=== PATIENT | male | born 1950 | race Caucasian/White ===

== ENCOUNTER 2022-09-24 05:52 | Day surgery (SDC) | payer MEDICARE, OTHER, SELFPAY ==
--- NOTE | 2022-09-16 12:38 | RAD_ITS ---
EXAM: XR CHEST, 2 VIEWS CLINICAL INDICATION: PRE OP TECHNIQUE: Frontal and lateral views of the chest. COMPARISON: No relevant prior studies available. FINDINGS: LUNGS AND PLEURAL SPACES: Unremarkable. No consolidation or edema. No pneumothorax. No effusion. HEART: Unremarkable. Cardiac silhouette not enlarged. MEDIASTINUM: Central airways and mediastinal contour are unremarkable. BONES/JOINTS: Mild thoracic spondylosis, minimal anterior ligamentous ossification at multiple levels. Mildly elevated right hemidiaphragm, most likely chronic. SOFT TISSUES: Unremarkable. RAD/Chest PA and Lateral IMPRESSION: No acute intrathoracic abnormality. Electronically Signed: So Fontana MD at 5:02 EDT ,
[2022-09-24] VITALS (8 sets, daily range): BP systolic 101–126; BP diastolic 58–72; PULSE 52–72; RESP 14–18; TEMP 35.8–36.7; O2SAT 93–98; BMI 24.6
[2022-09-24] MEDS: Lactated Ringers 1,000 ML 15 ML IV ×2 (06:29→10:15)
[2022-09-24] MEDS: Cefazolin 2 GM in 0.9% Normal Saline 100 ML IV (07:58)
[2022-09-24] MEDS: Epinephrine (1 mg/ml) 1 MG/ML VIAL (08:50)
--- NOTE | 2022-09-24 10:12 | PCM.DC ---
Discharge Instructions Follow Up Care Test Results: Test results from this visit will be discussed in further detail at your follow-up appointment, if applicable. Discharge Plan Admission Primary Reason for Your Visit: Right shoulder rotator cuff repair Attending Provider: Cash Rhodes Primary Care Provider: Cecilio Craft NP Instructions Additional Instructions / Restrictions: Follow preprinted instructions from your surgeons office. Discharge Orders/Prescriptions Prescriptions: New oxycodone 5 mg tablet 5 mg PO Q4H PRN (Reason: pain) 7 Days Qty: 42 0RF Continued latanoprost 0.005 % drops 1 drp EACH EYE DAILY Label Comments: Instill 1 drop into both eyes once a day omeprazole 40 mg capsule,delayed release(DR/EC) 40 mg PO DAILY Label Comments: TAKE 1 CAPSULE BY MOUTH DAILY valsartan 320 mg tablet 320 mg PO DAILY Label Comments: TAKE 1 TABLET BY MOUTH DAILY metoprolol succinate 25 mg tablet extended release 24 hr 25 mg PO DAILY Label Comments: TAKE 1 TABLET BY MOUTH DAILY zolpidem 10 mg tablet 10 mg PO QHS Label Comments: 08/07/22 TAKE 1 TABLET BY MOUTH AT BEDTIME timolol maleate 0.5 % drops 1 drp EACH EYE DAILY Label Comments: INSTILL 1 (ONE) DROP INTO BOTH EYES TWICE DAILY rosuvastatin 40 mg tablet 40 mg PO DAILY Label Comments: TAKE 1 TABLET BY MOUTH DAILY tadalafil 5 mg tablet 5 mg PO PRN PRN (Reason: Edema) Label Comments: TAKE 1 TABLET BY MOUTH DAILY hydrochlorothiazide 12.5 mg tablet 12.5 mg PO DAILY Label Comments: TAKE 1 TABLET BY MOUTH EVERY DAY Centrum Silver Men 300-600-300 mcg Tablet 1 tab PO DAILY aspirin 81 mg Capsule 81 mg PO DAILY Referrals / Follow Up: Cash Rhodes, [Med Staff - Active Staff] - Cecilio Craft NP, SOLDERING MACHINE OPERATOR HELPER-C [Primary Care Provider] - Disposition Disposition (needs filled in before D/C Order can be placed): Home, Self Care
--- NOTE | 2022-09-24 10:33 | PCM.OPRPT ---
Report of Operation Date of Procedure: 09/24/22 Description of Surgical Findings:: Preoperative diagnosis: 1. Right shoulder rotator cuff tear 2. Right shoulder subacromial impingement syndrome 3. Symptomatic right acromioclavicular osteoarthritis 4. SLAP tear right shoulder with biceps tendinosis and instability Postoperative diagnosis: 1. Right shoulder partial rotator cuff tear 2. Right shoulder subacromial impingement syndrome 3. Symptomatic right acromioclavicular osteoarthritis 4. SLAP tear right shoulder with biceps tendinitis and instability Procedure: 1. Diagnostic and operative right shoulder arthroscopy with conversion to open rotator cuff repair 2. Right shoulder subacromial decompression 3. Right shoulder open biceps tenodesis Primary Surgeon: Cash Rhodes DO Education Coordinator: So Ang PA-C Anesthesia: General LMA with interscalene block Anesthesiologist: Dr. Sierra Complications: None apparent Specimen: None Estimated blood loss: 50 cc IV fluids: 1000 cc crystalloid Urine output: None Packing/drains: None Implants: Arthrex 4.75 mm swivel lock anchor x3, Arthrex 2.6 mm fiber tack anchors x4 Intraoperative findings: Type II SLAP tear, biceps tendinosis, extensive right shoulder subacromial bursitis, complete, retracted subscapularis tendon tear, full-thickness anterior supraspinatus tendon tear, downsloping subacromial spur, acromioclavicular joint osteoarthritis. Preoperative indications: This is a 71-year-old male seen in the outpatient setting for right shoulder pain. MRI was obtained by an outside provider demonstrated full-thickness tear and retraction of the subscapularis as well as the anterior portion of the supraspinatus. Patient had significant weakness in both tendon distributions upon provocative testing. Patient also had symptomatic AC joint arthrosis and findings concerning for subacromial impingement syndrome. There was biceps instability noted on the MRI with tendinosis. I recommended surgical intervention in the form of right shoulder diagnostic and operative arthroscopy with rotator cuff repair, biceps tenodesis, subacromial decompression and distal clavicle excision. I explained given the large subscapularis tear, conversion to open repair may be necessary. I reviewed the risks, benefits, alternatives the procedure with the patient. Risks included but were not limited to bleeding, infection, loss of life or limb, nonhealing tendon, persistent pain, persistent weakness, stiffness, need for prolonged immobilization, prolonged therapy, DVT or PE, risk of anesthesia, neurovascular injury, need for additional surgery. Patient expressed understanding these risks and wished to proceed with surgery. Description of procedure: Patient was identified in the preoperative holding area by name, medical record number, and date of . Informed consent was confirmed with the patient. The operative extremity was marked with a surgical marker. All questions were answered to the patient's satisfaction. An interscalene block was administered prior to the procedure by the anesthesia staff. At time of his procedure, patient was was brought to the operative suite and positioned supine on a standard operating table. General anesthesia was induced and LMA placed. All bony promises were well-padded. A beachchair attachment was attached to the operating table prior to positioning. Patient was then placed in the beachchair position with arthroscopic overhead crane inspector. The butterfly wing of the bed was removed. The bed was brought 25 degrees. We then prepped and draped the operative upper extremity in a normal, sterile orthopedic fashion. We performed a timeout with all parties in attendance in agreement with the side, site, and operation be performed. No concerns were voiced and we elected to proceed. 2 g Ancef was administered prior to the incision by anesthesia staff. I first outlined the bony landmarks of the shoulder. I established a standard posterior portal with an 11 blade scalpel. Blunt tipped trocar in cannula was inserted into the glenohumeral joint. The joint was insufflated with normal saline solution with epinephrine in the first 2 bags. Trocar was removed and diagnostic arthroscopy was commenced. I established a standard interval portal anteriorly with localization via spinal needle. Skin was sharply incised with 11 blade scalpel. Diagnostic arthroscopy revealed type II SLAP tear, tendinosis of the long head of the biceps tendon. Biceps tenotomy was performed with arthroscopic wand. The biceps tendon was allowed to retract into the groove. The subscapularis was identified and noted to be completely torn in its visualized portions. There were no significant adhesions in the cuff tissue mobilized well with traction. The anterior portion of the supraspinatus was noted to be torn with minimal retraction. I then turned my attention to the subacromial space. Arthroscope was withdrawn. Blunt tipped trocar was used to gain access into the shoulder, this time in the subacromial space. I established a standard lateral portal under direct visualization with a spinal needle after the arthroscope was reintroduced in the posterior portal. The undersurface of the acromion was skeletonized with the radiofrequency ablator as well as peeling off the undersurface and attachment of the coracoacromial ligament. There was a downsloping likely type II spur off the distal portion of the acromion. This was resected utilizing the 5.5 mm bur to a flat acromion. I then identified the degenerative changes at the AC joint. A distal clavicle excision of approximately 8 mm was performed with the arthroscopic bur through the anterior portal. The superior and posterior capsular tissues were left intact. I then turned our attention back to the supraspinatus tear. Given its location, I felt this was accessible through an open approach which was beneficial for achieving maximal fixation of the subscapularis tissue. I made the decision to convert to an open rotator cuff repair at this time. I utilized the anterior portal and extended this into a standard deltopectoral approach. Skin flaps were developed down the level of the fascia. Fascia was opened. The cephalic vein and fat stripe was identified. Vein was retracted laterally with the deltoid muscle. Strap muscles were elevated. Subcoracoid bursa was debrided. Retracted subscapularis was then identified. I placed a Allis clamp and mobilized the tissue on 3 sides bluntly with my finger. Tissue was able to mobilize to less tuberosity tension free. The anterior supraspinatus tendon tear was also noted. Biceps tendon was identified. I then proceeded with double row repair of the subscapularis first. 2 fiber tack anchors were placed along the articular margin anteriorly preloaded with suture tape. Suture tape was passed in standard fashion. A double row was then established utilizing a lateral row of two 4.75 mm bio composite swivel lock anchors with knotless mechanisms. Lateral row was prepared with a bone punch. Sutures were passed through the eyelet of the anchors in a box configuration. Sutures were tensioned, and anchors set with excellent bony purchase. Utilizing the knotless mechanisms, I passed 2 separate inverted mattress sutures through the long head of the biceps tendon to achieve a biceps tenodesis. I also passed a additional limb of suture tape from the lateral row which was tied to the knotless mechanisms achieving compression at the tenodesis site. Proximal biceps stump was then excised with Bovie cautery. I then turned my attention to the supraspinatus. Cuff tissue had mobilized well with reapproximation of the subscapularis. I performed a double row repair of the supraspinatus with 2 fiber tack anchors at the medial row into a single swivel lock anchor laterally. Sutures were passed through the cuff tissue and tied medially, suture limbs were then passed through the swivel lock anchor laterally and placed in standard fashion. Excellent reapproximation of cuff tissue was noted. The shoulder was brought through range of motion and cuff tears appear to be well approximated to their footprints. I copiously irrigated the wound with normal saline. Portal sites were closed in interrupted [id number] fashion with 4-0 nylon suture. Deltopectoral incision was closed in layers with reapproximation of the fascia with a #1 Vicryl suture in a running, locking fashion. Dermis was reapproximated with 2-0 Vicryl suture in intradermal fashion. Skin was finally reapproximated with surgical kianna. Sterile compression dressing was applied. Patient was then placed in UltraSling. He was able to be safely extubated in the operative suite. He was transferred to his gurney and subsequently to PACU in stable condition. Need for skilled entry level administrative assistant: So Ang PA-C was critical to the outcome of the case. During the course of the procedure the physician entry level administrative assistant played a vital role. Her intimate knowledge of my steps in the procedure aided in safe and expedient completion of the procedure. The PA played a vital role in positioning particularly in obtaining the appropriate positioning. The PA was also vital in the retraction of soft tissues during the exposure and protecting vital structures. The PA was also vital and obtaining tendon reduction and assisting with hardware placement. She also played a vital role in closure and sling application with my direct supervision. Postoperative plan: Patient will be nonweightbearing to the operative extremity. He should maintain his sling at all times unless to shower. He may shower on postoperative day #2 if no significant drainage. He will follow up in approximately 2 weeks for suture removal. We will plan to initiate twice daily aspirin for DVT prophylaxis starting tomorrow. Prescription for oxycodone was sent to his pharmacy for postoperative analgesia.
== END 2022-09-24 13:15 | disposition home or self-care (01) ==
LOC: SDC 05:53 → AC 05:53
PROVIDERS: PCP Nurse Practitioner Family; Referring Provider Student in an Organized Health Care Education/Training Program; Visit Provider Student in an Organized Health Care Education/Training Program
PROC: (CPT 29827; principal; 2022-09-24 07:40)
DX: M19.011 Primary osteoarthritis, right shoulder (principal); M75.22 Bicipital tendinitis, left shoulder; M75.41 Impingement syndrome of right shoulder; S43.431A Superior glenoid labrum lesion of right shoulder, initial encounter; M75.122 Complete rotator cuff tear or rupture of left shoulder, not specified as traumatic; Z53.39 Other specified procedure converted to open procedure; M25.311 Other instability, right shoulder; M19.012 Primary osteoarthritis, left shoulder; M75.111 Incomplete rotator cuff tear or rupture of right shoulder, not specified as traumatic; M75.101 Unspecified rotator cuff tear or rupture of right shoulder, not specified as traumatic; S43.432A Superior glenoid labrum lesion of left shoulder, initial encounter; M75.51 Bursitis of right shoulder; I10 Essential (primary) hypertension; I25.10 Atherosclerotic heart disease of native coronary artery without angina pectoris; Z95.5 Presence of coronary angioplasty implant and graft
CPT/HCPCS: 23410; 29824; 24341; 23430; 01610; 64450; 71046; C1713; J7120; J2405

== ENCOUNTER → 2023-01-21 | Outpatient (CLI) | payer MEDICARE, OTHER, SELFPAY ==
--- NOTE | 2023-01-21 07:18 | CT_ITS ---
STUDY: CT CHEST, ABDOMEN T PELVIS WITH CONTRAST REASON FOR EXAM: Male, 72 years old. PANCREATIC MASS AND RIGHT LUNG NODULE RADIATION DOSAGE (If Supplied By Facility): CTDIvol = ( 18.71 ) mGy, DLP = ( 1644.39 ) mGycm TECHNIQUE: Transaxial imaging was performed following intravenous administration of Oral and amp; IV Readi-CAT and amp; 100mL Isovue-370. Multiplanar coronal and sagittal images were reformatted. Individualized dose optimization techniques were used for this CT. COMPARISON: No relevant priors. FINDINGS: CHEST Linear scar in the superior posterior segment of the left lung apex. There is a 1.7 cm x 1.2 cm noncalcified nodule in the peripheral lateral aspect of the right lower lobe as seen on axial image #60. Adjacent linear density extending to the left inferior hilum. A neoplastic process should be ruled out. There is no demonstrated pleural abnormality. Mild coronary artery calcification. Normal mediastinum. Normal hilar regions. Normal unenhanced pulmonary arteries. There is atherosclerotic calcification of the aortic arch. There are multi-level degenerative changes of the thoracic spine. Increased kyphosis. ABDOMEN There is decreased attenuation of the liver consistent with steatosis. There is a faint 6 mm hypodensity in the inferior aspect of the right lobe of the liver. A metastatic deposit should be ruled out. Normal gallbladder and extrahepatic biliary system. Normal spleen. There is a 3.6 x 4.2 cm hypodense mass in the tail portion of the pancreas. A neoplastic process should be ruled out. Normal bilateral adrenal glands. Normal right kidney. Small left renal cysts. There is a small hiatal hernia. Normal small intestine. Normal colon. The appendix is visualized and appears normal. There is diffuse atherosclerotic calcification of the abdominal aorta and its major visceral branches., without a demonstrated aneurysm. Normal inferior vena cava. Normal retroperitoneum. Normal abdominal wall. Status post right total hip replacement. PELVIS Normal urinary bladder. Mild prostatic hypertrophy. There is no pelvic fluid. There is no pelvic lymphadenopathy or mass lesion. Normal visualized pelvic arteries. CT/CT Chest, Abd, Pel w/Contrast IMPRESSION: 1.7 sono by 1.2 cm noncalcified irregular nodule in the peripheral lateral aspect of the right lower lobe. A metastatic deposit should be ruled out. 3.6 cm x 4.2 cm hypodense mass in the tibial portion of the pancreas. A neoplastic process should be ruled out. There is a faint 6 mm hypodensity in the inferior aspect of the right lobe of the liver. Electronically Signed: Julio Sanderson MD at 15:35 EDT ,
[2023-01-21 07:42] LABS: EGFR FINGERSTICK > 60.0000 mL/min (>60)
== END | disposition home or self-care (01) ==
LOC: CT 07:16
PROVIDERS: PCP Nurse Practitioner Family; Referring Provider Internal Medicine Hematology & Oncology; Visit Provider Internal Medicine Hematology & Oncology
DX: K86.89 Other specified diseases of pancreas (principal); R91.1 Solitary pulmonary nodule
CPT/HCPCS: 71260; 74177; Q9967

== ENCOUNTER 2023-02-15 08:47 | Outpatient (CLI) | payer MEDICARE, OTHER, SELFPAY ==
[2023-02-15] VITALS (11 sets, daily range): BP systolic 112–161; BP diastolic 45–82; PULSE 74–85; RESP 12–16; TEMP 36.4; O2SAT 95–100; BMI 32.2
--- NOTE | 2023-02-15 | ASPIGT_PTH ---
PATIENT: CLARE CALI LOC: CT U#:[id number] AGE/SX: 72/M ROOM: RE02/15/[address]: Dr. Estefany Rangel MD : 1950 BED: DIS: 02/15/2023 SPEC #: [id number] RECD: 02/15/23 10:10 STATUS: SULTANA REQ #: [id number] INDERJIT: 02/15/23 00:[address]: Estefany Rangel DEPT: SURGICAL PATHOLOGY RECD BY: Tigist Aquino ENTERED: 02/15/23 15:24 SP TYPE: ASP RAD OTHR DR: Cecilio Craft, CONE RUNNER-C Tissues: Right lower lobe of lung, NOS Procedures: FNA Specimen Adequacy Special Stain Group II Surgery Specimen Level IV Imprint (control) HEADER OPERATION: CT-guided right lung biopsy PRE-OP DIAGNOSIS: RLL lung nodule TISSUE SUBMITTED: Right lung 20-gauge x5 MICROSCOPIC DIAGNOSIS Right lung, CT-guided core biopsy: Non-small cell carcinoma, favor adenocarcinoma. See comment. SJ:rg 02/16/2023 COMMENT The specimen is evaluated at the time of biopsy by Dr. Nelson. Immediate Evaluation = Atypical cells suspicious for non-small cell carcinoma are noted. Immunohistochemistry ([id number]) supports the above diagnosis. IHC profile is noncontributory for primary site of origin. Primary sites of origin may represent but not limited to lung, upper gastrointestinal tract or pancreas. Correlation with clinical, radiologic findings and appropriate follow up are necessary. Molecular studies on the tumor can be performed if clinically indicated. Please notify the laboratory if they are needed. Case has been reviewed in consultation with Dr. Russell who concurs with the above diagnosis. IDC:AM MICROSCOPIC DESCRIPTION Slides are reviewed. GROSS DESCRIPTION Received in fixative is one container labeled with the patient's name and designated right lung. The specimen consists of multiple irregular fragments of light cabrera soft tissue that in aggregate measure 0.5 x 0.2 x <0.1 cm. The specimen is totally submitted in one cassette. Two touch imprints are prepared at the time of core biopsy. / SJ:rg 02/15/2023 TC:0 [facility]: [id number] ADDENDUM ADDENDUM ADDENDUM ADDENDUM ADDENDUM ADDENDUM ADDENDUM ADDENDUM ADDENDUM ADDENDUM ADDENDUM ADDENDUM ADDENDUM ADDENDUM ADDENDUM ADDENDUM ADDENDUM ADDENDUM ADDENDUM ADDENDUM ADDENDUM ADDENDUM ADDENDUM ADDENDUM ADDENDUM 03/19/2023 10:25 ADDENDUM 03/19/2023 10:25 ADDENDUM 03/19/2023 10:25 ADDENDUM 03/19/2023 10:25 ADDENDUM 03/19/2023 10:25 [facility] ADVANCED PANCREATIC AND BILIARY TRACT TUMOR SEQUENCING FROM [employer] RESULT SUMMARY: Abnormal DETECTED GENOMIC ALTERATIONS: Tier I: Variants of Strong Clinical Significance KRAS p.([id number]) Tier II: Variants of Potential Clinical Significance TGFBR2 p.([id number]) Tier III: Variants of Unknown Clinical Significance ARID1A p.([id number]) BRCA2 p.([id number]) IMMUNOTHERAPY BIOMARKERS: Tumor Mutation [place]: Low (4.7 Mutations / MB) Microsatellite Instability: MSI Negative (2.46%) PERTINENT NEGATIVE RESULTS: The following genes are NEGATIVE for clinically relevant mutations. Mutational hotspots and surrounding exonic regions were interrogated for DNA level point mutations and indels (fusions not assayed). BRAF, BRCA1, CCNE1, ERBB2, FGFR1, FGFR2, FGFR3, IDH1, IDH2, MLH1, MSH2, MSH6, NRAS, PALB2, [id number], PMS2, STK11, TP53, VHL Please see complete report in e-chart or EMR
--- NOTE | 2023-02-15 | IMM_PTH ---
PATIENT: CLARE CALI LOC: CT U#:[id number] AGE/SX: 72/M ROOM: RE02/15/[address]: Dr. Estefany Rangel MD : 1950 BED: DIS: 02/15/2023 SPEC #: [id number] RECD: 02/16/23 13:25 STATUS: SULTANA REQ #: [id number] INDERJIT: 02/15/23 00:[address]: Estefany Rangel DEPT: IMMUNOHISTOCHEMISTRY RECD BY: Tigist Aquino ENTERED: 02/16/23 13:27 SP TYPE: IMMUNO OTHR DR: Cecilio Craft, ARSON AND BOMB INVESTIGATOR-C Tissues: Right lung, NOS Procedures: RCC (add) NAPSIN A (add) CK20 (add) CK5-6 (add) CK7 (add) CK8 (add) HEP PAR (add) TTF1 (add) Pankeratin (initial) P40 (add) PSAP (add) PHYSICIAN & [address] [address] SPECIMEN INFORMATION: Tissue Source: Right lung Clinical Info: RLL lung nodule Specimen Number: [id number] CPT code: 57685, 23493 x10 METHODOLOGY: Deparaffinized sections of prefer/formalin-fixed tissue or PAP/DQ stained slides are incubated with monoclonal/polyclonal antibodies/oligonucleotide probes. Localization is made via biotin free immunoperoxidase method. Appropriate controls are performed and reacted as expected. Results on target cell population are indicated in the following table: RESULTS: ANTIBODY / CLONE RESULT AE1-3 (AE1/AE3/PCK26) positive CK7 (OV-TL12/30) positive CK8 (11gmapH96) positive CK20 (KS20.8) negative TTF-1 (8G7G3/1) negative Napsin A (Rabbit Polyclonal) negative HepPar (OCh1E5) negative RCC (PN-15) negative PSAP (PASE/4LJ) negative CK5-6 (D5 & 1684) negative P40 (BC28) negative These tests were developed and their performance characteristics determined by [facility]. They may not have been cleared or approved by the U.S. Food and Drug Administration. The FDA has determined that such clearance or approval is not necessary. The above immunohistochemical/dualISH markers are ordered and reviewed by the Pathologist. INTERPRETATION: Right lung, CT-guided biopsy: Non-small cell carcinoma, favor adenocarcinoma. See comment. SJ:bert 02/17/2023 Comment: IHC profile is noncontributory for primary site of origin. Primary sites of origin may represent but not limited to lung, upper gastrointestinal tract or pancreas. Case has been reviewed in consultation with Dr. Russell who concurs with the above diagnosis. IDC:[email or web address]
--- NOTE | 2023-02-15 08:57 | CT_ITS ---
PROCEDURE: CT GUIDED CORE NEEDLE BIOPSY OF A right lower lobe LUNG LESION INDICATION: Male, 72 years old. RLL NODULE PHYSICIAN: Dr. Kin Pascal CONSENT: Written informed consent was obtained having explained the risks, benefits and alternatives in detail with the patient who accepted the risks and agreed to proceed. Laboratory review and clinical assessment was performed. CONSCIOUS SEDATION PROTOCOL: The Drugs used were: 2 mg Versed, IV., and 50 mcg Fentanyl, IV. The sedation time was: 15 minutes. The conscious sedation protocol was independently monitored. RADIATION DOSAGE (If Supplied By Facility): CTDIvol = ( 17.3 ) mGy, DLP = ( 352.8 ) mGycm Individualized dose optimization techniques were used for this CT. TECHNIQUE: The patient was placed in the prone position. A noncontrast CT was performed to localize the lesion in the right lower lobe . The skin surface was prepped and draped in a sterile fashion. 1% lidocaine was used for local anesthesia. Using CT guidance, a 18-gauge coaxial biopsy device was advanced to the periphery of the lesion. A total of 5 core specimens were obtained. The specimens were placed in a formalin solution. A post procedure CT demonstrated no adverse sequelae or pneumothorax. The patient tolerated the procedure well without adverse event. A negative biopsy does not exclude malignancy. Further imaging or clinical followup based on patient condition and degree of clinical suspicion for malignancy. Suggest rebiopsy, if biopsy results do not match with clinical scenario. CT/Biopsy/Inj or Needle Placement IMPRESSION: 1. CT directed core needle biopsy of the right lower lobe nodule using CT image guidance with image documentation as described. Pathology results are pending. 2. Conscious Sedation protocol utilized with independent monitoring. Electronically Signed: Julio Sanderson MD at 10:44 EDT ,
[2023-02-15 09:13] LABS: Absolute Lymphocyte Count 1.87 X10^3/uL (0.83-4.51); Absolute Neutrophil Count 4.3 X10^3/uL (2.0-7.7); Basophil# 0.06 X10^3/uL; Basophil% 0.8 % (0-1); Eosinophil# 0.17 X10^3/uL; Eosinophils% 2.4 % (0-5); Hematocrit 41.6 % (40-54); Hemoglobin 13.6 g/dL (13.0-16.5); Lymphocyte # 1.87 X10^3/ul (0.83-4.51); Lymphocyte % 26.2 % (19-41); Mean Corp Hgb Conc 32.7 g/dL (32-36); Mean Corpuscular Hgb 31.6 pg (27.0-32.0); Mean Corpuscular Volume 96.5 fL (80-94); Mean Platelet Vol. 11.8 fl (6.2-12.0); Monocyte# 0.72 X10^3/uL; Monocyte% 10.1 % (0-10); NRBC Flagged by Analyzer 0 % (0-5); Neutrophil # 4.29 X10^3/uL (2.7-7.7); Neutrophil % 60.1 % (47-70); Platelet Count 205 K/mm3 (150-450); RBC Distribution Width CV 13.3 % (11.6-14.6); RBC Distribution Width SD 47.4 fl (35.1-43.9); Red Blood Count 4.31 M/mm3 (4.6-6.2); White Blood Count 7.1 K/mm3 (4.4-11.0)
[2023-02-15] MEDS: 0.9% Normal Saline (250mL Bag) 250 ML 15 ML IV (10:06)
[2023-02-15] MEDS: Midazolam 2 MG/2 ML Syringe IV (10:10)
[2023-02-15] MEDS: fentaNYL 100 MCG/2 ML Ampul IV (10:12)
[2023-02-15] MEDS: Lidocaine 2% (20 ml mdv) 20 ML Vial INFILT (10:18)
--- NOTE | 2023-02-15 10:30 | RAD_ITS ---
STUDY: X-RAY CHEST REASON FOR EXAM: Male, 72 years old. Immediate post lung biopsy -- Immediately post lung biopsy TECHNIQUE: AP inspiration and expiration views. COMPARISON: Comparison is made with prior study of September 16, 2022. FINDINGS: Stable elevation of the right hemidiaphragm. No evidence of pneumothorax on the immediate post right lung biopsy radiographs. RAD/Chest Insp/Exp 2 View IMPRESSION: No evidence of pneumothorax on the immediate post right lung biopsy radiographs. Electronically Signed: Julio Sanderson MD at 11:10 EDT ,
--- NOTE | 2023-02-15 10:37 | PCM.OP.PRO ---
Procedure Report Date of Procedure: 02/15/23 Assessment & Plan Assessment/Plan (1) Lung nodule: PLAN: PROCEDURE: CT GUIDED CORE NEEDLE LUNG BIOPSY ORDERING PROVIDER: Dr. Rangel INDICATION: Male, 72 years old. Right lower lobe lung nodule. PROVIDER: MARCIA Ramírez CONSENT: Written informed consent was obtained having explained the risks, benefits and alternatives in detail with the patient who accepted the risks and agreed to proceed. Laboratory review and clinical assessment was performed. PRE-PROCEDURE SEDATION ASSESSMENT: Current history and physical dictated by referring physician and reviewed. No clinical changes since date of exam. Patient has an ASA Class of 2. PROCEDURAL SEDATION PROTOCOL: The Drugs used were: 2 mg Versed, IV, and 50 mcg Fentanyl, IV. The sedation time was: 18 minutes, starting at 1010 and terminated at 1028. The procedural sedation protocol was independently monitored by the department nurse. RADIATION DOSAGE (If Supplied By Facility): CTDIvol = 18.16 mGy, DLP =352.80 mGycm Individualized dose optimization techniques were used for this CT. TECHNIQUE: The patient was placed in a prone position. A noncontrast CT was performed to localize the lesion in the right lower lobe. The skin surface was prepped and draped in a sterile fashion. 2% lidocaine was used for local anesthesia. Using CT guidance, a 20-gauge coaxial biopsy device was advanced to the periphery of the lesion. A total of 5 core specimens were obtained. Specimens were microscopically reviewed by pathology in the CT suite and placed in formalin solution. BioSentry tract sealant system was deployed at the biopsy site, and the biopsy needle was removed. A sterile occlusive dressing was applied to the biopsy site. The patient tolerated the procedure well. An immediate chest xray was ordered, per protocol. A negative biopsy does not exclude malignancy. Further imaging or clinical followup based on patient condition and degree of clinical suspicion for malignancy. Suggest rebiopsy, if biopsy results do not match with clinical scenario. IMPRESSION: 1. CT directed core needle biopsy of [ ] nodule using CT image guidance with image documentation as described. Pathology results are pending. 2. Procedural Sedation protocol utilized with independent monitoring by the department nurse. Procedures Radiology Radiology CT Procedures: 28135 Biopsy Lung
--- NOTE | 2023-02-15 12:25 | RAD_ITS ---
STUDY: X-RAY CHEST REASON FOR EXAM: Male, 72 years old. 2 hrs post lung biopsy -- 2 hours post lung biopsy TECHNIQUE: AP inspiration and expiration views. COMPARISON: Comparison is made with prior study done earlier today. FINDINGS: The patient is status post right lung biopsy. No evidence of pneumothorax. RAD/Chest Insp/Exp 2 View IMPRESSION: No evidence of pneumothorax on the delayed post right lung biopsy radiographs. Electronically Signed: Julio Sanderson MD at 14:57 EDT ,
== END 2023-02-15 23:59 | disposition home or self-care (01) ==
PROVIDERS: PCP Nurse Practitioner Family; Referring Provider Internal Medicine Hematology & Oncology; Visit Provider Internal Medicine Hematology & Oncology
DX: Z01.812 Encounter for preprocedural laboratory examination (principal); R91.1 Solitary pulmonary nodule
CPT/HCPCS: 32408; 36415; 71046; 77012; 85025; 85610; 85730; 88161; 88172; 88305; 88313; 88341; 88342; 99156; J7050; A4216; C2613

== ENCOUNTER → 2023-02-25 | Outpatient (CLI) | payer MEDICARE, OTHER, SELFPAY ==
--- NOTE | 2023-02-25 09:21 | NM_ITS ---
CLINICAL: 72-year-old male with history of pancreatic carcinoma. WHOLE BODY 99m Tc MDP RADIONUCLIDE BONE SCINTIGRAPHY COMPARISON: None available FINDINGS: Following the intravenous administration of 25.2 mCi of 99m Tc MDP, whole body bone images reveal: 1. Increased radiopharmaceutical concentration is identified in the right proximal humeral metaphysis and distal left femoral metaphysis medially. 2. Enhanced uptake is noted in the acromioclavicular and sternoclavicular compartments of both shoulders, mid cervical spine posteriorly on the left, fifth lumbar vertebra posteriorly on the right, the wrist articulations bilaterally. 3. The remaining skeletal structures are scintigraphically unremarkable with normal-appearing renal images and urinary bladder activity identified. An apparent asymptomatic right hip arthroplasty is defined which may reflect the presence of heterotropic bone formation. NM/Bone Scan Whole Body IMPRESSION: 1. The increase in radiopharmaceutical concentration defined in the right proximal humeral and distal left femoral metaphysis may be further investigated with plain film radiography in setting of known primary pancreatic carcinoma. 2. Degenerative arthritis is defined in the bilateral shoulders, the cervical and lumbar spine, the bilateral wrist articulations. Electronically Signed: Cecilio Ulloa DO at 22:07 EDT ,
== END | disposition home or self-care (01) ==
LOC: NM 09:21
PROVIDERS: PCP Nurse Practitioner Family; Referring Provider Internal Medicine Hematology & Oncology; Visit Provider Internal Medicine Hematology & Oncology
DX: C25.9 Malignant neoplasm of pancreas, unspecified (principal)
CPT/HCPCS: 78306; A9503

== ENCOUNTER 2023-03-08 08:01 | Day surgery (SDC) | payer MEDICARE, OTHER, SELFPAY ==
[2023-03-08] VITALS (7 sets, daily range): BP systolic 116–127; BP diastolic 67–74; PULSE 83–93; RESP 16–18; TEMP 36.2–36.9; O2SAT 93–100; BMI 24.2
--- NOTE | 2023-03-08 08:32 | HP.PCM_ITS ---
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 Required: No Is patient in pain?: No Allergies Sulfa (Sulfonamide Antibiotics) Allergy (Unknown, Verified 02/25/23 14:08) Hivescodeine Adverse Reaction (Unknown, Verified 02/25/23 14:08) Nauseaamoxicillin Adverse Reaction (Verified 02/25/23 14:08) Nausea Medications aspirin 81 mg capsule 81 mg PO DAILY 09/16/22 [History Confirmed 02/25/23] hydrochlorothiazide 12.5 mg tablet 12.5 mg PO DAILY 09/16/22 [History Confirmed 02/25/23] latanoprost 0.005 % eye drops 1 drp EACH EYE DAILY 09/16/22 [History Confirmed 02/25/23] metoprolol succinate 25 mg tablet,extended release 24 hr 25 mg PO DAILY 09/16/22 [History Confirmed 02/25/23] [id number] 300 mcg-K 60 mcg-lycop 600 mcg-lutein 300 mcg tablet (Centrum Silver Men) 1 tab PO DAILY 09/16/22 [History Confirmed 02/25/23] omeprazole 40 mg capsule,delayed release 40 mg PO DAILY 09/16/22 [History Confirmed 02/25/23] rosuvastatin 40 mg tablet 40 mg PO DAILY 09/16/22 [History Confirmed 02/25/23] tadalafil 5 mg tablet 5 mg PO PRN PRN Edema 09/16/22 [History Confirmed 02/25/23] timolol maleate 0.5 % eye drops 1 drp EACH EYE DAILY 09/16/22 [History Confirmed 02/25/23] valsartan 320 mg tablet 320 mg PO DAILY 09/16/22 [History Confirmed 02/25/23] zolpidem 10 mg tablet 10 mg PO QHS 09/16/22 [History Confirmed 02/25/23] scopolamine base 1 mg over 3 days transdermal patch 1 patch transdermal Q3D PRN motion sickness 01/19/23 [History Confirmed 02/25/23] PFSH Medical History Alcohol use Anemia BPH (benign prostatic hyperplasia) CAD (coronary artery disease) Cardiology follow-up encounter Chronic constipation Decreased ROM of right shoulder Elevated liver enzymes Erectile dysfunction Gastric reflux High cholesterol History of echocardiogram History of stress test Holosystolic murmur Hypertension IBS (irritable bowel syndrome) Impaired fasting glucose Insomnia Lung nodule Motion sickness Pancreatic mass Rotator cuff tear Wears dentures Wears glasses Wears partial dentures Surgical History H/O repair of right rotator cuff History of cardiac catheterization History of colonoscopy History of coronary artery stent placement History of knee replacement Hx of bilateral cataract extraction Hx of total hip arthroplasty Postsurgical percutaneous transluminal coronary angioplasty (PTCA) status Family History Sister Breast cancerMother CancerFather Cancer Social History household members: spouse and children Smoking Status: Never smoker alcohol intake: current alcohol intake frequency: a few times a week Alcohol type: beer substance use type: does not use HPI HPI HPI: Patient is a 72-year-old male here to discuss right chest port placement for pancreatic cancer. The patient does not have any new symptoms or new issues. ROS General General: No weight change, appetite, fatigue, colon cancer, breast cancer or weakness HEENT HEENT: No difficulty swallowing, eye injury, eye surgery, swollen glands or hoarseness Endo Endocrine: No thyroid disease, diabetes mellitus, thyroid cancer, Hair loss, heat intolerance or cold intolerance Skin Skin: No rash or changing moles Breast Breast: No left breast lump, right breast lump, nipple discharge, breast pain, abnormal mammogram, abnormal US or breast enlargement Musc Musculoskeletal: No back problems, arthritis, rheumatoid arthritis, gout or joint pain Cardio Cardiovascular: Yes high blood pressure and heart stent; No murmur, pacemaker, heart disease, atrial fibrillation, heart attack, palpitations, shortness of breat with exertion or chest pain Psych Psychiatric: No depression, anxiety or hearing voices Resp Respiratory: No shortness of breath, No sleep apnea, No cough, No COPD, No asthma, No emphysema and No wheezing Gastro Gastrointestinal: Yes abdominal pain, No nausea or vomiting, Yes diarrhea, Yes constipation, No blood in stool, No acid reflux, No hemorrhoids, No ulcers, No gallbladder problem and No black,tarry stools Adam Hematologic: Yes blood thinners, No blood disorders, No bleeding, No anemia and No blood clots Neuro Neurologic: No system reviewed and no additional complaints, except as documented, No as per HPI, No abnormal gait, No abnormal hearing, No abnormal movements, No abnormal speech, No behavioral changes, No burning sensations, No confusion, No convulsions, No disequilibrium, No dizziness, No localized weakness, No frequent falls, No headache(s), No lack of coordination, No loss of vision, No memory loss, No numbness, No other visual disturbances, No radicular pain, No restless legs, No sensory deficit, No syncope, No tingling, No tremor (s), No weakness and No other Exam Const General: cooperative Orientation: alert and oriented x3 [facility] Head: normal to inspection Neck Neck: normal visual inspection and full ROM Chest Chest palpation & inspection: normal inspection of the chest Resp Effort & Inspection: normal respiratory effort Auscultation: clear to auscultation bilaterally Cardio Rate: regular rate Rhythm: regular rhythm GI Inspection: non-distended Palpation: soft and nontender Skin General: no rashes or lesions noted Neuro General: patient alert and patient oriented x3 Extrem General: full ROM Psych Appearance: grossly normal Mental Status: mental status grossly normal Assessment and Plan Assessment and Plan (1) Pancreatic mass: Status: Acute (2) Encounter for insertion of venous access port: Status: Acute Plan I discussed right chest port placement with the patient in detail. I discussed the risks including but not limited to bleeding, infection, injury to other organs, pneumothorax, line infection or DVT. Patient understands the risks and is willing to proceed. He will hold his aspirin for 5 days prior to the procedure. I believe I can get him situated to have his port placed the day bef ore treatment and I will leave the port accessed. . Mark Rodney MD Pager: [facility] [address] [place] [address], [address] [place] [address] Office: I have examined the patient and the H&P has been reviewed. There are no clinical changes since date of exam.
[2023-03-08] MEDS: Lactated Ringers 1,000 ML 15 ML IV (08:33)
[2023-03-08] MEDS: Cefazolin 2 GM in 0.9% Normal Saline (100mL Bag) 100 ML IV (09:12)
[2023-03-08] MEDS: Lidocaine 1% /Epi 1:100 (50ml) 50 ML VIAL (09:25)
[2023-03-08] MEDS: Bupivacaine Mpf 0.5% 30 ML VIAL (09:25)
--- NOTE | 2023-03-08 09:45 | RAD_ITS ---
STUDY: X-RAY CHEST REASON FOR EXAM: Male, 72 years old. Line placement -- in pacu TECHNIQUE: Single AP portable view of the chest. COMPARISON: Comparison is made with prior study February 15, 2023. FINDINGS: A right-sided suzan catheter has been placed. The tip is at the junction of the superior vena cava and right atrium. Increased markings at the right lung base suggestive of atelectasis and/or infiltrate. There is no demonstrated pleural abnormality. Normal size heart. Normal mediastinum and sheldon. Normal visualized pulmonary arteries. Normal visualized aortic arch and descending thoracic aorta. There are diffuse degenerative changes of the visualized thoracic spine. Normal visualized ribs, clavicles, and shoulders. There is no demonstrated abnormality of the visualized soft tissue structures of the upper abdomen. RAD/CXR for Line Placement IMPRESSION: The tip of the right suzan catheter is at the junction of the superior vena cava and right atrium. Electronically Signed: Julio Sanderson MD at 9:58 EST ,
--- NOTE | 2023-03-08 09:45 | OP.PCM_ITS ---
Report of Operation Date of Procedure: 03/08/23 Pre-Operative Diagnosis: Pancreatic cancer, need for vascular access for chemot herapy Post-Operative Diagnosis: Same Surgery/Procedure Performed:: Ultrasound and fluoroscopy guided right chest port placement utilizing right IJ Type of Anesthesia: Local MAC Estimated Blood Loss (mL): 5 Description of Procedure: After obtaining informed consent patient was brought back to the operating room MAC anesthesia was induced and the right chest and neck were prepped in normal sterile fashion. Ultrasound was used to evaluate both IJs and the right IJ was selected. Next, using a needle, the right IJ was accessed and a guidewire was passed on into the superior vena cava under fluoroscopy guidance. A small incision was made over the puncture site and the dilator introducer was placed over the guidewire. Next this was capped and the pocket was made for the port. 1% lidocaine with epinephrine was injected in the proposed port site. An incision was made with scalpel. Electrocautery was used to make a pocket under the skin and subcutaneous tissue. Hemostasis was obtained. Next, the catheter was tunneled up to the neck incision site and placed through the introducer. The peel-away introducer was removed and the position of the catheter was confirmed on fluoroscopy. Next, the catheter was trimmed and attached to the port with the locking device. Interrupted 2-0 Vicryl sutures were used to anchor the port to the chest wall and then the port was placed inside the pocket. The pocket was then flushed with saline and the port irrigated with saline. There was good blood return and the port flushed easily. Next, heparin was injected into the port. The skin was closed with subcutaneous interrupted 3-0 Vicryl sutures. A single 3-0 Vicryl sutures placed under the skin at the neck incision site. Steri-Strips were placed as well as op sites. Patient tolerated procedure well, was taken to PACU in stable condition. Chest x-ray will be obtained. Grafts/Implants Used: 8 Greek PowerPort Admit VTE Documentation VTE Mechan Device Prophylaxis: SCD's
--- NOTE | 2023-03-08 09:48 | EX.PCM.DISCH ---
Discharge Instructions Procedure Port-A-Cath Diet Discharge Diet: Light diet - advance as tolerated (Pain medication may cause nausea. You should typically eat light foods as you take your pain medication.) Activity Discharge Activity: Return to Normal Activity and May Shower (with your bandage in place in 1-2 days after surgery. DO NOT SHOWER WHEN YOUR PORT IS ACCESSED.) Dressing / Incision Call your doctor if your incision/area has: Continuous Slow Oozing, Sudden Increased Bleeding, Increased Pain/ Swelling, Increased Redness and Foul Smelling Discharge Call your doctor if you observe: Fever of 101 or Higher Remove Dressing in: 2 days Cleanse incision/area with: Soap & Water Follow Up Care Please Follow Up With: Mark Rodney MD When: as needed [phone] Test Results: Test results from this visit will be discussed in further detail at your follow-up appointment, if applicable. Discharge Plan Admission Attending Provider: Mark Rodney Primary Care Provider: Cecilio Craft GLASS LAMINATING OPERATOR Instructions Additional Instructions / Restrictions: Alternate ibuprofen and Tylenol for pain control. Resume aspirin tomorrow Discharge Orders/Prescriptions Prescriptions: No Action scopolamine base 1 mg over 3 days patch 3 day 1 patch transdermal Q3D PRN (Reason: motion sickness) latanoprost 0.005 % drops 1 drp EACH EYE DAILY Patient Comments: Instill 1 drop into both eyes once a day omeprazole 40 mg capsule,delayed release(DR/EC) 40 mg PO DAILY Patient Comments: TAKE 1 CAPSULE BY MOUTH DAILY valsartan 320 mg tablet 320 mg PO DAILY Patient Comments: TAKE 1 TABLET BY MOUTH DAILY metoprolol succinate 25 mg tablet extended release 24 hr 25 mg PO DAILY Patient Comments: TAKE 1 TABLET BY MOUTH DAILY zolpidem 10 mg tablet 10 mg PO QHS Patient Comments: 08/07/22 TAKE 1 TABLET BY MOUTH AT BEDTIME timolol maleate 0.5 % drops 1 drp EACH EYE DAILY Patient Comments: INSTILL 1 (ONE) DROP INTO BOTH EYES TWICE DAILY rosuvastatin 40 mg tablet 40 mg PO DAILY Patient Comments: TAKE 1 TABLET BY MOUTH DAILY tadalafil 5 mg tablet 5 mg PO PRN PRN (Reason: Edema) Patient Comments: TAKE 1 TABLET BY MOUTH DAILY hydrochlorothiazide 12.5 mg tablet 12.5 mg PO DAILY Patient Comments: TAKE 1 TABLET BY MOUTH EVERY DAY Centrum Silver Men 300-600-300 mcg Tablet 1 tab PO DAILY aspirin 81 mg Capsule 81 mg PO DAILY Referrals / Follow Up: Cecilio Craft GLASS LAMINATING OPERATOR, GLASS LAMINATING OPERATOR-C [Primary Care Provider] - Disposition Disposition (needs filled in before D/C Order can be placed): Home, Self Care
== END 2023-03-08 10:39 | disposition home or self-care (01) ==
LOC: SDC 08:02 → AC 08:03
PROVIDERS: PCP Nurse Practitioner Family; Referring Provider Surgery; Visit Provider Surgery
PROC: (CPT 36561; principal; 2023-03-08 09:10)
DX: Z45.2 Encounter for adjustment and management of vascular access device (principal); C25.9 Malignant neoplasm of pancreas, unspecified; Z79.899 Other long term (current) drug therapy; Z79.82 Long term (current) use of aspirin; N40.0 Benign prostatic hyperplasia without lower urinary tract symptoms; K21.9 Gastro-esophageal reflux disease without esophagitis; E78.00 Pure hypercholesterolemia, unspecified
CPT/HCPCS: 36561; 00532; 71045; 77001; J7120; C1788

== ENCOUNTER → 2023-03-09 | Outpatient (CLI) | payer MEDICARE, OTHER, SELFPAY ==
--- NOTE | 2023-03-09 09:17 | RAD_ITS ---
INDICATION: ABNORMAL BONE SCAN EXAMINATION/TECHNIQUE: X-RAY - RIGHT XR Humerus Min 2 Views COMPARISON: None. FINDINGS: SOFT TISSUES: Unremarkable. BONES/JOINTS: No fracture or dislocation. No significant degenerative changes. No erosive or sclerotic changes. RAD/Humerus min 2 Views IMPRESSION: Unremarkable views of the right humerus. Specifically, no radiographic abnormality in the proximal right humeral metaphysis. Recommend follow-up with MRI. Electronically Signed: Laci Black DO at 5:43 EST ,
--- NOTE | 2023-03-09 09:20 | RAD_ITS ---
INDICATION: ABNORMAL BONE SCAN EXAMINATION/TECHNIQUE: X-RAY - LEFT XR Femur Min 2 Views COMPARISON: None. FINDINGS: SOFT TISSUES: Unremarkable. BONES/JOINTS: No fracture or dislocation. No significant degenerative changes. No erosive changes an no focal sclerotic change. RAD/Femur Min 2 Views IMPRESSION: Unremarkable views of the left femur. Specifically no radiographic abnormality of the distal femoral metaphysis. Consider follow-up with MRI. Electronically Signed: Laci Black DO at 5:42 EST ,
== END | disposition home or self-care (01) ==
LOC: RAD 09:16
PROVIDERS: PCP Nurse Practitioner Family; Referring Provider Internal Medicine Hematology & Oncology; Visit Provider Internal Medicine Hematology & Oncology
DX: R93.89 Abnormal findings on diagnostic imaging of other specified body structures (principal); C78.7 Secondary malignant neoplasm of liver and intrahepatic bile duct; C78.00 Secondary malignant neoplasm of unspecified lung; C25.9 Malignant neoplasm of pancreas, unspecified
CPT/HCPCS: 73060; 73552

== ENCOUNTER → 2023-03-17 | Outpatient (CLI) | payer MEDICARE, OTHER, SELFPAY ==
--- NOTE | 2023-03-17 11:43 | CT_ITS ---
EXAM: CT ANGIOGRAPHY CHEST WITHOUT AND WITH INTRAVENOUS CONTRAST CLINICAL INDICATION: Acute SOB and cough. Rule out PE. Pancreatic carcinoma. TECHNIQUE: Helically acquired angiography images were obtained of the chest without and with intravenous contrast. This CT exam was performed using one or more of the following dose reduction techniques: automated exposure control, adjustment of the mA and/or kV according to patient size, and/or use of iterative reconstruction technique. MIP reconstructed images were created and reviewed. CONTRAST: IV 100mL Isovue-370 RADIATION DOSE: CTDIvol = 7.67 mGy, DLP = 346.42 mGy-cm COMPARISON: CT chest with contrast 01/21/2023. FINDINGS: PULMONARY ARTERIES: Unremarkable. Normal in caliber. No evidence of pulmonary embolism. Normal pulmonary arteries. AORTA: Minimal plaques in the descending thoracic aorta. No thoracic aortic aneurysm or dissection. GREAT VESSELS OF AORTIC ARCH: Unremarkable. Normal in caliber. No evidence of dissection. LUNGS AND PLEURAL SPACES: Partial atelectasis with air bronchograms in the right lower lobe causing traction of the major fissure. Solid nodes in the right anterior paratracheal space and anterior carinal space. Some nodes may have central cystic necrosis and are worrisome for alejandrina metastases. No pleural effusion or thickening. HEART: Unremarkable. Heart size is normal. No pericardial effusion. No significant coronary artery calcifications. MEDIASTINUM: Unremarkable. No mediastinal or hilar adenopathy. Esophagus is unremarkable. No hiatal hernia. THYROID: Unremarkable. No thyroid lesions. BONES/JOINTS: Unremarkable. No suspicious lytic or blastic abnormality. CT/CTA Chest W/WO Contrast IMPRESSION: 1. No CTA evidence of pulmonary thromboemboli, thoracic aortic aneurysm or dissection. 2. Partial atelectasis in the right lower lobe with air bronchograms. This is a new finding since CT-guided right lung mass biopsy. 3. Some solid nodes in the right anterior paratracheal space and anterior carinal space. At least 2 of the nodes may have central cystic necrosis and are worrisome for alejandrina metastases. These nodes were obscured by dense contrast in the superior vena cava on the prior CT chest. Whole body PET/CT fusion scan will be very helpful for further evaluation. 4. No other additional findings or changes when compared to 01/21/2023. Electronically Signed: Pascual Augustin MD at 12:47 EST ,
[2023-03-17] MEDS: 0.9% Saline Lock 10 ML Syringe IV (12:00)
== END | disposition home or self-care (01) ==
LOC: CT 11:42
PROVIDERS: PCP Nurse Practitioner Family; Referring Provider Nurse Practitioner Family; Visit Provider Nurse Practitioner Family
DX: R06.00 Dyspnea, unspecified (principal); C25.9 Malignant neoplasm of pancreas, unspecified; R05.9 Cough, unspecified
CPT/HCPCS: 71275; Q9967; A4216

== ENCOUNTER 2023-05-10 15:34 | Observation (INO) | payer MEDICARE, OTHER, SELFPAY ==
[2023-05-10] VITALS (9 sets, daily range): BP systolic 124–136; BP diastolic 65–80; PULSE 108–124; RESP 16–18; TEMP 36.3–36.9; O2SAT 98–100; BMI 23.1
--- NOTE | 2023-05-10 16:11 | EKG12_ITS ---
Test Reason : CP Blood Pressure : / mmHG Vent. Rate : 116 BPM Atrial Rate : 116 BPM P-R Int : 144 ms QRS Dur : 074 ms QT Int : 324 ms P-R-T Axes : 027 060 030 degrees QTc Int : 450 ms Sinus tachycardia with Premature atrial complexes Otherwise normal ECG Confirmed by MICHELLE MCBRIDE, NEEMA ([id number]), editor newspaper [employer]I GOMEZ ([id number]) on 05/12/2023 9:17:53 AM Referred By: CHRIS/HARRIET Confirmed By:NEEMA MARTINEZ MD
--- NOTE | 2023-05-10 16:12 | RAD_ITS ---
STUDY: X-RAY CHEST REASON FOR EXAM: Male, 72 years old. dyspnea TECHNIQUE: Single AP portable view of the chest. COMPARISON: 02/15/2023. FINDINGS: There is a right-sided chest port with the tip in the distal SVC/right atrial junction. There is minimal right basilar atelectasis, otherwise lung oneal are clear. There is no demonstrated pleural abnormality. Normal size heart. Normal mediastinum and sheldon. Normal visualized pulmonary arteries. Normal visualized aortic arch and descending thoracic aorta. There are diffuse degenerative changes of the visualized thoracic spine. Normal visualized ribs, clavicles, and shoulders. There is no demonstrated abnormality of the visualized soft tissue structures of the upper abdomen. RAD/Chest 1 View (Portable) IMPRESSION: Mild right basilar atelectasis, otherwise no acute cardiac pulmonary disease. Right-sided chest port as described. Electronically Signed: Susan Montiel MD at 16:52 EST ,
--- NOTE | 2023-05-10 16:13 | EX.ED.DYSGE1 ---
HPI History of Present Illness Chief Complaint: Shortness of Breath Informant: patient and family Narrative Narrative: 72-year-old male with a history of pancreatic cancer with liver and lung metastasis presenting to the emergency department with abdominal pain and dyspnea. Patient states that he has had his abdominal pain dyspnea some cough and rhinorrhea for some time but seems of gotten worse over the past several days. He had chemotherapy with [facility] locally on . He states he has not had any fever or difficulty with neutropenia. He states that he takes lactulose and Senokot for constipation. He states that he really has not had much of a bowel movement lately. He describes a sharp generalized abdominal pain. He feels lightheaded and short of breath when he attempts to walk. He notes a significant decrease in p.o. intake over the past few days. He notes significant decrease in urination. [facility] Medical History Acute dyspnea Alcohol use Anemia BPH (benign prostatic hyperplasia) CAD (coronary artery disease) Cardiology follow-up encounter Chronic constipation Constipation Cough Decreased ROM of right shoulder Dehydration Elevated liver enzymes Erectile dysfunction Exertional dyspnea Gastric reflux High cholesterol History of echocardiogram History of stress test Holosystolic murmur Hypertension IBS (irritable bowel syndrome) Impaired fasting glucose Insomnia Metastasis to liver Metastasis to lung Motion sickness Pancreas cancer Peritoneal carcinomatosis Rotator cuff tear Wears dentures Wears glasses Wears partial dentures Home Medications aspirin 81 mg capsule 81 mg PO DAILY 09/16/22 [History Last Taken Unknown] hydrochlorothiazide 12.5 mg tablet 12.5 mg PO DAILY 09/16/22 [History Last Taken Unknown] latanoprost 0.005 % eye drops 1 drp EACH EYE DAILY 09/16/22 [History Last Taken Unknown] metoprolol succinate 25 mg tablet,extended release 24 hr 25 mg PO DAILY 09/16/22 [History Last Taken 09/24/22 05:30] eabhzfol-ff-ghkic 300 mcg-K 60 mcg-lycop 600 mcg-lutein 300 mcg tablet (Centrum Silver Men) 1 tab PO DAILY 09/16/22 [History Last Taken Unknown] omeprazole 40 mg capsule,delayed release 40 mg PO DAILY 09/16/22 [History Last Taken 09/24/22 05:30] rosuvastatin 40 mg tablet 40 mg PO DAILY 09/16/22 [History Last Taken Unknown] timolol maleate 0.5 % eye drops 1 drp EACH EYE DAILY 09/16/22 [History Last Taken Unknown] zolpidem 10 mg tablet 10 mg PO QHS 09/16/22 [History Last Taken Unknown] lidocaine-prilocaine 2.5 %-2.5 % topical cream 1 applic topical ONCE PRN port access 30 days #30 grams 03/10/23 [Rx Last Taken Unknown] ondansetron 8 mg disintegrating tablet 8 mg PO Q8H PRN nausea and vomiting #30 tabs 03/11/23 [Rx Last Taken Unknown] acetaminophen 500 mg tablet (Tylenol Extra Strength) 1,000 mg PO Q6H PRN pain 03/25/23 [History Last Taken Unknown] docusate sodium 50 mg/5 mL oral liquid (Stool Softener) 50 mg PO DAILY 03/25/23 [History Last Taken Unknown] oxycodone 5 mg capsule 10 mg PO Q4H PRN pain 03/25/23 [History Last Taken Unknown] sennosides 8.6 mg tablet (Senna Laxative) 8.6 mg PO DAILY 03/25/23 [History Last Taken Unknown] albuterol sulfate 90 mcg/actuation aerosol inhaler 2 puff inhalation Q6H PRN shortness of breath or wheezing #6.7 grams 04/01/23 [Rx Last Taken Unknown] benzonatate 100 mg capsule 100 mg PO BID-TID PRN cough 05/06/23 [History Last Taken Unknown] guaifenesin 600 mg tablet, extended release 12 hr (Mucus Relief ER) 600 mg PO BID 05/06/23 [History Last Taken Unknown] mirtazapine 15 mg tablet 15 mg PO QHS 05/06/23 [History Last Taken Unknown] Allergy/AdvReac Type Severity Reaction Status Date / Time Sulfa (Sulfonamide Allergy Unknown Hives Verified 05/10/23 15:35 Antibiotics) codeine AdvReac Unknown Nausea Verified 05/10/23 15:35 amoxicillin AdvReac Nausea Verified 05/10/23 15:35 Family History Sister Breast cancer Mother Cancer Father Cancer Surgical History H/O repair of right rotator cuff History of cardiac catheterization History of colonoscopy History of coronary artery stent placement History of knee replacement Hx of bilateral cataract extraction Hx of total hip arthroplasty Postsurgical percutaneous transluminal coronary angioplasty (PTCA) status Social History household members: spouse and children Smoking Status: Never smoker alcohol intake: current alcohol intake frequency: a few times a week Alcohol type: beer substance use type: does not use ROS ROS ED Constitutional Constitutional ED: Reports chills; Denies fever(s) or weight loss Eyes Eyes: Denies change in vision or diplopia ENT ENT ED: Reports rhinorrhea; Denies ear pain or sore throat Cardiovascular Cardiovascular: Denies chest pain, orthopnea, palpitations or racing heartbeat Respiratory/Chest Respiratory/Chest: Reports cough, dyspnea and dyspnea on exertion; Denies orthopnea Gastrointestinal Gastrointestinal: Reports abdominal pain and constipation; Denies diarrhea, nausea or vomiting Genitourinary Genitourinary ED: Reports other Details: Decreased urination ; Denies dysuria, hematuria or urinary frequency Musculoskeletal Musculoskeletal: Denies arthralgias or myalgias Integumentary Denies abscess or rash Neurologic Neurologic: Denies headache(s) or weakness Psychiatric Psychiatric: Denies anxiety, depression, suicidal ideation or suicidal thoughts Endocrine Endocrinology: Denies polydipsia, polyphagia or polyuria Allergic/Immunologic Allergic/Immunologic ED: Denies mouth swelling, tongue swelling or urticaria EXAM Physical Exam Const Vital Signs: 05/10/23 15:37 05/10/23 16:35 05/10/23 17:35 Temperature 97.4 F L Temperature Source Temporal Pulse Rate 124 H Respiratory Rate 18 18 Respiratory Effort Respiratory Depth Respiratory Pattern Blood Pressure 125/74 H 136/72 H Blood Pressure Mean 91 93 Pulse Ox 100 Oxygen Delivery Method Room Air 05/10/23 19:00 05/10/23 21:00 05/10/23 21:15 Temperature Temperature Source Pulse Rate 112 H Respiratory Rate 18 17 Respiratory Effort Normal Non-Labored Respiratory Depth Normal Respiratory Pattern Normal Blood Pressure 131/65 H Blood Pressure Mean 87 Pulse Ox 98 Oxygen Delivery Method Room Air Room Air Positive well nourished and well developed General Appearance ED: well developed HEENT Reports normocephalic, head/scalp atraumatic and dry mucous membranes Mouth ED: Yes dry mucous membranes Mouth: dry mucous membranes Eyes PERRL and EOMs intact bilaterally Neck no lymphadenopathy, supple and no JVD Resp normal respiratory effort and clear to auscultation bilaterally Cardio regular rate and no murmurs Rate: tachycardic GI Inspection: Negative for abdominal distention Auscultation: hypoactive bowel sounds Palpation: soft and tender; Negative for guarding or rebound tenderness present Back/Spine no CVA tenderness and normal ROM Extremity normal to inspection General Extremety ED: Negative for edema General Extremity: Negative for edema Neuro oriented x3 and CN's II-XII intact bilaterally Sensorium / Orientation: alert Motor Exam: strength 5/5 throughout Psych mental status grossly normal Mood & Affect: Negative for depressed or tearful Skin no rashes or lesions noted and no wounds MDM MDM MDM Narrative Medical decision making narrative: Patient received 2 L of IV fluids. He remains tachycardic around 1 10-1 17. White count 11.3 with hemoglobin of 10.3 which is down about a gram from 4 days ago. Platelet count 193. BUN and creatinine are normal. He does have some elevation in his liver enzymes as well as bilirubin. Lipase is normal at 21. CT of the chest demonstrates no pulmonary embolism or pneumonia or effusion. No pneumothorax.. CT abdomen pelvis demonstrates no obvious ductal dilatation to suggest obstruction. No obvious cholecystitis. No obvious colitis. Evidence of enteritis. No obvious new intra-abdominal pathology. Patient was discussed with his oncologist Dr. Rangel. History & Record Review Discussion w/independent historian: Patient and Family Additional record(s) reviewed:: Prior inpatient record, Prior outpatient record, Prior ED visit and Prior labs Lab Data Attestation: I reviewed the patient's lab results. Labs: Laboratory Results - last 24 hr 05/10/23 05/10/23 16:20 17:22 WBC 11.3 H RBC 3.20 L Hgb 10.3 L Hct 31.6 L MCV 98.8 H MCH 32.2 H MCHC 32.6 RDW Std Deviation 65.6 H RDW Coeff of Rosemary 18.2 H Plt Count 193 MPV 12.7 H Immature Gran % (Auto) 0.900 Neut % (Auto) 92.7 H Lymph % (Auto) 5.2 L [place] % (Auto) 0.8 Eos % (Auto) 0.1 Baso % (Auto) 0.3 Absolute Neuts (auto) 10.4 H Absolute Lymphs (auto) 0.59 L Nucleated RBC % 0 Differential Comment SCANNED Anisocytosis 2+ Microcytosis 1+ Macrocytosis 1+ Sodium 136 Potassium 3.3 L Chloride 102 Carbon Dioxide 23.0 Anion Gap 11 BUN 13 Creatinine 0.78 Est GFR (MDRD) Af Amer 127 Est GFR (MDRD) Non-Af 105 BUN/Creatinine Ratio 16.8 Glucose 136 H Calcium 9.1 Total Bilirubin 1.70 H Direct Bilirubin 0.54 H AST 177 H ALT 217 H Alkaline Phosphatase 99 Total Protein 7.2 Albumin 3.2 Globulin 4.0 Lipase 21 Urine Color Yellow Urine Clarity Sl. Cloudy Urine pH 5.0 Ur Specific [place] 1.015 Urine Protein 15 H Urine Glucose (UA) Normal Urine Ketones 5 H Urine Occult Blood Negative Urine Nitrite Negative Urine Bilirubin Negative Urine Urobilinogen 4 H Ur Leukocyte Esterase 25 H Urine RBC 0 SEEN Urine WBC 0-5 SEEN Ur Squamous Epith Cells 0-5 SEEN Amorphous Sediment 1+ URATE Urine Bacteria 0 SEEN Urine Mucus 0 SEEN Radiography Diagnostic Testing: Clinical Impression(s) from Imaging Studies Chest X-Ray 05/10/23 16:12 IMPRESSION: Mild right basilar atelectasis, otherwise no acute cardiac pulmonary disease. Right-sided chest port as described. Electronically Signed: Susan Montiel MD at 16:52 EST Reading Location ID and State: [email or web address] / [email or web address] , Service support , Abdomen/Pelvis CT 05/10/23 18:33 IMPRESSION: Pancreatic tail lesion as described consistent with known pancreatic neoplasm and stable in the interval. Indeterminate low-attenuation lesion within the right liver lobe measuring approximately 1.3 cm and stable in the interval, otherwise incompletely characterize. In the context of known neoplasm this could represent stable neoplasm versus benign etiologies such as cyst or hemangioma. Left-sided simple renal cysts with no further follow-up imaging recommended. Left-sided splenomegaly. Fluid within the colon suggestive of sequela of nonspecific enteritis versus malabsorption, correlation with history of diarrheal state recommended. Electronically Signed: Susan Montiel MD at 19:45 EST Reading Location ID and State: [email or web address] , Service support , Chest CTA 05/10/23 18:33 IMPRESSION: Negative CTA chest examination, without a demonstrated pulmonary embolism or arterial dissection. Mild lymphadenopathy within the mediastinum and right hilar region with right lower lobe atelectasis versus residual infiltrate, cannot exclude postobstructive process, follow-up with bronchoscopy recommended if clinically indicated. Interstitial changes within the right middle lobe and bilateral upper lobes with biapical linear atelectasis. No pleural effusion or pneumothorax. Electronically Signed: Susan Montiel MD at 19:39 EST , EKG Initial EKG: Attestation: I personally reviewed and interpreted this EKG as follows: Comments: Sinus tachycardia with PACs ventricular rate of 116 bpm Discharge Plan Dx/Rx/DC Orders Clinical Impression: Peritoneal carcinomatosis, Metastasis to lung, Metastasis to liver, Pancreas cancer, Acute dyspnea, Abdominal pain, acute, Acute dehydration Disposition Disposition: [facility] Capacity Legal Inpatient Services Rn Reflex Medical hold order details:: IF a medical hold is selected below, a suggested order for a MEDICAL HOLD will reflex upon signing the document. Next of kin: [place] law dictates a PRIORITY LIST for identifying legal decision-maker/legal next of kin in the following order (LNOK): 1st: The patient?s legal guardian, if any 2nd: The patient's spouse (if status is questionable, consult Risk Management) 3rd: The patient?s adult child([place]) (majority, if multiple children) 4th: The patient?s parents 5th: The patient?s adult siblings (majority, if multiple children siblings)
--- NOTE | 2023-05-10 16:17 | NURSING ---
NO OLD EKGS
[2023-05-10] MEDS: Morphine 4 MG/ML Syringe IV (16:24)
[2023-05-10] MEDS: Ondansetron 4 MG/2 ML Vial IV (16:24)
[2023-05-10] MEDS: 0.9% Normal Saline (1000mL) 1,000 ML 1000 ML IV ×2 (16:25→17:19)
[2023-05-10 16:26] LABS: Absolute Lymphocyte Count 0.59 X10^3/uL (0.83-4.51); Absolute Neutrophil Count 10.4 X10^3/uL (2.0-7.7); Basophil# 0.03 X10^3/uL; Basophil% 0.3 % (0-1); Eosinophil# 0.01 X10^3/uL; Eosinophils% 0.1 % (0-5); Hematocrit 31.6 % (40-54); Hemoglobin 10.3 g/dL (13.0-16.5); Lymphocyte # 0.59 X10^3/ul (0.83-4.51); Lymphocyte % 5.2 % (19-41); Mean Corp Hgb Conc 32.6 g/dL (32-36); Mean Corpuscular Hgb 32.2 pg (27.0-32.0); Mean Corpuscular Volume 98.8 fL (80-94); Mean Platelet Vol. 12.7 fl (6.2-12.0); Monocyte# 0.09 X10^3/uL; Monocyte% 0.8 % (0-10); NRBC Flagged by Analyzer 0 % (0-5); Neutrophil # 10.43 X10^3/uL (2.7-7.7); Neutrophil % 92.7 % (47-70); POSITIVE DIFFERENTIAL YES; POSITIVE MORPHOLOGY YES; Platelet Count 193 K/mm3 (150-450); RBC Distribution Width CV 18.2 % (11.6-14.6); RBC Distribution Width SD 65.6 fl (35.1-43.9); White Blood Count 11.3 K/mm3 (4.4-11.0)
--- OUTSIDE RECORDS SUMMARY | 2023-05-10 16:33 | XMS RPT_ITS | CCD ---
Author Name Unknown Address [id number] [place] [address] Organization [facility] Care Team Providers Care [employer] Teacher Name Role Phone DAISY SOFTWARE QUALITY MANAGER - TEMPERER, FRANKLYN Bee Primary Care Phys ician Nola Malave PT Unavailable DAISY SOFTWARE QUALITY MANAGER - TEMPERER, FRANKLYN Bee Attending U navailable DAISY SOFTWARE QUALITY MANAGER - TEMPERER, FRANKLYN Bee Primary Care U navailable MELIA RIOS, RADHA Toussaint Attending Unavailable DAISY SOFTWARE QUALITY MANAGER - TEMPERER, FRANKLYN Bee Primary Care U navailable DAISY SOFTWARE QUALITY MANAGER - TEMPERER, FRANKLYN Bee Attending U navailable DAISY SOFTWARE QUALITY MANAGER - TEMPERER, FRANKLYN Bee Primary Care U navailable DAISY SOFTWARE QUALITY MANAGER - TEMPERER, FRANKLYN Bee Attending U navailable DAISY SOFTWARE QUALITY MANAGER - TEMPERER, FRANKLYN Bee Primary Care U navailable DAISY SOFTWARE QUALITY MANAGER - TEMPERER, FRANKLYN Bee Attending U navailable DAISY SOFTWARE QUALITY MANAGER - TEMPERER, FRANKLYN Bee Primary Care U navailable DAISY SOFTWARE QUALITY MANAGER - TEMPERER, FRANKLYN Bee Attending U navailable DAISY SOFTWARE QUALITY MANAGER - TEMPERER, FRANKLYN Bee Primary Care U navailable SEFFENS SOFTWARE QUALITY MANAGER-TEMPERER, USHA Attending Unavai lable DAISY SOFTWARE QUALITY MANAGER - TEMPERER, FRANKLYN Bee Primary Care U navailable Allergies Allergy Classification Reported Allergen(s) Allergy Type Date of Onset Reaction(s) Facility (10 sources) Codeine; Translations: [codeine] Drug Allergy Nausea (finding) [facility] Work Phone: (10 sources) Penicillin; Translations: [penicillin] Drug Allergy Nausea (finding) [facility] Work Phone: (10 sources) Sulfonamides (Antibiotic); Translations: [sulfa drugs] Drug allergy Weal (disorder) [facility] Work Phone: Medications Current Medications Medication Drug Class(es) Dates Sig (Normalized) Sig (Original) acetaminophen 300 mg / codeine phosphate 30 mg oral tablet (1 source) Opioid Agonist Start: 11-09-2021 End: 11-12-2021 take 1 tablet by mouth every six hours Tylenol with Codeine #3 use acetaminophen-co deine 300 mg-30 mg tablet Dose = 1 tab(s), Oral, q6hr, X 3 day(s), # 12 tab(s), 0 Refill(s), Pharyngitis, 76.7 Start Date: 11/09/21 Stop Date: 11/12/21 Status: Ordered aspirin 81 mg delayed release oral tablet (10 sources) Platelet Aggregation Inhibitor, Nonsteroidal Anti-inflammatory Drug Start: 11-07-2018 aspirin 81 mg oral delayed release tablet Dose : 81 mg = 1 tab(s), Oral, qDay, 0 Refill(s) Start Date: 11/07/18 Status: Ordered Completed/Discontinued Medications Medication Drug Class(es) Dates Sig (Normalized) Sig (Original) ciprofloxacin 500 mg oral tablet (4 sources) Quinolone Antimicrobial Start: 06-19-2022 End: 06-26-2022 Cipro 500 mg oral tablet Dose : 500 mg = 1 tab(s), Oral, q12h, # 14 tab(s), 0 Refill(s), 77 Start Date: 06/19/22 Stop Date: 06/26/22 Status: Ordered etodolac 400 mg oral tablet (3 sources) Nonsteroidal Anti-inflammatory Drug Start: 06-22-2022 End: 06-29-2022 etodolac 400 mg oral tablet Dose : 400 mg = 1 tab(s), Oral, BID, PRN Pain, # 14 tab(s), 0 Refill(s), Pharmacy: [facility], 171.5, cm, 06/19/22 11:31:00 EST, Height Start Date: 06/22/22 Stop Date: 06/29/22 Status: Ordered Problems Problem Classification Problem Date Documented Da te Episodic/Chronic Abdominal pain (1 source) Lower abdominal pain 01-07-2023 Episodic Coronary atherosclerosis and other heart disease (11 sources) Coronary arteriosclerosis; Translations: [Coronary atherosclerosis] 09-08-2019 Chronic Results Test Name Value Interpretation Reference Range Facil ity Vital Signs Date Time Vital Sign Value Performing Clinician Santi leavitt 11-09-2021 08:11-0400 Body temperature 98.24 [degF] LATASHA FISH MD [facility] 11-09-2021 08:11-0400 Diastolic blood pressure 83 mm[Hg] LATASHA FISH MD [facility] 11-09-2021 08:11-0400 Heart rate 87 /min LATASHA FISH MD [facility] 11-09-2021 08:11-0400 Respiratory rate 18 /min LATASHA FISH MD [facility] 11-09-2021 08:11-0400 Systolic blood pressure 153 mm[Hg] LATASHA FISH MD [facility] Encounters Encounter Date Encounter Type Care Provider Facility Start: 02-25-2023 End: 02-26-2023 ambulatory FRAKNLYN VILLA SOFTWARE QUALITY MANAGER - TEMPERER Facility:B Start: 01-18-2023 ambulatory FRANKLYN WEBB SOFTWARE QUALITY MANAGER - TEMPERER Facility:B Start: 01-12-2023 End: 01-13-2023 ambulatory FRANKLYN VILLA SOFTWARE QUALITY MANAGER - TEMPERER Facility:B Start: 01-12-2023 End: 01-12-2023 Patient encounter procedure FRANKLYN VILLA SOFTWARE QUALITY MANAGER - TEMPERER [facility] Start: 08-24-2022 End: 08-25-2022 ambulatory FRANKLYN VILLA SOFTWARE QUALITY MANAGER - TEMPERER Facility:B Start: 08-24-2022 End: 08-24-2022 Patient encounter procedure FRANKLYN VILLA SOFTWARE QUALITY MANAGER - TEMPERER [facility] Start: 08-12-2022 End: 08-13-2022 ambulatory RADHA CÁRDENAS PA-C Facility:B Start: 08-12-2022 End: 08-12-2022 Patient encounter procedure RADHA CÁRDENAS PA-C [facility] Start: 07-20-2022 End: 07-21-2022 ambulatory FRANKLYN VILLA SOFTWARE QUALITY MANAGER - TEMPERER Facility:B Start: 07-20-2022 End: 07-20-2022 Patient encounter procedure FRANKLYN VILLA SOFTWARE QUALITY MANAGER - TEMPERER [facility] Start: 06-19-2022 End: 06-20-2022 ambulatory USHA PÉREZ SOFTWARE QUALITY MANAGER-TEMPERER Facility:B Start: 06-19-2022 End: 06-19-2022 Patient encounter procedure USHAEULALIO PÉREZ SOFTWARE QUALITY MANAGER-TEMPERER [facility] Start: 02-12-2022 End: 02-16-2022 Outreach Lab FRANKLYN VILLA SOFTWARE QUALITY MANAGER - TEMPERER [facility] Start: 11-09-2021 End: 11-09-2021 Emergency department patient visit LATASHA FISH MD [facility] Start: 08-29-2021 End: 08-29-2021 Patient encounter procedure LORIE CASSIE SOFTWARE QUALITY MANAGER-TEMPERER [facility] Start: 07-31-2021 End: 08-04-2021 Outreach Lab FRANKLYN VILLA SOFTWARE QUALITY MANAGER - TEMPERER [facility] Start: 05-14-2021 End: 05-14-2021 [facility] QUALITY MANAGER-TEMPERER [facility] Procedures Date Procedure Procedure Detail Performing Clinician Start: 08-29-2021 Cardiovascular stres s testing LATASHA FISH MD Start: 09-15-2019 Cardiac catheterization BETI JEFFERS SOFTWARE QUALITY MANAGER-TEMPERER Immunizations Immunization Date Immunization Notes Care Provider Fa cility 05-01-2022 Pneumococcal conjuga te PCV20, polysaccharide [id number] conjugate, adjuvant, PF; Translations: [Prevnar 20] USHA PÉREZ SOFTWARE QUALITY MANAGER-TEMPERER [facility] 01-30-2022 influenza, high dose seasonal, preservative-free FRANKLYN URBANPKINS SOFTWARE QUALITY MANAGER - TEMPERER [facility] 03-17-2021 SARS-CoV-2 mRNA (tozinameran) vaccine FRANKLYN URBANPKINS SOFTWARE QUALITY MANAGER - TEMPERER [facility] 01-30-2021 influenza, high dose seasonal, preservative-free; Translations: [Afluria PF Quadrivalent ] BETI JEFFERS SOFTWARE QUALITY MANAGER-TEMPERER [facility] 07-04-2020 SARS-CoV-2 (COVID-19 ) Ad26 vaccine, recombinant [facility] SOFTWARE QUALITY MANAGER-TEMPERER [facility] Payers Date Payer Category Payer Medicare [id number] 2022 Unknown [id number] 1950 Unknown [id number] [id number] 1950 Unknown [id number] [id number] 1950 Unknown [id number] [id number] [id number] 1950 Unknown [id number] 2.16.8 [id number] 1952 Unknown [id number] 2.16.8 [id number] 1950 Unknown [id number] [id number] [id number] 1952 Unknown [id number] [id number] Social History Date Type Detail Facility Start: 11-07-2018 Never smoked tobacco (f inding) [facility] Functional Status Date Assessment Result Facility 11-09-2021 Functional Status ID band on, Allergy Band on, Call device within reach, Bed in low position, Wheels locked, Upper/Half-Length side-rails up, Phone within reach, personal items within reach, Assistive devices within reach, Toileting device within reach, Bedside Cart Locked, Visitor at bedside, Safety level maintained [facility] Mental Status Date Assessment Result Facility 11-09-2021 Mental Status Oriented x [address] [facility] Clinical Notes 11-09-2021 to 01-12-2023 LaboratoryLaboratoryLaboratoryLaboratoryLaboratoryLaboratoryLaboratoryLaboratory LaboratoryRadiology Note Date & Type Note Facility 01-12-2023 Note ORIGINAL EXAMINATION: CT OF THE ABDOMEN AND PELVIS WITHOUT CONTRAST 01/12/2023 11:00 am TECHNIQUE: CT of the abdomen and pelvis was performed without the administration of intravenous contrast. Multiplanar reformatted images are provided for review. Automated exposure control, iterative reconstruction, and/or weight based adjustment of the mA/kV was utilized to reduce the radiation dose to as low as reasonably achievable. COMPARISON: Ultrasound abdomen 02/14/2020 HISTORY: ORDERING SYSTEM PROVIDED HISTORY: Reason for Exam: Chronic constipation, low abdominal/groin pain, intermittent diarrhea FINDINGS: There is a 5 mm right middle lobe nodule. Incomplete visualization of a right lower lobe tree-in-bud opacities. Coronary artery calcifications. There is a 4.8 x 3.5 x 4.1 cm (AP X transverse X craniocaudal) heterogeneous mass involving predominantly the pancreatic tail with central necrosis most concerning for pancreatic malignancy. Adjacent desmoplastic reaction is noted. No pancreatic ductal dilation. This mass abuts the inferior aspect of the gastric wall without a fat plane. Directive invasion is not entirely excluded. This lesion does not involve the celiac axis or SMA. A peripancreatic mesenteric nodule along the anterior aspect of the pancreatic tail mass measures 1.4 cm (series 2, image 36). There are multiple mesenteric nodules concerning for metastatic deposits: Anterior abdominal mesenteric deposit measuring 9 mm (series 2, image 47), multiple lower anterior abdominal nodules measuring up to 1.2 cm (series 2, image 88). There are two indeterminate subcentimeter lesions in the right hepatic lobe, too small to be characterized. The spleen, adrenal glands are normal. No nephrolithiasis or hydronephrosis. Left parapelvic cysts. There are multiple left renal cysts measuring up to 1.6 cm. Metallic streak artifact of right hip arthroplasty limits evaluation of the pelvic structures. The prostate gland is mildly enlarged. No free fluid in the pelvis. Moderate-sized duodenal diverticulum. Small and large bowel are normal in caliber. Minimal colonic diverticulosis without diverticulitis. Atherosclerosis of the aorta without aneurysmal dilation. Small fat containing umbilical hernia. No lymphadenopathy. No acute aggressive osseous abnormality. Mild to moderate degenerative changes of the thoracolumbar spine. Right hip arthroplasty changes. 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 This mass abuts adjacent inferior gastric wall and direct invasion is not excluded. Multiple mesenteric nodules consistent with peritoneal carcinomatosis. Indeterminate subcentimeter right hepatic lobe lesions, although too small to be characterized, are concerning for hepatic metastatic disease given the above-mentioned findings. Attention on follow-up is recommended. Right lower lobe tree-in-bud opacities, likely infectious or inflammatory etiology. Right middle lobe nodule measuring 5 mm. Attention on follow-up recommended. I have personally reviewed the images of this examination and agree with the resident's findings and interpretation. Interpreted by: Adolfo Rutledge MD Preliminary Report By: Elli Shin Electronically signed By Adolfo Rutledge MD Dictated Date: 01/12/2023 2:10:40 PM Prelim Date: 01/12/2023 4:47:17 PM Sign Date: 01/12/2023 4:47:17 PM Ordering Provider: FRANKLYN URBANPKINS [facility] 08-12-2022 Note ORIGINAL EXAMINATION: MRI OF THE RIGHT SHOULDER WITHOUT CONTRAST08/12/2022 11:37 am TECHNIQUE: Multiplanar multisequence MRI of the right shoulder was performed without the administration of intravenous contrast. COMPARISON: Shoulder radiographs 07/20/2022. HISTORY: ORDERING SYSTEM PROVIDED HISTORY: Reason for Exam: OTHER SPRAIN OF RIGHT SHOULDER JOINT. Shoulder trauma, rotator cuff tear suspected. Decreased range of motion. Pain. Status post fall. FINDINGS: MUSCLES AND TENDONS: There is a full-thickness tear of the far anterior supraspinatus tendon extending to the mid-posterior fibers with differential retraction to the humeral head vertex and lateral humeral head. Full-thickness tearing of the supraspinatus tendon measures approximately 1.9 cm AP dimension. The junctional fibers exhibits high-grade partial articular sided tearing superimposed upon tendinosis. Minimal fluid tracks along the mid infraspinatus myotendinous junction. The infraspinatus tendon is otherwise intact. The teres minor tendon is intact. Essentially complete tear of the subscapularis tendon insertion is noted with retraction to the level the glenoid superimposed upon tendinosis. There is medial subluxation of the long head biceps tendon at the level of the bicipital groove entrance. There is irregularity of the long head biceps tendon within the bicipital groove, best seen on axial images . Additional intracapsular and extracapsular tendinosis. There is moderate subscapularis muscle atrophy. Mild feathery and epimysial edema is noted of the supraspinatus muscle, compatible with low-grade strain. No mass is evident at the suprascapular notch, spinoglenoid notch, or the quadrilateral space. OSSEOUS STRUCTURES AND JOINTS: No displaced glenoid labral tear is evident on this non-arthrographic examination. There is likely a normal variant involving the anterior superior labral quadrant superimposed upon degeneration. Additional near circumferential degeneration is present with a blunted and frayed morphology with relative sparing superiorly. There is no significant degenerative change of the glenohumeral joint. There is mild degenerative change of the acromioclavicular joint with tiny marginal osteophytes and capsular distension. The acromion is Type III in morphology without significant lateral downsloping. There is a small volume glenohumeral joint effusion. No fracture or dislocation is evident. Minimal cystic changes are seen at the greater tubercle of the humerus. Bone marrow signal intensity is otherwise within normal limits. No visualized marrow replacing osseous lesions. SOFT TISSUES: There is small volume of fluid in the subacromial subdeltoid bursa, related to full-thickness rotator cuff tear. There is small volume of fluid in the subcoracoid bursa, related to full-thickness rotator cuff tear. Partial effacement of the fat signal intensity of the rotator interval is noted with corresponding soft tissue edema. There is a thickened appearance of the axillary recess capsule with intermediate intrasubstance signal and minimal periligamentous edema. There is also a thickened morphology of the coracohumeral ligament. Otherwise, associated soft tissues of the shoulder are grossly unremarkable. IMPRESSION: 1. Rotator cuff tears, as above. 2. Mild medial subluxation of the long head biceps tendon with extracapsular irregularity, concerning for partial tearing. Mild intracapsular and extracapsular tendinosis also. 3. Findings compatible with adhesive capsulitis in the appropriate clinical setting. Interpreted by: Dariel Max DO Preliminary Report By: Dariel Max DO Electronically signed By Dariel Max DO Dictated Date: 08/12/2022 11:56:40 AM Prelim Date: 08/12/2022 12:16:33 PM Sign Date: 08/12/2022 12:16:33 PM Ordering Provider: [facility] 08-12-2022 Note ORIGINAL EXAMINATION: MRI OF THE RIGHT SHOULDER WITHOUT CONTRAST08/12/2022 11:37 am TECHNIQUE: Multiplanar multisequence MRI of the right shoulder was performed without the administration of intravenous contrast. COMPARISON: Shoulder radiographs 07/20/2022. HISTORY: ORDERING SYSTEM PROVIDED HISTORY: Reason for Exam: OTHER SPRAIN OF RIGHT SHOULDER JOINT. Shoulder trauma, rotator cuff tear suspected. Decreased range of motion. Pain. Status post fall. FINDINGS: MUSCLES AND TENDONS: There is a full-thickness tear of the far anterior supraspinatus tendon extending to the mid-posterior fibers with differential retraction to the humeral head vertex and lateral humeral head. Full-thickness tearing of the supraspinatus tendon measures approximately 1.9 cm AP dimension. The junctional fibers exhibits high-grade partial articular sided tearing superimposed upon tendinosis. Minimal fluid tracks along the mid infraspinatus myotendinous junction. The infraspinatus tendon is otherwise intact. The teres minor tendon is intact. Essentially complete tear of the subscapularis tendon insertion is noted with retraction to the level the glenoid superimposed upon tendinosis. There is medial subluxation of the long head biceps tendon at the level of the bicipital groove entrance. There is irregularity of the long head biceps tendon within the bicipital groove, best seen on axial images . Additional intracapsular and extracapsular tendinosis. There is moderate subscapularis muscle atrophy. Mild feathery and epimysial edema is noted of the supraspinatus muscle, compatible with low-grade strain. No mass is evident at the suprascapular notch, spinoglenoid notch, or the quadrilateral space. OSSEOUS STRUCTURES AND JOINTS: No displaced glenoid labral tear is evident on this non-arthrographic examination. There is likely a normal variant involving the anterior superior labral quadrant superimposed upon degeneration. Additional near circumferential degeneration is present with a blunted and frayed morphology with relative sparing superiorly. There is no significant degenerative change of the glenohumeral joint. There is mild degenerative change of the acromioclavicular joint with tiny marginal osteophytes and capsular distension. The acromion is Type III in morphology without significant lateral downsloping. There is a small volume glenohumeral joint effusion. No fracture or dislocation is evident. Minimal cystic changes are seen at the greater tubercle of the humerus. Bone marrow signal intensity is otherwise within normal limits. No visualized marrow replacing osseous lesions. SOFT TISSUES: There is small volume of fluid in the subacromial subdeltoid bursa, related to full-thickness rotator cuff tear. There is small volume of fluid in the subcoracoid bursa, related to full-thickness rotator cuff tear. Partial effacement of the fat signal intensity of the rotator interval is noted with corresponding soft tissue edema. There is a thickened appearance of the axillary recess capsule with intermediate intrasubstance signal and minimal periligamentous edema. There is also a thickened morphology of the coracohumeral ligament. Otherwise, associated soft tissues of the shoulder are grossly unremarkable. IMPRESSION: 1. Rotator cuff tears, as above. 2. Mild medial subluxation of the long head biceps tendon with extracapsular irregularity, concerning for partial tearing. Mild intracapsular and extracapsular tendinosis also. 3. Findings compatible with adhesive capsulitis in the appropriate clinical setting. Interpreted by: Dariel Max DO Preliminary Report By: Dariel Max DO Electronically signed By Dariel Max DO Dictated Date: 08/12/2022 11:56:40 AM Prelim Date: 08/12/2022 12:16:33 PM Sign Date: 08/12/2022 12:16:33 PM Ordering Provider: [facility] 11-09-2021 Hospital Discharge instructions Patient Education 11/09/2021 08:21:43 Pharyngitis, Viral Viral Pharyngitis (Sore Throat) You or your child have pharyngitis (sore throat). This infection is caused by a virus. It can cause throat pain that is worse when swallowing, aching all over, headache, and fever. The infection may be spread by coughing, kissing, or touching others after touching your mouth or nose. Antibiotic medicines do not work against viruses. They are not used for treating this illness. Home care If symptoms are severe, you or your child should rest at home. Return to work or school when you or your child feel well enough. You or your child should drink plenty of fluids to prevent dehydration. Use throat lozenges or numbing throat sprays to help reduce pain. Gargling with warm salt water will also help reduce throat pain. Dissolve 1/2 teaspoon of salt in 1 glass of warm water. Children can sip on juice or a popsicle. Children 5 years and older can also suck on a lollipop or hard candy. Don t eat salty or spicy foods or give them to your child. These can be irritating to the throat. Medicines for a child: You can give your child acetaminophen for fever, fussiness, or discomfort. In babies over 6 months of age, you may use ibuprofen instead of acetaminophen. If your child has chronic liver or kidney disease or ever had a stomach ulcer or GI bleeding, talk with your child s healthcare provider before giving these medicines. Aspirin should never be used by any child under 18 years of age who has a fever. It may cause severe liver damage. Medicines for an adult: You may use acetaminophen or ibuprofen to control pain or fever, unless another medicine was prescribed for this. If you have chronic liver or kidney disease or ever had a stomach ulcer or GI bleeding, talk with your healthcare provider before using these medicines. Follow-up care Follow up with a healthcare provider or our staff if you or your child are not getting better over the next week. When to seek medical advice Call your healthcare provider right away if any of these occur: Fever as directed by your healthcare provider. For children, seek care if: oYour child is of any age and has repeated fevers above 104 F (40 C). oYour child is younger than 2 years of age and has a fever of 100.4 F (38 C) for more than 1 day. oYour child is 2 years old or older and has a fever of 100.4 F (38 C) for more than 3 days. New or worsening ear pain, sinus pain, or headache Painful lumps in the back of neck Stiff neck Lymph nodes are getting larger Can t swallow liquids, a lot of drooling, or can t open mouth wide due to throat pain Signs of dehydration, such as very dark urine or no urine, sunken eyes, dizziness Trouble breathing or noisy breathing Muffled voice New rash Other symptoms are getting worse [id number] [employer]. [address] [place] [address]. All rights reserved. This information is not intended as a substitute for professional medical care. Always follow your healthcare professional's instructions. Follow Up Care 11/09/2021 08:08:12 With:FRANKLYN VILLA APRN - TEMPERER Address: [address] [facility] [place] [address]- When:2-4 days [facility] 11-09-2021 Note Discharge Instructions Thank you for allowing [facility] to assist you with your healthcare needs. The following is important discharge information regarding your hospital visit. Diagnosis from Today's Visit Pharyngitis Sore throat - Adult What to Do Next Instructions from Your Care Team No qualifying data available. Post Acute Orders No qualifying data available. You Need to Schedule the Following Appointments Follow Up with FRANKLYN VILLA APRN, CNP When Within 2-4 days Where: [address] [facility] [place] [address]- Allergies codeine (Nausea) penicillin (Nausea) sulfa drugs (Hives) Medications Please ask your primary doctor or pharmacist before taking any other medication not listed, including over the counter drugs, herbal medications, vitamins and or supplements as they may interact with your home medications. What How Much When Why Instructions Last Dose New acetaminophen-codeine (Tylenol with Codeine #3 use acetaminophen-codeine 300 mg-30 mg tablet ) 1 tab(s) by mouth Every 6 hours Pharyngitis Duration: 3 Days Printed Prescription New lidocaine topical (Lidocaine Viscous 2% mucous membrane solution) 10 Milliliter Topical Three (3) times a day before meals as needed for for mouth sore pain Duration: 5 Days Printed Prescription Unchanged aspirin (aspirin 81 mg oral delayed release tablet) 1 tab(s) by mouth Once a day Unchanged hydroCHLOROthiazide (hydroCHLOROthiazide 12.5 mg oral tablet) 1 tab(s) by mouth Once a day Unchanged metoprolol (Metoprolol Succinate ER 25 mg oral TABLET extended release) 1 tab(s) by mouth Once a day HYPERTENSION, ESSENTIAL CORONARY ARTERY DISEASE Duration: 90 Days Unchanged multivitamin (Multivitamin) 1 tab(s) by mouth Every day Unchanged omeprazole (omeprazole 40 mg oral delayed release capsule) 1 cap by mouth Once a day GERD (gastroesophageal reflux disease) Duration: 90 Days Unchanged ranolazine (Ranexa 500 mg oral tablet, extended release) 1 tab(s) by mouth Two (2) times a day Unchanged rosuvastatin (Crestor 40 mg oral tablet) 1 tab(s) by mouth Every day Duration: 90 Days Unchanged tadalafil (Cialis 5 mg oral tablet) 1 tab(s) by mouth Once a day ED (erectile dysfunction) Unchanged valsartan (valsartan 320 mg oral tablet) 1 tab(s) by mouth Once a day HYPERTENSION, ESSENTIAL Duration: 90 Days Unchanged zolpidem (zolpidem 10 mg oral tablet) 1 tab(s) by mouth Daily at bedtime Insomnia, chronic Medication management contract signed - 10/2021 Duration: 30 Days Fill Date: 2021 Please take this list to your next doctor s visit. Bring all medications you take, including over the counter medications, herbals and other supplements with you to your doctor s visit. Patients and families are reminded to discard old lists and to update any records with all medication providers or retail pharmacies. Medication Leaflets acetaminophen and codeine (a SILVINAT evelia rcoha and DASHA bunch) Tylenol with Codeine #3, Tylenol with Codeine #4 What is the most important information I should know about acetaminophen and codeine? MISUSE OF OPIOID MEDICINE CAN CAUSE ADDICTION, OVERDOSE, OR . Keep the medication in a place where others cannot get to it. Do not give this medicine to anyone younger than 12 years old, or anyone under 18 who recently had surgery to remove the tonsils or adenoids. Taking opioid medicine during may cause life-threatening withdrawal symptoms in the . Fatal side effects can occur if you use opioid medicine with alcohol, or with other drugs that cause drowsiness or slow your breathing. Stop taking this medicine and call your doctor right away if you have skin redness or a rash that spreads and causes blistering and peeling. What is acetaminophen and codeine? Acetaminophen and codeine is a combination medicine used to relieve moderate to severe pain. Acetaminophen and codeine may also be used for purposes not listed in this medication guide. What should I discuss with my healthcare provider before taking acetaminophen and codeine? You should not use this medicine if you are allergic to acetaminophen or codeine, or if you have: severe asthma or breathing problems; or a blockage in your stomach or intestines. In some people, codeine breaks down rapidly in the liver and reaches higher than normal levels in the body. This can cause dangerously slow breathing and may cause . Codeine is not approved for use by anyone younger than 12 years old. Do not give this medicine to anyone younger than 18 years old who recently had surgery to remove the tonsils or adenoids. Tell your doctor if you have ever had: breathing problems, sleep apnea; liver disease; alcoholism or drug addiction; urination problems; kidney disease; or problems with your pancreas, thyroid, or gallbladder. If you use opioid medicine while you are , your baby could become dependent on the drug. This can cause life-threatening withdrawal symptoms in the baby after it is born. Babies born dependent on opioids may need medical treatment for several weeks. Do not breastfeed. Codeine can pass into breast milk and cause drowsiness, breathing problems, or in a nursing baby. How should I take acetaminophen and codeine? Follow the directions on your prescription label and read all medication guides. Never use this medicine in larger amounts, or for longer than prescribed. An overdose can damage your liver or cause . Tell your doctor if you feel an increased urge to use more of this medicine. Never share opioid medicine with another person, especially someone with a history of drug abuse or addiction. MISUSE CAN CAUSE ADDICTION, OVERDOSE, OR . Keep the medication in a place where others cannot get to it. Selling or giving away opioid medicine is against the law. If you need surgery or medical tests, tell the surgeon or doctor ahead of time that you are using this medicine. Do not stop using acetaminophen and codeine suddenly after long-term use, or you could have unpleasant withdrawal symptoms. Ask your doctor how to safely stop using this medicine. Store at room temperature away from moisture and heat. Keep track of your medicine. You should be aware if anyone is using it improperly or without a prescription. Do not keep leftover opioid medication. Just one dose can cause in someone using this medicine accidentally or improperly. Ask your pharmacist where to locate a drug take-back disposal program. If there is no take-back program, flush the unused medicine down the toilet. What happens if I miss a dose? Since this medicine is used for pain, you are not likely to miss a dose. Skip any missed dose if it is almost time for your next dose. Do not use two doses at one time. What happens if I overdose? Seek emergency medical attention or call the Poison Help line at . An opioid overdose can be fatal, especially in a child or other person using the medicine without a prescription. Overdose symptoms may include severe drowsiness, pinpoint pupils, slow breathing, or no breathing. Your doctor may recommend you get naloxone (a medicine to reverse an opioid overdose) and keep it with you at all times. A person caring for you can give the naloxone if you stop breathing or don't wake up. Your caregiver must still get emergency medical help and may need to perform CPR (cardiopulmonary resuscitation) on you while waiting for help to arrive. Anyone can buy naloxone from a pharmacy or local health department. Make sure any person caring for you knows where you keep naloxone and how to use it. What should I avoid while taking acetaminophen and codeine? Avoid driving or operating machinery until you know how this medicine will affect you. Dizziness or drowsiness can cause falls, accidents, or severe injuries. Do not drink alcohol. Dangerous side effects or could occur. Ask a doctor or pharmacist before using any other medicine that may contain acetaminophen (sometimes abbreviated as APAP). Taking certain medications together can lead to a fatal overdose. What are the possible side effects of acetaminophen and codeine? Get emergency medical help if you have signs of an allergic reaction: hives; difficulty breathing; swelling of your face, lips, tongue, or throat. Opioid medicine can slow or stop your breathing, and may occur. A person caring for you should give naloxone and/or seek emergency medical attention if you have slow breathing with long pauses, blue colored lips, or if you are hard to wake up. In rare cases, acetaminophen may cause a severe skin reaction that can be fatal. This could occur even if you have taken acetaminophen in the past and had no reaction. Stop taking this medicine and call your doctor right away if you have skin redness or a rash that spreads and causes blistering and peeling. Call your doctor at once if you have: noisy breathing, sighing, shallow breathing, breathing that stops; a light-headed feeling, like you might pass out; confusion, severe drowsiness; liver problems--nausea, upper stomach pain, itching, loss of appetite, dark urine, griselda-colored stools, jaundice (yellowing of the skin or eyes); or high levels of serotonin in the body--agitation, hallucinations, fever, sweating, shivering, fast heart rate, muscle stiffness, twitching, loss of coordination, nausea, vomiting, diarrhea. Serious breathing problems may be more likely in older adults and in those who are debilitated or have wasting syndrome or chronic breathing disorders. Common side effects include: drowsiness, dizziness, feeling tired; nausea, vomiting, stomach pain; constipation; or headache. This is not a complete list of side effects and others may occur. Call your doctor for medical advice about side effects. You may report side effects to FDA at 6-503-FQP-4909. What other drugs will affect acetaminophen and codeine? You may have breathing problems or withdrawal symptoms if you start or stop taking certain other medicines. Tell your doctor if you also use an antibiotic, antifungal medication, heart or blood pressure medication, seizure medication, or medicine to treat HIV or hepatitis C. Opioid medication can interact with many other drugs and cause dangerous side effects or . Be sure your doctor knows if you also use: cold or allergy medicines, bronchodilator asthma/COPD medication, or a diuretic ('water pill'); medicines for motion sickness, irritable bowel syndrome, or overactive bladder; other opioids--opioid pain medicine or prescription cough medicine; a sedative like Valium--diazepam, alprazolam, lorazepam, Xanax, Klonopin, Versed, and others; drugs that make you sleepy or slow your breathing--a sleeping pill, muscle relaxer, medicine to treat mood disorders or mental illness; drugs that affect serotonin levels in your body--a stimulant, or medicine for depression, Parkinson's disease, migraine headaches, serious infections, or nausea and vomiting. This list is not complete. Other drugs may affect acetaminophen and codeine, including prescription and ymyd-jxa-rpnvrfo medicines, vitamins, and herbal products. Not all possible interactions are listed here. Where can I get more information? Your doctor or pharmacist can provide more information about acetaminophen and codeine. Remember, keep this and all other medicines out of the reach of children, never share your medicines with others, and use this medication only for the indication prescribed. Every effort has been made to ensure that the information provided by [employer]') is accurate, up-to-date, and complete, but no guarantee is made to that effect. Drug information contained herein may be time sensitive. [employer] information has been compiled for use by healthcare practitioners and consumers in the [place] and therefore [employer] does not warrant that uses outside of the [place] are appropriate, unless specifically indicated otherwise. [employer]'s drug information does not endorse drugs, diagnose patients or recommend therapy. [employer] drug information is an informational resource designed to assist licensed healthcare practitioners in caring for their patients and/or to serve consumers viewing this service as a supplement to, and not a substitute for, the expertise, skill, knowledge and judgment of healthcare practitioners. The absence of a warning for a given drug or drug combination in no way should be construed to indicate that the drug or drug combination is safe, effective or appropriate for any given patient. [facility] does not assume any responsibility for any aspect of healthcare administered with the aid of information [facility] provides. The information contained herein is not intended to cover all possible uses, directions, precautions, warnings, drug interactions, allergic reactions, or adverse effects. If you have questions about the drugs you are taking, check with your doctor, nurse or pharmacist. Copyright 1624-8653 [facility]. Version: 18.. Revision Date: 05/31/2020. lidocaine viscous (LYE woodward velasco VIS kus) Lidocaine Viscous, LidoRxKit, LTA II Kit What is the most important information I should know about lidocaine viscous? Do not use this medicine to treat teething pain in a baby. can occur from the use of this medicine in very young children. Use the smallest amount of this medicine needed to numb or relieve pain. Do not use large amounts of lidocaine viscous. An overdose of numbing medication can cause fatal side effects if too much of the medicine is absorbed through your gums and into your blood. What is lidocaine viscous? Lidocaine is a local anesthetic (numbing medication). It works by blocking nerve signals in your body. Lidocaine viscous is used to treat sores inside the mouth, during dental procedures to numb the gums, and to numb the mouth and throat before a surgery or medical procedure. Lidocaine viscous should not be used to treat teething pain in infants. Lidocaine viscous may also be used for purposes not listed in this medication guide. What should I discuss with my healthcare provider before using lidocaine viscous? An overdose of numbing medication can cause fatal side effects if too much of the medicine is absorbed through your gums and into your blood. This can happen if you apply more than the recommended dose. Do not use lidocaine viscous to treat teething pain in a baby. A baby could accidentally swallow this medicine if it is placed in the mouth. Heart problems, seizures, severe brain injury, and can occur from the use of this medicine in very young children. Always ask a doctor before using any medicine to treat your baby's teething pain. You should not use lidocaine viscous if you are allergic to any type of numbing medicine. Tell your doctor if you have ever had: liver disease; a serious heart condition such as 'AV block'; an allergy to any drugs; or broken, swollen, or damaged skin or gum tissue. Ask a doctor before using this medicine if you are or breast-feeding. Older adults may be more sensitive to the effects of this medicine. How should I use lidocaine viscous? Follow all directions on your prescription label and read all medication guides or instruction sheets. Use the medicine exactly as directed. Improper use of lidocaine viscous may result in . Read and carefully follow any Instructions for Use provided with your medicine. Ask your doctor or pharmacist if you do not understand these instructions. Lidocaine viscous may be applied with your finger tips or a cotton swab, or with the applicator provided with the medicine. Use the smallest amount of this medication needed to numb or relieve pain. Do not use large amounts of lidocaine viscous. Avoid swallowing the medicine while applying it to your gums or the inside of your mouth. Your body may absorb more of this medicine if: you use too much; you swallow the medicine; you apply the medicine to gum tissue that is cut or irritated; or you apply heat to a treated area. Avoid eating within 1 hour after using this medicine inside your mouth or throat. You may have trouble swallowing and choking could occur, especially in a child. Store at room temperature away from moisture and heat. What happens if I miss a dose? Since lidocaine topical is used when needed, you may not be on a dosing schedule. Skip any missed dose if it's almost time for your next dose. What happens if I overdose? Seek emergency medical attention or call the Poison Help line at if anyone has accidentally swallowed the medication. An overdose of numbing medicine can cause fatal side effects if too much of the medicine is absorbed through your gums and into your blood. Overdose symptoms may include uneven heartbeats, seizure (convulsions), slowed breathing, coma, or respiratory failure (breathing stops). Lidocaine applied to the gums is not likely to cause an overdose unless you apply more than the recommended dose. What should I avoid while using lidocaine viscous? Avoid eating, chewing gum, or drinking hot liquids until the feeling in your mouth has returned completely. Chewing while your mouth is numb could result in a bite injury to your tongue, lips, or inside of your cheek. Do not allow this medicine to come into contact with your eyes. If it does, rinse with water. Avoid using other medications on the areas you treat with lidocaine viscous unless your doctor tells you to. What are the possible side effects of lidocaine viscous? Get emergency medical help if you have signs of an allergic reaction: hives; difficulty breathing; swelling of your face, lips, tongue, or throat. Stop using lidocaine viscous and call your doctor at once if you have: drowsiness, depression, confusion, feeling nervous or restless; weakness, slow breathing, slow heart rate; a light-headed feeling, like you might pass out; numbness or cold feeling; vomiting; or blurred vision. Common side effects may include: unusual or unpleasant taste in the mouth; or numbness in places where the medicine is accidentally applied. This is not a complete list of side effects and others may occur. Call your doctor for medical advice about side effects. You may report side effects to FDA at 9-266-QLT-7233. What other drugs will affect lidocaine viscous? Lidocaine viscous is not likely to be affected by other drugs you use. But many drugs can interact with each other. Tell each of your health care providers about all medicines you use, including prescription and fbst-eip-ldreoxd medicines, vitamins, and herbal products. Where can I get more information? Your pharmacist can provide more information about lidocaine viscous. Remember, keep this and all other medicines out of the reach of children, never share your medicines with others, and use this medication only for the indication prescribed. Every effort has been made to ensure that the information provided by [employer]') is accurate, up-to-date, and complete, but no guarantee is made to that effect. Drug information contained herein may be time sensitive. [employer] information has been compiled for use by healthcare practitioners and consumers in the [place] and therefore [employer] does not warrant that uses outside of the [place] are appropriate, unless specifically indicated otherwise. [employer]'s drug information does not endorse drugs, diagnose patients or recommend therapy. [employer] drug information is an informational resource designed to assist licensed healthcare practitioners in caring for their patients and/or to serve consumers viewing this service as a supplement to, and not a substitute for, the expertise, skill, knowledge and judgment of healthcare practitioners. The absence of a warning for a given drug or drug combination in no way should be construed to indicate that the drug or drug combination is safe, effective or appropriate for any given patient. [facility] does not assume any responsibility for any aspect of healthcare administered with the aid of information [facility] provides. The information contained herein is not intended to cover all possible uses, directions, precautions, warnings, drug interactions, allergic reactions, or adverse effects. If you have questions about the drugs you are taking, check with your doctor, nurse or pharmacist. Copyright 2076-5076 [employer]. Version: 3.01. Revision Date: 10/06/2017. Education Materials Viral Pharyngitis (Sore Throat) You or your child have pharyngitis (sore throat). This infection is caused by a virus. It can cause throat pain that is worse when swallowing, aching all over, headache, and fever. The infection may be spread by coughing, kissing, or touching others after touching your mouth or nose. Antibiotic medicines do not work against viruses. They are not used for treating this illness. Home care If symptoms are severe, you or your child should rest at home. Return to work or school when you or your child feel well enough. You or your child should drink plenty of fluids to prevent dehydration. Use throat lozenges or numbing throat sprays to help reduce pain. Gargling with warm salt water will also help reduce throat pain. Dissolve 1/2 teaspoon of salt in 1 glass of warm water. Children can sip on juice or a popsicle. Children 5 years and older can also suck on a lollipop or hard candy. Don t eat salty or spicy foods or give them to your child. These can be irritating to the throat. Medicines for a child: You can give your child acetaminophen for fever, fussiness, or discomfort. In babies over 6 months of age, you may use ibuprofen instead of acetaminophen. If your child has chronic liver or kidney disease or ever had a stomach ulcer or GI bleeding, talk with your child s healthcare provider before giving these medicines. Aspirin should never be used by any child under 18 years of age who has a fever. It may cause severe liver damage. Medicines for an adult: You may use acetaminophen or ibuprofen to control pain or fever, unless another medicine was prescribed for this. If you have chronic liver or kidney disease or ever had a stomach ulcer or GI bleeding, talk with your healthcare provider before using these medicines. Follow-up care Follow up with a healthcare provider or our staff if you or your child are not getting better over the next week. When to seek medical advice Call your healthcare provider right away if any of these occur: Fever as directed by your healthcare provider. For children, seek care if: oYour child is of any age and has repeated fevers above 104 F (40 C). oYour child is younger than 2 years of age and has a fever of 100.4 F (38 C) for more than 1 day. oYour child is 2 years old or older and has a fever of 100.4 F (38 C) for more than 3 days. New or worsening ear pain, sinus pain, or headache Painful lumps in the back of neck Stiff neck Lymph nodes are getting larger Can t swallow liquids, a lot of drooling, or can t open mouth wide due to throat pain Signs of dehydration, such as very dark urine or no urine, sunken eyes, dizziness Trouble breathing or noisy breathing Muffled voice New rash Other symptoms are getting worse [id number] [employer]. [address] [place] [address]. All rights reserved. This information is not intended as a substitute for professional medical care. Always follow your healthcare professional's instructions. Additional Information VACCINATE! IT SAVES LIVES! Members of the community who have not yet received the COVID-19 vaccine and would like to receive it can visit one of [facility] vaccine clinics. There are many vaccine clinic locations within the [facility]. For locations and available times, please visit [email or web address]. It is important to note that some COVID mobile vaccine clinics are held outdoors and may be canceled in rainy or stormy conditions. To learn more about pediatric vaccinations (ages 5-11), we invite you to visit the [facility] webpage. [email or web address] To learn more about the COVID-19 vaccine, we invite you to visit the [facility] website for a list of frequently asked questions. [email or web address] [facility] Patient Portal Access Instructions: Stay connected with your healthcare team and access your personal medical information anytime with the [facility] Patient Portal. If you would like a full copy of your medical records please contact the [facility] Medical Records Department Wednesday through Wednesday between 8a.m. and 4:30p.m. Please follow the directions below to access the portal: 1.Access the email account you provided upon registration to the [facility].2.Look for an invitation email from [facility].3.Open the email and access the invitation link: Accept Invitation to [facility]4.Fill in the required oneal to create your account. Sign into [email or web address] with your username and password that you created in the above steps to stay up to date. You can then view a summary of results, a summary of your visits, and the ability to download your summaries to your computer or send the information securely to a physician. Remember that your healthcare information is confidential, so carefully consider who you will allow to register on the [facility] Patient Portal for access to your information. You can also access the [facility] Patient Portal on the [employer]phine. Simply click on Health Records under Health Data and then click on the [employer] logo. HOW TO SAFELY DISPOSE OF PRESCRIPTION MEDICATIONS Please use one of the following methods to safely dispose of your unused medications. 1.Use a drug disposal kit: the drug disposal pouch allows you to safely discard your old and unused drugs. Ask your nurse to give you one when you are discharged.2.Visit a local take-back location: Many local pharmacies and police departments have programs that collect old and unwanted prescription drugs. Call your local pharmacy or go to http://bit.ly/2M9Pn6g to find one close to you.3.Make use of household items: Use cat litter or old coffee grounds to dispose medications if other options are not available. Mix your drugs with these household products, seal them in an airtight container and throw it into the garbage. Call [facility]: [phone] to be sure your drugs can be disposed of in this way. Some medicines may require a different approach.4.Never flush your medications down the toilet. IF YOU HAVE BEEN PRESCRIBED AN OPIOIDS FOR PAIN If you have been prescribed an opioid (such as hydrocodone, oxycodone or morphine), it is critical to understand the possible side effects and risks of opioid pain medications. Even when taken as directed, opioids can have several side effects including: Tolerance, meaning you might need to take more of a medication for the same pain relief. Nausea, vomiting and/or constipation. Sleepiness, dizziness, dry mouth, confusion, depression or itching. Physical dependence, meaning you have withdrawal symptoms when a medication is stopped ? this can develop within a few days. KNOW YOUR RESPONSIBILITIES It is important to know exactly how much and how often to take the opioid pain medications you are prescribed. Never take opioids in higher amounts or more often than prescribed. Do not combine opioids with alcohol or other drugs that cause drowsiness, such as benzodiazepines, also known as benzos, including diazepam and alprazolam, muscle relaxants or sleep aids. Never sell or share prescription opioids. This is illegal. Store opioids in a secure place and out of reach of others (including children, family, friends and visitors). The last page(s) of this document has been signed and retained as a CHART COPY Signatures Patient Education Materials Pharyngitis, Viral Medication Leaflets acetaminophen and codeine, lidocaine viscous My discharge plan and instructions have been reviewed and explained to me and IVIRAJ ARTHUR D understand my current condition and have read and understand these discharge instructions. I have received a written copy of the plan/instructions. If I have questions, I am aware that I should contact my doctor. Patient/Vp [employer] Signature: Date/Time: Relationship to Patient: ___ Witness Name/Signature: Date/Time: [facility] 11-09-2021 Note Discharge Instructions Thank you for allowing [facility] to assist you with your healthcare needs. The following is important discharge information regarding your hospital visit. Diagnosis from Today's Visit Pharyngitis Sore throat - Adult What to Do Next Instructions from Your Care Team No qualifying data available. Post Acute Orders No qualifying data available. You Need to Schedule the Following Appointments Follow Up with FRANKLYN VILLA APRN, CNP When Within 2-4 days Where: [address] [facility] [place] [address]- Allergies codeine (Nausea) penicillin (Nausea) sulfa drugs (Hives) Medications Please ask your primary doctor or pharmacist before taking any other medication not listed, including over the counter drugs, herbal medications, vitamins and or supplements as they may interact with your home medications. What How Much When Why Instructions Last Dose New acetaminophen-codeine (Tylenol with Codeine #3 use acetaminophen-codeine 300 mg-30 mg tablet ) 1 tab(s) by mouth Every 6 hours Pharyngitis Duration: 3 Days Printed Prescription New lidocaine topical (Lidocaine Viscous 2% mucous membrane solution) 10 Milliliter Topical Three (3) times a day before meals as needed for for mouth sore pain Duration: 5 Days Printed Prescription Unchanged aspirin (aspirin 81 mg oral delayed release tablet) 1 tab(s) by mouth Once a day Unchanged hydroCHLOROthiazide (hydroCHLOROthiazide 12.5 mg oral tablet) 1 tab(s) by mouth Once a day Unchanged metoprolol (Metoprolol Succinate ER 25 mg oral TABLET extended release) 1 tab(s) by mouth Once a day HYPERTENSION, ESSENTIAL CORONARY ARTERY DISEASE Duration: 90 Days Unchanged multivitamin (Multivitamin) 1 tab(s) by mouth Every day Unchanged omeprazole (omeprazole 40 mg oral delayed release capsule) 1 cap by mouth Once a day GERD (gastroesophageal reflux disease) Duration: 90 Days Unchanged ranolazine (Ranexa 500 mg oral tablet, extended release) 1 tab(s) by mouth Two (2) times a day Unchanged rosuvastatin (Crestor 40 mg oral tablet) 1 tab(s) by mouth Every day Duration: 90 Days Unchanged tadalafil (Cialis 5 mg oral tablet) 1 tab(s) by mouth Once a day ED (erectile dysfunction) Unchanged valsartan (valsartan 320 mg oral tablet) 1 tab(s) by mouth Once a day HYPERTENSION, ESSENTIAL Duration: 90 Days Unchanged zolpidem (zolpidem 10 mg oral tablet) 1 tab(s) by mouth Daily at bedtime Insomnia, chronic Medication management contract signed 10/2021 Duration: 30 Days Fill Date: 2021 Please take this list to your next doctor s visit. Bring all medications you take, including over the counter medications, herbals and other supplements with you to your doctor s visit. Patients and families are reminded to discard old lists and to update any records with all medication providers or retail pharmacies. Medication Leaflets acetaminophen and codeine (a HAO rocha and DASHA bunch) Tylenol with Codeine #3, Tylenol with Codeine #4 What is the most important information I should know about acetaminophen and codeine? MISUSE OF OPIOID MEDICINE CAN CAUSE ADDICTION, OVERDOSE, OR . Keep the medication in a place where others cannot get to it. Do not give this medicine to anyone younger than 12 years old, or anyone under 18 who recently had surgery to remove the tonsils or adenoids. Taking opioid medicine during may cause life-threatening withdrawal symptoms in the . Fatal side effects can occur if you use opioid medicine with alcohol, or with other drugs that cause drowsiness or slow your breathing. Stop taking this medicine and call your doctor right away if you have skin redness or a rash that spreads and causes blistering and peeling. What is acetaminophen and codeine? Acetaminophen and codeine is a combination medicine used to relieve moderate to severe pain. Acetaminophen and codeine may also be used for purposes not listed in this medication guide. What should I discuss with my healthcare provider before taking acetaminophen and codeine? You should not use this medicine if you are allergic to acetaminophen or codeine, or if you have: severe asthma or breathing problems; or a blockage in your stomach or intestines. In some people, codeine breaks down rapidly in the liver and reaches higher than normal levels in the body. This can cause dangerously slow breathing and may cause . Codeine is not approved for use by anyone younger than 12 years old. Do not give this medicine to anyone younger than 18 years old who recently had surgery to remove the tonsils or adenoids. Tell your doctor if you have ever had: breathing problems, sleep apnea; liver disease; alcoholism or drug addiction; urination problems; kidney disease; or problems with your pancreas, thyroid, or gallbladder. If you use opioid medicine while you are , your baby could become dependent on the drug. This can cause life-threatening withdrawal symptoms in the baby after it is born. Babies born dependent on opioids may need medical treatment for several weeks. Do not breastfeed. Codeine can pass into breast milk and cause drowsiness, breathing problems, or in a nursing baby. How should I take acetaminophen and codeine? Follow the directions on your prescription label and read all medication guides. Never use this medicine in larger amounts, or for longer than prescribed. An overdose can damage your liver or cause . Tell your doctor if you feel an increased urge to use more of this medicine. Never share opioid medicine with another person, especially someone with a history of drug abuse or addiction. MISUSE CAN CAUSE ADDICTION, OVERDOSE, OR . Keep the medication in a place where others cannot get to it. Selling or giving away opioid medicine is against the law. If you need surgery or medical tests, tell the surgeon or doctor ahead of time that you are using this medicine. Do not stop using acetaminophen and codeine suddenly after long-term use, or you could have unpleasant withdrawal symptoms. Ask your doctor how to safely stop using this medicine. Store at room temperature away from moisture and heat. Keep track of your medicine. You should be aware if anyone is using it improperly or without a prescription. Do not keep leftover opioid medication. Just one dose can cause in someone using this medicine accidentally or improperly. Ask your pharmacist where to locate a drug take-back disposal program. If there is no take-back program, flush the unused medicine down the toilet. What happens if I miss a dose? Since this medicine is used for pain, you are not likely to miss a dose. Skip any missed dose if it is almost time for your next dose. Do not use two doses at one time. What happens if I overdose? Seek emergency medical attention or call the Poison Help line at . An opioid overdose can be fatal, especially in a child or other person using the medicine without a prescription. Overdose symptoms may include severe drowsiness, pinpoint pupils, slow breathing, or no breathing. Your doctor may recommend you get naloxone (a medicine to reverse an opioid overdose) and keep it with you at all times. A person caring for you can give the naloxone if you stop breathing or don't wake up. Your caregiver must still get emergency medical help and may need to perform CPR (cardiopulmonary resuscitation) on you while waiting for help to arrive. Anyone can buy naloxone from a pharmacy or local health department. Make sure any person caring for you knows where you keep naloxone and how to use it. What should I avoid while taking acetaminophen and codeine? Avoid driving or operating machinery until you know how this medicine will affect you. Dizziness or drowsiness can cause falls, accidents, or severe injuries. Do not drink alcohol. Dangerous side effects or could occur. Ask a doctor or pharmacist before using any other medicine that may contain acetaminophen (sometimes abbreviated as APAP). Taking certain medications together can lead to a fatal overdose. What are the possible side effects of acetaminophen and codeine? Get emergency medical help if you have signs of an allergic reaction: hives; difficulty breathing; swelling of your face, lips, tongue, or throat. Opioid medicine can slow or stop your breathing, and may occur. A person caring for you should give naloxone and/or seek emergency medical attention if you have slow breathing with long pauses, blue colored lips, or if you are hard to wake up. In rare cases, acetaminophen may cause a severe skin reaction that can be fatal. This could occur even if you have taken acetaminophen in the past and had no reaction. Stop taking this medicine and call your doctor right away if you have skin redness or a rash that spreads and causes blistering and peeling. Call your doctor at once if you have: noisy breathing, sighing, shallow breathing, breathing that stops; a light-headed feeling, like you might pass out; confusion, severe drowsiness; liver problems--nausea, upper stomach pain, itching, loss of appetite, dark urine, griselda-colored stools, jaundice (yellowing of the skin or eyes); or high levels of serotonin in the body--agitation, hallucinations, fever, sweating, shivering, fast heart rate, muscle stiffness, twitching, loss of coordination, nausea, vomiting, diarrhea. Serious breathing problems may be more likely in older adults and in those who are debilitated or have wasting syndrome or chronic breathing disorders. Common side effects include: drowsiness, dizziness, feeling tired; nausea, vomiting, stomach pain; constipation; or headache. This is not a complete list of side effects and others may occur. Call your doctor for medical advice about side effects. You may report side effects to FDA at 9-916-KRW-1739. What other drugs will affect acetaminophen and codeine? You may have breathing problems or withdrawal symptoms if you start or stop taking certain other medicines. Tell your doctor if you also use an antibiotic, antifungal medication, heart or blood pressure medication, seizure medication, or medicine to treat HIV or hepatitis C. Opioid medication can interact with many other drugs and cause dangerous side effects or . Be sure your doctor knows if you also use: cold or allergy medicines, bronchodilator asthma/COPD medication, or a diuretic ('water pill'); medicines for motion sickness, irritable bowel syndrome, or overactive bladder; other opioids--opioid pain medicine or prescription cough medicine; a sedative like Valium--diazepam, alprazolam, lorazepam, Xanax, Klonopin, Versed, and others; drugs that make you sleepy or slow your breathing--a sleeping pill, muscle relaxer, medicine to treat mood disorders or mental illness; drugs that affect serotonin levels in your body--a stimulant, or medicine for depression, Parkinson's disease, migraine headaches, serious infections, or nausea and vomiting. This list is not complete. Other drugs may affect acetaminophen and codeine, including prescription and [id number] medicines, vitamins, and herbal products. Not all possible interactions are listed here. Where can I get more information? Your doctor or pharmacist can provide more information about acetaminophen and codeine. Remember, keep this and all other medicines out of the reach of children, never share your medicines with others, and use this medication only for the indication prescribed. Every effort has been made to ensure that the information provided by [employer] is accurate, up-to-date, and complete, but no guarantee is made to that effect. Drug information contained herein may be time sensitive. [employer] information has been compiled for use by healthcare practitioners and consumers in the [place] and therefore [employer] does not warrant that uses outside of the [place] are appropriate, unless specifically indicated otherwise. [employer]'s drug information does not endorse drugs, diagnose patients or recommend therapy. [facility]'s drug information is an informational resource designed to assist licensed healthcare practitioners in caring for their patients and/or to serve consumers viewing this service as a supplement to, and not a substitute for, the expertise, skill, knowledge and judgment of healthcare practitioners. The absence of a warning for a given drug or drug combination in no way should be construed to indicate that the drug or drug combination is safe, effective or appropriate for any given patient. [facility] does not assume any responsibility for any aspect of healthcare administered with the aid of information [facility] provides. The information contained herein is not intended to cover all possible uses, directions, precautions, warnings, drug interactions, allergic reactions, or adverse effects. If you have questions about the drugs you are taking, check with your doctor, nurse or pharmacist. Copyright 8717-8030 [facility] [employer]. Version: 18.. Revision Date: 05/31/2020. lidocaine viscous (LYE woodward velasco VIS kus) Lidocaine Viscous, LidoRxKit, LTA II Kit What is the most important information I should know about lidocaine viscous? Do not use this medicine to treat teething pain in a baby. can occur from the use of this medicine in very young children. Use the smallest amount of this medicine needed to numb or relieve pain. Do not use large amounts of lidocaine viscous. An overdose of numbing medication can cause fatal side effects if too much of the medicine is absorbed through your gums and into your blood. What is lidocaine viscous? Lidocaine is a local anesthetic (numbing medication). It works by blocking nerve signals in your body. Lidocaine viscous is used to treat sores inside the mouth, during dental procedures to numb the gums, and to numb the mouth and throat before a surgery or medical procedure. Lidocaine viscous should not be used to treat teething pain in infants. Lidocaine viscous may also be used for purposes not listed in this medication guide. What should I discuss with my healthcare provider before using lidocaine viscous? An overdose of numbing medication can cause fatal side effects if too much of the medicine is absorbed through your gums and into your blood. This can happen if you apply more than the recommended dose. Do not use lidocaine viscous to treat teething pain in a baby. A baby could accidentally swallow this medicine if it is placed in the mouth. Heart problems, seizures, severe brain injury, and can occur from the use of this medicine in very young children. Always ask a doctor before using any medicine to treat your baby's teething pain. You should not use lidocaine viscous if you are allergic to any type of numbing medicine. Tell your doctor if you have ever had: liver disease; a serious heart condition such as 'AV block'; an allergy to any drugs; or broken, swollen, or damaged skin or gum tissue. Ask a doctor before using this medicine if you are or breast-feeding. Older adults may be more sensitive to the effects of this medicine. How should I use lidocaine viscous? Follow all directions on your prescription label and read all medication guides or instruction sheets. Use the medicine exactly as directed. Improper use of lidocaine viscous may result in . Read and carefully follow any Instructions for Use provided with your medicine. Ask your doctor or pharmacist if you do not understand these instructions. Lidocaine viscous may be applied with your finger tips or a cotton swab, or with the applicator provided with the medicine. Use the smallest amount of this medication needed to numb or relieve pain. Do not use large amounts of lidocaine viscous. Avoid swallowing the medicine while applying it to your gums or the inside of your mouth. Your body may absorb more of this medicine if: you use too much; you swallow the medicine; you apply the medicine to gum tissue that is cut or irritated; or you apply heat to a treated area. Avoid eating within 1 hour after using this medicine inside your mouth or throat. You may have trouble swallowing and choking could occur, especially in a child. Store at room temperature away from moisture and heat. What happens if I miss a dose? Since lidocaine topical is used when needed, you may not be on a dosing schedule. Skip any missed dose if it's almost time for your next dose. What happens if I overdose? Seek emergency medical attention or call the Poison Help line at if anyone has accidentally swallowed the medication. An overdose of numbing medicine can cause fatal side effects if too much of the medicine is absorbed through your gums and into your blood. Overdose symptoms may include uneven heartbeats, seizure (convulsions), slowed breathing, coma, or respiratory failure (breathing stops). Lidocaine applied to the gums is not likely to cause an overdose unless you apply more than the recommended dose. What should I avoid while using lidocaine viscous? Avoid eating, chewing gum, or drinking hot liquids until the feeling in your mouth has returned completely. Chewing while your mouth is numb could result in a bite injury to your tongue, lips, or inside of your cheek. Do not allow this medicine to come into contact with your eyes. If it does, rinse with water. Avoid using other medications on the areas you treat with lidocaine viscous unless your doctor tells you to. What are the possible side effects of lidocaine viscous? Get emergency medical help if you have signs of an allergic reaction: hives; difficulty breathing; swelling of your face, lips, tongue, or throat. Stop using lidocaine viscous and call your doctor at once if you have: drowsiness, depression, confusion, feeling nervous or restless; weakness, slow breathing, slow heart rate; a light-headed feeling, like you might pass out; numbness or cold feeling; vomiting; or blurred vision. Common side effects may include: unusual or unpleasant taste in the mouth; or numbness in places where the medicine is accidentally applied. This is not a complete list of side effects and others may occur. Call your doctor for medical advice about side effects. You may report side effects to FDA at 4-563-ABG-6544. What other drugs will affect lidocaine viscous? Lidocaine viscous is not likely to be affected by other drugs you use. But many drugs can interact with each other. Tell each of your health care providers about all medicines you use, including prescription and [id number] medicines, vitamins, and herbal products. Where can I get more information? Your pharmacist can provide more information about lidocaine viscous. Remember, keep this and all other medicines out of the reach of children, never share your medicines with others, and use this medication only for the indication prescribed. Every effort has been made to ensure that the information provided by [employer] is accurate, up-to-date, and complete, but no guarantee is made to that effect. Drug information contained herein may be time sensitive. [employer] information has been compiled for use by healthcare practitioners and consumers in the [place] and therefore [employer] does not warrant that uses outside of the [place] are appropriate, unless specifically indicated otherwise. [employer]'s drug information does not endorse drugs, diagnose patients or recommend therapy. [facility] drug information is an informational resource designed to assist licensed healthcare practitioners in caring for their patients and/or to serve consumers viewing this service as a supplement to, and not a substitute for, the expertise, skill, knowledge and judgment of healthcare practitioners. The absence of a warning for a given drug or drug combination in no way should be construed to indicate that the drug or drug combination is safe, effective or appropriate for any given patient. [facility] does not assume any responsibility for any aspect of healthcare administered with the aid of information [facility] provides. The information contained herein is not intended to cover all possible uses, directions, precautions, warnings, drug interactions, allergic reactions, or adverse effects. If you have questions about the drugs you are taking, check with your doctor, nurse or pharmacist. Copyright 4912-7018 [facility], [facility]. Version: 3.01. Revision Date: 10/06/2017. Education Materials Viral Pharyngitis (Sore Throat) You or your child have pharyngitis (sore throat). This infection is caused by a virus. It can cause throat pain that is worse when swallowing, aching all over, headache, and fever. The infection may be spread by coughing, kissing, or touching others after touching your mouth or nose. Antibiotic medicines do not work against viruses. They are not used for treating this illness. Home care If symptoms are severe, you or your child should rest at home. Return to work or school when you or your child feel well enough. You or your child should drink plenty of fluids to prevent dehydration. Use throat lozenges or numbing throat sprays to help reduce pain. Gargling with warm salt water will also help reduce throat pain. Dissolve 1/2 teaspoon of salt in 1 glass of warm water. Children can sip on juice or a popsicle. Children 5 years and older can also suck on a lollipop or hard candy. Don t eat salty or spicy foods or give them to your child. These can be irritating to the throat. Medicines for a child: You can give your child acetaminophen for fever, fussiness, or discomfort. In babies over 6 months of age, you may use ibuprofen instead of acetaminophen. If your child has chronic liver or kidney disease or ever had a stomach ulcer or GI bleeding, talk with your child s healthcare provider before giving these medicines. Aspirin should never be used by any child under 18 years of age who has a fever. It may cause severe liver damage. Medicines for an adult: You may use acetaminophen or ibuprofen to control pain or fever, unless another medicine was prescribed for this. If you have chronic liver or kidney disease or ever had a stomach ulcer or GI bleeding, talk with your healthcare provider before using these medicines. Follow-up care Follow up with a healthcare provider or our staff if you or your child are not getting better over the next week. When to seek medical advice Call your healthcare provider right away if any of these occur: Fever as directed by your healthcare provider. For children, seek care if: oYour child is of any age and has repeated fevers above 104 F (40 C). oYour child is younger than 2 years of age and has a fever of 100.4 F (38 C) for more than 1 day. oYour child is 2 years old or older and has a fever of 100.4 F (38 C) for more than 3 days. New or worsening ear pain, sinus pain, or headache Painful lumps in the back of neck Stiff neck Lymph nodes are getting larger Can t swallow liquids, a lot of drooling, or can t open mouth wide due to throat pain Signs of dehydration, such as very dark urine or no urine, sunken eyes, dizziness Trouble breathing or noisy breathing Muffled voice New rash Other symptoms are getting worse [id number] [employer]. [address] [place] [address]. All rights reserved. This information is not intended as a substitute for professional medical care. Always follow your healthcare professional's instructions. Additional Information VACCINATE! IT SAVES LIVES! Members of the community who have not yet received the COVID-19 vaccine and would like to receive it can visit one of [facility] vaccine clinics. There are many vaccine clinic locations within the [facility]. For locations and available times, please visit [email or web address]. It is important to note that some COVID mobile vaccine clinics are held outdoors and may be canceled in rainy or stormy conditions. To learn more about pediatric vaccinations (ages 5-11), we invite you to visit the [facility] webpage. [email or web address] To learn more about the COVID-19 vaccine, we invite you to visit the [facility] website for a list of frequently asked questions. [email or web address] [facility] Patient Portal Access Instructions: Stay connected with your healthcare team and access your personal medical information anytime with the [facility] Patient Portal. If you would like a full copy of your medical records please contact the [facility] Medical Records Department Wednesday through Wednesday between 8a.m. and 4:30p.m. Please follow the directions below to access the portal: 1.Access the email account you provided upon registration to the universal health services.2.Look for an invitation email from [facility].3.Open the email and access the invitation link: Accept Invitation to [facility].Fill in the required oneal to create your account. Sign into [email or web address] with your username and password that you created in the above steps to stay up to date. You can then view a summary of results, a summary of your visits, and the ability to download your summaries to your computer or send the information securely to a physician. Remember that your healthcare information is confidential, so carefully consider who you will allow to register on the [facility] Patient Portal for access to your information. You can also access the [facility] Patient Portal on the [employer] delphine. Simply click on Health Records under Health Data and then click on the [facility] logo. HOW TO SAFELY DISPOSE OF PRESCRIPTION MEDICATIONS Please use one of the following methods to safely dispose of your unused medications. 1.Use a drug disposal kit: the drug disposal pouch allows you to safely discard your old and unused drugs. Ask your nurse to give you one when you are discharged.2.Visit a local take-back location: Many local pharmacies and police departments have programs that collect old and unwanted prescription drugs. Call your local pharmacy or go to http://bit.ly/8U6Ck6s to find one close to you.3.Make use of household items: Use cat litter or old coffee grounds to dispose medications if other options are not available. Mix your drugs with these household products, seal them in an airtight container and throw it into the garbage. Call [facility]: [phone] to be sure your drugs can be disposed of in this way. Some medicines may require a different approach.4.Never flush your medications down the toilet. IF YOU HAVE BEEN PRESCRIBED AN OPIOIDS FOR PAIN If you have been prescribed an opioid (such as hydrocodone, oxycodone or morphine), it is critical to understand the possible side effects and risks of opioid pain medications. Even when taken as directed, opioids can have several side effects including: Tolerance, meaning you might need to take more of a medication for the same pain relief. Nausea, vomiting and/or constipation. Sleepiness, dizziness, dry mouth, confusion, depression or itching. Physical dependence, meaning you have withdrawal symptoms when a medication is stopped ? this can develop within a few days. KNOW YOUR RESPONSIBILITIES It is important to know exactly how much and how often to take the opioid pain medications you are prescribed. Never take opioids in higher amounts or more often than prescribed. Do not combine opioids with alcohol or other drugs that cause drowsiness, such as benzodiazepines, also known as benzos, including diazepam and alprazolam, muscle relaxants or sleep aids. Never sell or share prescription opioids. This is illegal. Store opioids in a secure place and out of reach of others (including children, family, friends and visitors). The last page(s) of this document has been signed and retained as a CHART COPY Signatures Patient Education Materials Pharyngitis, Viral Medication Leaflets acetaminophen and codeine, lidocaine viscous My discharge plan and instructions have been reviewed and explained to me and IVIRAJ ARTHUR D understand my current condition and have read and understand these discharge instructions. I have received a written copy of the plan/instructions. If I have questions, I am aware that I should contact my doctor. Patient/[employer] Signature: Date/Time: Relationship to Patient: ___ Witness Name/Signature: Date/Time: [facility] Evaluation + Plan note Future Appointments Appointment Date:05/15/2021 08:00:00 AM Scheduled Provider:FRANKLYN VILLA APRN, CNP Location:[facility] Appointment Type:PC OV Controlled Medication Appointment Date:07/25/2021 08:15:00 AM Scheduled Provider: Location:[facility] Appointment Type:PC Nurse Lab Appointment Date:07/31/2021 09:00:00 AM Scheduled Provider:FRANKLYN VILLA APRN, CNP [facility] Appointment Type:PC OV Follow Up Appointment Date:09/30/2021 01:00:00 PM Scheduled Provider: Location:[facility] [employer] Appointment Type:CV OV Future Scheduled TestsFolate Level 07/31/21Hepatic Function Panel 09/30/21Prostate Specific Antigen 07/31/21Vitamin B12 Level 07/31/21Complete Blood Count 07/31/21Lipid Profile 09/30/21Lipid Profile 07/31/21Complete Metabolic Panel 07/31/21 [facility] Evaluation + Plan note Future Appointments Appointment Date:08/07/2021 09:00:00 AM Scheduled Provider:FRANKLYN VILLA APRN, CNP Location:[facility] Appointment Type:PC OV Follow Up Appointment Date:09/30/2021 01:00:00 PM Scheduled Provider: [facility] Appoint[facility] Type:CV OV Appointment Date:10/30/2021 08:40:00 AM Scheduled Provider:FRANKLYN VILLA APRN, CNP Location:[facility] Appointment Type:PC OV Controlled Medication Future Scheduled TestsHepatic Function Panel 09/30/21Complete Blood Count 01/30/22Lipid Profile 01/30/22Lipid Profile 09/30/21Microalbumin Level Urine 01/30/22Complete Metabolic Panel 01/30/22 [facility] Evaluation + Plan note Future Appointments Appointment Date:10/08/2021 09:00:00 AM Scheduled Provider: Location:[facility] Appointment Type:CV OV Appointment Date:10/30/2021 08:40:00 AM Scheduled Provider:FRANKLYN VILLA APRN, CNP Location:[facility] Appointment Type:PC OV Controlled Medication Appointment Date:01/29/2022 09:00:00 AM Scheduled Provider: Location:[facility] Appointment Type:PC Nurse Lab Appointment Date:02/05/2022 08:40:00 AM Scheduled Provider:FRANKLYN VILLA APRN, CNP Location:[facility] Appointment Type:PC OV Future Scheduled TestsHepatic Function Panel 6/7/A1C Hemoglobin 10Complete Blood Count 02/06/22Complete Blood Count 01/30/22Lipid Profile 02/06/Lipid Profile 01/30/Lipid Profile 6//Microalbumin Level Urine 10/Microalbumin Level Urine 01/30/22Complete Metabolic Panel 02/06/Complete Metabolic Panel 01/30/22 [facility] Evaluation + Plan note Future Appointments Appointment Date:01/29/2022 09:00:00 AM Scheduled Provider: Location:[facility] Appointment Type:PC Nurse Lab Appointment Date:01/30/2022 09:00:00 AM Scheduled Provider:FRANKLYN VILLA APRN, CNP Location:[facility] Appointment Type:PC OV Controlled Medication Appointment Date:02/05/2022 08:40:00 AM Scheduled Provider:FRANKLYN VILLA APRN, CNP Location:[facility] Appointment Type:PC OV Future Scheduled TestsHepatic Function Panel 6/11/14A1C Hemoglobin 10Complete Blood Count 02/06/22Complete Blood Count 01/30/22Lipid Profile 02/06/Lipid Profile 01/30/22Lipid Profile 6//Microalbumin Level Urine 10/Microalbumin Level Urine 01/30/22Complete Metabolic Panel 02/06/22Complete Metabolic Panel 01/30/22 [facility] Evaluation + Plan note Future Appointments Appointment Date:02/23/2022 09:00:00 AM Scheduled Provider:FRANKLYN VILLA APRN, CNP Location:[facility] Appointment Type:PC OV Appointment Date:05/01/2022 09:40:00 AM Scheduled Provider:FRANKLYN VILLA APRN, CNP Location:[facility] Appointment Type:PC OV Controlled Medication Future Scheduled TestsHepatic Function Panel 6Complete Blood Count 01/30/22Lipid Profile 01/30/22Lipid Profile 6/Microalbumin Level Urine 10/14/22Microalbumin Level Urine 10/Complete Metabolic Panel 01/30/22 [facility] Evaluation + Plan note Future Appointments Appointment Date:07/31/2022 09:40:00 AM Scheduled Provider:FRANKLYN VILLA APRN, CNP Location:[facility] Appointment Type:PC OV Controlled Medication Appointment Date:08/20/2022 08:45:00 AM Scheduled Provider: Location:[facility] Appointment Type:PC Nurse Lab Appointment Date:08/27/2022 09:00:00 AM Scheduled Provider:FRANKLNY VILLA APRN, CNP Location:[facility] Appointment Type:PC OV Follow Up Future Scheduled TestsHepatic Function Panel 09/30/21Prostate Specific Antigen 08/23/22Complete Blood Count 01/30/22Complete Blood Count 08/23/22Lipid Profile 01/30/Lipid Profile 08/23/Lipid Profile 6//Microalbumin Level Urine 10/14/22Microalbumin Level Urine 10/7/22Microalbumin Level Urine 08/23/22Complete Metabolic Panel 01/30/22Complete Metabolic Panel 08/23/22 [facility] Evaluation + Plan note Future Appointments Appointment Date:08/20/2022 08:45:00 AM Scheduled Provider: Location:[facility] Appointment Type:PC Nurse Lab Appointment Date:08/27/2022 09:00:00 AM Scheduled Provider:FRANKLYN VILLA APRN, CNP Location:[facility] Appointment Type:PC OV Follow Up Appointment Date:10/30/2022 08:20:00 AM Scheduled Provider:FRANKLYN VILLA APRN, CNP Location:[facility] Appointment Type:PC OV Controlled Medication Future Scheduled TestsHepatic Function Panel 09/30/21Prostate Specific Antigen 08/23/22Complete Blood Count 01/30/22Complete Blood Count 08/23/22Lipid Profile 01/30/22Lipid Profile 08/23/22Lipid Profile 09/30/21Microalbumin Level Urine 10/Microalbumin Level Urine 01/30/Microalbumin Level Urine 08/23/22Complete Metabolic Panel 01/30/22Complete Metabolic Panel 08/23/22 [facility] Evaluation + Plan note Future Appointments Appointment Date:08/31/2022 10:40:00 AM Scheduled Provider:FRANKLYN VILLA APRN - KORINA Location:[facility] Appointment Type:PC OV Follow Up Appointment Date:08/31/2022 02:30:00 PM Scheduled Provider:LORIE MATTHEWS APRN-KORINA Location:[facility] Appointment Type:CV OV Appointment Date:10/30/2022 08:20:00 AM Scheduled Provider:FRANKLYN VILLA APRN - TEMPERER Location:[facility] Appointment Type:PC OV Controlled Medication Future Scheduled TestsHepatic Function Panel 09/30/21Complete Blood Count 01/30/22Lipid Profile 01/30/22Lipid Profile 09/30/21Microalbumin Level Urine 02/06/Microalbumin Level Urine 01/30/22Complete Metabolic Panel 01/30/22 [facility] Evaluation + Plan note Future Appointments Appointment Date:01/29/2023 08:20:00 AM Scheduled Provider:FRANKLYN VILLA APRN - KORINA [facility] Appointment Type:PC OV Controlled Medication Appointment Date:03/04/2023 09:40:00 AM Scheduled Provider:FRANKLYN VILLA APRN - TEMPERER [facility] Appointment Type:PC OV Follow Up Appointment Date:09/09/2023 10:00:00 AM Scheduled Provider:LORIE MATTHEWS APRN-KORINA Location:[facility] Appointment Type:CV OV Future Scheduled [id number] Hemoglobin 03/03/23Complete Blood Count 01/30/22Complete Blood Count 01/07/23Complete Blood Count 03/03/23Lipid Profile 01/30/22Lipid Profile 03/03/23Albumin/Creatinine Ratio, Random Urine 03/03/23Microalbumin Level Urine 02/06/22Microalbumin Level Urine 01/30/22Complete Metabolic Panel 01/30/22Complete Metabolic Panel 01/07/23Complete Metabolic Panel 03/03/23CT Abdomen and Pelvis w/o contrast 01/07/23 [facility] Hospital course Narrative No data available for this section [facility] Discharge instructions No data available for this section [facility] Progress note No data available for this section [facility] Summary Purpose Family History No Family History Records Found Advance Directives No Advanced Directives Records Found Additional Source Comments Care Team (unrecognized sect ion and content) Personnel Name: FRANKLYN VILLA APRN - TEMPERER Address: [address] [place] [address] Name: Marielle Malave PT Personnel Name: FRANKLYN VILLA APRN - TEMPERER Address: [address] [place] [address] Name: Marielle Malave PT Care Team Personnel Name: Marielle Malave PT Position: P3 Scheduling - Livestock Trucker Advanced Member Role: Other Name: FRANKLYN VILLA APRN - TEMPERER Position: P4 Advanced Mixing Pan Tender Member Role: Primary Care Physician Address: Address: [address] [place] [address] Care Team Related Persons Name: DEJON CALI Care Team Personnel Name: Marielle Malave PT Position: P3 Scheduling - Livestock Trucker Advanced Member Role: Other Name: FRANKLYN VILLA SOFTWARE QUALITY MANAGER - TEMPERER Position: P4 Advanced Mixing Pan Tender Member Role: Primary Care Physician Address: Address: [address] [place] [address] [place] [address]- Care Team Related Persons Name: DEJON CALI Care Team Personnel Name: Marielle Malave Clerk Nola PT Position: P3 Scheduling - Livestock Trucker Advanced Member Role: Other Name: FRANKLYN VILLA APRN, CNP Position: P4 Advanced Mixing Pan Tender Member Role: Primary Care Physician Address: Address: [address] [place] [address]- Care Team Related Persons Name: DEJON CALI Care Team Personnel Name: Frieda Baby Formula Worker Nola PT Position: P3 Scheduling - Livestock Trucker Advanced Member Role: Other Name: FRANKLYN VILLA APRN, CNP Position: P4 Advanced Mixing Pan Tender Member Role: Primary Care Physician Address: Address: [address] [place] [address] Care Team Related Persons Name: DEJON CALI Care Team (unrecognized sect ion and content) Care Team Personnel Name: Marielle Malave Clerk Nola PT Position: P3 Scheduling - Livestock Trucker Advanced Member Role: Other Name: FRANKLYN VILLA APRN, CNP Position: P4 Advanced Practice Nurse Med Service: Employed Provider Member Role: Primary Care Physician Address: Address: [address] [place] [address] Care Team Related Persons Name: DEJON CALI Care Team Personnel Name: Marielle Malave Clerk Nola PT Position: P3 Scheduling - Livestock Trucker Advanced Member Role: Other Name: FRANKLYN VILLA APRN, CNP Position: P4 Advanced Practice Nurse Member Role: Primary Care Physician Address: Address: [address] [place] [address] Care Team Related Persons Name: DEJON CALI Care Team Personnel Name: Frieda Baby Formula Worker Nola PT Position: P3 Scheduling - Livestock Trucker Advanced Member Role: Other Name: FRANKLYN VILLA APRN, CNP Position: P4 Advanced Mixing Pan Tender Member Role: Primary Care Physician Address: Address: [address] [place] [address] Care Team Related Persons Name: DEJON CALI (unrecognized sect ion and content) No Status Records Found INFORMATION SOURCE (unrecogn ized section and content) FOR RECORDS PERTAINING TO PATIENTS WHO ARE OR HAVE BEEN ENROLLED IN A CHEMICAL DEPENDENCY/SUBSTANCEABUSE PROGRAM, SOME INFORMATION MAY BE OMITTED. This clinical summary was aggregated from multiple sources. Caution should be exercised in using it in the provision of clinical care. This summary normalizes information from multiple sources, and as a consequence, information in this document may materially change the coding, format and clinical context of patient data. In addition, data may be omitted in some cases. CLINICAL DECISIONS SHOULD BE BASED ON THE PRIMARY CLINICAL RECORDS. [facility]. provides no warranty or guarantee of the accuracy or completeness of information in this document.
[2023-05-10 16:46] LABS: AST(SGOT) 177 U/L (15-37); Alanine Aminotransfer ALT/SGPT 217 U/L (16-61); Albumin, Serum 3.2 g/dL (3.2-5.0); Alkaline Phosphatase 99 U/L (45-117); Anion Gap 11 (5-15); BUN 13 mg/dL (7-18); BUN/Creat Ratio 16.8 RATIO (10-20); Bilirubin, Direct 0.54 mg/dL (0.00-0.30); Calcium,Total 9.1 mg/dL (8.5-10.1); Chloride 102 mmol/L (98-107); Creatinine, Serum 0.78 mg/dL (0.70-1.30); EST Glomerular Filtration Rate 105 mL/min (>60); Est Glom Filt Rate - Afr Amer 127 mL/min (>60); Glucose 136 mg/dL (74-106); Lipase 21 U/L (13-75); Potassium 3.3 mmol/L (3.5-5.1); Protein, Total 7.2 g/dL (6.4-8.2); Sodium Level 136 mmol/L (136-145)
[2023-05-10 16:47] LABS: Anisocytosis 2+; Differential Comment SCANNED; Differential Indicated SCAN CRITERIA MET; Macrocytosis 1+; Microcytosis 1+
[2023-05-10 17:31] LABS: Bacteria 0 SEEN /hpf (None Seen); Mucous, Urine 0 SEEN /hpf (<or=2+); Red Blood Cells-Urine 0 SEEN /hpf (0-5)
[2023-05-10 17:38] LABS: Color, Urine Yellow (Yellow); Glucose, Dipstick Normal (Normal); Ketone-Dipstick 5 mg/dl (Negative); Leukocyte Esterase-Dipstick 25 /ul (Negative); Nitrite-Dipstick Negative (Negative); Occult Blood-Urine Negative /ul (Negative); Protein-Dipstick 15 mg/dl (Negative); Specific Gravity, Urine 1.015 (1.002-1.030); Urine Bilirubin Dipstick Negative (Negative); Urine Clarity Sl. Cloudy (Clear); Urine Urobilinogen 4 mg/dl (Normal)
[2023-05-10 17:52] LABS: Amorphous Sediment 1+ URATE; Squamous Epithelial Cells - UA 0-5 SEEN /hpf (0-5); White Blood Cells 0-5 SEEN /hpf (0-5)
--- NOTE | 2023-05-10 18:33 | CT_ITS ---
STUDY: CT ABDOMEN AND PELVIS WITH CONTRAST REASON FOR EXAM: Male, 72 years old. abdominal pain -- known metastatic pancreatic cancer RADIATION DOSAGE (If Supplied By Facility): CTDIvol = ( 16.43 ) mGy, DLP = ( 859.09 ) mGycm TECHNIQUE: Transaxial images were obtained from the dome of the diaphragm to the symphysis pubis without oral contrast. IV 100mL Isovue-370 was administered. Sagittal and coronal images were reconstructed. Individualized dose optimization techniques were used for this CT. COMPARISON: 01/21/2023. FINDINGS: Lung bases described indeterminant accompanying CT of the abdomen and pelvis report. Borderline mild cardiomegaly with coronary artery calcifications. Ill-defined low-attenuation lesion within the right liver lobe measuring 1.0 x 1.3 cm, otherwise incompletely characterize. Otherwise normal liver. Normal gallbladder and extrahepatic biliary system. Spleen measures 14.2 cm consistent with mild splenomegaly. There is a low-attenuation lesion within the pancreatic tail measuring 4.2 x 3.8 x 3.2 cm with a wall of enhancement and mild peripheral spiculations along with minimal stranding, stable in the interval and consistent with known history of pancreatic neoplasm. Normal bilateral adrenal glands. Normal right kidney. Multiple low-attenuation structures within the left kidney, largest measuring 1.3 cm consistent with simple renal cysts. Otherwise normal left kidney. Normal visualized stomach. Normal small intestine. There is fluid within the colon which may indicate sequela of nonspecific enteritis versus malabsorption. No significant bowel distention to suggest obstruction. There is non-visualization of the appendix. Normal abdominal aorta. Normal inferior vena cava. Normal retroperitoneum. Normal urinary bladder. Normal abdominal wall. Degenerative disease of the spine. There is a right-sided hip prosthesis in place with normal alignment. CT/Abdomen/Pelvis W IV Cont ONLY IMPRESSION: Pancreatic tail lesion as described consistent with known pancreatic neoplasm and stable in the interval. Indeterminate low-attenuation lesion within the right liver lobe measuring approximately 1.3 cm and stable in the interval, otherwise incompletely characterize. In the context of known neoplasm this could represent stable neoplasm versus benign etiologies such as cyst or hemangioma. Left-sided simple renal cysts with no further follow-up imaging recommended. Left-sided splenomegaly. Fluid within the colon suggestive of sequela of nonspecific enteritis versus malabsorption, correlation with history of diarrheal state recommended. Electronically Signed: Susan Montiel MD at 19:45 EST ,
--- NOTE | 2023-05-10 18:33 | CT_ITS ---
STUDY: CTA CHEST REASON FOR EXAM: Male, 72 years old. pulmonary embolism RADIATION DOSAGE (If Supplied By Facility): CTDIvol = ( 13.24 ) mGy, DLP = ( 433.78 ) mGycm TECHNIQUE: The examination was performed with the intravenous administration of IV 100mL Isovue-370. Post-processing of the angiographic images was performed, with multiplanar reformation and 3D reconstruction. Individualized dose optimization techniques were used for this CT. COMPARISON: 03/17/2023. FINDINGS: Normal enhancement of the main pulmonary artery and right and left pulmonary arteries. Normal enhancement of the bilateral peripheral pulmonary arteries. There is no demonstrated pulmonary embolism. There is atherosclerotic calcification of the aortic arch with tortuosity. There is no demonstrated aortic dissection. Borderline cardiomegaly with coronary artery calcifications. Multiple prominent lymph nodes within the mediastinum, largest seen in the subcarinal region measuring 1.4 cm consistent with borderline mild lymphadenopathy. There is mild fullness of the lymph nodes in the right hilum. Normal visualized trachea and bronchi. The lungs are slightly underexpanded. There is right lower lobe consolidation suggestive of atelectasis with interstitial reticular opacity of the right lower lobe which may indicate underlying pneumonitis. Minimal interstitial changes versus atelectasis in the right middle lobe. Mild interstitial prominence along the subpleural region of the bilateral upper lobes with bilateral apical atelectasis. Normal pleura. Normal chest wall structures. There are degenerative changes of thoracic spine. Upper abdomen described indeterminant accompanying CT of the abdomen and pelvis report. CT/CTA Chest W/WO Contrast IMPRESSION: Negative CTA chest examination, without a demonstrated pulmonary embolism or arterial dissection. Mild lymphadenopathy within the mediastinum and right hilar region with right lower lobe atelectasis versus residual infiltrate, cannot exclude postobstructive process, follow-up with bronchoscopy recommended if clinically indicated. Interstitial changes within the right middle lobe and bilateral upper lobes with biapical linear atelectasis. No pleural effusion or pneumothorax. Electronically Signed: Susan Montiel MD at 19:39 EST ,
[2023-05-10] MEDS: HYDROmorphone 1 MG/ML Syringe IV ×2 (19:27→23:45)
[2023-05-10] MEDS: 0.9% Normal Saline (1000mL) 1,000 ML 999 ML IV (21:11)
--- NOTE | 2023-05-10 21:17 | HP.PCM.HOS_ITS ---
HPI - General General Date of Admission: 05/10/23 Date of Service: 05/10/23 Chief Complaint: Abdominal Pain and SOB. HPI Narrative CLARE SNYDER, is a 72 M with a past medical history of essential hypertension, hyperlipidemia, coronary artery disease; status post stent placement, previous history of alcohol abuse; with patient now only drinking a beer a few times per week, glaucoma, BPH, chronic constipation, erectile dysfunction, GERD, history of metastatic pancreatic cancer; with peritoneal carcinomatosis followed by Dr. Leo of oncology at [facility] and DNR-CCA CODE STATUS with intubation who presents to [facility] ER complaining of abdominal pain and shortness of breath. Mr. Snyder reports his symptoms began approximately 1 week prior to admission with a gradual increase in his chronic abdominal pain along with cough and runny nose that has gotten progressively worse. He describes his abdominal pain as intermittent, sharp and generalized with straining to have a bowel movement making it worse and nothing making it better. He also states he feels lightheaded when he attempts to walk. He does admit to a significant decrease in his oral intake over the past few days along with a slight decrease in urinat ion. He denies associated fever or vomiting but he does admit to some chills along with an acute worsening of his chronic constipation. The ER physician spoke to the patient's oncologist who was not concerned about his abdominal pain and his CT scans of the abdomen and pelvis did not reveal any new biliary pathology -but his CTA of the chest with subjective of mild lymphadenopathy within the mediastinum and right hilar region with right lower lobe atelectasis along with interstitial changes within the right middle and bilateral upper lobes with biapical linear atelectasis. Serum lipase was only 21 present on admission. In the ER he was noted to have sinus tachycardia approximately 120 bpm persisted after 2.5 L of IV fluid plus laboratory evidence of hypokalemia of 3.3 mmol/L present on admission due to suspected dehydration caused by adverse drug reaction to chemotherapy and he was then admitted to the CDU under observation status for ongoing care for stay that is expected to be less than 48 hours. FORMERLY [facility], 1928–1983 Medical History Acute dyspnea Alcohol use Anemia BPH (benign prostatic hyperplasia) CAD (coronary artery disease) Cardiology follow-up encounter Chronic constipation Constipation Cough Decreased ROM of right shoulder Dehydration Elevated liver enzymes Erectile dysfunction Exertional dyspnea Gastric reflux High cholesterol History of echocardiogram History of stress test Holosystolic murmur Hypertension IBS (irritable bowel syndrome) Impaired fasting glucose Insomnia Metastasis to liver Metastasis to lung Motion sickness Pancreas cancer Peritoneal carcinomatosis Rotator cuff tear Wears dentures Wears glasses Wears partial dentures Home Medications aspirin 81 mg capsule 81 mg PO DAILY 09/16/22 [History Last Taken Unknown] hydrochlorothiazide 12.5 mg tablet 12.5 mg PO DAILY 09/16/22 [History Last Taken Unknown] latanoprost 0.005 % eye drops 1 drp EACH EYE DAILY 09/16/22 [History Last Taken Unknown] metoprolol succinate 25 mg tablet,extended release 24 hr 25 mg PO DAILY 09/16/22 [History Last Taken 09/24/22 05:30] [id number] 300 mcg-K 60 mcg-lycop 600 mcg-lutein 300 mcg tablet (Centrum Silver Men) 1 tab PO DAILY 09/16/22 [History Last Taken Unknown] omeprazole 40 mg capsule,delayed release 40 mg PO DAILY 09/16/22 [History Last Taken 09/24/22 05:30] rosuvastatin 40 mg tablet 40 mg PO DAILY 09/16/22 [History Last Taken Unknown] timolol maleate 0.5 % eye drops 1 drp EACH EYE DAILY 09/16/22 [History Last Taken Unknown] zolpidem 10 mg tablet 10 mg PO QHS 09/16/22 [History Last Taken Unknown] lidocaine-prilocaine 2.5 %-2.5 % topical cream 1 applic topical ONCE PRN port access 30 days #30 grams 03/10/23 [Rx Last Taken Unknown] ondansetron 8 mg disintegrating tablet 8 mg PO Q8H PRN nausea and vomiting #30 tabs 03/11/23 [Rx Last Taken Unknown] acetaminophen 500 mg tablet (Tylenol Extra Strength) 1,000 mg PO Q6H PRN pain 03/25/23 [History Last Taken Unknown] docusate sodium 50 mg/5 mL oral liquid (Stool Softener) 50 mg PO DAILY 03/25/23 [History Last Taken Unknown] oxycodone 5 mg capsule 10 mg PO Q4H PRN pain 03/25/23 [History Last Taken Unknown] sennosides 8.6 mg tablet (Senna Laxative) 8.6 mg PO DAILY 03/25/23 [History Last Taken Unknown] albuterol sulfate 90 mcg/actuation aerosol inhaler 2 puff inhalation Q6H PRN shortness of breath or wheezing #6.7 grams 04/01/23 [Rx Last Taken Unknown] benzonatate 100 mg capsule 100 mg PO BID-TID PRN cough 05/06/23 [History Last Taken Unknown] guaifenesin 600 mg tablet, extended release 12 hr (Mucus Relief ER) 600 mg PO BID 05/06/23 [History Last Taken Unknown] mirtazapine 15 mg tablet 15 mg PO QHS 05/06/23 [History Last Taken Unknown] Allergy/AdvReac Type Severity Reaction Status Date / Time Sulfa (Sulfonamide Allergy Unknown Hives Verified 05/10/23 15:35 Antibiotics) codeine AdvReac Unknown Nausea Verified 05/10/23 15:35 amoxicillin AdvReac Nausea Verified 05/10/23 15:35 Family History Sister Breast cancer Mother Cancer Father Cancer Surgical History H/O repair of right rotator cuff History of cardiac catheterization History of colonoscopy History of coronary artery stent placement History of knee replacement Hx of bilateral cataract extraction Hx of total hip arthroplasty Postsurgical percutaneous transluminal coronary angioplasty (PTCA) status Social History household members: spouse and children Smoking Status: Never smoker alcohol intake: current alcohol intake frequency: a few times a week Alcohol type: beer substance use type: does not use ROS ROS Narrative Review of systems: Constitutional: Patient admits to chills but denies fever or weight loss. Eyes: Patient denies visual changes or discharge from eyes. ENT: Patient admits to rhinorrhea but denies ear pain or sore throat. Cardiovascular: Patient denies chest pain or palpitations. Respiratory: Patient admits to cough and dyspnea on exertion. Patient denies orthopnea. Gastrointestinal: Patient admits to abdominal pain and constipation slightly worse than usual. He denies diarrhea, nausea or vomiting. Genitourinary: Patient admits to decreased urination but denies dysuria, hematuria or urinary frequency. Musculoskeletal: Patient denies arthralgias or myalgias. Integumentary: Patient denies abscess or rash. Neurologic: Patient denies headache, paresthesias or focal neurologic weakness. Psychiatric: Patient denies uncontrolled depression or anxiety. Endocrine: Patient denies polyuria, polydipsia or polyphagia. Allergic: Patient denies lip swelling, tongue swelling or urticaria. Hematologic: Patient denies easy bleeding or easy bruisability. 14 point review of systems otherwise negative except for positives noted above in HPI. Vital Signs Vital Signs Vital Signs: 05/10/23 15:37 05/10/23 16:35 05/10/23 17:35 Temperature 97.4 F L Temperature Source Temporal Pulse Rate 124 H Respiratory Rate 18 18 Respiratory Effort Respiratory Depth Respiratory Pattern Blood Pressure 125/74 H 136/72 H Blood Pressure Mean 91 93 Pulse Ox 100 Oxygen Delivery Method Room Air 05/10/23 19:00 05/10/23 21:00 05/10/23 21:15 Temperature Temperature Source Pulse Rate 112 H Respiratory Rate 18 17 Respiratory Effort Normal Non-Labored Respiratory Depth Normal Respiratory Pattern Normal Blood Pressure 131/65 H Blood Pressure Mean 87 Pulse Ox 98 Oxygen Delivery Method Room Air Room Air Physical Exam Const alert, oriented x3, no apparent distress and average body habitus Constitutional Narrative: Patient appears chronically ill. General Appearance: cooperative HEENT normocephalic, head/scalp atraumatic, hearing grossly normal bilaterally and moist oral mucous membranes Eyes PERRL and EOMs intact bilaterally Neck no lymphadenopathy and supple Resp normal respiratory effort, no retractions, no use of accessory muscles and clear to auscultation bilaterally Cardio regular rate and regular rhythm Cardio Narrative: Tachycardic in the 120's-130's. GI normal to inspection, nondistended, normoactive bowel sounds, soft to palpation and non-distended GI Narrative: Mild generalized TTP. Extremity normal to inspection Neuro oriented x3, CN's II-XII intact bilaterally and no focal motor deficits Sensorium / Orientation: awake, alert, oriented to person, oriented to place and oriented to time Speech: speech normal Motor Exam: strength 5/5 throughout Psych affect normal Results Medical Records Data Attestation: I reviewed the patient's medical records Lab / Micro Data Attestation: I reviewed the patient's lab results. 05/10/23 16:20 05/10/23 16:20 Labs: Laboratory Results - last 24 hr 05/10/23 16:20: WBC 11.3 H, RBC 3.20 L, Hgb 10.3 L, Hct 31.6 L, MCV 98.8 H, MCH 32.2 H, MCHC 32.6, RDW Std Deviation 65.6 H, RDW Coeff of Rosemary 18.2 H, Plt Count 193, MPV 12.7 H, Immature Gran % (Auto) 0.900, Neut % (Auto) 92.7 H, Lymph % (Auto) 5.2 L, Sharp % (Auto) 0.8, Eos % (Auto) 0.1, Baso % (Auto) 0.3, Absolute Neuts (auto) 10.4 H, Absolute Lymphs (auto) 0.59 L, Nucleated RBC % 0, Differential Comment SCANNED, Anisocytosis 2+, Microcytosis 1+, Macrocytosis 1+, Sodium 136, Potassium 3.3 L, Chloride 102, Carbon Dioxide 23.0, Anion Gap 11, BUN 13, Creatinine 0.78, Est GFR (MDRD) Af Amer 127, Est GFR (MDRD) Non-Af 105, BUN/Creatinine Ratio 16.8, Glucose 136 H, Calcium 9.1, Total Bilirubin 1.70 H, Direct Bilirubin 0.54 H, AST 177 H, ALT 217 H, Alkaline Phosphatase 99, Total Protein 7.2, Albumin 3.2, Globulin 4.0, Lipase 21 05/10/23 17:22: Urine Color Yellow, Urine Clarity Sl. Cloudy, Urine pH 5.0, Ur Specific [place] 1.015, Urine Protein 15 H, Urine Glucose (UA) Normal, Urine Ketones 5 H, Urine Occult Blood Negative, Urine Nitrite Negative, Urine Bilirubin Negative, Urine Urobilinogen 4 H, Ur Leukocyte Esterase 25 H, Urine RBC 0 SEEN, Urine WBC 0-5 SEEN, Ur Squamous Epith Cells 0-5 SEEN, Amorphous Sediment 1+ URATE, Urine Bacteria 0 SEEN, Urine Mucus 0 SEEN Imagaing Radiology Impression Chest X-Ray 05/10/23 16:12 IMPRESSION: Mild right basilar atelectasis, otherwise no acute cardiac pulmonary disease. Right-sided chest port as described. Electronically Signed: Susan Montiel MD at 16:52 EST , Abdomen/Pelvis CT 05/10/23 18:33 IMPRESSION: Pancreatic tail lesion as described consistent with known pancreatic neoplasm and stable in the interval. Indeterminate low-attenuation lesion within the right liver lobe measuring approximately 1.3 cm and stable in the interval, otherwise incompletely characterize. In the context of known neoplasm this could represent stable neoplasm versus benign etiologies such as cyst or hemangioma. Left-sided simple renal cysts with no further follow-up imaging recommended. Left-sided splenomegaly. Fluid within the colon suggestive of sequela of nonspecific enteritis versus malabsorption, correlation with history of diarrheal state recommended. Electronically Signed: Susan Montiel MD at 19:45 EST Reading Location ID and State: [employer] / [employer] , Service support , Chest CTA 05/10/23 18:33 IMPRESSION: Negative CTA chest examination, without a demonstrated pulmonary embolism or arterial dissection. Mild lymphadenopathy within the mediastinum and right hilar region with right lower lobe atelectasis versus residual infiltrate, cannot exclude postobstructive process, follow-up with bronchoscopy recommended if clinically indicated. Interstitial changes within the right middle lobe and bilateral upper lobes with biapical linear atelectasis. No pleural effusion or pneumothorax. Electronically Signed: Susan Montiel MD at 19:39 EST , Assessment & Plan Assessment/Plan (1) Acute dehydration: (2) Hypokalemia: (3) Sinus tachycardia: (4) Adverse effect of chemotherapy: QUALIFIERS: Encounter type: initial encounter Qualified Code(s): T45.1X5A - Adverse effect of antineoplastic and immunosuppressive drugs, initial encounter PLAN: Plan 1. Persistent sinus tachycardia with Hypokalemia of 3.3 mmol/L present on admission likely due to dehydration from adverse drug reaction to chemotherapy - Admit to CDU under observation status. Give supplemental KCl and then recheck CMP in the AM to ensure improvement. Continue aggressive volume resuscitation and monitor for improvement. 2. Metastatic pancreatic cancer; with peritoneal carcinomatosis and chronic abdominal pain with constipation with DNR-CCA CODE STATUS with intubation complicating #1 - Patient was noted to have slightly elevated total bilirubin of 1.7 mg/dL along with mildly elevated AST and ALT that was not concerning to his oncologist as a CT revealed no acute pathological changes related to metastases. Give lactulose to encourage bowel evacuation. Recheck CMP in the a.m. ensure positive response to the supportive care. 3. Mild lymphadenopathy within the mediastinum and right hilar region with right lower lobe atelectasis along with interstitial changes within the right middle and bilateral upper lobes with biapical linear atelectasis - Noted with no obvious signs of acute severe infection at this time. 4. Essential hypertension - Hold scheduled antihypertensives until volume status is corrected. Give IV hydralazine as needed for systolic blood pressure greater than 160 mmHg. 5. Hyperlipidemia - Hold statin with increased LFT's. 6. Coronary artery disease; status post stent placement - Stable. Continue daily baby aspirin. 7. Glaucoma - Resume eye drops as previous. 8. BPH - Stable. 9. Erectile dysfunction - Stable. 10. GERD - Continue PPI. 11. DVT prophylaxis - Lovenox 40 mg sq dailyplus SCD's. Total time: Approximately 45 minutes. Charges/Coding Visit Charges OBSV E&M: 17863 Observ/hosp same date L1
--- OUTSIDE RECORDS SUMMARY | 2023-05-10 22:41 | XMS RPT_ITS | CCD ---
Author Name Unknown Address [address] [place] [address] Organization [facility] Care Team Providers Care Research Physiologist Name Role Phone DAISY PULVERIZER FEEDER - GLASS CUTTER, FRANKLYN Bee Primary Care Phys ician Nola Malave PT Unavailable DAISY PULVERIZER FEEDER - GLASS CUTTER, FRANKLYN Bee Attending U navailable DAISY PULVERIZER FEEDER - GLASS CUTTER, FRANKLYN Bee Primary Care U navailable MELIA RIOS, RADHA Toussaint Attending Unavailable DAISY PULVERIZER FEEDER - GLASS CUTTER, FRANKLYN Bee Primary Care U navailable DAISY PULVERIZER FEEDER - GLASS CUTTER, FRANKLYN Bee Attending U navailable DAISY PULVERIZER FEEDER - GLASS CUTTER, FRANKLYN Bee Primary Care U navailable DAISY PULVERIZER FEEDER - GLASS CUTTER, FRANKLYN Bee Attending U navailable DAISY PULVERIZER FEEDER - GLASS CUTTER, FRANKLYN Bee Primary Care U navailable DAISY PULVERIZER FEEDER - GLASS CUTTER, FRANKLYN Bee Attending U navailable DAISY PULVERIZER FEEDER - GLASS CUTTER, FRANKLYN Bee Primary Care U navailable DAISY PULVERIZER FEEDER - GLASS CUTTER, FRANKLYN Bee Attending U navailable DAISY PULVERIZER FEEDER - GLASS CUTTER, RFANKLYN Bee Primary Care U navailable SEFFENS PULVERIZER FEEDER-GLASS CUTTER, USHA Attending Unavai lable DAISY PULVERIZER FEEDER - GLASS CUTTER, FRANKLYN Bee Primary Care U navailable Allergies Allergy Classification Reported Allergen(s) Allergy Type Date of Onset Reaction(s) Facility (10 sources) Codeine; Translations: [codeine] Drug Allergy Nausea (finding) [facility] Work Phone: (10 sources) Penicillin; Translations: [penicillin] Drug Allergy Nausea (finding) [facility] Work Phone: (10 sources) Sulfonamides (Antibiotic); Translations: [sulfa drugs] Drug allergy Weal (disorder) [facility] Work Phone: Medications Current Medications Medication [...] Pain, # 14 tab(s), 0 Refill(s), [facility]acy: [facility], 171.5, cm, 06/19/22 11:31:00 EST, Height [...] Body temperature 98.24 [degF] LATASHA FISH MD [facility] 11-09-2021 08:11-0400 Diastolic blood pressure 83 mm[Hg] LATASHA FISH MD [facility] 11-09-2021 08:11-0400 Heart rate 87 /min LATASHA FISH MD [facility] 11-09-2021 08:11-0400 Respiratory rate 18 /min LATASHA FISH MD [facility] 11-09-2021 08:11-0400 Systolic blood pressure 153 mm[Hg] LATASHA FISH MD [facility] Encounters Encounter Date Encounter Type Care Provider Facility Start: 02-25-2023 End: 02-26-2023 ambulatory FRANKLYN VILLA PULVERIZER FEEDER - GLASS CUTTER Facility:B Start: 01-18-2023 ambulatory FRANKLYN WEBB PULVERIZER FEEDER - GLASS CUTTER Facility:B Start: 01-12-2023 End: 01-13-2023 ambulatory FRANKLYN VILLA PULVERIZER FEEDER - GLASS CUTTER Facility:B Start: 01-12-2023 End: 01-12-2023 Patient encounter procedure FRANKLYN VILLA PULVERIZER FEEDER - GLASS CUTTER [facility] Start: 08-24-2022 End: 08-25-2022 ambulatory FRANKLYN VILLA PULVERIZER FEEDER - GLASS CUTTER Facility:B Start: 08-24-2022 End: 08-24-2022 Patient encounter procedure FRANKLYN VILLA PULVERIZER FEEDER - GLASS CUTTER [facility] Start: 08-12-2022 End: 08-13-2022 ambulatory RADHA CÁRDENAS PA-C Facility:B Start: 08-12-2022 End: 08-12-2022 Patient encounter procedure RADHA CÁRDENAS PA-C [facility] Start: 07-20-2022 End: 07-21-2022 ambulatory FRANKLYN VILLA PULVERIZER FEEDER - GLASS CUTTER Facility:B Start: 07-20-2022 End: 07-20-2022 Patient encounter procedure FRANKLYN VILLA PULVERIZER FEEDER - GLASS CUTTER [facility] Start: 06-19-2022 End: 06-20-2022 ambulatory USHA PÉREZ PULVERIZER FEEDER-GLASS CUTTER Facility:B Start: 06-19-2022 End: 06-19-2022 Patient encounter procedure USHAEULALIO PÉREZ PULVERIZER FEEDER-GLASS CUTTER [facility] Start: 02-12-2022 End: 02-16-2022 Outreach Lab FRANKLYN VILLA PULVERIZER FEEDER - GLASS CUTTER [facility] Start: 11-09-2021 End: 11-09-2021 Emergency department patient visit LATASHA FISH MD [facility] Start: 08-29-2021 End: 08-29-2021 Patient encounter procedure LORIE CASSIE PULVERIZER FEEDER-GLASS CUTTER [facility] Start: 07-31-2021 End: 08-04-2021 Outreach Lab FRANKLYN VILLA PULVERIZER FEEDER - GLASS CUTTER [facility] Start: 05-14-2021 End: 05-14-2021 [facility] FEED[facility]-GLASS CUTTER [facility] Procedures Date Procedure Procedure Detail Performing Clinician Start: 08-29-2021 Cardiovascular stres s testing LATASHA FISH MD Start: 09-15-2019 Cardiac catheterization BETI DURHAM PULVERIZER FEEDER-GLASS CUTTER Immunizations Immunization Date Immunization Notes Care Provider Fa cility 05-01-2022 Pneumococcal conjuga te PCV20, polysaccharide BAU026 conjugate, adjuvant, PF; Translations: [Prevnar 20] USHA PÉREZ PULVERIZER FEEDER-GLASS CUTTER [facility] 01-30-2022 influenza, high dose seasonal, preservative-free FRANKLYN URBANPKINS PULVERIZER FEEDER - GLASS CUTTER [facility] 03-17-2021 SARS-CoV-2 mRNA (tozinameran) vaccine FRANKLYN URBANPKINS PULVERIZER FEEDER - GLASS CUTTER [facility] [place] 01-30-2021 influenza, high dose seasonal, preservative-free; Translations: [Afluria PF Quadrivalent ] BETI DURHAM PULVERIZER FEEDER-GLASS CUTTER [facility] 07-04-2020 SARS-CoV-2 (COVID-19 ) Ad26 vaccine, recombinant [facility] PULVERIZER FEEDER-GLASS CUTTER [facility] Payers Date Payer Category Payer Medicare [id number] 2022 Unknown [id number] 1950 Unknown [id number] [id number] [id number] 1950 Unknown [id number] 2.16.8 [id number] 1950 Unknown [id number] 2.16.8 [id number] 1950 Unknown [id number] 2.16.8 [id number] 1950 Unknown [id number] 2.16.8 [id number] 1950 Unknown [id number] 2.16.8 [id number] 1950 Unknown [id number] 2.16.8 [id number] Social History Date Type Detail Facility Start: 11-07-2018 Never smoked tobacco (f inding) [facility] Functional Status Date Assessment Result Facility 11-09-2021 Functional Status ID band on, Allergy Band on, Call device within reach, Bed in low position, Wheels locked, Upper/Half-Length side-rails up, Phone within reach, personal items within reach, Assistive devices within reach, Toileting device within reach, Bedside Cart Locked, Visitor at bedside, Safety level maintained [facility] Mental Status Date Assessment Result Facility 11-09-2021 Mental Status Oriented x 4 [facility] Clinical Notes 11-09-2021 to 01-12-2023 LaboratoryLaboratoryLaboratoryLaboratoryLaboratoryLaboratoryLaboratoryLaboratory LaboratoryRadiology [...] 01/12/2023 4:47:17 PM Ordering Provider: FRANKLYN URBANPKINS [facility] 08-12-2022 Note ORIGINAL EXAMINATION: MRI OF [...] Sign Date: 08/12/2022 12:16:33 PM Ordering Provider: [facility] 08-12-2022 Note ORIGINAL EXAMINATION: MRI OF THE [...] Sign Date: 08/12/2022 12:16:33 PM Ordering Provider: [facility] 11-09-2021 Hospital Discharge instructions Patient Education 11/09/2021 [...] New rash Other symptoms are getting worse 0990-4114 [employer]. [address] [place] [address]54. All rights reserved. This information is not intended as a substitute for professional medical care. Always follow your healthcare professional's instructions. Follow Up Care 11/09/2021 08:08:12 With:FRANKLYN VILLA APRN - GLASS CUTTER Address: [address] [facility] [place] [address]- When:2-[address] [facility] 11-09-2021 Note Discharge Instructions Thank you [...] CNP When Within 2-4 days Where: [address] [facility] [place] [address]- Allergies codeine (Nausea) penicillin (Nausea) sulfa drugs [...] Leaflets acetaminophen and codeine (a SILVINAT evelia rocha and DASHA bunch) Tylenol with Codeine [...] may report side effects to FDA at 8-714-VEO-7546. What other drugs will affect acetaminophen and [...] affect acetaminophen and codeine, including prescription and oloe-rsz-bvwuloj medicines, vitamins, and herbal products. Not all [...] to ensure that the information provided by [employer]. ('Mult[employer]') is accurate, up-to-date, and complete, but no guarantee is made to that effect. Drug information contained herein may be time sensitive. [employer] information has been compiled for use by healthcare practitioners and consumers in the [place] and therefore [employer] does not warrant that uses outside of the [place] are appropriate, unless specifically indicated otherwise. [employer]'s drug information does not endorse drugs, diagnose patients or recommend therapy. [employer] drug information is an informational resource designed [...] effective or appropriate for any given patient. [facility] does not assume any responsibility for any aspect of healthcare administered with the aid of information [facility] provides. The information contained herein is not intended to cover all possible uses, directions, precautions, warnings, drug interactions, allergic reactions, or adverse effects. If you have questions about the drugs you are taking, check with your doctor, nurse or pharmacist. Copyright 9887-[address] [facility]. Version: 18.. Revision Date: [...] may report side effects to FDA at 2-599-YXW-2030. What other drugs will affect lidocaine viscous? Lidocaine viscous is not likely to be affected by other drugs you use. But many drugs can interact with each other. Tell each of your health care providers about all medicines you use, including prescription and fyxe-yhr-pimkyjm medicines, vitamins, and herbal products. Where can I get more information? Your pharmacist can provide more information about lidocaine viscous. Remember, keep this and all other medicines out of the reach of children, never share your medicines with others, and use this medication only for the indication prescribed. Every effort has been made to ensure that the information provided by [employer]. ('Mult[employer]') is accurate, up-to-date, and complete, but no guarantee is made to that effect. Drug information contained herein may be time sensitive. [employer] information has been compiled for use by healthcare practitioners and consumers in the [place] and therefore [employer] does not warrant that uses outside of the [place] are appropriate, unless specifically indicated otherwise. [employer]'s drug information does not endorse drugs, diagnose patients or recommend therapy. [employer] drug information is an informational resource designed [...] effective or appropriate for any given patient. [facility] does not assume any responsibility for any aspect of healthcare administered with the aid of information [facility] provides. The information contained herein is not intended to cover all possible uses, directions, precautions, warnings, drug interactions, allergic reactions, or adverse effects. If you have questions about the drugs you are taking, check with your doctor, nurse or pharmacist. Copyright 9115-1350 [employer]. Version: 3.01. Revision Date: 10/06/2017. Education Materials [...] New rash Other symptoms are getting worse 7729-7109 [employer] [address] [place] [address]. All rights reserved. This information is not intended as a substitute for professional medical care. Always follow your healthcare professional's instructions. Additional Information VACCINATE! IT SAVES LIVES! Members of the community who have not yet received the COVID-19 vaccine and would like to receive it can visit one of [facility] vaccine clinics. There are many vaccine clinic locations within the [facility]. For locations and available times, please visit [email or web address] g. It is important to note that some COVID mobile vaccine clinics are held outdoors and may be canceled in rainy or stormy conditions. To learn more about pediatric vaccinations (ages 5-11), we invite you to visit the [facility] webpage. https://www.[facility].org/pag es/2691-Poftx-Jpjcznpwoxq-Frequent lg-Glufe-Jlbisvshb.html To learn more about the COVID-19 vaccine, we invite you to visit the [facility] website for a list of frequently asked questions. [email or web address]://[email or web address].[facility]/assets/Patient t-xcd-Bzqzqqjj/qiftr-Dshacpt-Qztbl ently_Asked-Questions.pdf [facility] Patient Portal Access Instructions: Stay connected with your healthcare team and access your personal medical information anytime with the [facility] Patient Portal. If you would like a full copy of your medical records please contact the [facility] Medical Records Department Wednesday through Wednesday between 8a.m. and 4:30p.m. Please follow the directions below to access the portal: 1.Access the email account you provided upon registration to the [facility].2.Look for an invitation email from [facility].3.Open the email and access the invitation link: Accept Invitation to [facility]4.Fill in the required oneal to create your account. Sign into [email or web address] with your username and password that you [...] you will allow to register on the [facility] Patient Portal for access to your information. You can also access the [facility] Patient Portal on the [employer] delphine. Simply click on Health Records under Health Data and then click on the ttwick logo. HOW TO SAFELY DISPOSE OF PRESCRIPTION [...] Call your local pharmacy or go to http://bit.ly/9O5Fk2n to find one close to you.3.Make use of household items: Use cat litter or old coffee grounds to dispose medications if other options are not available. Mix your drugs with these household products, seal them in an airtight container and throw it into the garbage. Call [facility]: [phone] to be sure your drugs can be [...] aware that I should contact my doctor. Patient/Crtt Signature: Date/Time: Relationship to Patient: ___ Witness Name/Signature: Date/Time: [facility] 11-09-2021 Note Discharge Instructions Thank you for allowing [facility] to assist you with your healthcare needs. [...] CNP When Within 2-4 days Where: [address] [facility] [place] [address]- Allergies codeine (Nausea) penicillin (Nausea) sulfa drugs [...] may report side effects to FDA at 3-363-QDF-9864. What other drugs will affect acetaminophen and [...] affect acetaminophen and codeine, including prescription and qgxz-dam-ybdaggo medicines, vitamins, and herbal products. Not all [...] to ensure that the information provided by [employer]. ('Mult[employer]') is accurate, up-to-date, and complete, but no guarantee is made to that effect. Drug information contained herein may be time sensitive. [employer] information has been compiled for use by healthcare practitioners and consumers in the [place] and therefore [employer] does not warrant that uses outside of the [place] are appropriate, unless specifically indicated otherwise. [employer]'s drug information does not endorse drugs, diagnose patients or recommend therapy. [facility]'s drug information is an informational resource [...] effective or appropriate for any given patient. [facility] does not assume any responsibility for any aspect of healthcare administered with the aid of information [facility] provides. The information contained herein is not intended to cover all possible uses, directions, precautions, warnings, drug interactions, allergic reactions, or adverse effects. If you have questions about the drugs you are taking, check with your doctor, nurse or pharmacist. Copyright 1006-2853 [facility] [employer]. Version: 18.. Revision Date: 05/31/2020. lidocaine viscous [...] may report side effects to FDA at 6-806-BQC-1781. What other drugs will affect lidocaine viscous? Lidocaine viscous is not likely to be affected by other drugs you use. But many drugs can interact with each other. Tell each of your health care providers about all medicines you use, including prescription and kjqy-qhx-mcynqpr medicines, vitamins, and herbal products. Where can I get more information? Your pharmacist can provide more information about lidocaine viscous. Remember, keep this and all other medicines out of the reach of children, never share your medicines with others, and use this medication only for the indication prescribed. Every effort has been made to ensure that the information provided by [employer]. ('Multum') is accurate, up-to-date, and complete, but no guarantee is made to that effect. Drug information contained herein may be time sensitive. [employer] information has been compiled for use by healthcare practitioners and consumers in the [place] and therefore [employer] does not warrant that uses outside of the [place] are appropriate, unless specifically indicated otherwise. [employer]'s drug information does not endorse drugs, diagnose patients or recommend therapy. [employer] drug information is an informational resource designed [...] effective or appropriate for any given patient. [facility] does not assume any responsibility for any aspect of healthcare administered with the aid of information [facility] provides. The information contained herein is not intended to cover all possible uses, directions, precautions, warnings, drug interactions, allergic reactions, or adverse effects. If you have questions about the drugs you are taking, check with your doctor, nurse or pharmacist. Copyright 1740-0503 Stefanie [facility]. Version: 3.01. Revision Date: [...] New rash Other symptoms are getting worse 9255-2233 [employer] [address] [place] [address]. All rights reserved. This information is not intended as a substitute for professional medical care. Always follow your healthcare professional's instructions. Additional Information VACCINATE! IT SAVES LIVES! Members of the community who have not yet received the COVID-19 vaccine and would like to receive it can visit one of [facility] vaccine clinics. There are many vaccine clinic locations within the [facility]. For locations and available times, please visit [email or web address].or g. It is important to note that some COVID mobile vaccine clinics are held outdoors and may be canceled in rainy or stormy conditions. To learn more about pediatric vaccinations (ages 5-11), we invite you to visit the [facility] webpage. https://www.[facility].org/pag es/6551-Hbtkk-Etpwjhscjao-Frequent zb-Qprai-Etoeplcbh.html To learn more about the COVID-19 vaccine, we invite you to visit the [facility] website for a list of frequently asked questions. [email or web address]://[email or web address]/assets/Patient k-sjs-Rlslrpig/vismk-Nhaehqt-Jdmrs ently_Asked-Questions.pdf [facility] Patient Portal Access Instructions: Stay connected with your healthcare team and access your personal medical information anytime with the [facility] Patient Portal. If you would like a full copy of your medical records please contact the [facility] Medical Records Department Wednesday through Wednesday between 8a.m. and 4:30p.m. Please follow the directions below to access the portal: 1.Access the email account you provided upon registration to the [facility].2.Look for an invitation email from [facility].3.Open the email and access the invitation link: Accept Invitation to [facility]4.Fill in the required oneal to create your account. Sign into [email or web address] with your username and password that you [...] you will allow to register on the [facility] Patient Portal for access to your information. You can also access the [facility] Patient Portal on the [employer] delphine. Simply click on Health Records under [...] Call your local pharmacy or go to http://bit.ly/8Z3Uh4j to find one close to you.3.Make use of household items: Use cat litter or old coffee grounds to dispose medications if other options are not available. Mix your drugs with these household products, seal them in an airtight container and throw it into the garbage. Call [facility]: [phone] to be sure your drugs can be [...] aware that I should contact my doctor. Patient/Crtt Signature: Date/Time: Relationship to Patient: ___ Witness Name/Signature: Date/Time: [facility] Evaluation + Plan note Future Appointments Appointment Date:05/15/2021 08:00:00 AM Scheduled Provider:FRANKLYN VILLA APRN, CNP Location:[facility] Appointment Type:PC OV Controlled Medication Appointment Date:07/25/2021 08:15:00 AM Scheduled Provider: Location:[facility] Appointment Type:PC Nurse Lab Appointment Date:07/31/2021 09:00:00 AM Scheduled Provider:FRANKLYN VILLA APRN, CNP Location:[facility] Appointment Type:PC OV Follow Up Appointment Date:09/30/2021 01:00:00 PM Scheduled Provider: Location:[facility] [employer] Appointment Type:CV OV Future Scheduled TestsFolate Level 07/31/21Hepatic Function Panel 09/30/21Prostate Specific Antigen 07/31/21Vitamin B12 Level 07/31/21Complete Blood Count 07/31/21Lipid Profile 09/30/21Lipid Profile 07/31/21Complete Metabolic Panel 07/31/21 [facility] Evaluation + Plan note Future Appointments Appointment Date:08/07/2021 09:00:00 AM Scheduled Provider:FRANKLYN VILLA APRN, CNP Location:[facility] Appointment Type:PC OV Follow Up Appointment Date:09/30/2021 01:00:00 PM Scheduled Provider: Location[facility] App[facility] Type:CV OV Appointment Date:10/30/2021 08:40:00 AM Scheduled Provider:FRANKLYN VILLA APRN, CNP Location:[facility] [place] Appointment Type:PC OV Controlled Medication Future Scheduled TestsHepatic Function Panel 09/30/21Complete Blood Count 01/30/22Lipid Profile 01/30/22Lipid Profile 09/30/21Microalbumin Level Urine 01/30/22Complete Metabolic Panel 01/30/22 [facility] Evaluation + Plan note Future Appointments [...] 01/30/22Complete Metabolic Panel 02/06/Complete Metabolic Panel 01/30/22 [facility] Evaluation + Plan note Future Appointments [...] 01/30/22Complete Metabolic Panel 02/06/22Complete Metabolic Panel 01/30/22 [facility] Evaluation + Plan note Future Appointments Appointment Date:02/23/2022 09:00:00 AM Scheduled Provider:FRANKLYN VILLA APRN, CNP Location:[facility] Appointment Type:PC OV Appointment Date:05/01/2022 09:40:00 AM Scheduled Provider:FRANKLYN VILLA APRN, CNP Location:[facility] Appointment Type:PC OV Controlled Medication Future Scheduled TestsHepatic Function Panel 6Complete Blood Count 01/30/22Lipid Profile 01/30/22Lipid Profile 6/Microalbumin Level Urine 10/14/22Microalbumin Level Urine 10/Complete Metabolic Panel 01/30/22 [facility] Evaluation + Plan note Future Appointments [...] 08/23/22Complete Metabolic Panel 01/30/22Complete Metabolic Panel 08/23/22 [facility] Evaluation + Plan note Future Appointments [...] 08/23/22Complete Metabolic Panel 01/30/22Complete Metabolic Panel 08/23/22 [facility] Evaluation + Plan note Future Appointments Appointment Date:08/31/2022 10:40:00 AM Scheduled Provider:FRANKLYN VILLA APRN - KORINA Location:[facility] [place] Appointment Type:PC OV Follow Up Appointment Date:08/31/2022 02:30:00 PM Scheduled Provider:LORIE MATTHEWS APRN-KORINA Location:[facility] [facility] Appointment Type:CV OV Appointment Date:10/30/2022 08:20:00 AM Scheduled Provider:FRANKLYN VILLA APRN - GLASS CUTTER Location:[facility] [place] Appointment Type:PC OV Controlled Medication Future Scheduled TestsHepatic Function Panel 09/30/21Complete Blood Count 01/30/22Lipid Profile 01/30/22Lipid Profile 09/30/21Microalbumin Level Urine 02/06/Microalbumin Level Urine 01/30/22Complete Metabolic Panel 01/30/22 [facility] Evaluation + Plan note Future Appointments Appointment Date:01/29/2023 08:20:00 AM Scheduled Provider:FRANKLYN VILLA APRN - KORINA Location:[facility] [place] Appointment Type:PC OV Controlled Medication Appointment Date:03/04/2023 09:40:00 AM Scheduled Provider:FRANKLYN VILLA APRN - GLASS CUTTER Location:[facility] [place] Appointment Type:PC OV Follow Up Appointment Date:09/09/2023 10:00:00 AM Scheduled Provider:LORIE MATTHEWS APRN-KORINA Location:[facility] Appointment Type:CV OV Future Scheduled [id number] Hemoglobin 03/03/23Complete Blood Count 01/30/22Complete Blood Count 01/07/23Complete Blood Count 03/03/23Lipid Profile 01/30/22Lipid Profile 03/03/23Albumin/Creatinine Ratio, Random Urine 03/03/23Microalbumin Level Urine 02/06/22Microalbumin Level Urine 01/30/22Complete Metabolic Panel 01/30/22Complete Metabolic Panel 01/07/23Complete Metabolic Panel 03/03/23CT Abdomen and Pelvis w/o contrast 01/07/23 [facility] Hospital course Narrative No data available for this section [facility] Hospital Discharge instructions No data available for this section [facility] Progress note No data available for this section [facility] Summary Purpose Family History No Family History Records Found Advance Directives No Advanced Directives Records Found Additional Source Comments Care Team (unrecognized sect ion and content) Personnel Name: FRANKLYN VILLA APRN - GLASS CUTTER Address: [address] [place] [address] Name: Marielle Malave PT Personnel Name: FRANKLYN VILLA APRN - GLASS CUTTER Address: [address] [place] [address] Name: Marielle Malave PT Care Team Personnel Name: Mairelle Malave PT Position: P3 Scheduling - Senior Receptionist Advanced Member Role: Other Name: FRANKLYN VILLA APRN - GLASS CUTTER Position: P4 Advanced Registered Dental Assistant Rda Member Role: Primary Care Physician Address: Address: [address] [place] [address] Care Team Related Persons Name: DEJON CALI Care Team Personnel Name: Marielle Malave PT Position: P3 Scheduling - Senior Receptionist Advanced Member Role: Other Name: FRANKLYN VILLA PULVERIZER FEEDER - GLASS CUTTER Position: P4 Advanced Registered Dental Assistant Rda Member Role: Primary Care Physician Address: Address: [address] [place] [address] [place] [address]- Care Team Related Persons Name: DEJON CALI Care Team Personnel Name: Marielle Malave Clerk Nola PT Position: P3 Scheduling - Senior Receptionist Advanced Member Role: Other Name: FRANKLYN VILLA APRN, CNP Position: P4 Advanced Registered Dental Assistant Rda Member Role: Primary Care Physician Address: Address: [address] [place] [address]- Care Team Related Persons Name: DEJON CALI Care Team Personnel Name: Frieda Supervisor Heavy Equipment Nola PT Position: P3 Scheduling - Senior Receptionist Advanced Member Role: Other Name: FRANKLYN VILLA APRN, CNP Position: P4 Advanced Registered Dental Assistant Rda Member Role: Primary Care Physician Address: Address: [address] [place] [address] Care Team Related Persons Name: DEJON CALI Care Team (unrecognized sect ion and content) Care Team Personnel Name: Marielle Malave Clerk Nola PT Position: P3 Scheduling - Senior Receptionist Advanced Member Role: Other Name: FRANKLYN VILLA APRN, CNP Position: P4 Advanced Practice Nurse Med Service: Employed Provider Member Role: Primary Care Physician Address: Address: [address] [place] [address] Care Team Related Persons Name: DEJON CALI Care Team Personnel Name: Marielle Malave Clerk Nola PT Position: P3 Scheduling - Senior Receptionist Advanced Member Role: Other Name: FRANKLYN VILLA APRN, CNP Position: P4 Advanced Practice Nurse Member Role: Primary Care Physician Address: Address: [address] [place] [address] Care Team Related Persons Name: DEJON CALI Care Team Personnel Name: Frieda Supervisor Heavy Equipment Nola PT Position: P3 Scheduling - Senior Receptionist Advanced Member Role: Other Name: FRANKLYN VILLA APRN, CNP Position: P4 Advanced Registered Dental Assistant Rda Member Role: Primary Care Physician Address: Address: [address] [place] [address] Care Team Related Persons Name: DEJON CALI [...] BE BASED ON THE PRIMARY CLINICAL RECORDS. [facility] [employer] [facility]. provides no warranty or guarantee of the accuracy or completeness of information in this document.
[2023-05-10] MEDS: 0.9% Saline Lock 10 ML Syringe IV (23:45)
[2023-05-10] MEDS: Mirtazapine 15 MG Tablet PO (23:45)
[2023-05-10] MEDS: guaiFENesin 600 MG Tablet PO (23:45)
[2023-05-10] MEDS: KCL 20MEQ in 0.9% NS 20 MEQ/1,000 ML IV.SOLN. 150 MEQ IV (23:48)
[2023-05-10] MEDS: Zolpidem Tartrate 5 MG Tablet PO (23:48)
[2023-05-11] VITALS (7 sets, daily range): BP systolic 111–124; BP diastolic 57–72; PULSE 78–100; RESP 16–18; TEMP 36.7–37.1; O2SAT 95–97; BMI 23.0
[2023-05-11] MEDS: Ibuprofen 400 MG Tablet PO ×4 (05:17→22:02)
[2023-05-11] MEDS: Ondansetron 4 MG/2 ML Vial IV (05:18)
[2023-05-11] MEDS: 0.9% Saline Lock 10 ML Syringe IV (05:18)
[2023-05-11] MEDS: Potassium Chloride Oral Tablet 20 MEQ 60 MEQ PO (05:18)
[2023-05-11] MEDS: KCL 20MEQ in 0.9% NS 20 MEQ/1,000 ML IV.SOLN. 150 MEQ IV (05:19)
[2023-05-11 07:24] LABS: Absolute Lymphocyte Count 0.48 X10^3/uL (0.83-4.51); Absolute Neutrophil Count 3.4 X10^3/uL (2.0-7.7); Basophil# 0.03 X10^3/uL; Basophil% 0.7 % (0-1); Eosinophil# 0.02 X10^3/uL; Eosinophils% 0.5 % (0-5); Hematocrit 25.8 % (40-54); Hemoglobin 8.3 g/dL (13.0-16.5); Lymphocyte # 0.48 X10^3/ul (0.83-4.51); Lymphocyte % 11.9 % (19-41); Mean Corp Hgb Conc 32.2 g/dL (32-36); Mean Corpuscular Hgb 32.8 pg (27.0-32.0); Mean Platelet Vol. 11.6 fl (6.2-12.0); Monocyte# 0.06 X10^3/uL; Monocyte% 1.5 % (0-10); NRBC Flagged by Analyzer 0 % (0-5); Neutrophil # 3.41 X10^3/uL (2.7-7.7); Neutrophil % 84.4 % (47-70); POSITIVE DIFFERENTIAL YES; POSITIVE MORPHOLOGY YES; Platelet Count 130 K/mm3 (150-450); RBC Distribution Width CV 18.6 % (11.6-14.6); RBC Distribution Width SD 68.5 fl (35.1-43.9); Red Blood Count 2.53 M/mm3 (4.6-6.2)
[2023-05-11 07:37] LABS: Differential Indicated SCAN CRITERIA MET
[2023-05-11 08:27] LABS: ALB/GLOB Ratio 0.7 RATIO (0.9-2.4); AST(SGOT) 88 U/L (15-37); Alanine Aminotransfer ALT/SGPT 140 U/L (16-61); Albumin, Serum 2.4 g/dL (3.2-5.0); Alkaline Phosphatase 76 U/L (45-117); Anion Gap 7 (5-15); BUN 9 mg/dL (7-18); BUN/Creat Ratio 11.8 RATIO (10-20); Calcium,Total 8.5 mg/dL (8.5-10.1); Chloride 108 mmol/L (98-107); Creatinine, Serum 0.76 mg/dL (0.70-1.30); EST Glomerular Filtration Rate 108 mL/min (>60); Est Glom Filt Rate - Afr Amer 130 mL/min (>60); Estimated Creatinine Clearance 83.13 ml/min; Globulin 3.3 g/dL (2.2-4.2); Glucose 117 mg/dL (74-106); Magnesium 1.7 mg/dL (1.6-2.6); Phosphorus 3.1 mg/dL (2.5-4.9); Potassium 4.5 mmol/L (3.5-5.1); Protein, Total 5.7 g/dL (6.4-8.2); Sodium Level 136 mmol/L (136-145); Thyroid Stim Hormone (TSH) 1.11 uIU/mL (0.358-3.74)
[2023-05-11 08:54] LABS: Anisocytosis 2+; Differential Comment SCANNED; Macrocytosis 1+; Microcytosis 1+
[2023-05-11] MEDS: Aspirin 81 MG TAB.CHEW PO (09:19)
[2023-05-11] MEDS: Multivitamins,Ther W-Minerals Tablet 1 TABLET PO (09:19)
[2023-05-11] MEDS: Pantoprazole Sodium 40 MG Tablet PO (09:20)
[2023-05-11] MEDS: guaiFENesin 600 MG Tablet PO ×2 (09:20→21:54)
[2023-05-11] MEDS: Enoxaparin 40 MG/0.4 ML Syringe SC (09:20)
[2023-05-11] MEDS: Metoprolol(XL)Succ 25 MG Tablet PO (09:21)
[2023-05-11] MEDS: Timolol 0.5% 5ML OPTH.BTL 1 DRP EACH EYE (09:21)
[2023-05-11] MEDS: Latanoprost 0.005% 1 Bottle 1 DRP EACH EYE (09:21)
[2023-05-11] MEDS: Ensure Plus High Protein 120 ML LIQUID PO ×3 (09:25→17:05)
[2023-05-11] MEDS: HYDROmorphone 1 MG/ML Syringe IV ×2 (12:04→18:08)
[2023-05-11 13:37] LABS: Hematocrit 25.3 % (40-54); Hemoglobin 7.9 g/dL (13.0-16.5)
--- NOTE | 2023-05-11 14:58 | PN.HOSP_ITS ---
Subjective Subjective Doing well, feels a bit better today. No issues overnight. Objective Data Objective Data Vital Signs: Vital Signs Temp Pulse Resp BP Pulse Ox O2 Del Method 98.6 F 91 16 111/57 L 97 Room Air 05/11/23 14:42 05/11/23 14:42 05/11/23 14:42 05/11/23 14:42 05/11/23 14:42 05/11/23 14:42 Oxygen Delivery Method Room Air Weight: 152 lb 2 oz Body Mass Index (BMI) 23.0 Intake & Output: Intake and Output for Last 24 Hours 05/10/23 05/11/23 05/12/23 03:59 03:59 03:59 Intake Total 3260 / 3260 1632.5 / 1632.5 Balance 3260 / 3260 1632.5 / 1632.5 Lab / Micro Data 05/11/23 13:20 05/11/23 07:09 Labs: Laboratory Results - last 24 hr 05/10/23 16:20: WBC 11.3 H, RBC 3.20 L, Hgb 10.3 L, Hct 31.6 L, MCV 98.8 H, MCH 32.2 H, MCHC 32.6, RDW Std Deviation 65.6 H, RDW Coeff of Rosemary 18.2 H, Plt Count 193, MPV 12.7 H, Immature Gran % (Auto) 0.900, Neut % (Auto) 92.7 H, Lymph % (Auto) 5.2 L, Harper % (Auto) 0.8, Eos % (Auto) 0.1, Baso % (Auto) 0.3, Absolute Neuts (auto) 10.4 H, Absolute Lymphs (auto) 0.59 L, Nucleated RBC % 0, Differential Comment SCANNED, Anisocytosis 2+, Microcytosis 1+, Macrocytosis 1+, Sodium 136, Potassium 3.3 L, Chloride 102, Carbon Dioxide 23.0, Anion Gap 11, BUN 13, Creatinine 0.78, Est GFR (MDRD) Af Amer 127, Est GFR (MDRD) Non-Af 105, BUN/Creatinine Ratio 16.8, Glucose 136 H, Calcium 9.1, Total Bilirubin 1.70 H, Direct Bilirubin 0.54 H, AST 177 H, ALT 217 H, Alkaline Phosphatase 99, Total Protein 7.2, Albumin 3.2, Globulin 4.0, Lipase 21 05/10/23 17:22: Urine Color Yellow, Urine Clarity Sl. Cloudy, Urine pH 5.0, Ur Specific [place] 1.015, Urine Protein 15 H, Urine Glucose (UA) Normal, Urine Ketones 5 H, Urine Occult Blood Negative, Urine Nitrite Negative, Urine Bilirubin Negative, Urine Urobilinogen 4 H, Ur Leukocyte Esterase 25 H, Urine RBC 0 SEEN, Urine WBC 0-5 SEEN, Ur Squamous Epith Cells 0-5 SEEN, Amorphous Sediment 1+ URATE, Urine Bacteria 0 SEEN, Urine Mucus 0 SEEN 05/11/23 07:09: WBC 4.0 L, RBC 2.53 L, Hgb 8.3 L, Hct 25.8 L, MCV 102.0 H, MCH 32.8 H, MCHC 32.2, RDW Std Deviation 68.5 H, RDW Coeff of Rosemary 18.6 H, Plt Count 130 L, MPV 11.6, Immature Gran % (Auto) 1.000 H, Neut % (Auto) 84.4 H, Lymph % (Auto) 11.9 L, Harper % (Auto) 1.5, Eos % (Auto) 0.5, Baso % (Auto) 0.7, Absolute Neuts (auto) 3.4, Absolute Lymphs (auto) 0.48 L, Nucleated RBC % 0, Differential Comment SCANNED, Diff Path Review August, Anisocytosis 2+, Microcytosis 1+, Macrocytosis 1+, Sodium 136, Potassium 4.5, Chloride 108 H, Carbon Dioxide 21.0, Anion Gap 7, BUN 9, Creatinine 0.76, Estim Creat Clear Calc 83.13, Est GFR (MDRD) Af Amer 130, Est GFR (MDRD) Non-Af 108, BUN/Creatinine Ratio 11.8, Glucose 117 H, Calcium 8.5, Phosphorus 3.1, Magnesium 1.7, Total Bilirubin 1.10 H, AST 88 H, ALT 140 H, Alkaline Phosphatase 76, Total Protein 5.7 L, Albumin 2.4 L, Globulin 3.3, Albumin/Globulin Ratio 0.7 L, TSH 1.11 05/11/23 13:20: Hgb 7.9 L, Hct 25.3 L Radiography Diagnostic Testing: Radiology Impression Chest X-Ray 05/10/23 16:12 IMPRESSION: Mild right basilar atelectasis, otherwise no acute cardiac pulmonary disease. Right-sided chest port as described. Electronically Signed: Susan Montiel MD at 16:52 EST , Abdomen/Pelvis CT 05/10/23 18:33 IMPRESSION: Pancreatic tail lesion as described consistent with known pancreatic neoplasm and stable in the interval. Indeterminate low-attenuation lesion within the right liver lobe measuring approximately 1.3 cm and stable in the interval, otherwise incompletely characterize. In the context of known neoplasm this could represent stable neoplasm versus benign etiologies such as cyst or hemangioma. Left-sided simple renal cysts with no further follow-up imaging recommended. Left-sided splenomegaly. Fluid within the colon suggestive of sequela of nonspecific enteritis versus malabsorption, correlation with history of diarrheal state recommended. Electronically Signed: Susan Montiel MD at 19:45 EST Reading Location ID and State: [id number] / [place] , Service support , Chest CTA 05/10/23 18:33 IMPRESSION: Negative CTA chest examination, without a demonstrated pulmonary embolism or arterial dissection. Mild lymphadenopathy within the mediastinum and right hilar region with right lower lobe atelectasis versus residual infiltrate, cannot exclude postobstructive process, follow-up with bronchoscopy recommended if clinically indicated. Interstitial changes within the right middle lobe and bilateral upper lobes with biapical linear atelectasis. No pleural effusion or pneumothorax. Electronically Signed: Susan Montiel MD at 19:39 EST , Physical Exam Narrative General: Alert, Oriented x3, Cooperative, No apparent distress HEENT: Atraumatic, PERRLA, EOMI, Normocephalic, pale Oral: Moist Mucosa Neck: Supple, No JVD Lungs: Diminished, Normal air movement, No rhonchi, No wheeze, No rales Cardiovascular: Regular rate, Regular Rhythm, Normal S1, Normal S2, No murmurs Abdomen: Soft, Non Tender, Non-Distended, No Hepato-splenomegaly Extremities: No edema, Capillary Refill Less than 3 Seconds Skin: No rashes, No breakdown Musculoskeletal: No Tenderness to Palpation of Joints or Extremities Neurological: No focal neurological deficit, Motor Exam 5/5 strength throughout, Sensory exam intact to light touch and pain Psych/Mental Status: Normal Affect, Appropriate Assessment & Plan Assessment/Plan (1) Acute dehydration: (2) Hypokalemia: (3) Sinus tachycardia: (4) Adverse effect of chemotherapy: QUALIFIERS: Encounter type: initial encounter Qualified Code(s): T45.1X5A - Adverse effect of antineoplastic and immunosuppressive drugs, initial encounter PLAN: Plan 1. Metastatic pancreatic cancer with persistent sinus tachycardia from possible dehydration ? States he does not eat or drink very well was given 4 L of IV fluid overnight ? Hemoglobin did drop unclear whether or not this is due to iron deficiency and he was dehydrated and masking a significant anemia and dropped secondary to dilution or if he has a GI bleed. He denies any hematemesis or hematochezia or melena ? We will recheck his hemoglobin in the morning ? Will check iron studies as well as vitamin B12, will not check a folate as he is on the Centrum Silver ? Will stop his IV fluids his potassium is normalized and his renal function remained stable 2. HTN/HLD/CAD status post stent ? Blood pressures are stable we will hold his blood pressure medications ? We will monitor make adjustments as necessary ? His statin was held secondary to his elevated LFTs, he does have a CT scan that shows a possible nodule in his liver per the family his metastatic diagnosis came from the lung biopsy ? Can continue with his aspirin unless there is a consistent drop in hemoglobin tomorrow 3. GERD ? Stable ? Continue with his PPI 4. Glaucoma ? Stable ? Continue with his eyedrops 5. BPH ? Stable ? Continue with his home medications. DVT: Lovenox Capacity [employer] Reflex Medical hold order details:: IF a medical hold is selected below, a suggested order for a MEDICAL HOLD will reflex upon signing the document. Next of kin: [place] law dictates a PRIORITY LIST for identifying legal decision-maker/legal next of kin in the following order (LNOK): 1st: The patient?s legal guardian, if any 2nd: The patient's spouse (if status is questionable, consult Risk Management) 3rd: The patient?s adult child([place]) (majority, if multiple children) 4th: The patient?s parents 5th: The patient?s adult siblings (majority, if multiple children siblings) Charges/Coding Visit Charges Inpatient E&M: 30507 Subs Hosp L2
[2023-05-11 15:38] LABS: Ferritin 1452 ng/mL (26-388); Iron 24 ug/dL (65-175); Iron Binding Capacity,Total 220 ug/dL (250-450); PERCENT IRON SATURATION 10.9 % (15.0-55.0)
--- NOTE | 2023-05-11 17:11 | CASEMGMT ---
Met with patient to complete ORELLANA form. ORELLANA form explained to?patient who voiced understanding and signed form. Original form placed in pt?s chart and copy provided to?patient. Rayne Green, Discharge Planning Asst
[2023-05-11 17:57] LABS: Vitamin B12 > 2000 pg/mL (211-911)
[2023-05-11] MEDS: Mirtazapine 15 MG Tablet PO (21:54)
[2023-05-11] MEDS: Zolpidem Tartrate 5 MG Tablet PO (22:02)
[2023-05-12 03:00] VITALS: BP 139/76; PULSE 90; RESP 16; TEMP 36.4; O2SAT 99
[2023-05-12] MEDS: HYDROmorphone 1 MG/ML Syringe IV ×2 (05:47→13:51)
[2023-05-12] MEDS: guaiFENesin 600 MG Tablet PO (07:35)
[2023-05-12] MEDS: Multivitamins,Ther W-Minerals Tablet 1 TABLET PO (07:35)
[2023-05-12] MEDS: Aspirin 81 MG TAB.CHEW PO (07:35)
[2023-05-12] MEDS: Enoxaparin 40 MG/0.4 ML Syringe SC (07:35)
[2023-05-12] MEDS: Pantoprazole Sodium 40 MG Tablet PO (07:35)
[2023-05-12] MEDS: Docusate Sodium 100 MG/10 ML UDC 50 MG PO (07:36)
[2023-05-12 07:37] VITALS: PULSE 94
[2023-05-12] MEDS: Senna Tablet 1 TABLET PO (07:37)
[2023-05-12] MEDS: Metoprolol(XL)Succ 25 MG Tablet PO (07:37)
[2023-05-12] MEDS: Timolol 0.5% 5ML OPTH.BTL 1 DRP EACH EYE (07:37)
[2023-05-12] MEDS: Latanoprost 0.005% 1 Bottle 1 DRP EACH EYE (07:38)
[2023-05-12] MEDS: Ensure Plus High Protein 120 ML LIQUID PO ×2 (07:39→11:53)
[2023-05-12 08:11] LABS: Absolute Lymphocyte Count 0.48 X10^3/uL (0.83-4.51); Absolute Neutrophil Count 1.2 X10^3/uL (2.0-7.7); Basophil# 0.02 X10^3/uL; Basophil% 1.1 % (0-1); Eosinophil# 0.04 X10^3/uL; Eosinophils% 2.1 % (0-5); Hematocrit 25.4 % (40-54); Hemoglobin 8.1 g/dL (13.0-16.5); Lymphocyte # 0.48 X10^3/ul (0.83-4.51); Lymphocyte % 25.4 % (19-41); Mean Corp Hgb Conc 31.9 g/dL (32-36); Mean Corpuscular Hgb 32.8 pg (27.0-32.0); Mean Corpuscular Volume 102.8 fL (80-94); Mean Platelet Vol. 12.4 fl (6.2-12.0); Monocyte# 0.12 X10^3/uL; Monocyte% 6.3 % (0-10); NRBC Flagged by Analyzer 0 % (0-5); Neutrophil % 63.5 % (47-70); POSITIVE DIFFERENTIAL YES; POSITIVE MORPHOLOGY YES; Platelet Count 117 K/mm3 (150-450); RBC Distribution Width CV 18.6 % (11.6-14.6); RBC Distribution Width SD 69.2 fl (35.1-43.9); Red Blood Count 2.47 M/mm3 (4.6-6.2); White Blood Count 1.9 K/mm3 (4.4-11.0)
[2023-05-12 08:19] LABS: Differential Indicated SCAN CRITERIA MET
[2023-05-12 08:25] LABS: Anion Gap 4 (5-15); BUN 11 mg/dL (7-18); BUN/Creat Ratio 16.3 RATIO (10-20); Calcium,Total 8.8 mg/dL (8.5-10.1); Chloride 110 mmol/L (98-107); Creatinine, Serum 0.67 mg/dL (0.70-1.30); EST Glomerular Filtration Rate 124 mL/min (>60); Est Glom Filt Rate - Afr Amer 150 mL/min (>60); Estimated Creatinine Clearance 83.13 ml/min; Glucose 116 mg/dL (74-106); Potassium 4.3 mmol/L (3.5-5.1); Sodium Level 137 mmol/L (136-145)
[2023-05-12 08:59] VITALS: BP 133/70; PULSE 94; RESP 16; TEMP 36.7; O2SAT 99
[2023-05-12 09:02] VITALS: PULSE 85
[2023-05-12 09:23] LABS: Anisocytosis 2+
[2023-05-12 10:28] VITALS: BMI 24.0
--- NOTE | 2023-05-12 10:59 | DCINST_ITS ---
Discharge Instructions Diet Discharge Diet: No restrictions Activity Discharge Activity: Return to Normal Activity Dressing / Incision Call your doctor if you observe: Fever of 101 or Higher, Shortness of breath, Dizziness, Fainting spells, Swelling in the ankles, Chest pain and Increased palpitations (irregular heartbeat) Follow Up Care Test Results: Test results from this visit will be discussed in further detail at your follow- up appointment, if applicable. Discharge Plan Admission Admit Date/Time: 05/10/23 21:38 Attending Provider: Cash Perez Primary Care Provider: Cecilio Craft FRUIT HARVEST MACHINE OPERATOR Consulting Providers: Anupam Macias Instructions Additional Instructions / Restrictions: Follow-up with your oncologist within the next week and obtain outpatient lab work to monitor your anemia Discharge Orders/Prescriptions Prescriptions: Continued lidocaine-prilocaine 2.5-2.5 % cream 1 applic topical ONCE PRN (Reason: port access) 30 Days Qty: 30 2RF ondansetron 8 mg tablet,disintegrating 8 mg PO Q8H PRN (Reason: nausea and vomiting) Qty: 30 2RF oxycodone 5 mg capsule 10 mg PO Q4H PRN (Reason: pain) acetaminophen [Tylenol Extra Strength] 500 mg tablet 1,000 mg PO Q6H PRN (Reason: pain) sennosides [Senna Laxative] 8.6 mg tablet 8.6 mg PO DAILY docusate sodium [Stool Softener] 50 mg/5 mL liquid 50 mg PO DAILY albuterol sulfate 90 mcg/actuation HFA aerosol inhaler 2 puff inhalation Q6H PRN (Reason: shortness of breath or wheezing) Qty: 6.7 1RF benzonatate 100 mg capsule 100 mg PO BID-TID PRN (Reason: cough) mirtazapine 15 mg tablet 15 mg PO QHS guaifenesin [Mucus Relief ER] 600 mg tablet extended release 12hr 600 mg PO BID latanoprost 0.005 % drops 1 drp EACH EYE DAILY Patient Comments: Instill 1 drop into both eyes once a day omeprazole 40 mg capsule,delayed release(DR/EC) 40 mg PO DAILY Patient Comments: TAKE 1 CAPSULE BY MOUTH DAILY metoprolol succinate 25 mg tablet extended release 24 hr 25 mg PO DAILY Patient Comments: TAKE 1 TABLET BY MOUTH DAILY zolpidem 10 mg tablet 10 mg PO QHS Patient Comments: 08/07/22 TAKE 1 TABLET BY MOUTH AT BEDTIME timolol maleate 0.5 % drops 1 drp EACH EYE DAILY Patient Comments: INSTILL 1 (ONE) DROP INTO BOTH EYES TWICE DAILY rosuvastatin 40 mg tablet 40 mg PO DAILY Patient Comments: TAKE 1 TABLET BY MOUTH DAILY hydrochlorothiazide 12.5 mg tablet 12.5 mg PO DAILY Patient Comments: TAKE 1 TABLET BY MOUTH EVERY DAY Centrum Silver Men 300-600-300 mcg Tablet 1 tab PO DAILY aspirin 81 mg Capsule 81 mg PO DAILY Referrals / Follow Up: Estefany Rangel MD [Med Staff - Active Staff] - Within 1 Week Cecilio Craft FRUIT HARVEST MACHINE OPERATOR, FRUIT HARVEST MACHINE OPERATOR-C [Primary Care Provider] - Within 1 Week Disposition Disposition (needs filled in before D/C Order can be placed): Home, Self Care
[2023-05-12 11:30] VITALS: BP 107/58; PULSE 89; RESP 16; TEMP 36.6; O2SAT 97
[2023-05-12 11:37] VITALS: PULSE 101
[2023-05-12] MEDS: Sodium Ferric Gluconat/Sucrose 250 MG in 0.9% Normal Saline (250mL Bag) 250 ML 135 MG IV (11:52)
--- NOTE | 2023-05-12 12:10 | CASEMGMT ---
DILIA CM into pt room, pt lying in bed in no distress. Pt reports he is I in ADL's, lives with his who is able to assist if needed. Pt denies any homegoing needs at this time. No therapy evals d/t being at baseline. Pt ready for dc today.
--- NOTE | 2023-05-12 13:21 | DS.PCM_ITS ---
Providers Date of Admission: 05/10/23 Primary Care Physician: Cecilio Craft, CHEMICAL RADIATION TECHNICIAN-C Reason For Visit: DEHYDRATION WITH SINUS TACHYCARDIA Diagnosis Discharge Diagnosis (1) Acute dehydration: Status: Acute Code(s): E86.0 - Dehydration (2) Hypokalemia: Status: Acute Code(s): E87.6 - Hypokalemia (3) Sinus tachycardia: Status: Acute Code(s): R00.0 - Tachycardia, unspecified (4) Adverse effect of chemotherapy: Status: Acute Code(s): T45.1X5A - Adverse effect of antineoplastic and immunosuppressive drugs, initial encounter Qualifiers: Encounter type: initial encounter Qualified Code(s): T45.1X5A - Adverse effect of antineoplastic and immunosuppressive drugs, initial encounter Medications at Discharge Home Medications aspirin 81 mg capsule 81 mg PO DAILY 09/16/22 hydrochlorothiazide 12.5 mg tablet 12.5 mg PO DAILY 09/16/22 latanoprost 0.005 % eye drops 1 drp EACH EYE DAILY 09/16/22 metoprolol succinate 25 mg tablet,extended release 24 hr 25 mg PO DAILY 09/16/22 vorolshr-cf-cjweg 300 mcg-K 60 mcg-lycop 600 mcg-lutein 300 mcg tablet (Centrum Silver Men) 1 tab PO DAILY 09/16/22 omeprazole 40 mg capsule,delayed release 40 mg PO DAILY 09/16/22 rosuvastatin 40 mg tablet 40 mg PO DAILY 09/16/22 timolol maleate 0.5 % eye drops 1 drp EACH EYE DAILY 09/16/22 zolpidem 10 mg tablet 10 mg PO QHS 09/16/22 lidocaine-prilocaine 2.5 %-2.5 % topical cream 1 applic topical ONCE PRN port access 30 days #30 grams 03/10/23 ondansetron 8 mg disintegrating tablet 8 mg PO Q8H PRN nausea and vomiting #30 tabs 03/11/23 acetaminophen 500 mg tablet (Tylenol Extra Strength) 1,000 mg PO Q6H PRN pain 03/25/23 docusate sodium 50 mg/5 mL oral liquid (Stool Softener) 50 mg PO DAILY 03/25/23 oxycodone 5 mg capsule 10 mg PO Q4H PRN pain 03/25/23 sennosides 8.6 mg tablet (Senna Laxative) 8.6 mg PO DAILY 03/25/23 albuterol sulfate 90 mcg/actuation aerosol inhaler 2 puff inhalation Q6H PRN shortness of breath or wheezing #6.7 grams 04/01/23 benzonatate 100 mg capsule 100 mg PO BID-TID PRN cough 05/06/23 guaifenesin 600 mg tablet, extended release 12 hr (Mucus Relief ER) 600 mg PO BID 05/06/23 mirtazapine 15 mg tablet 15 mg PO QHS 05/06/23 Hospital Course Operations None Procedures None Summary of Care Provided Minutes Spent on Discharge: 35 Hospital Course: Per HPI: CLARE SNYDER, is a 72 M with a past medical history of essential hyp ertension, hyperlipidemia, coronary artery disease; status post stent placement, previous history of alcohol abuse; with patient now only drinking a beer a few times per week, glaucoma, BPH, chronic constipation, erectile dysfunction, GERD, history of metastatic pancreatic cancer; with peritoneal carcinomatosis followed by Dr. Leo of oncology at [facility] and DNR-CCA CODE STATUS with intubation who presents to [facility] ER complaining of abdominal pain and shortness of breath. Mr. Snyder reports his symptoms began approximately 1 week prior to admission with a gradual increase in his chronic abdominal pain along with cough and runny nose that has gotten progressively worse. He describes his abdominal pain as intermittent, sharp and generalized with straining to have a bowel movement making it worse and nothing making it better. He also states he feels lightheaded when he attempts to walk. He does admit to a significant decrease in his oral intake over the past few days along with a slight decrease in urination. He denies associated fever or vomiting but he does admit to some chills along with an acute worsening of his chronic constipation. The ER physician spoke to the patient's oncologist who was not concerned about his abdominal pain and his CT scans of the abdomen and pelvis did not reveal any new biliary pathology -but his CTA of the chest with subjective of mild lymphadenopathy within the mediastinum and right hilar region with right lower lobe atelectasis along with interstitial changes within the right middle and bilateral upper lobes with biapical linear atelectasis. Serum lipase was only 21 present on admission. In the ER he was noted to have sinus tachycardia approximately 120 bpm persisted after 2.5 L of IV fluid plus laboratory evidence of hypokalemia of 3.3 mmol/L present on admission due to suspected dehydration caused by adverse drug reaction to chemotherapy and he was then admitted to the CDU under observation status for ongoing care for stay that is expected to be less than 48 hours. Hospital Course: 1. Metastatic pancreatic cancer with persistent sinus tachycardia from possible dehydration ? States he does not eat or drink very well was given 4 L of IV fluid overnight ? Hemoglobin did drop unclear whether or not this is due to iron deficiency and he was dehydrated and masking a significant anemia and dropped secondary to dilution or if he has a GI bleed. He denies any hematemesis or hematochezia or melena ? Recheck of his hemoglobin is 8.1 and he denies any bloody bowel movements. He feels much better today and I discussed with him the plan for discharge she expressed understanding of the risk and benefits of going home and would like to go home today. His iron studies show a mixed picture with an elevated ferritin but a decreased iron saturation, given his self-reported lack of p.o. intake we will proceed with a dose of IV iron and I will attempt to get in touch with his oncologist on discharge for outpatient follow-up and recheck his hemoglobin sometime later this week. Vitamin B12 was greater than 2000 2. HTN/HLD/CAD status post stent ? Blood pressures are stable we will hold his blood pressure medications ? We will monitor make adjustments as necessary ? His statin was held secondary to his elevated LFTs, he does have a CT scan that shows a possible nodule in his liver per the family his metastatic diagnosis came from the lung biopsy ? Can continue with his aspirin 3. GERD ? Stable ? Continue with his PPI 4. Glaucoma ? Stable ? Continue with his eyedrops 5. BPH ? Stable ? Continue with his home medications. Physical Exam Narrative General: Alert, Oriented x3, Cooperative, No apparent distress HEENT: Atraumatic, PERRLA, EOMI, Normocephalic, pale Oral: Moist Mucosa Neck: Supple, No JVD Lungs: Diminished, Normal air movement, No rhonchi, No wheeze, No rales Cardiovascular: Regular rate, Regular Rhythm, Normal S1, Normal S2, No murmurs Abdomen: Soft, Non Tender, Non-Distended, No Hepato-splenomegaly Extremities: No edema, Capillary Refill Less than 3 Seconds Skin: No rashes, No breakdown Musculoskeletal: No Tenderness to Palpation of Joints or Extremities Neurological: No focal neurological deficit, Motor Exam 5/5 strength throughout, Sensory exam intact to light touch and pain Psych/Mental Status: Normal Affect, Appropriate Weight / BMI Weight Weight: 158 lb Body Mass Index (BMI) 24.0 ABG / Lab / Microbiology Data 05/12/23 06:48 05/12/23 06:48 Laboratory: Laboratory Results - last 24 hr 05/11/23 07:09: Iron 24 L, TIBC 220 L, Iron Saturation 10.9 L, Ferritin 1452 H 05/11/23 13:20: Hgb 7.9 L, Hct 25.3 L 05/11/23 16:49: Vitamin B12 > 2000 H 05/12/23 06:48: WBC 1.9 L, RBC 2.47 L, Hgb 8.1 L, Hct 25.4 L, MCV 102.8 H, MCH 32.8 H, MCHC 31.9 L, RDW Std Deviation 69.2 H, RDW Coeff of Rosemary 18.6 H, Plt Count 117 L, MPV 12.4 H, Immature Gran % (Auto) 1.600 H, Neut % (Auto) 63.5, Lymph % (Auto) 25.4, [place] % (Auto) 6.3, Eos % (Auto) 2.1, Baso % (Auto) 1.1 H, Absolute Neuts (auto) 1.2 L, Absolute Lymphs (auto) 0.48 L, Nucleated RBC % 0, Diff Path Review May foll, Anisocytosis 2+, Sodium 137, Potassium 4.3, Chloride 110 H, Carbon Dioxide 23.0, Anion Gap 4 L, BUN 11, Creatinine 0.67 L, Estim Creat Clear Calc 83.13, Est GFR (MDRD) Af Amer 150, Est GFR (MDRD) Non-Af 124, BUN/Creatinine Ratio 16.3, Glucose 116 H, Calcium 8.8 D/C Instructions Discharge Diet: No restrictions Call your doctor if you observe: Fever of 101 or Higher, Shortness of breath, Dizziness, Fainting spells, Swelling in the ankles, Chest pain and Increased palpitations (irregular heartbeat) Meaningful Use Info Meaningful Use Diagnoses (Choose all that apply): None applicable Discharge Plan Admission Admit Date/Time: 05/10/23 21:38 Attending Provider: Cash Perez Primary Care Provider: Cecilio Craft NP Consulting Providers: Anupam Macias Additional Instructions / Restrictions: Follow-up with your oncologist within the next week and obtain outpatient lab work to monitor your anemia Discharge Orders/Prescriptions Prescriptions: Continued lidocaine-prilocaine 2.5-2.5 % cream 1 applic topical ONCE PRN (Reason: port access) 30 Days Qty: 30 2RF ondansetron 8 mg tablet,disintegrating 8 mg PO Q8H PRN (Reason: nausea and vomiting) Qty: 30 2RF oxycodone 5 mg capsule 10 mg PO Q4H PRN (Reason: pain) acetaminophen [Tylenol Extra Strength] 500 mg tablet 1,000 mg PO Q6H PRN (Reason: pain) sennosides [Senna Laxative] 8.6 mg tablet 8.6 mg PO DAILY docusate sodium [Stool Softener] 50 mg/5 mL liquid 50 mg PO DAILY albuterol sulfate 90 mcg/actuation HFA aerosol inhaler 2 puff inhalation Q6H PRN (Reason: shortness of breath or wheezing) Qty: 6.7 1RF benzonatate 100 mg capsule 100 mg PO BID-TID PRN (Reason: cough) mirtazapine 15 mg tablet 15 mg PO QHS guaifenesin [Mucus Relief ER] 600 mg tablet extended release 12hr 600 mg PO BID latanoprost 0.005 % drops 1 drp EACH EYE DAILY Patient Comments: Instill 1 drop into both eyes once a day omeprazole 40 mg capsule,delayed release(DR/EC) 40 mg PO DAILY Patient Comments: TAKE 1 CAPSULE BY MOUTH DAILY metoprolol succinate 25 mg tablet extended release 24 hr 25 mg PO DAILY Patient Comments: TAKE 1 TABLET BY MOUTH DAILY zolpidem 10 mg tablet 10 mg PO QHS Patient Comments: 08/07/22 TAKE 1 TABLET BY MOUTH AT BEDTIME timolol maleate 0.5 % drops 1 drp EACH EYE DAILY Patient Comments: INSTILL 1 (ONE) DROP INTO BOTH EYES TWICE DAILY rosuvastatin 40 mg tablet 40 mg PO DAILY Patient Comments: TAKE 1 TABLET BY MOUTH DAILY hydrochlorothiazide 12.5 mg tablet 12.5 mg PO DAILY Patient Comments: TAKE 1 TABLET BY MOUTH EVERY DAY Centrum Silver Men 300-600-300 mcg Tablet 1 tab PO DAILY aspirin 81 mg Capsule 81 mg PO DAILY Referrals / Follow Up: Estefany Rangel MD [Med Staff - Active Staff] - Within 1 Week Cecilio Craft NP, CHEMICAL RADIATION TECHNICIAN-C [Primary Care Provider] - Within 1 Week Disposition Disposition (needs filled in before D/C Order can be placed): Home, Self Care Charges/Coding Visit Charges Inpatient E&M: 62335 Disch Hosp >30min
[2023-05-12] MEDS: 0.9% Saline Lock 10 ML Syringe IV (14:16)
[2023-05-13 09:30] LABS: Pathologist Review Reviewed
[2023-05-13 09:51] LABS: Pathologist Review Reviewed
== END 2023-05-12 14:24 | disposition home or self-care (01) ==
LOC: ED 22:30 → MS2 22:35
PROVIDERS: Admitting Provider Internal Medicine; Emergency Provider Emergency Medicine; PCP Nurse Practitioner Family; Visit Provider Family Medicine
DX: E86.0 Dehydration (principal); C78.7 Secondary malignant neoplasm of liver and intrahepatic bile duct; C78.00 Secondary malignant neoplasm of unspecified lung; C78.6 Secondary malignant neoplasm of retroperitoneum and peritoneum; C25.9 Malignant neoplasm of pancreas, unspecified; I10 Essential (primary) hypertension; E87.6 Hypokalemia; I25.10 Atherosclerotic heart disease of native coronary artery without angina pectoris; K21.9 Gastro-esophageal reflux disease without esophagitis; T45.1X5A Adverse effect of antineoplastic and immunosuppressive drugs, initial encounter; E78.00 Pure hypercholesterolemia, unspecified; H40.9 Unspecified glaucoma; N40.0 Benign prostatic hyperplasia without lower urinary tract symptoms; R00.0 Tachycardia, unspecified; Z79.82 Long term (current) use of aspirin; Z79.899 Other long term (current) drug therapy; R06.02 Shortness of breath
CPT/HCPCS: 36415; 36591; 71045; 71275; 74177; 80048; 80053; 80076; 81001; 82607; 82728; 83540; 83550; 83690; 83735; 84100; 84443; 85014; 85018; 85025; 93005; 96361; 96365; 96366; 96367; 96375; 96376; 97802; 99221; 99285; J7030; J7050; Q9967; A4216; G0378; J2405; J2916

== ENCOUNTER 2023-06-07 10:46 | Inpatient (IN) | payer MEDICARE, OTHER, SELFPAY ==
[2023-06-07 10:47] VITALS: BP 127/107; PULSE 113; RESP 22; TEMP 36.8; O2SAT 100
--- NOTE | 2023-06-07 10:55 | CT_ITS ---
STUDY: CT ABDOMEN AND PELVIS WITH CONTRAST REASON FOR EXAM: Male, 72 years old. Abdominal pain. Bowel obstruction. History of pancreatic mass. RADIATION DOSAGE (If Supplied By Facility): CTDIvol = ( 9.56 ) mGy, DLP = ( 494.27 ) mGycm TECHNIQUE: Transaxial images were obtained from the dome of the diaphragm to the symphysis pubis without oral contrast. IV 100mL Isovue-300 was administered. Sagittal and coronal images were reconstructed. Individualized dose optimization techniques were used for this CT. COMPARISON: Comparison is made with prior study dated November 08, 2023. FINDINGS: A portacatheter seen within the superior vena cava. Right basilar mass measuring 3.9 cm x 2.6 cm. This has decreased in size as compared to prior study. Coronary artery calcification. There is decreased attenuation of the liver consistent with steatosis. Stable 1 cm x 1.3 cm hypodensity in the inferior aspect of the right lobe of the liver. Mildly distended gallbladder. Findings suggestive of sludge or tiny gallstones in the region of the neck of the gallbladder. There is a new wedge-shaped defect in the anterior midportion of the spleen measuring 2.6 cm x 1.6 cm. This may represent an infarct. A metastatic deposit cannot be excluded. There is a 4 cm x 4.2 cm heterogeneous mass in the tail of the pancreas. This is unchanged. Findings suggestive of varices in the region of the splenic hilum. Normal bilateral adrenal glands. Normal right kidney. Stable 1.3 cm cyst in the upper pole of the left kidney. Normal visualized stomach. Normal small intestine. Normal colon. The appendix is visualized and appears normal. There is scattered atherosclerotic calcification of the abdominal aorta, without a demonstrated aneurysm. Normal inferior vena cava. Normal retroperitoneum. Distended urinary bladder. There is enlargement of the prostate gland. The prostate measures 4.6 cm x 4.7 cm. This causes indentation at the bladder base. There is a small umbilical hernia containing fat. There are minimal degenerative changes of the visualized lumbar spine. The patient is status post right total hip replacement. CT/Abdomen/Pelvis W IV Cont ONLY IMPRESSION: Stable mass in the tail portion the pancreas. New wedge-shaped abnormality in the spleen as described. Mildly distended gallbladder with questionable tiny gallstone or sludge within the gallbladder lumen. Stable hypodensity in the lower aspect of the right lobe of the liver. Stable left renal cyst. Prostatic enlargement. Distended urinary bladder. Electronically Signed: Julio Sanderson MD at 12:40 EST ,
--- NOTE | 2023-06-07 10:55 | EX.ED.DYSGE1 ---
HPI History of Present Illness Chief Complaint: Abd Pain [facility] Medical History (Updated 06/03/23 @ 13:17 by Yolette Restrepo MOLD YARD CRANE OPERATOR, MOLD YARD CRANE OPERATOR-C) Acute dyspnea Alcohol use Anemia BPH (benign prostatic hyperplasia) CAD (coronary artery disease) Cardiology follow-up encounter Chronic constipation CINV (chemotherapy-induced nausea and vomiting) Constipation Cough Decreased ROM of right shoulder Dehydration Elevated liver enzymes Erectile dysfunction Exertional dyspnea Gastric reflux High cholesterol History of echocardiogram History of stress test Holosystolic murmur Hypertension IBS (irritable bowel syndrome) Impaired fasting glucose Insomnia Metastasis to liver Metastasis to lung Motion sickness Pancreas cancer Peritoneal carcinomatosis Rotator cuff tear Wears dentures Wears glasses Wears partial dentures Home Medications aspirin 81 mg capsule 81 mg PO DAILY 09/16/22 [History Last Taken Unknown] hydrochlorothiazide 12.5 mg tablet 12.5 mg PO DAILY 09/16/22 [History Last Taken Unknown] latanoprost 0.005 % eye drops 1 drp EACH EYE DAILY 09/16/22 [History Last Taken Unknown] metoprolol succinate 25 mg tablet,extended release 24 hr 25 mg PO DAILY 09/16/22 [History Last Taken 09/24/22 05:30] nnhmswai-us-ufcnq 300 mcg-K 60 mcg-lycop 600 mcg-lutein 300 mcg tablet (Centrum Silver Men) 1 tab PO DAILY 09/16/22 [History Last Taken Unknown] omeprazole 40 mg capsule,delayed release 40 mg PO DAILY 09/16/22 [History Last Taken 09/24/22 05:30] rosuvastatin 40 mg tablet 40 mg PO DAILY 09/16/22 [History Last Taken Unknown] timolol maleate 0.5 % eye drops 1 drp EACH EYE DAILY 09/16/22 [History Last Taken Unknown] zolpidem 10 mg tablet 10 mg PO QHS 09/16/22 [History Last Taken Unknown] lidocaine-prilocaine 2.5 %-2.5 % topical cream 1 applic topical ONCE PRN port access 30 days #30 grams 03/10/23 [Rx Last Taken Unknown] ondansetron 8 mg disintegrating tablet 8 mg PO Q8H PRN nausea and vomiting #30 tabs 03/11/23 [Rx Last Taken Unknown] acetaminophen 500 mg tablet (Tylenol Extra Strength) 1,000 mg PO Q6H PRN pain 03/25/23 [History Last Taken Unknown] docusate sodium 50 mg/5 mL oral liquid (Stool Softener) 50 mg PO DAILY 03/25/23 [History Last Taken Unknown] oxycodone 5 mg capsule 10 mg PO Q4H PRN pain 03/25/23 [History Last Taken Unknown] sennosides 8.6 mg tablet (Senna Laxative) 8.6 mg PO DAILY 03/25/23 [History Last Taken Unknown] albuterol sulfate 90 mcg/actuation aerosol inhaler 2 puff inhalation Q6H PRN shortness of breath or wheezing #6.7 grams 04/01/23 [Rx Last Taken Unknown] benzonatate 100 mg capsule 100 mg PO BID-TID PRN cough 05/06/23 [History Last Taken Unknown] guaifenesin 600 mg tablet, extended release 12 hr (Mucus Relief ER) 600 mg PO BID 05/06/23 [History Last Taken Unknown] mirtazapine 15 mg tablet 15 mg PO QHS 05/06/23 [History Last Taken Unknown] metoclopramide HCl 10 mg tablet (Reglan) 10 mg PO Q6H PRN nausea and vomiting #30 tabs 06/03/23 [Rx Last Taken Unknown] Allergy/AdvReac Type Severity Reaction Status Date / Time Sulfa (Sulfonamide Allergy Unknown Hives Verified 06/07/23 10:46 Antibiotics) codeine AdvReac Unknown Nausea Verified 06/07/23 10:46 amoxicillin AdvReac Nausea Verified 06/07/23 10:46 Family History Sister Breast cancer Mother Cancer Father Cancer Surgical History H/O repair of right rotator cuff History of cardiac catheterization History of colonoscopy History of coronary artery stent placement History of knee replacement Hx of bilateral cataract extraction Hx of total hip arthroplasty Postsurgical percutaneous transluminal coronary angioplasty (PTCA) status Social History household members: spouse and children Smoking Status: Never smoker alcohol intake: current alcohol intake frequency: a few times a week Alcohol type: beer substance use type: does not use EXAM Physical Exam Const Vital Signs: 06/07/23 10:47 Temperature 98.2 F Temperature Source Temporal Pulse Rate 113 H Respiratory Rate 22 H Blood Pressure 127/107 H Blood Pressure Mean 113 Pulse Ox 100 Oxygen Delivery Method Room Air [facility] Narrative Medical decision making narrative: HISTORY OF PRESENT ILLNESS: 72-year-old male presents with abdominal pain. He states REVIEW OF SYSTEMS: Pertinent positives: Abdominal pain Pertinent negatives: [] PHYSICAL EXAM: Nursing triage notes reviewed, Vital signs reviewed Constitutional: please see [facility] HENT: MMM Eyes: Pupils equal round and reactive to light, Extraocular muscles intact Neck: No stridor, no JVD, full neck ROM Lungs: Clear to auscultation, No wheezing or rales. No increased work of breathing, no conversational dyspnea, no accessory muscle use, no nasal flaring. No respiratory distress noted Heart: Regular rate and rhythm, No murmurs, No rubs and No gallops, 2+ distal pulses (radial, femoral, posterior tibial) in all extremities Abdomen: Soft, there is no tenderness, rigidity, rebound or guarding, no obvious peritoneal signs, no palpable pulsatile abdominal masses, no auscultated abdominal bruit : No CVAT Extremities: No edema Neuro: No focal neurological deficits, cranial nerves II through XII intact, 5/5 strength in all extremities. Intact sensation to light touch in all extremities, 2+ reflexes bilateral patella tendons. Normal gait. No ataxia. Skin: No rash or lesions noted MEDICAL DECISION MAKING: Chief Complaint: Abdominal pain External records reviewed: CT scan abdomen pelvis from April 2023 shows pancreatic tail lesion consistent with pancreatic neoplasm, renal cyst, enteritis, no acute surgical abnormality. Factors affecting care: CAD, metastatic cancer, hyperlipidemia, IBS, Social determinants of health: none [] History obtained from others: none [] Consults: none [] [facility] Narrative: Patient was initially tachycardic, tachypneic but afebrile and nontoxic-appearing. Abdominal exam I considered the following differential diagnosis: AAA, small bowel obstruction, abdominal perforation, appendicitis, pancreatitis, hepatobiliary pathology (acute cholecystitis), mesenteric ischemia, pathology (ie nephrolithiasis, pyelonephritis). I obtained a broad lab and imaging workup to further elucidate the etiology the patient complaints. I gave the patient IV narcotic pain medicine, fluids and nausea medicine for symptomatic control. ALL IMAGES (IF OBTAINED) HAVE BEEN PERSONALLY REVIEWED AND INTERPRETED BY MYSELF. [] The patient and/or family, caregivers express understanding. The patient and/or family, caregivers agrees with the plan. Shared decision making: I will have a discussion with the patient and or visitors regarding risk/benefits of further testing or admission. They will be made aware of of the risk/benefits inherent in this decision they will be given the opportunity to voice understanding. Total critical care time today provided was at least 0 [] minutes. This excludes separately billable procedures. Critical care time (if documented) is secondary to the patient having high probability of clinically significant/life threatening deterioration in the patient's condition which required my urgent intervention. Impression: [] Dispo: [] This note was generated with [employer] dictation software. It may contain incorrect words, spelling, and punctuation that were not noted in review of the chart prior to signing. Discharge Plan Triage Chief Complaint: Abd Pain ED Provider: Jared Marin Dx/Rx/DC Orders Prescriptions: No Action lidocaine-prilocaine 2.5-2.5 % cream 1 applic topical ONCE PRN (Reason: port access) 30 Days Qty: 30 2RF ondansetron 8 mg tablet,disintegrating 8 mg PO Q8H PRN (Reason: nausea and vomiting) Qty: 30 2RF oxycodone 5 mg capsule 10 mg PO Q4H PRN (Reason: pain) acetaminophen [Tylenol Extra Strength] 500 mg tablet 1,000 mg PO Q6H PRN (Reason: pain) sennosides [Senna Laxative] 8.6 mg tablet 8.6 mg PO DAILY docusate sodium [Stool Softener] 50 mg/5 mL liquid 50 mg PO DAILY albuterol sulfate 90 mcg/actuation HFA aerosol inhaler 2 puff inhalation Q6H PRN (Reason: shortness of breath or wheezing) Qty: 6.7 1RF benzonatate 100 mg capsule 100 mg PO BID-TID PRN (Reason: cough) mirtazapine 15 mg tablet 15 mg PO QHS guaifenesin [Mucus Relief ER] 600 mg tablet extended release 12hr 600 mg PO BID metoclopramide HCl [Reglan] 10 mg tablet 10 mg PO Q6H PRN (Reason: nausea and vomiting) Qty: 30 1RF latanoprost 0.005 % drops 1 drp EACH EYE DAILY Patient Comments: Instill 1 drop into both eyes once a day omeprazole 40 mg capsule,delayed release(DR/EC) 40 mg PO DAILY Patient Comments: TAKE 1 CAPSULE BY MOUTH DAILY metoprolol succinate 25 mg tablet extended release 24 hr 25 mg PO DAILY Patient Comments: TAKE 1 TABLET BY MOUTH DAILY zolpidem 10 mg tablet 10 mg PO QHS Patient Comments: 08/07/22 TAKE 1 TABLET BY MOUTH AT BEDTIME timolol maleate 0.5 % drops 1 drp EACH EYE DAILY Patient Comments: INSTILL 1 (ONE) DROP INTO BOTH EYES TWICE DAILY rosuvastatin 40 mg tablet 40 mg PO DAILY Patient Comments: TAKE 1 TABLET BY MOUTH DAILY hydrochlorothiazide 12.5 mg tablet 12.5 mg PO DAILY Patient Comments: TAKE 1 TABLET BY MOUTH EVERY DAY Centrum Silver Men 300-600-300 mcg Tablet 1 tab PO DAILY aspirin 81 mg Capsule 81 mg PO DAILY Primary Care Provider: Cecilio Craft NP Referrals: Cecilio Craft NP, MOLD YARD CRANE OPERATOR-C [Primary Care Provider] -
[2023-06-07 11:06] VITALS: BP 121/79; PULSE 104; RESP 18; TEMP 37; O2SAT 97; BMI 21.9
--- NOTE | 2023-06-07 11:06 | ED.VIS.GI ---
HPI HPI - GI History of Present Illness Chief Complaint: Abd Pain Narrative Narrative: 72-year-old male presenting with abdominal pain. He has a history of stage IV pancreatic cancer with metastasis to the lung, liver and history of peritoneal carcinomatosis presenting with abdominal pain. He states that he was told he had a bowel obstruction on but was sent home with magnesium citrate. He states he had an x-ray done on because he received chemotherapy and was complaining abdominal pain. Patient has a history of obstruction. He states that he has increasing pain over the weekend. He has trouble eating secondary to nausea he also states it hurts to eat secondary to pain. Patient has had 2 bowel movements over the weekend. He states no black or bloody stools. He denies any fevers. [facility] Medical History Acute dyspnea Alcohol use Anemia BPH (benign prostatic hyperplasia) CAD (coronary artery disease) Cardiology follow-up encounter Chronic constipation CINV (chemotherapy-induced nausea and vomiting) Constipation Cough Decreased ROM of right shoulder Dehydration Elevated liver enzymes Erectile dysfunction Exertional dyspnea Gastric reflux High cholesterol History of echocardiogram History of stress test Holosystolic murmur Hypertension IBS (irritable bowel syndrome) Impaired fasting glucose Insomnia Metastasis to liver Metastasis to lung Motion sickness Pancreas cancer Peritoneal carcinomatosis Rotator cuff tear Wears dentures Wears glasses Wears partial dentures Home Medications aspirin 81 mg capsule 81 mg PO DAILY 09/16/22 [History Last Taken Unknown] hydrochlorothiazide 12.5 mg tablet 12.5 mg PO DAILY 09/16/22 [History Last Taken Unknown] latanoprost 0.005 % eye drops 1 drp EACH EYE DAILY 09/16/22 [History Last Taken Unknown] metoprolol succinate 25 mg tablet,extended release 24 hr 25 mg PO DAILY 09/16/22 [History Last Taken 09/24/22 05:30] onrnuify-vx-cogfe 300 mcg-K 60 mcg-lycop 600 mcg-lutein 300 mcg tablet (Centrum Silver Men) 1 tab PO DAILY 09/16/22 [History Last Taken Unknown] omeprazole 40 mg capsule,delayed release 40 mg PO DAILY 09/16/22 [History Last Taken 09/24/22 05:30] rosuvastatin 40 mg tablet 40 mg PO DAILY 09/16/22 [History Last Taken Unknown] timolol maleate 0.5 % eye drops 1 drp EACH EYE DAILY 09/16/22 [History Last Taken Unknown] zolpidem 10 mg tablet 10 mg PO QHS 09/16/22 [History Last Taken Unknown] lidocaine-prilocaine 2.5 %-2.5 % topical cream 1 applic topical ONCE PRN port access 30 days #30 grams 03/10/23 [Rx Last Taken Unknown] ondansetron 8 mg disintegrating tablet 8 mg PO Q8H PRN nausea and vomiting #30 tabs 03/11/23 [Rx Last Taken Unknown] acetaminophen 500 mg tablet (Tylenol Extra Strength) 1,000 mg PO Q6H PRN pain 03/25/23 [History Last Taken Unknown] docusate sodium 50 mg/5 mL oral liquid (Stool Softener) 50 mg PO DAILY 03/25/23 [History Last Taken Unknown] oxycodone 5 mg capsule 10 mg PO Q4H PRN pain 03/25/23 [History Last Taken Unknown] sennosides 8.6 mg tablet (Senna Laxative) 8.6 mg PO DAILY 03/25/23 [History Last Taken Unknown] albuterol sulfate 90 mcg/actuation aerosol inhaler 2 puff inhalation Q6H PRN shortness of breath or wheezing #6.7 grams 04/01/23 [Rx Last Taken Unknown] benzonatate 100 mg capsule 100 mg PO BID-TID PRN cough 05/06/23 [History Last Taken Unknown] guaifenesin 600 mg tablet, extended release 12 hr (Mucus Relief ER) 600 mg PO BID 05/06/23 [History Last Taken Unknown] mirtazapine 15 mg tablet 15 mg PO QHS 05/06/23 [History Last Taken Unknown] metoclopramide HCl 10 mg tablet (Reglan) 10 mg PO Q6H PRN nausea and vomiting #30 tabs 06/03/23 [Rx Last Taken Unknown] Allergy/AdvReac Type Severity Reaction Status Date / Time Sulfa (Sulfonamide Allergy Unknown Hives Verified 06/07/23 10:46 Antibiotics) codeine AdvReac Unknown Nausea Verified 06/07/23 10:46 amoxicillin AdvReac Nausea Verified 06/07/23 10:46 Family History Sister Breast cancer Mother Cancer Father Cancer Surgical History H/O repair of right rotator cuff History of cardiac catheterization History of colonoscopy History of coronary artery stent placement History of knee replacement Hx of bilateral cataract extraction Hx of total hip arthroplasty Postsurgical percutaneous transluminal coronary angioplasty (PTCA) status Social History household members: spouse and children Smoking Status: Never smoker alcohol intake: current alcohol intake frequency: a few times a week Alcohol type: beer substance use type: does not use ROS ROS ED Constitutional Constitutional ED: Denies chills, fever(s) or sweats Eyes Eyes: Denies blurry vision or change in vision ENT ENT ED: Denies ear pain or sore throat Cardiovascular Cardiovascular: Denies chest pain, palpitations or racing heartbeat Respiratory/Chest Respiratory/Chest: Denies cough, dyspnea or sputum Gastrointestinal Gastrointestinal: Reports abdominal pain, constipation, nausea and vomiting; Denies diarrhea Genitourinary Genitourinary ED: Denies dysuria, hematuria or urinary frequency Musculoskeletal Musculoskeletal: Denies arthralgias, myalgias or neck pain Integumentary Denies abscess, Abrasions or rash Neurologic Neurologic: Denies headache(s), paresthesias or weakness Psychiatric Psychiatric: Denies anxiety, depression, suicidal ideation or suicidal thoughts Endocrine Endocrinology: Denies polydipsia or polyuria EXAM Physical Exam Const Vital Signs: 06/07/23 10:47 06/07/23 11:06 Temperature 98.2 F 98.6 F Temperature Source Temporal Oral Pulse Rate 113 H 104 H Respiratory Rate 22 H 18 Blood Pressure 127/107 H 121/79 H Blood Pressure Mean 113 93 Pulse Ox 100 97 Oxygen Delivery Method Room Air Room Air Positive well nourished General Appearance ED: NAD; Negative for pallor HEENT Reports moist mucous membranes normocephalic and atraumatic Eyes PERRL and EOMs intact bilaterally Neck no lymphadenopathy Resp normal respiratory effort Auscultation: Negative for rales, rhonchi or wheezes Cardio regular rate and regular rhythm GI Auscultation: hyperactive bowel sounds Palpation: tender periumbilical Percussion: tympanic to percussion Rectal Exam: deferred Back/Spine no CVA tenderness Neuro CN's II-XII intact bilaterally Sensorium / Orientation: alert Psych mental status grossly normal and thought process normal Skin no wounds General Skin Exam: Negative for jaundice or pallor MDM MDM MDM Narrative Medical decision making narrative: Patient presenting with abdominal pain with a history of metastatic pancreatic cancer. He is on chemotherapy. His oncologist is Dr. nolasco. Last chemotherapy last . He had a KUB at that time which showed obstruction per him. He was put on magnesium citrate and did have 2 bowel movements without increasing pain over the weekend. Patient presenting with right flank pain. Differential includes colitis, diverticulitis, gastritis, pancreatitis, acute cholecystitis, constipation, appendicitis, UTI, pyelonephritis, calculi, ureteral calculi, obstruction, malignancy, dehydration, electrolyte abnormalities, bowel obstruction, worsening metastases. CBC will be obtained to assess white blood cell count, hemoglobin, differential. CMP to assess liver function, renal function, electrolytes, glucose, anion gap. Lipase to assess for pancreatitis. Urinalysis to assess for UTI. CBC shows normal white blood count of 9.7. Hemoglobin 10.1. Platelets 193. Renal function is normal. Electrolytes are unremarkable. Lactic acid 1.3. Total bilirubin 1.9. AST 291, ALT 290, alkaline phosphatase 162. Lipase 26. Patient was initially treated with morphine and Zofran. He requested more morphine at 115 when I went to reevaluate him he said his pain was coming back. CT of the abdomen pelvis with IV contrast was obtained and shows concern for a new wedge-shaped abnormality in the spleen which is infarct versus malignancy. It also shows concern for possible gallbladder sludge/stone in the gallbladder neck. His LFTs are elevated today over previous labs. He has had elevated LFTs in the past, but his last blood work was normal. Patient was discussed with Dr. Hancock who reviewed the CT imaging and stated from a surgical standpoint probably the most we would be able to do is a percutaneous cholecystostomy tube. She did recommend that I try to discuss this with Dr. Steve given there is concern for possible need for MRCP/ERCP. I also spoke with Dr. Melton regarding the spleen and he does again require more than aspirin when surgical intervention is done if needed. Discussed with hospitalist for admission. Impression: 1. Abdominal pain 2. Transaminitis 3. History of metastatic pancreatic cancer 4. Splenic metastasis Lab Data Attestation: I reviewed the patient's lab results. Labs: Laboratory Results - last 24 hr 06/07/23 06/07/23 11:27 11:27 WBC 9.7 RBC 3.09 L Hgb 10.1 L Hct 31.1 L MCV 100.6 H MCH 32.7 H MCHC 32.5 RDW Std Deviation 73.1 H RDW Coeff of Rosemary 20.0 H Plt Count 193 MPV 12.9 H Immature Gran % (Auto) 1.400 H Neut % (Auto) 88.7 H Lymph % (Auto) 8.0 L [place] % (Auto) 1.0 Eos % (Auto) 0.3 Baso % (Auto) 0.6 Absolute Neuts (auto) 8.6 H Absolute Lymphs (auto) 0.78 L Nucleated RBC % 0 Anisocytosis 2+ Sodium 133 L Potassium 4.4 Chloride 102 Carbon Dioxide 23.0 Anion Gap 8 BUN 14 Creatinine 0.77 Estim Creat Clear Calc 79.72 Est GFR (MDRD) Af Amer 129 Est GFR (MDRD) Non-Af 107 BUN/Creatinine Ratio 18.3 Glucose 128 H Lactic Acid 1.3 Calcium 9.0 Total Bilirubin 1.40 H 1.50 H Direct Bilirubin 0.50 H Indirect Bilirubin 1.00 AST 291 H ALT 290 H Alkaline Phosphatase 162 H Total Protein 7.0 Albumin 2.9 L Globulin 4.1 Albumin/Globulin Ratio 0.7 L Lipase 26 Radiography Diagnostic Testing: Clinical Impression(s) from Imaging Studies Abdomen/Pelvis CT 06/07/23 10:55 IMPRESSION: Stable mass in the tail portion the pancreas. New wedge-shaped abnormality in the spleen as described. Mildly distended gallbladder with questionable tiny gallstone or sludge within the gallbladder lumen. Stable hypodensity in the lower aspect of the right lobe of the liver. Stable left renal cyst. Prostatic enlargement. Distended urinary bladder. Electronically Signed: Julio Sanderson MD at 12:40 EST , Discharge Plan Triage Chief Complaint: Abd Pain ED Provider: Jared Marin Dx/Rx/DC Orders Prescriptions: No Action lidocaine-prilocaine 2.5-2.5 % cream 1 applic topical ONCE PRN (Reason: port access) 30 Days Qty: 30 2RF ondansetron 8 mg tablet,disintegrating 8 mg PO Q8H PRN (Reason: nausea and vomiting) Qty: 30 2RF oxycodone 5 mg capsule 10 mg PO Q4H PRN (Reason: pain) acetaminophen [Tylenol Extra Strength] 500 mg tablet 1,000 mg PO Q6H PRN (Reason: pain) sennosides [Senna Laxative] 8.6 mg tablet 8.6 mg PO DAILY docusate sodium [Stool Softener] 50 mg/5 mL liquid 50 mg PO DAILY albuterol sulfate 90 mcg/actuation HFA aerosol inhaler 2 puff inhalation Q6H PRN (Reason: shortness of breath or wheezing) Qty: 6.7 1RF benzonatate 100 mg capsule 100 mg PO BID-TID PRN (Reason: cough) mirtazapine 15 mg tablet 15 mg PO QHS guaifenesin [Mucus Relief ER] 600 mg tablet extended release 12hr 600 mg PO BID metoclopramide HCl [Reglan] 10 mg tablet 10 mg PO Q6H PRN (Reason: nausea and vomiting) Qty: 30 1RF latanoprost 0.005 % drops 1 drp EACH EYE DAILY Patient Comments: Instill 1 drop into both eyes once a day omeprazole 40 mg capsule,delayed release(DR/EC) 40 mg PO DAILY Patient Comments: TAKE 1 CAPSULE BY MOUTH DAILY metoprolol succinate 25 mg tablet extended release 24 hr 25 mg PO DAILY Patient Comments: TAKE 1 TABLET BY MOUTH DAILY zolpidem 10 mg tablet 10 mg PO QHS Patient Comments: 08/07/22 TAKE 1 TABLET BY MOUTH AT BEDTIME timolol maleate 0.5 % drops 1 drp EACH EYE DAILY Patient Comments: INSTILL 1 (ONE) DROP INTO BOTH EYES TWICE DAILY rosuvastatin 40 mg tablet 40 mg PO DAILY Patient Comments: TAKE 1 TABLET BY MOUTH DAILY hydrochlorothiazide 12.5 mg tablet 12.5 mg PO DAILY Patient Comments: TAKE 1 TABLET BY MOUTH EVERY DAY Centrum Silver Men 300-600-300 mcg Tablet 1 tab PO DAILY aspirin 81 mg Capsule 81 mg PO DAILY Primary Care Provider: Cecilio Craft NP Referrals: Cecilio Craft NP, [employer] [facility] [Primary Care Provider] -
[2023-06-07] MEDS: 0.9% Normal Saline (1000mL) 1,000 ML 1000 ML IV (11:35)
[2023-06-07] MEDS: Ondansetron 4 MG/2 ML Vial IV (11:35)
[2023-06-07 11:36] LABS: Absolute Lymphocyte Count 0.78 X10^3/uL (0.83-4.51); Absolute Neutrophil Count 8.6 X10^3/uL (2.0-7.7); Basophil# 0.06 X10^3/uL; Basophil% 0.6 % (0-1); Eosinophil# 0.03 X10^3/uL; Eosinophils% 0.3 % (0-5); Hematocrit 31.1 % (40-54); Hemoglobin 10.1 g/dL (13.0-16.5); Lymphocyte # 0.78 X10^3/ul (0.83-4.51); Mean Corp Hgb Conc 32.5 g/dL (32-36); Mean Corpuscular Hgb 32.7 pg (27.0-32.0); Mean Corpuscular Volume 100.6 fL (80-94); Mean Platelet Vol. 12.9 fl (6.2-12.0); NRBC Flagged by Analyzer 0 % (0-5); Neutrophil # 8.61 X10^3/uL (2.7-7.7); Neutrophil % 88.7 % (47-70); POSITIVE MORPHOLOGY YES; Platelet Count 193 K/mm3 (150-450); RBC Distribution Width SD 73.1 fl (35.1-43.9); Red Blood Count 3.09 M/mm3 (4.6-6.2); White Blood Count 9.7 K/mm3 (4.4-11.0)
[2023-06-07] MEDS: Morphine 4 MG/ML Syringe IV ×2 (11:36→14:07)
--- NOTE | 2023-06-07 11:42 | CM.ED ---
Social Work SW notified that patient is a palliative care patient through [employer]. Pt's notified [employer] [facility] of patient arrival to the ED. Jyoti Tyler [employer], PROCEDURE WRITER
[2023-06-07 11:51] LABS: ALB/GLOB Ratio 0.7 RATIO (0.9-2.4); AST(SGOT) 291 U/L (15-37); Alanine Aminotransfer ALT/SGPT 290 U/L (16-61); Albumin, Serum 2.9 g/dL (3.2-5.0); Alkaline Phosphatase 162 U/L (45-117); Anion Gap 8 (5-15); BUN 14 mg/dL (7-18); BUN/Creat Ratio 18.3 RATIO (10-20); Chloride 102 mmol/L (98-107); Creatinine, Serum 0.77 mg/dL (0.70-1.30); EST Glomerular Filtration Rate 107 mL/min (>60); Est Glom Filt Rate - Afr Amer 129 mL/min (>60); Estimated Creatinine Clearance 79.72 ml/min; Globulin 4.1 g/dL (2.2-4.2); Glucose 128 mg/dL (74-106); Lipase 26 U/L (13-75); Potassium 4.4 mmol/L (3.5-5.1); Sodium Level 133 mmol/L (136-145)
[2023-06-07 12:10] LABS: Differential Indicated SCAN CRITERIA MET
[2023-06-07 12:12] LABS: Lactic Acid 1.3 mmol/L (0.4-1.9)
[2023-06-07 12:17] LABS: Anisocytosis 2+
[2023-06-07 13:30] VITALS: BP 133/67; O2SAT 97
[2023-06-07 14:54] VITALS: BMI 22.6
--- NOTE | 2023-06-07 14:59 | PCM.HP.STD ---
HPI - General General Date of Admission: 06/07/23 Date of Service: 06/07/23 Chief Complaint: Abdominal pain HPI Narrative CLARE CALI, is a 72 M who presented to the emergency department at [facility] on 06/07/2023 complaining of worsening abdominal pain. Patient has a known history of metastatic pancreatic cancer for which he just received his second round of chemotherapy including gemcitabine and Abraxane on 04/02/2024. His first round of chemo was 03/11/2023 and he tolerated it without any significant toxicities. He was seen by oncology on the and complained of abdominal pain at that visit and a KUB was performed at that time and showed a moderate amount of fecal material seen in the colon. He is on chronic narcotics from palliative care for chronic abdominal pain related to his pancreatic cancer. At that visit he was instructed to take half a bottle of magnesium citrate and he was given Reglan and maintained on his baseline bowel regimen of senna 2 tablets twice daily. Patient reported he had good bowel movements over the weekend but has had persistent abdominal pain. He has not been able to take much p.o. in due to it causing increasing pain and has had nausea and vomiting after eating. Nausea and vomiting and increased pain is immediate. Pain is more diffuse but he does seem to have increased pain in the right upper quadrant on palpation. He has had weight loss due to his decreased p.o. intake since his pancreatic cancer diagnosis but states that he has tolerated chemo well thus far. He does indicate that his taste has been altered by the chemo however. Vital signs on presentation showed a temperature of 98.2, heart rate 113, blood pressure 127/107, respiratory was 22 and oxygen saturations were 100% room air. His CBC has no significant changes from his previous done on the showing a stable anemia with a hemoglobin of 10.1. He does have a left shift with a 88.7% neutrophilia. Chemistry panel reveals mild hyponatremia with a sodium of 133, normal renal function, however his transaminases and bilirubin are elevated with an AST of 291, ALT of 290, total bilirubin of 1.5 and direct bilirubin of 0.5. His lactic acid was normal at 1.3. Transaminases are markedly different when he had lab drawn on the eighth which was 4 days ago. His lipase was normal. CT with contrast of the abdomen pelvis was performed and demonstrated a stable mass in the tail portion of the pancreas, new wedge-shaped lesion in the spleen, mild distention of the gallbladder with questionable tiny gallstones or sludge within the gallbladder lumen, stable hypodensity in the lower aspect of the right lobe of the liver, stable renal cyst, prostatic enlargement and a distended urinary bladder. The splenic findings were discussed with both GI and vascular surgery and they feel that these are most likely not splenic infarction and are related to metastatic disease. The case was also discussed with Dr. Cb florez from general surgery and she suggested MRCP be performed and if this is positive she would recommend a PERC Areli tube if it is negative she recommended obtaining a HIDA scan and will be consulted. If the MRCP is positive we will have GI involved. [facility] Medical History Acute dyspnea Alcohol use Anemia BPH (benign prostatic hyperplasia) CAD (coronary artery disease) Cardiology follow-up encounter Chronic constipation CINV (chemotherapy-induced nausea and vomiting) Constipation Cough Decreased ROM of right shoulder Dehydration Elevated liver enzymes Erectile dysfunction Exertional dyspnea Gastric reflux High cholesterol History of echocardiogram History of stress test Holosystolic murmur Hypertension IBS (irritable bowel syndrome) Impaired fasting glucose Insomnia Metastasis to liver Metastasis to lung Motion sickness Pancreas cancer Peritoneal carcinomatosis Rotator cuff tear Wears dentures Wears glasses Wears partial dentures Home Medications aspirin 81 mg capsule 81 mg PO DAILY heart he 09/16/22 [History Last Taken Unknown] hydrochlorothiazide 12.5 mg tablet 12.5 mg PO DAILY diuretic 09/16/22 [History Last Taken Unknown] latanoprost 0.005 % eye drops 1 drp EACH EYE DAILY eye 09/16/22 [History Last Taken Unknown] metoprolol succinate 25 mg tablet,extended release 24 hr 25 mg PO DAILY bp 09/16/22 [History Last Taken 09/24/22 05:30] akfuekza-lg-tvuos 300 mcg-K 60 mcg-lycop 600 mcg-lutein 300 mcg tablet (Centrum Silver Men) 1 tab PO DAILY supplemen t 09/16/22 [History Last Taken Unknown] omeprazole 40 mg capsule,delayed release 40 mg PO DAILY gerd 09/16/22 [History Last Taken 09/24/22 05:30] rosuvastatin 40 mg tablet 40 mg PO DAILY cholesterol 09/16/22 [History Last Taken Unknown] timolol maleate 0.5 % eye drops 1 drp EACH EYE DAILY eye 09/16/22 [History Last Taken Unknown] zolpidem 10 mg tablet 10 mg PO QHS sleep 09/16/22 [History Last Taken Unknown] lidocaine-prilocaine 2.5 %-2.5 % topical cream 1 applic topical ONCE PRN port access 30 days #30 grams 03/10/23 [Rx Last Taken Unknown] ondansetron 8 mg disintegrating tablet 8 mg PO Q8H PRN nausea and vomiting #30 tabs 03/11/23 [Rx Last Taken Unknown] acetaminophen 500 mg tablet (Tylenol Extra Strength) 1,000 mg PO Q6H PRN pain 03/25/23 [History Last Taken Unknown] oxycodone 5 mg capsule 10 mg PO Q4H PRN pain 03/25/23 [History Last Taken Unknown] albuterol sulfate 90 mcg/actuation aerosol inhaler 2 puff inhalation Q6H PRN shortness of breath or wheezing #6.7 grams 04/01/23 [Rx Last Taken Unknown] benzonatate 100 mg capsule 100 mg PO BID-TID PRN cough 05/06/23 [History Last Taken Unknown] guaifenesin 600 mg tablet, extended release 12 hr (Mucus Relief ER) 600 mg PO BID PRN congestion 05/06/23 [History Last Taken Unknown] mirtazapine 15 mg tablet 15 mg PO QHS mood 05/06/23 [History Last Taken Unknown] metoclopramide HCl 10 mg tablet (Reglan) 10 mg PO Q6H PRN nausea and vomiting #30 tabs 06/03/23 [Rx Last Taken Unknown] sennosides 8.6 mg capsule (senna) 17.2 mg PO BID stool softener 06/07/23 [History Last Taken Unknown] Allergy/AdvReac Type Severity Reaction Status Date / Time Sulfa (Sulfonamide Allergy Unknown Hives Verified 06/07/23 10:46 Antibiotics) codeine AdvReac Unknown Nausea Verified 06/07/23 10:46 amoxicillin AdvReac Nausea Verified 06/07/23 10:46 Family History Sister Breast cancer Mother Cancer Father Cancer Surgical History H/O repair of right rotator cuff History of cardiac catheterization History of colonoscopy History of coronary artery stent placement History of knee replacement Hx of bilateral cataract extraction Hx of total hip arthroplasty Postsurgical percutaneous transluminal coronary angioplasty (PTCA) status Social History household members: spouse and children Smoking Status: Never smoker alcohol intake: current alcohol intake frequency: a few times a week Alcohol type: beer substance use type: does not use ROS Constitutional Constitutional: Reports anorexia, change in weight, fatigue and weakness; Denies chills, fever(s), malaise, night sweats or other Eyes Eyes: Denies blurry vision, change in eye color, change in vision, discharge from eye(s), double vision, erythema, eye pain, loss of vision or other ENT HEENT: Reports other Details: Altered taste ; Denies abnormal hearing, dysphagia, ear pain, epistaxis, headache(s), hearing loss, nasal congestion, nasal discharge, post nasal drip, sinus pressure or sore throat Cardiovascular Cardiovascular: Denies chest pain, claudication, dyspnea on exertion, edema, lightheadedness, orthopnea, palpitations, paroxysmal nocturnal dyspnea, rapid heart rate, syncope or other Respiratory/Chest Respiratory/Chest: Denies cough, dyspnea, excessive phlegm production, hemoptysis, productive cough, shortness of breath at rest, shortness of breath with exertion, wheezing or other Gastrointestinal Gastrointestinal: Reports abdominal pain, constipation, nausea and vomiting; Denies coffee ground emesis, diarrhea, dyspepsia, hematemesis, hematochezia, loose stools, melena or other Genitourinary Genitourinary: Reports difficulty urinating, nocturia and urinary hesitancy; Denies burning urination, dysuria, hematuria, urinary frequency, urinary incontinence, urinary urgency or other Musculoskeletal Musculoskeletal: Denies arthralgias, back pain, joint pain, joint stiffness, joint swelling, myalgias, neck pain or other Neurologic Neurologic: Denies abnormal gait, abnormal speech, confusion, disequilibrium, dizziness, focal weakness, headache(s), numbness, paresthesias, seizure-like activity, seizures, syncope, tingling, tremor(s) or other Psychiatric Psychiatric: Denies anxiety, depression, homicidal ideation, suicidal ideation or other Endocrine Endocrinology: Denies change in body appearance, cold intolerance, excessive sweating, heat intolerance, polydipsia, polyuria or other Hematologic/Lymphatic Hematologic/Lymphatic: Denies anemia, easy bleeding, easy bruising, lymphadenopathy or other Allergic/Immunologic Allergic/Immunologic: Denies rhinitis, hives, eczemia, asthma or other Vital Signs Vital Signs Vital Signs: 06/07/23 10:47 06/07/23 11:06 06/07/23 13:30 Temperature 98.2 F 98.6 F Temperature Source Temporal Oral Pulse Rate 113 H 104 H Respiratory Rate 22 H 18 Blood Pressure 127/107 H 121/79 H 133/67 H Blood Pressure Mean 113 93 84 Pulse Ox 100 97 97 Oxygen Delivery Method Room Air Room Air Weight Weight: 65.6 kg Body Mass Index (BMI) 21.9 Physical Exam Const alert, oriented x3 and no apparent distress; Negative for healthy appearing or well nourished Constitutional Narrative: Thin, older, white male, lying in bed, spouse at bedside, patient currently appears comfortable, nontoxic General Appearance: cooperative HEENT normocephalic, head/scalp atraumatic and moist oral mucous membranes HEENT Narrative: Mild hearing loss, dentition is overall poor, Mallampati is 2, no thrush Eyes PERRL, EOMs intact bilaterally and conjunctivae normal Eyes Narrative: No scleral icterus Neck no lymphadenopathy and supple Neck Narrative: Trachea midline, no thyroid enlargement Resp normal respiratory effort, no retractions, no use of accessory muscles and clear to auscultation bilaterally Auscultation: Negative for rales, rhonchi or wheezes Cardio regular rhythm, S1 normal heart sound, S2 normal heart sound, no murmurs, no rub, no gallops and no clicks Cardio Narrative: Mild tachycardia GI soft to palpation GI Narrative: Bowel sounds are normal active, diffuse tenderness with more focal tenderness in right upper quadrant, no distention, abdomen is soft Extremity no clubbing, cyanosis or edema Extremity Narrative: Pedal pulses are 2+ Skin no rashes or lesions noted, no wounds, skin turgor normal, no jaundice, no petechiae and no mottling Skin Narrative: Med port right chest-currently accessed with no erythema or drainage Neuro oriented x3, moves all extremities and no focal motor deficits Speech: speech normal Psych affect normal Psych Narrative: Eye contact is good, patient interacts appropriately, very pleasant Results Lab / Micro Data 06/07/23 11:27 06/07/23 11:27 Labs: Laboratory Results - last 24 hr 06/07/23 11:27: WBC 9.7, RBC 3.09 L, Hgb 10.1 L, Hct 31.1 L, MCV 100.6 H, MCH 32.7 H, MCHC 32.5, RDW Std Deviation 73.1 H, RDW Coeff of Rosemary 20.0 H, Plt Count 193, MPV 12.9 H, Immature Gran % (Auto) 1.400 H, Neut % (Auto) 88.7 H, Lymph % (Auto) 8.0 L, [place] % (Auto) 1.0, Eos % (Auto) 0.3, Baso % (Auto) 0.6, Absolute Neuts (auto) 8.6 H, Absolute Lymphs (auto) 0.78 L, Nucleated RBC % 0, Anisocytosis 2+, Sodium 133 L, Potassium 4.4, Chloride 102, Carbon Dioxide 23.0, Anion Gap 8, BUN 14, Creatinine 0.77, Estim Creat Clear Calc 79.72, Est GFR (MDRD) Af Amer 129, Est GFR (MDRD) Non-Af 107, BUN/Creatinine Ratio 18.3, Glucose 128 H, Lactic Acid 1.3, Calcium 9.0, Total Bilirubin 1.40 H 06/07/23 11:27: Total Bilirubin 1.50 H, Direct Bilirubin 0.50 H, Indirect Bilirubin 1.00, AST 291 H, ALT 290 H, Alkaline Phosphatase 162 H, Total Protein 7.0, Albumin 2.9 L, Globulin 4.1, Albumin/Globulin Ratio 0.7 L, Lipase 26 Imaging Radiology Impression Abdomen/Pelvis CT 06/07/23 10:55 IMPRESSION: Stable mass in the tail portion the pancreas. New wedge-shaped abnormality in the spleen as described. Mildly distended gallbladder with questionable tiny gallstone or sludge within the gallbladder lumen. Stable hypodensity in the lower aspect of the right lobe of the liver. Stable left renal cyst. Prostatic enlargement. Distended urinary bladder. Electronically Signed: Julio Sanderson MD at 12:40 EST , Assessment & Plan Assessment/Plan (1) Abdominal pain, acute: (2) Hyperbilirubinemia: (3) Transaminitis: (4) Hyponatremia: PLAN: Plan Intractable abdominal pain/hyperbilirubinemia/transaminitis -Patient has been having chronic abdominal pain with his metastatic pancreatic cancer however this seems to be more severe -Imaging does show possible gallstones or sludge in the neck of the gallbladder with some gallbladder distention -This could be the etiology of his hyperbilirubinemia and transaminitis however it could also be related to his chemotherapy regimen -Includes gemcitabine and Abraxane both of which can cause transaminitis -N.p.o. and okay for p.o. meds -IV fluids with LR 100 cc/h -Scheduled Tylenol 1000 mg 3 times daily -Dilaudid 1 mg every 3 hours as needed -Toradol 15 mg every 6 hours as needed for no longer than 48 hours -Renal function is normal -Monitor -Check MRCP -If MRCP is abnormal plan will likely be for PERC Carrie drain and GI consultation; if normal will obtain HIDA scan -Continue home Protonix -Will hold rosuvastatin for now with transaminases trending up -Consult general surgery-discussed with Dr. Sauer Hyponatremia -Mild and acute -Suspect related to hypovolemic hyponatremia as his oral intake has been down -IV fluids -Repeat in a.m. -No need for further workup at this time Metastatic pancreatic cancer -Patient with peritoneal carcinomatosis as well as mets to the liver and lung -Follows with [facility] oncology -Last cycle of gemcitabine and Abraxane was on 06/03/2023 -Outpatient follow-up after discharge -Patient does follow with palliative care and is on twice daily senna as well as oxycodone 10 mg every 4 4 hours as needed COPD -Continue home albuterol -Continue home guaifenesin Glaucoma -Continue home eyedrops Hyperlipidemia -Hold rosuvastatin with transaminases trending up GERD -Continue home PPI Hypertension -Continue home hydrochlorothiazide -Continue home metoprolol Mood disorder NOS/insomnia -Continue home Ambien -Continue home mirtazapine DVT prophylaxis -Lovenox 40 daily subcu CODE STATUS -DNR CCA with no intubation as discussed prior to admission Charges/Coding Visit Charges Inpatient E&M: 74569 Init Hosp L2
--- NOTE | 2023-06-07 15:02 | MRI_ITS ---
INDICATION: abdominal pain, PAIN AFTER EATING, NAUSEA, PANCREATIC CA, METS TO LIVER AND LUNG EXAMINATION: MRI - MR MRCP W/O Contrast TECHNIQUE: Multiplanar and multisequence MR images of the abdomen were obtained with MRCP sequence. Three-dimensional post-processing reconstructions were performed. IV Contrast Dosage and Agent: None. COMPARISON: FINDINGS: LIVER: There is a 1.6 cm right hepatic nodule lesion with hyperintensity on all sequences. Normal morphology. GALLBLADDER AND BILIARY TREE: Moderately distended with no gallstones. No wall edema. The CBD is not dilated . No intra- or extrahepatic biliary dilation. No choledochal filling defect. PANCREAS: There is a heterogeneous 2.8 x 3 cm lesion at the pancreatic tail with surrounding mesenteric stranding. No pancreatic duct dilation. SPLEEN: Non-enlarged. Peripheral wedge-shaped suggesting a focal infarct. ADRENAL GLANDS: No nodules. KIDNEYS: Normal renal size and position. No hydronephrosis. Bilateral renal cystic nodules. LYMPH NODES: No enlarged periportal or retroperitoneal lymph nodes. PERITONEUM: No ascites or fluid collection. VESSELS: Aorta is non-dilated. Probable duodenal diverticulum. LOWER CHEST: Partially visualized right lung base mass. MRI/MRCP Abdomen without Contrast IMPRESSION: Moderately distended gallbladder. No biliary dilatation. Pancreatic tail mass with surrounding mesenteric stranding. Malignancy is suspected. Right hepatic hyperintense lesion. Probable splenic infarct. Bilateral renal cystic nodules. Probable duodenal diverticulum. Partially visualized right lung base mass. Evaluation of mass lesions is limited without intravenous contrast. Electronically Signed: aMcho Diaz DO at 21:42 EST ,
[2023-06-07 15:20] VITALS: BP 163/81; PULSE 103; RESP 18; TEMP 36.5; O2SAT 100
[2023-06-07] MEDS: Lactated Ringers 1,000 ML 100 ML IV (15:23)
[2023-06-07] MEDS: Ketorolac 15 MG/ML Vial IV (15:23)
[2023-06-07] MEDS: Pantoprazole Sodium 40 MG Tablet PO (15:23)
--- NOTE | 2023-06-07 15:54 | EX.PCM.CON.S ---
Assessment & Plan Assessment/Plan (1) Postprandial RUQ pain: (2) Transaminitis: (3) Hyperbilirubinemia: (4) Peritoneal carcinomatosis: (5) Pancreas cancer: QUALIFIERS: Pancreatic malignancy location: tail of pancreas Qualified Code(s): C25.2 - Malignant neoplasm of tail of pancreas (6) Metastasis to liver: (7) Metastasis to lung: QUALIFIERS: Laterality: bilateral Qualified Code(s): C78.01 - Secondary malignant neoplasm of right lung; C78.02 - Secondary malignant neoplasm of left lung PLAN: Plan Patient is scheduled to have an MRCP to evaluate due to the elevated liver functions however they could be multifactorial due to chemotherapy and liver mets as well. If MRCP is negative would may recommend a HIDA scan. However patient's history does point to postprandial right upper quadrant pain and he did have distention of his gallbladder on CT difficult to really see stones or sludge. Discussed with patient and his family that due to his metastatic pancreatic cancer would not plan for a laparoscopic cholecystectomy would plan for cholecystostomy tube if imaging showed that it was needed. Did review patient's CT with the patient and his family all questions were answered. Did discuss with hospitalist plan to start Zosyn as his history this likely may be cholecystitis and patient has normal white blood count with a left shift but just had chemotherapy on last . Will continue to follow. Dorota Hancock M.D. Pager: [phone] [facility] [address] [place] [address], [facility], [address] [place] [address] Office: [phone] HPI Consult Data Date of Consult: 06/07/23 HPI Narrative Reason for Consultation: distended GB ? cholecystitis HPI Narrative: CLARE CALI, is a 72 M who presents due to abd pain after eating. Pt states he had this issues initially which lead to his metastatic pancreatic cancer diagnosis several months ago. Pt states it has been worse more recently- he had one bite of a cheese sandwich and his pain was worse. Pt states the pain is on the right mainly after eating- almost immediately after eating. Pt does take protonix for GERD at home. Pt does have some left sided abd pain but that is mainly when he is constipated per pt. CT a/p showed distended GB, ?stones, normal WBC w left shift s/p chemo last . TB 1.5, direct 0.5, AST/ALT, ALK yoanna (290/291/167). [facility] Medical History Acute dyspnea Alcohol use Anemia BPH (benign prostatic hyperplasia) CAD (coronary artery disease) Cardiology follow-up encounter Chronic constipation CINV (chemotherapy-induced nausea and vomiting) Constipation Cough Decreased ROM of right shoulder Dehydration Elevated liver enzymes Erectile dysfunction Exertional dyspnea Gastric reflux High cholesterol History of echocardiogram History of stress test Holosystolic murmur Hypertension IBS (irritable bowel syndrome) Impaired fasting glucose Insomnia Metastasis to liver Metastasis to lung Motion sickness Pancreas cancer Peritoneal carcinomatosis Rotator cuff tear Wears dentures Wears glasses Wears partial dentures Home Medications aspirin 81 mg capsule 81 mg PO DAILY heart he 09/16/22 [History Last Taken Unknown] hydrochlorothiazide 12.5 mg tablet 12.5 mg PO DAILY diuretic 09/16/22 [History Last Taken Unknown] latanoprost 0.005 % eye drops 1 drp EACH EYE DAILY eye 09/16/22 [History Last Taken Unknown] metoprolol succinate 25 mg tablet,extended release 24 hr 25 mg PO DAILY bp 09/16/22 [History Last Taken 09/24/22 05:30] [id number] 300 mcg-K 60 mcg-lycop 600 mcg-lutein 300 mcg tablet (Centrum Silver Men) 1 tab PO DAILY supplemen t 09/16/22 [History Last Taken Unknown] omeprazole 40 mg capsule,delayed release 40 mg PO DAILY gerd 09/16/22 [History Last Taken 09/24/22 05:30] rosuvastatin 40 mg tablet 40 mg PO DAILY cholesterol 09/16/22 [History Last Taken Unknown] timolol maleate 0.5 % eye drops 1 drp EACH EYE DAILY eye 09/16/22 [History Last Taken Unknown] zolpidem 10 mg tablet 10 mg PO QHS sleep 09/16/22 [History Last Taken Unknown] lidocaine-prilocaine 2.5 %-2.5 % topical cream 1 applic topical ONCE PRN port access 30 days #30 grams 03/10/23 [Rx Last Taken Unknown] ondansetron 8 mg disintegrating tablet 8 mg PO Q8H PRN nausea and vomiting #30 tabs 03/11/23 [Rx Last Taken Unknown] acetaminophen 500 mg tablet (Tylenol Extra Strength) 1,000 mg PO Q6H PRN pain 03/25/23 [History Last Taken Unknown] oxycodone 5 mg capsule 10 mg PO Q4H PRN pain 03/25/23 [History Last Taken Unknown] albuterol sulfate 90 mcg/actuation aerosol inhaler 2 puff inhalation Q6H PRN shortness of breath or wheezing #6.7 grams 04/01/23 [Rx Last Taken Unknown] benzonatate 100 mg capsule 100 mg PO BID-TID PRN cough 05/06/23 [History Last Taken Unknown] guaifenesin 600 mg tablet, extended release 12 hr (Mucus Relief ER) 600 mg PO BID PRN congestion 05/06/23 [History Last Taken Unknown] mirtazapine 15 mg tablet 15 mg PO QHS mood 05/06/23 [History Last Taken Unknown] metoclopramide HCl 10 mg tablet (Reglan) 10 mg PO Q6H PRN nausea and vomiting #30 tabs 06/03/23 [Rx Last Taken Unknown] sennosides 8.6 mg capsule (senna) 17.2 mg PO BID stool softener 06/07/23 [History Last Taken Unknown] Allergy/AdvReac Type Severity Reaction Status Date / Time Sulfa (Sulfonamide Allergy Unknown Hives Verified 06/07/23 10:46 Antibiotics) codeine AdvReac Unknown Nausea Verified 06/07/23 10:46 amoxicillin AdvReac Nausea Verified 06/07/23 10:46 Family History Sister Breast cancer Mother Cancer Father Cancer Surgical History H/O repair of right rotator cuff History of cardiac catheterization History of colonoscopy History of coronary artery stent placement History of knee replacement Hx of bilateral cataract extraction Hx of total hip arthroplasty Postsurgical percutaneous transluminal coronary angioplasty (PTCA) status Social History household members: spouse and children Smoking Status: Never smoker alcohol intake: current alcohol intake frequency: a few times a week Alcohol type: beer substance use type: does not use ROS Constitutional Constitutional: Reports anorexia; Denies chills ENT HEENT: Denies dizziness Cardiovascular Cardiovascular: Denies chest pain Respiratory/Chest Respiratory/Chest: Reports shortness of breath with exertion Gastrointestinal Gastrointestinal: Reports abdominal pain, constipation, nausea and vomiting; Denies diarrhea, hematemesis or melena Genitourinary Genitourinary: Denies burning urination Musculoskeletal Musculoskeletal: Denies joint pain Integumentary Integumentary: Denies rash Neurologic Neurologic: Denies focal weakness Psychiatric Psychiatric: Denies depression Endocrine Endocrinology: Denies palpitations Hematologic/Lymphatic Hematologic/Lymphatic: Denies easy bleeding or easy bruising Physical Exam Const alert, oriented x3 and no apparent distress HEENT normocephalic and head/scalp atraumatic Eyes conjunctivae normal Neck supple Resp normal respiratory effort Cardio regular rate GI soft to palpation; Negative for non-distended Palpation: tender RUQ; Negative for guarding Extremity no clubbing, cyanosis or edema Skin no rashes or lesions noted and No no jaundice Neuro CN's II-XII intact bilaterally Psych mental status grossly normal Lab / Micro Data 06/07/23 11:27 06/07/23 11:27 Labs: Laboratory Results - last 24 hr 06/07/23 11:27: WBC 9.7, RBC 3.09 L, Hgb 10.1 L, Hct 31.1 L, MCV 100.6 H, MCH 32.7 H, MCHC 32.5, RDW Std Deviation 73.1 H, RDW Coeff of Rosemary 20.0 H, Plt Count 193, MPV 12.9 H, Immature Gran % (Auto) 1.400 H, Neut % (Auto) 88.7 H, Lymph % (Auto) 8.0 L, Pender % (Auto) 1.0, Eos % (Auto) 0.3, Baso % (Auto) 0.6, Absolute Neuts (auto) 8.6 H, Absolute Lymphs (auto) 0.78 L, Nucleated RBC % 0, Anisocytosis 2+, Sodium 133 L, Potassium 4.4, Chloride 102, Carbon Dioxide 23.0, Anion Gap 8, BUN 14, Creatinine 0.77, Estim Creat Clear Calc 79.72, Est GFR (MDRD) Af Amer 129, Est GFR (MDRD) Non-Af 107, BUN/Creatinine Ratio 18.3, Glucose 128 H, Lactic Acid 1.3, Calcium 9.0, Total Bilirubin 1.40 H 06/07/23 11:27: Total Bilirubin 1.50 H, Direct Bilirubin 0.50 H, Indirect Bilirubin 1.00, AST 291 H, ALT 290 H, Alkaline Phosphatase 162 H, Total Protein 7.0, Albumin 2.9 L, Globulin 4.1, Albumin/Globulin Ratio 0.7 L, Lipase 26 Imaging Radiology Impression Abdomen/Pelvis CT 06/07/23 10:55 IMPRESSION: Stable mass in the tail portion the pancreas. New wedge-shaped abnormality in the spleen as described. Mildly distended gallbladder with questionable tiny gallstone or sludge within the gallbladder lumen. Stable hypodensity in the lower aspect of the right lobe of the liver. Stable left renal cyst. Prostatic enlargement. Distended urinary bladder. Electronically Signed: Julio Sanderson MD at 12:40 EST , Charges/Coding Visit Charges Inpatient E&M: 43893 Init Hosp L3
[2023-06-07 17:55] VITALS: BP 122/74; PULSE 109; RESP 18; TEMP 37.2; O2SAT 95
[2023-06-07] MEDS: HYDROmorphone 1 MG/ML Syringe IV ×2 (17:59→21:01)
[2023-06-07] MEDS: 0.9% Saline Lock 10 ML Syringe IV (18:00)
[2023-06-07] MEDS: Piperacil/Tazobactam 3.375 GM in 0.9% Normal Saline (50mL MB+) 50 ML IV ×2 (18:56→21:09)
--- OUTSIDE RECORDS SUMMARY | 2023-06-07 19:33 | XMS RPT_ITS | CCD ---
Author Name Unknown Address [address] [place] [address] Organization [facility] Care Team Providers Care Squirrel Worker Name Role Phone DAISY TEST RACK OPERATOR - BAGGAGEMAN, FRANKLYN Bee Primary Care Phys ician Nola Malave PT Unavailable DAISY TEST RACK OPERATOR - BAGGAGEMAN, FRANKLYN Bee Attending U navailable DAISY TEST RACK OPERATOR - BAGGAGEMAN, FRANKLYN Bee Primary Care U navailable MELIA RIOS, RADHA Toussaint Attending Unavailable DAISY TEST RACK OPERATOR - BAGGAGEMAN, FRANKLYN Bee Primary Care U navailable DAISY TEST RACK OPERATOR - BAGGAGEMAN, FRANKLYN Bee Attending U navailable DAISY TEST RACK OPERATOR - BAGGAGEMAN, FRANKLYN Bee Primary Care U navailable DAISY TEST RACK OPERATOR - BAGGAGEMAN, FRANKLYN Bee Attending U navailable DAISY TEST RACK OPERATOR - BAGGAGEMAN, FRANKLYN Bee Primary Care U navailable DAISY TEST RACK OPERATOR - BAGGAGEMAN, FRANKLYN Bee Attending U navailable DAISY TEST RACK OPERATOR - BAGGAGEMAN, FRANKLYN Bee Primary Care U navailable DAISY TEST RACK OPERATOR - BAGGAGEMAN, FRANKLYN Bee Attending U navailable DAISY TEST RACK OPERATOR - BAGGAGEMAN, FRANKLYN Bee Primary Care U navailable SEFFENS TEST RACK OPERATOR-BAGGAGEMAN, USHA Attending Unavai lable DAISY TEST RACK OPERATOR - BAGGAGEMAN, FRANKLYN Bee Primary Care U navailable Allergies Allergy Classification Reported Allergen(s) Allergy Type Date of Onset Reaction(s) Facility (10 sources) Codeine; Translations: [codeine] Drug Allergy Nausea (finding) [facility] Work Phone: (10 sources) Penicillin; Translations: [penicillin] Drug Allergy Nausea (finding) [facility] Work Phone: (10 sources) Sulfonamides (Antibiotic); Translations: [sulfa drugs] Drug allergy Weal (disorder) [facility] Work Phone: Medications Current Medications Medication [...] Pain, # 14 tab(s), 0 Refill(s), Pharmacy: [facility], 171.5, cm, 06/19/22 11:31:00 EST, Height [...] Body temperature 98.24 [degF] LATASHA FISH MD [facility] 11-09-2021 08:11-0400 Diastolic blood pressure 83 mm[Hg] LATASHA FISH MD [facility] 11-09-2021 08:11-0400 Heart rate 87 /min LATASHA FISH MD [facility] 11-09-2021 08:11-0400 Respiratory rate 18 /min LATASHA FISH MD [facility] 11-09-2021 08:11-0400 Systolic blood pressure 153 mm[Hg] LATASHA FISH MD [facility] Encounters Encounter Date Encounter Type Care Provider Facility Start: 02-25-2023 End: 02-26-2023 ambulatory FRANKLYN VILLA TEST RACK OPERATOR - BAGGAGEMAN Facility:B Start: 01-18-2023 ambulatory FRANKLYN WEBB TEST RACK OPERATOR - BAGGAGEMAN Facility:B Start: 01-12-2023 End: 01-13-2023 ambulatory FRANKLYN VILLA TEST RACK OPERATOR - BAGGAGEMAN Facility:B Start: 01-12-2023 End: 01-12-2023 Patient encounter procedure FRANKLYN VILLA TEST RACK OPERATOR - BAGGAGEMAN [facility] Start: 08-24-2022 End: 08-25-2022 ambulatory FRANKLYN VILLA TEST RACK OPERATOR - BAGGAGEMAN Facility:B Start: 08-24-2022 End: 08-24-2022 Patient encounter procedure FRANKLYN VILLA TEST RACK OPERATOR - BAGGAGEMAN [facility] Start: 08-12-2022 End: 08-13-2022 ambulatory RADHA CÁRDENAS PA-C Facility:B Start: 08-12-2022 End: 08-12-2022 Patient encounter procedure RADHA CÁRDENAS PA-C [facility] Start: 07-20-2022 End: 07-21-2022 ambulatory FRANKLYN VILLA TEST RACK OPERATOR - BAGGAGEMAN Facility:B Start: 07-20-2022 End: 07-20-2022 Patient encounter procedure FRANKLYN VILLA TEST RACK OPERATOR - BAGGAGEMAN [facility] Start: 06-19-2022 End: 06-20-2022 ambulatory USHA PÉREZ TEST RACK OPERATOR-BAGGAGEMAN Facility:B Start: 06-19-2022 End: 06-19-2022 Patient encounter procedure USHAEULALIO PÉREZ TEST RACK OPERATOR-BAGGAGEMAN [facility] Start: 02-12-2022 End: 02-16-2022 Outreach Lab FRANKLYN VILLA TEST RACK OPERATOR - BAGGAGEMAN [facility] Start: 11-09-2021 End: 11-09-2021 Emergency department patient visit LATASHA FISH MD [facility] Start: 08-29-2021 End: 08-29-2021 Patient encounter procedure LORIE CASSIE TEST RACK OPERATOR-BAGGAGEMAN [facility] Start: 07-31-2021 End: 08-04-2021 Outreach Lab FRANKLYN VILLA TEST RACK OPERATOR - BAGGAGEMAN [facility] Start: 05-14-2021 End: 05-14-2021 [facility]ACK OPER[facility]-BAGGAGEMAN [facility] Procedures Date Procedure Procedure Detail Performing Clinician Start: 08-29-2021 Cardiovascular stres s testing LATASHA FISH MD Start: 09-15-2019 Cardiac catheterization BETI SCHOFIELD BARRACKS TEST RACK OPERATOR-BAGGAGEMAN Immunizations Immunization Date Immunization Notes Care Provider Fa cility 05-01-2022 Pneumococcal conjuga te PCV20, polysaccharide YIV422 conjugate, adjuvant, PF; Translations: [Prevnar 20] USHA PÉREZ TEST RACK OPERATOR-BAGGAGEMAN [facility] 01-30-2022 influenza, high dose seasonal, preservative-free FRANKLYN URBANPKINS TEST RACK OPERATOR - BAGGAGEMAN [facility] 03-17-2021 SARS-CoV-2 mRNA (tozinameran) vaccine FRANKLYN URBANPKINS TEST RACK OPERATOR - BAGGAGEMAN [facility] 01-30-2021 influenza, high dose seasonal, preservative-free; Translations: [Afluria PF Quadrivalent ] BETI SCHOFIELD BARRACKS TEST RACK OPERATOR-BAGGAGEMAN [facility] 07-04-2020 SARS-CoV-2 (COVID-19 ) Ad26 vaccine, recombinant [facility] TEST RACK OPERATOR-BAGGAGEMAN [facility] Payers Date Payer Category Payer Medicare [id number] 2022 Unknown [id number] 1950 Unknown [id number] 2.16.8 [id number] 1950 Unknown [id number] 2.16.8 [id number] 1950 Unknown [id number] 2.16.8 [id number] 1950 Unknown [id number] 2.16.8 [id number] 1950 Unknown [id number] 2.16.8 [id number] 1950 Unknown [id number] 2.16.8 [id number] 1950 Unknown [id number] 2.16.8 [id number] Social History Date Type Detail Facility Start: 11-07-2018 Never smoked tobacco (f inding) [facility] Functional Status Date Assessment Result Facility 11-09-2021 Functional Status ID band on, Allergy Band on, Call device within reach, Bed in low position, Wheels locked, Upper/Half-Length side-rails up, Phone within reach, personal items within reach, Assistive devices within reach, Toileting device within reach, Bedside Cart Locked, Visitor at bedside, Safety level maintained [facility] Mental Status Date Assessment Result Facility 11-09-2021 Mental Status Oriented x 4 [facility] Clinical Notes 11-09-2021 to 01-12-2023 LaboratoryLaboratoryLaboratoryLaboratoryLaboratoryLaboratoryLaboratoryLaboratory [...] 01/12/2023 4:47:17 PM Ordering Provider: FRANKLYN URBANPKINS [facility] 08-12-2022 Note ORIGINAL EXAMINATION: MRI OF [...] Sign Date: 08/12/2022 12:16:33 PM Ordering Provider: [facility] 08-12-2022 Note ORIGINAL EXAMINATION: MRI OF THE [...] Sign Date: 08/12/2022 12:16:33 PM Ordering Provider: [facility] 11-09-2021 Hospital Discharge instructions Patient Education 11/09/2021 [...] New rash Other symptoms are getting worse 1896-3574 [employer]. [address] [place] [address]. All rights reserved. This information is not intended as a substitute for professional medical care. Always follow your healthcare professional's instructions. Follow Up Care 11/09/2021 08:08:12 With:FRANKLYN VILLA APRN - BAGGAGEMAN Address: [address] [facility] [place] [address]- When:2-4 days [facility] 11-09-2021 Note Discharge Instructions Thank you [...] CNP When Within 2-4 days Where: [address] [facility] [place] [address]- Allergies codeine (Nausea) penicillin (Nausea) sulfa drugs [...] may report side effects to FDA at 4-971-JYG-4071. What other drugs will affect acetaminophen and [...] affect acetaminophen and codeine, including prescription and ahpq-rst-zhkckqc medicines, vitamins, and herbal products. Not all [...] to ensure that the information provided by [employer]. ('[employer]') is accurate, up-to-date, and complete, but no guarantee is made to that effect. Drug information contained herein may be time sensitive. [employer] information has been compiled for use by healthcare practitioners and consumers in the [place] and therefore [employer] does not warrant that uses outside of the [place] are appropriate, unless specifically indicated otherwise. [employer]'s drug information does not endorse drugs, diagnose patients or recommend therapy. [employer] drug information is an informational resource designed [...] effective or appropriate for any given patient. [facility] does not assume any responsibility for any aspect of healthcare administered with the aid of information [facility] provides. The information contained herein is not intended to cover all possible uses, directions, precautions, warnings, drug interactions, allergic reactions, or adverse effects. If you have questions about the drugs you are taking, check with your doctor, nurse or pharmacist. Copyright 6189-1001 Stefanie [employer] [facility]. Version: 18.. Revision Date: 05/31/2020. lidocaine viscous [...] may report side effects to FDA at 1-701-KGW-8297. What other drugs will affect lidocaine viscous? Lidocaine viscous is not likely to be affected by other drugs you use. But many drugs can interact with each other. Tell each of your health care providers about all medicines you use, including prescription and rpyf-bap-qnyzhjr medicines, vitamins, and herbal products. Where can I get more information? Your pharmacist can provide more information about lidocaine viscous. Remember, keep this and all other medicines out of the reach of children, never share your medicines with others, and use this medication only for the indication prescribed. Every effort has been made to ensure that the information provided by [employer]. ('[employer]') is accurate, up-to-date, and complete, but no guarantee is made to that effect. Drug information contained herein may be time sensitive. [employer] information has been compiled for use by healthcare practitioners and consumers in the [place] and therefore [employer] does not warrant that uses outside of the [place] are appropriate, unless specifically indicated otherwise. [employer]'s drug information does not endorse drugs, diagnose patients or recommend therapy. [employer] drug information is an informational resource designed [...] effective or appropriate for any given patient. [facility] does not assume any responsibility for any aspect of healthcare administered with the aid of information [facility] provides. The information contained herein is not intended to cover all possible uses, directions, precautions, warnings, drug interactions, allergic reactions, or adverse effects. If you have questions about the drugs you are taking, check with your doctor, nurse or pharmacist. Copyright 1999-9620 [employer]. Version: 3.01. Revision Date: 10/06/2017. Education Materials [...] New rash Other symptoms are getting worse 9330-9796 [employer]. [address] [place] [address]. All rights reserved. This information is not intended as a substitute for professional medical care. Always follow your healthcare professional's instructions. Additional Information VACCINATE! IT SAVES LIVES! Members of the community who have not yet received the COVID-19 vaccine and would like to receive it can visit one of [facility] vaccine clinics. There are many vaccine clinic locations within the [facility]. For locations and available times, please visit [email or web address] g. It is important to note that some COVID mobile vaccine clinics are held outdoors and may be canceled in rainy or stormy conditions. To learn more about pediatric vaccinations (ages 5-11), we invite you to visit the [facility] webpage. https://www.[facility].org/pag es/9534-Olccw-Miqdtowgvxy-Frequent jb-Lguld-Qxueztdct.html To learn more about the COVID-19 vaccine, we invite you to visit the [facility] website for a list of frequently asked questions. [email or web address]/Patient u-hzt-Tgtflkhj/jvfmo-Vjdnnip-Tmqji ently_Asked-Questions.pdf [facility] Patient Portal Access Instructions: Stay connected with your healthcare team and access your personal medical information anytime with the [facility] Patient Portal. If you would like a full copy of your medical records please contact the [facility] Medical Records Department Wednesday through Wednesday between 8a.m. and 4:30p.m. Please follow the directions below to access the portal: 1.Access the email account you provided upon registration to the [facility].2.Look for an invitation email from [facility].3.Open the email and access the invitation link: Accept Invitation to [facility]4.Fill in the required oneal to create your account. Sign into [email or web address] with your username and password that you [...] you will allow to register on the [facility] Patient Portal for access to your information. You can also access the [facility] Patient Portal on the Om[employer] delphine. Simply click on Health Records under Health Data and then click on the [employer] logo. HOW TO SAFELY DISPOSE OF PRESCRIPTION [...] Call your local pharmacy or go to http://bit.ly/4C5Fj3v to find one close to you.3.Make use of household items: Use cat litter or old coffee grounds to dispose medications if other options are not available. Mix your drugs with these household products, seal them in an airtight container and throw it into the garbage. Call [facility]: [phone] to be sure your drugs can be [...] aware that I should contact my doctor. Patient/Instructor Of Nursing Signature: Date/Time: Relationship to Patient: ___ Witness Name/Signature: Date/Time: [facility] 11-09-2021 Note Discharge Instructions Thank you for allowing [facility] to assist you with your healthcare needs. [...] CNP When Within 2-4 days Where: [address] [facility] [place] [address]- Allergies codeine (Nausea) penicillin (Nausea) sulfa drugs [...] may report side effects to FDA at 2-826-GPJ-3134. What other drugs will affect acetaminophen and [...] affect acetaminophen and codeine, including prescription and jtuy-xna-dnnfzwc medicines, vitamins, and herbal products. Not all [...] to ensure that the information provided by [employer]. ('[employer]') is accurate, up-to-date, and complete, but no guarantee is made to that effect. Drug information contained herein may be time sensitive. [employer] information has been compiled for use by healthcare practitioners and consumers in the [place] and therefore [employer] does not warrant that uses outside of the [place] are appropriate, unless specifically indicated otherwise. [employer]'s drug information does not endorse drugs, diagnose patients or recommend therapy. [facility]'s drug information is an informational resource designed [...] effective or appropriate for any given patient. [facility] does not assume any responsibility for any aspect of healthcare administered with the aid of information [facility] provides. The information contained herein is not intended to cover all possible uses, directions, precautions, warnings, drug interactions, allergic reactions, or adverse effects. If you have questions about the drugs you are taking, check with your doctor, nurse or pharmacist. Copyright 8821-0340 [facility] [employer]. Version: 18.. Revision Date: 05/31/2020. lidocaine viscous [...] may report side effects to FDA at 0-684-RFF-1936. What other drugs will affect lidocaine viscous? Lidocaine viscous is not likely to be affected by other drugs you use. But many drugs can interact with each other. Tell each of your health care providers about all medicines you use, including prescription and xzqr-xii-tzugrko medicines, vitamins, and herbal products. Where can I get more information? Your pharmacist can provide more information about lidocaine viscous. Remember, keep this and all other medicines out of the reach of children, never share your medicines with others, and use this medication only for the indication prescribed. Every effort has been made to ensure that the information provided by [employer]. ('[employer]') is accurate, up-to-date, and complete, but no guarantee is made to that effect. Drug information contained herein may be time sensitive. [employer] information has been compiled for use by healthcare practitioners and consumers in the [place] and therefore [employer] does not warrant that uses outside of the [place] are appropriate, unless specifically indicated otherwise. [employer]'s drug information does not endorse drugs, diagnose patients or recommend therapy. [employer] drug information is an informational resource designed [...] effective or appropriate for any given patient. [facility] does not assume any responsibility for any aspect of healthcare administered with the aid of information [facility] provides. The information contained herein is not intended to cover all possible uses, directions, precautions, warnings, drug interactions, allergic reactions, or adverse effects. If you have questions about the drugs you are taking, check with your doctor, nurse or pharmacist. Copyright 9511-4846 Stefanie [facility], [facility]. Version: 3.01. Revision Date: 10/06/2017. Education Materials [...] New rash Other symptoms are getting worse 4895-1518 [employer]. [address] [place] [address]. All rights reserved. This information is not intended as a substitute for professional medical care. Always follow your healthcare professional's instructions. Additional Information VACCINATE! IT SAVES LIVES! Members of the community who have not yet received the COVID-19 vaccine and would like to receive it can visit one of [facility] vaccine clinics. There are many vaccine clinic locations within the [facility]. For locations and available times, please visit [email or web address] g. It is important to note that some COVID mobile vaccine clinics are held outdoors and may be canceled in rainy or stormy conditions. To learn more about pediatric vaccinations (ages 5-11), we invite you to visit the [facility] webpage. https://www.[facility].org/pag es/5949-Isblt-Sxbmqlmqnoj-Frequent nu-Qalsd-Evkwxjegh.html To learn more about the COVID-19 vaccine, we invite you to visit the [facility] website for a list of frequently asked questions. [email or web address]/Patient v-yrg-Ohthlmri/uizcn-Xorlbbr-Hoggp ently_Asked-Questions.pdf [facility] Patient Portal Access Instructions: Stay connected with your healthcare team and access your personal medical information anytime with the [facility] Patient Portal. If you would like a full copy of your medical records please contact the [facility] Medical Records Department Wednesday through Wednesday between 8a.m. and 4:30p.m. Please follow the directions below to access the portal: 1.Access the email account you provided upon registration to the [facility].2.Look for an invitation email from [facility].3.Open the email and access the invitation link: Accept Invitation to [facility]4.Fill in the required oneal to create your account. Sign into [email or web address] with your username and password that you [...] you will allow to register on the [facility] Patient Portal for access to your information. You can also access the [facility] Patient Portal on the Om[employer]Force delphine. Simply click on Health Records under [...] Call your local pharmacy or go to http://bit.ly/9D1Nv9j to find one close to you.3.Make use of household items: Use cat litter or old coffee grounds to dispose medications if other options are not available. Mix your drugs with these household products, seal them in an airtight container and throw it into the garbage. Call [facility]: [phone] to be sure your drugs can be [...] aware that I should contact my doctor. Patient/Instructor Of Nursing Signature: Date/Time: Relationship to Patient: ___ Witness Name/Signature: Date/Time: [facility] Evaluation + Plan note Future Appointments Appointment Date:05/15/2021 08:00:00 AM Scheduled Provider:FRANKLYN VILLA APRN, CNP Location:[facility] Appointment Type:PC OV Controlled Medication Appointment Date:07/25/2021 08:15:00 AM Scheduled Provider: Location:[facility] Appointment Type:PC Nurse Lab Appointment Date:07/31/2021 09:00:00 AM Scheduled Provider:FRANKLYN VILLA APRN, CNP Location:[facility] Appointment Type:PC OV Follow Up Appointment Date:09/30/2021 01:00:00 PM Scheduled Provider: Location:[facility] Appointment Type:CV OV Future Scheduled TestsFolate Level 07/31/21Hepatic Function Panel 09/30/21Prostate Specific Antigen 07/31/21Vitamin B12 Level 07/31/21Complete Blood Count 07/31/21Lipid Profile 09/30/21Lipid Profile 07/31/21Complete Metabolic Panel 07/31/21 [facility] Evaluation + Plan note Future Appointments Appointment Date:08/07/2021 09:00:00 AM Scheduled Provider:FRANKLYN VILLA APRN, CNP Location:[facility] [place] Appointment Type:PC OV Follow Up Appointment Date:09/30/2021 01:00:00 PM Scheduled Provider: Location[facility] Type:CV OV Appointment Date:10/30/2021 08:40:00 AM Scheduled Provider:FRANKLYN VILLA APRN, CNP Location:[facility] [place] Appointment Type:PC OV Controlled Medication Future Scheduled TestsHepatic Function Panel 09/30/21Complete Blood Count 01/30/22Lipid Profile 01/30/22Lipid Profile 09/30/21Microalbumin Level Urine 01/30/22Complete Metabolic Panel 01/30/22 [facility] Evaluation + Plan note Future Appointments [...] 01/30/22Complete Metabolic Panel 02/06/Complete Metabolic Panel 01/30/22 [facility] Evaluation + Plan note Future Appointments [...] 01/30/22Complete Metabolic Panel 02/06/22Complete Metabolic Panel 01/30/22 [facility] Evaluation + Plan note Future Appointments Appointment Date:02/23/2022 09:00:00 AM Scheduled Provider:FRANKLYN VILLA APRN, CNP Location:[facility] Appointment Type:PC OV Appointment Date:05/01/2022 09:40:00 AM Scheduled Provider:FRANKLYN VILLA APRN, CNP Location:[facility] Appointment Type:PC OV Controlled Medication Future Scheduled TestsHepatic Function Panel 6Complete Blood Count 01/30/22Lipid Profile 01/30/22Lipid Profile 6/Microalbumin Level Urine 10/14/22Microalbumin Level Urine 10/Complete Metabolic Panel 01/30/22 [facility] Evaluation + Plan note Future Appointments [...] 08/23/22Complete Metabolic Panel 01/30/22Complete Metabolic Panel 08/23/22 [facility] Evaluation + Plan note Future Appointments [...] 08/23/22Complete Metabolic Panel 01/30/22Complete Metabolic Panel 08/23/22 [facility] Evaluation + Plan note Future Appointments Appointment Date:08/31/2022 10:40:00 AM Scheduled Provider:FRANKLYN VILLA APRN - [place] Location:[facility] Appointment Type:PC OV Follow Up Appointment Date:08/31/2022 02:30:00 PM Scheduled Provider:LORIE MATTHEWS APRN-KORINA Location:[facility] Appointment Type:CV OV Appointment Date:10/30/2022 08:20:00 AM Scheduled Provider:FRANKLYN VILLA APRN - BAGGAGEMAN Location:[facility] Appointment Type:PC OV Controlled Medication Future Scheduled TestsHepatic Function Panel 09/30/21Complete Blood Count 01/30/22Lipid Profile 01/30/22Lipid Profile 09/30/21Microalbumin Level Urine 02/06/Microalbumin Level Urine 01/30/22Complete Metabolic Panel 01/30/22 [facility] Evaluation + Plan note Future Appointments Appointment Date:01/29/2023 08:20:00 AM Scheduled Provider:FRANKLYN VILLA APRN - KORINA Location:[facility] Appointment Type:PC OV Controlled Medication Appointment Date:03/04/2023 09:40:00 AM Scheduled Provider:FRANKLYN VILLA APRN - BAGGAGEMAN Location:[facility] Appointment Type:PC OV Follow Up Appointment Date:09/09/2023 10:00:00 AM Scheduled Provider:LORIE MATTHEWS APRN-KORINA Location:[facility] Appointment Type:CV OV Future Scheduled [id number] Hemoglobin 03/03/23Complete Blood Count 01/30/22Complete Blood Count 01/07/23Complete Blood Count 03/03/23Lipid Profile 01/30/22Lipid Profile 03/03/23Albumin/Creatinine Ratio, Random Urine 03/03/23Microalbumin Level Urine 02/06/22Microalbumin Level Urine 01/30/22Complete Metabolic Panel 01/30/22Complete Metabolic Panel 01/07/23Complete Metabolic Panel 03/03/23CT Abdomen and Pelvis w/o contrast 01/07/23 [facility] Hospital course Narrative No data available for this section [facility] Hospital Discharge instructions No data available for this section [facility] Progress note No data available for this section [facility] Summary Purpose Family History No Family History Records Found Advance Directives No Advanced Directives Records Found Additional Source Comments Care Team (unrecognized sect ion and content) Personnel Name: FRANKLYN VILLA APRN - BAGGAGEMAN Address: [address] [place] [address] Name: Marielle Malave PT Personnel Name: FRANKLYN VILLA APRN - BAGGAGEMAN Address: [address] [place] [address] Name: Marielle Malave PT Care Team Personnel Name: Marielle Malave PT Position: P3 Scheduling - [employer] Advanced Member Role: Other Name: FRANKLYN VILLA APRN - BAGGAGEMAN Position: P4 Advanced Ink Jet Operator Member Role: Primary Care Physician Address: Address: [address] [place] [address] Care Team Related Persons Name: DEJON CALI Care Team Personnel Name: Marielle Malave PT Position: P3 Scheduling - [employer] Advanced Member Role: Other Name: FRANKLYN VILLA TEST RACK OPERATOR - BAGGAGEMAN Position: P4 Advanced Ink Jet Operator Member Role: Primary Care Physician Address: Address: [address] [place] [address] [place] [address]- Care Team Related Persons Name: DEJON CALI Care Team Personnel Name: Marielle Malave Clerk Nola PT Position: P3 Scheduling - Farmer [employer] Advanced Member Role: Other Name: FRANKLYN VILLA APRN, CNP Position: P4 Advanced Ink Jet Operator Member Role: Primary Care Physician Address: Address: [address] [place] [address]- Care Team Related Persons Name: DEJON CALI Care Team Personnel Name: Frieda Agronomy Research Manager Nola PT Position: P3 Scheduling - Farmer [employer] Advanced Member Role: Other Name: FRANKLYN VILLA APRN, CNP Position: P4 Advanced Ink Jet Operator Member Role: Primary Care Physician Address: Address: [address] [place] [address] Care Team Related Persons Name: DEJON CALI Care Team (unrecognized sect ion and content) Care Team Personnel Name: Marielle Malave Clerk Nola PT Position: P3 Scheduling - Farmer [employer] Advanced Member Role: Other Name: FRANKLYN VILLA APRN, CNP Position: P4 Advanced Practice Nurse Med Service: Employed Provider Member Role: Primary Care Physician Address: Address: [address] [place] [address] Care Team Related Persons Name: DEJON CALI Care Team Personnel Name: Marielle Malave Clerk Nola PT Position: P3 Scheduling - Farmer [employer] Advanced Member Role: Other Name: FRANKLYN VILLA APRN, CNP Position: P4 Advanced Practice Nurse Member Role: Primary Care Physician Address: Address: [address] [place] [address] Care Team Related Persons Name: DEJON CALI Care Team Personnel Name: Frieda Agronomy Research Manager Nola PT Position: P3 Scheduling - Farmer [employer] Advanced Member Role: Other Name: FRANKLYN VILLA APRN, CNP Position: P4 Advanced Ink Jet Operator Member Role: Primary Care Physician Address: Address: [address] [place] [address] Care Team Related Persons Name: DEJON CALI [...] BE BASED ON THE PRIMARY CLINICAL RECORDS. [employer] [facility]. provides no warranty or guarantee of the accuracy or completeness of information in this document.
[2023-06-07 20:54] VITALS: BP 141/73; PULSE 110; RESP 18; TEMP 36.9; O2SAT 95
[2023-06-07] MEDS: Zolpidem Tartrate 5 MG Tablet 10 MG PO (21:09)
[2023-06-07] MEDS: Acetaminophen 500 MG Tablet 1000 MG PO (21:09)
[2023-06-07] MEDS: Senna Tablet 2 TABLET PO (21:09)
[2023-06-07] MEDS: Mirtazapine 15 MG Tablet PO (21:09)
[2023-06-07] MEDS: Pantoprazole Sodium 40 MG in 0.9% Normal Saline (100mL MB+) 100 ML 330 MG IV (21:10)
[2023-06-08] VITALS (22 sets, daily range): BP systolic 118–163; BP diastolic 55–89; PULSE 70–107; RESP 12–18; TEMP 36.6–37.1; O2SAT 93–99
[2023-06-08] MEDS: Lactated Ringers 1,000 ML 100 ML IV ×2 (03:02→15:12)
[2023-06-08 03:12] LABS: Bacteria 0 SEEN /hpf (None Seen); Mucous, Urine 0 SEEN /hpf (<or=2+); Red Blood Cells-Urine 0 SEEN /hpf (0-5); Squamous Epithelial Cells - UA 0 SEEN /hpf (0-5); White Blood Cells 0 SEEN /hpf (0-5)
[2023-06-08 03:20] LABS: Color, Urine Yellow (Yellow); Glucose, Dipstick Normal (Normal); Ketone-Dipstick Negative (Negative); Leukocyte Esterase-Dipstick 25 /ul (Negative); Nitrite-Dipstick Negative (Negative); Occult Blood-Urine Negative /ul (Negative); Protein-Dipstick 30 mg/dl (Negative); Specific Gravity, Urine 1.015 (1.002-1.030); Urine Bilirubin Dipstick Negative (Negative); Urine Clarity Clear (Clear); Urine Urobilinogen Normal (Normal)
[2023-06-08] MEDS: Piperacil/Tazobactam 3.375 GM in 0.9% Normal Saline (50mL MB+) 50 ML IV ×3 (05:35→21:43)
[2023-06-08] MEDS: Ketorolac 15 MG/ML Vial IV ×2 (05:35→15:11)
--- NOTE | 2023-06-08 06:41 | PCM.PN.SRG ---
Subjective Subjective Patient's MRCP did not show any dilated ducts, just called a moderately distended gallbladder?no edema, no gallstones, patient's pain is more left mid abdomen this morning Objective Data Objective Data Vital Signs: Vital Signs Temp Pulse Resp BP Pulse Ox O2 Del Method 98 F 96 16 130/76 H 96 Room Air 06/08/23 02:52 06/08/23 02:52 06/08/23 02:52 06/08/23 02:52 06/08/23 02:52 06/08/23 03:10 Oxygen Delivery Method Room Air Weight: 149 lb 1 oz Body Mass Index (BMI) 22.6 Intake & Output: Intake and Output for Last 24 Hours 06/06/23 06/07/23 06/08/23 23:59 23:59 23:59 Intake Total 1271.67 / 1271.67 968.33 / 968.33 Output Total 400 / 400 Balance 1271.67 / 1271.67 568.33 / 568.33 Lab / Micro Data 06/07/23 11:27 06/07/23 11:27 Labs: Laboratory Results - last 24 hr 06/07/23 11:27: WBC 9.7, RBC 3.09 L, Hgb 10.1 L, Hct 31.1 L, MCV 100.6 H, MCH 32.7 H, MCHC 32.5, RDW Std Deviation 73.1 H, RDW Coeff of Rosemary 20.0 H, Plt Count 193, MPV 12.9 H, Immature Gran % (Auto) 1.400 H, Neut % (Auto) 88.7 H, Lymph % (Auto) 8.0 L, Early % (Auto) 1.0, Eos % (Auto) 0.3, Baso % (Auto) 0.6, Absolute Neuts (auto) 8.6 H, Absolute Lymphs (auto) 0.78 L, Nucleated RBC % 0, Anisocytosis 2+, Sodium 133 L, Potassium 4.4, Chloride 102, Carbon Dioxide 23.0, Anion Gap 8, BUN 14, Creatinine 0.77, Estim Creat Clear Calc 79.72, Est GFR (MDRD) Af Amer 129, Est GFR (MDRD) Non-Af 107, BUN/Creatinine Ratio 18.3, Glucose 128 H, Lactic Acid 1.3, Calcium 9.0, Total Bilirubin 1.40 H 06/07/23 11:27: Total Bilirubin 1.50 H, Direct Bilirubin 0.50 H, Indirect Bilirubin 1.00, AST 291 H, ALT 290 H, Alkaline Phosphatase 162 H, Total Protein 7.0, Albumin 2.9 L, Globulin 4.1, Albumin/Globulin Ratio 0.7 L, Lipase 26 06/08/23 03:01: Urine Color Yellow, Urine Clarity Clear, Urine pH 5.0, Ur Specific Russell 1.015, Urine Protein 30 H, Urine Glucose (UA) Normal, Urine Ketones Negative, Urine Occult Blood Negative, Urine Nitrite Negative, Urine Bilirubin Negative, Urine Urobilinogen Normal, Ur Leukocyte Esterase 25 H, Urine RBC 0 SEEN, Urine WBC 0 SEEN, Ur Squamous Epith Cells 0 SEEN, Urine Bacteria 0 SEEN, Urine Mucus 0 SEEN Radiography Diagnostic Testing: Radiology Impression Abdomen/Pelvis CT 06/07/23 10:55 IMPRESSION: Stable mass in the tail portion the pancreas. New wedge-shaped abnormality in the spleen as described. Mildly distended gallbladder with questionable tiny gallstone or sludge within the gallbladder lumen. Stable hypodensity in the lower aspect of the right lobe of the liver. Stable left renal cyst. Prostatic enlargement. Distended urinary bladder. Electronically Signed: Julio Sanderson MD at 12:40 EST , MRCP 06/07/23 15:02 IMPRESSION: Moderately distended gallbladder. No biliary dilatation. Pancreatic tail mass with surrounding mesenteric stranding. Malignancy is suspected. Right hepatic hyperintense lesion. Probable splenic infarct. Bilateral renal cystic nodules. Probable duodenal diverticulum. Partially visualized right lung base mass. Evaluation of mass lesions is limited without intravenous contrast. Electronically Signed: Macho Diaz DO at 21:42 EST , Physical Exam Const oriented x3 and no apparent distress Resp normal respiratory effort Cardio regular rate GI soft to palpation Inspection: Negative for abdominal distention Palpation: tender RLQ, LUQ and other (Not really tender in the epigastric or right upper quadrant) Assessment & Plan Assessment/Plan (1) Postprandial RUQ pain: (2) LUQ pain: (3) Transaminitis: (4) Hyperbilirubinemia: (5) Peritoneal carcinomatosis: (6) Pancreas cancer: QUALIFIERS: Pancreatic malignancy location: tail of pancreas Qualified Code(s): C25.2 - Malignant neoplasm of tail of pancreas (7) Metastasis to liver: (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 Will plan for a HIDA scan with CCK. This morning patient's pain is more the left upper/mid abdomen which would be more consistent with where his pain pancreatic mass is at. He did have some right lower quadrant tenderness but no epigastric or right upper quadrant tenderness this morning. Dorota Hancock M.D. Pager: [phone] [facility] [address] [place] [address], [facility], [address] [place] [address] Office: [phone] Charges/Coding Visit Charges Inpatient E&M: 36323 Subs Hosp L2
[2023-06-08 07:15] LABS: Absolute Lymphocyte Count 0.57 X10^3/uL (0.83-4.51); Absolute Neutrophil Count 4.3 X10^3/uL (2.0-7.7); Basophil# 0.05 X10^3/uL; Eosinophil# 0.08 X10^3/uL; Eosinophils% 1.6 % (0-5); Hematocrit 26.9 % (40-54); Hemoglobin 8.7 g/dL (13.0-16.5); Lymphocyte # 0.57 X10^3/ul (0.83-4.51); Lymphocyte % 11.1 % (19-41); Mean Corp Hgb Conc 32.3 g/dL (32-36); Mean Corpuscular Hgb 32.8 pg (27.0-32.0); Mean Corpuscular Volume 101.5 fL (80-94); Mean Platelet Vol. 12.4 fl (6.2-12.0); Monocyte% 1.9 % (0-10); NRBC Flagged by Analyzer 0 % (0-5); Neutrophil # 4.26 X10^3/uL (2.7-7.7); POSITIVE DIFFERENTIAL YES; POSITIVE MORPHOLOGY YES; Platelet Count 149 K/mm3 (150-450); RBC Distribution Width CV 20.1 % (11.6-14.6); Red Blood Count 2.65 M/mm3 (4.6-6.2); White Blood Count 5.1 K/mm3 (4.4-11.0)
[2023-06-08 07:22] LABS: Differential Indicated SCAN CRITERIA MET
--- NOTE | 2023-06-08 07:31 | NM_ITS ---
CLINICAL: 72-year-old male with history of right upper quadrant abdominal pain. RADIONUCLIDE HEPATOBILIARY SCINTIGRAPHY COMPARISON: CT of the abdomen-pelvis report 06/07/2023, MRI of the gallbladder report 06/07/2023 FINDINGS: Following the intravenous administration of 5.2 mCi of 99m Tc Mebrofenin, hepatobiliary images reveal: 1. Relatively prompt and homogeneous radiopharmaceutical concentration is noted by a normal sized liver. No parenchymal defects are identified. 2. Gallbladder activity is not identified during 120 minutes of sequential imaging. 3. Small intestinal tract is observed at 15-30 minutes post radiopharmaceutical administration. 4. Washout of the radiopharmaceutical by the hepatic appears qualitatively normal. NM/Hepatobilliary Imaging IMPRESSION: 1. ABNORMAL 99m Tc Mebrofenin hepatobiliary imaging examination. A. Nonvisualization of the gallbladder at 120 minutes post radiopharmaceutical administration is consistent with a high probability of cholecystitis (acute or chronic) in patients with intermediate to high pretest probabilities of hepatobiliary disease and who have fasted for more than 4 and less than 24 hours. (Jed et al, Nucl Med [employer] pg. 35, 1980). Electronically Signed: Cecilio Ulloa DO at 11:55 EST ,
[2023-06-08 07:42] LABS: ALB/GLOB Ratio 0.7 RATIO (0.9-2.4); AST(SGOT) 174 U/L (15-37); Alanine Aminotransfer ALT/SGPT 218 U/L (16-61); Albumin, Serum 2.5 g/dL (3.2-5.0); Alkaline Phosphatase 148 U/L (45-117); Anion Gap 6 (5-15); BUN 16 mg/dL (7-18); BUN/Creat Ratio 16.5 RATIO (10-20); Calcium,Total 8.8 mg/dL (8.5-10.1); Chloride 106 mmol/L (98-107); Creatinine, Serum 0.97 mg/dL (0.70-1.30); EST Glomerular Filtration Rate 81 mL/min (>60); Est Glom Filt Rate - Afr Amer 99 mL/min (>60); Estimated Creatinine Clearance 67.77 ml/min; Globulin 3.8 g/dL (2.2-4.2); Glucose 117 mg/dL (74-106); Magnesium 1.9 mg/dL (1.6-2.6); Phosphorus 4.2 mg/dL (2.5-4.9); Potassium 4.8 mmol/L (3.5-5.1); Protein, Total 6.3 g/dL (6.4-8.2); Sodium Level 136 mmol/L (136-145)
--- NOTE | 2023-06-08 09:22 | CASEMGMT ---
DILIA CM to pt room at this time for initial assessment, pt is off the floor at this time.
[2023-06-08 10:11] LABS: Anisocytosis 2+; Reactive Lymphocyte 1+
[2023-06-08] MEDS: HYDROmorphone 1 MG/ML Syringe IV ×2 (10:32→17:22)
[2023-06-08] MEDS: 0.9 % NaCl (Sterile) Posiflush 10 mL IV (10:32)
--- NOTE | 2023-06-08 10:51 | CASEMGMT ---
Addendum entered by Bora Lancaster 06/08/23 11:12: Brian Corea responds and states the pt is currently one of their patients ([facility]) Original Note: DILIA STEVENSON Assessment Face to Face with patient for initial transition planning/care coordination assessment. RN ELVA introduced self and role at [facility], pt voices understanding. Pt is A&Ox4 and is resting comfortably in bed and is calm.Pt at bedside. Care providers, pharmacy, and demographics verified. Admitting dx: ABD Pain LACE Strata: 3 PCP: Luana Specialists: Juan Carlos (Oncology) Preferred Pharmacy: [facility] during this stay Insurance: MCR A B, [place] [employer] [place] Prescription Benefit: Yes LNOK: Jeane Snyder (W) Living Arrangements: Pt lives with his and GERALD (age 16) in a 2 story home with a BM with no HR. Pt states that his helps him use the steps when needed. Pt states that there are 3 steps to enter the home with HR and no issues. ADLs/IADLs: Ind with ADLs. helps with IADLs. Transportation: Pt is able to drive but states that his does most of the driving. DME: Cane at home but does not use. Walk in shower. Denies all other DME use or needs. HHC/SNF: Denies SNF. Pt states that he is active with Palliative care and they see the pt once per month for pain management. Pt and pt were unable to recall the name of the agency. E-Mail sent to Brian Corea and Isabel Pederson at this time to see if they recognize the pt. Pt?s goal: Home with Plan: Pt 6-Click is 20 at this time, no therapy ordered. Pt states that he wants to go home with his family with no additional needs at this time. Pt and pt educated to notify CM if any DC needs come up. Eduardo Lancaster RN, CM
[2023-06-08] MEDS: Pantoprazole Sodium 40 MG in 0.9% Normal Saline (100mL MB+) 100 ML 330 MG IV ×2 (11:05→21:44)
[2023-06-08 11:52] LABS: Partial Thromboplast Time 37.3 Seconds (24.1-36.2)
[2023-06-08 11:58] LABS: International Normalized Ratio 1.3; Prothrombin Time (Protime)PT. 16.4 SECONDS (11.7-14.9)
--- NOTE | 2023-06-08 12:17 | PCM.PN.HOSP ---
Reason for Visit Reason for Visit: Diagnoses Malignant neoplasm of tail of pancreas (06/07/23) Secondary malignant neoplasm of right lung (06/07/23) Secondary malignant neoplasm of left lung (06/07/23) Secondary malignant neoplasm of retroperitoneum and peritoneum (06/07/23) Secondary malignant neoplasm of liver and intrahepatic bile duct (06/07/23) Other disorders of bilirubin metabolism (06/07/23) Hypo-osmolality and hyponatremia (06/07/23) Right upper quadrant pain (06/07/23) Left upper quadrant pain (06/07/23) Unspecified abdominal pain (06/07/23) Elevation of levels of liver transaminase levels (06/07/23) Subjective Subjective Patient admitted yesterday afternoon for worsening abdominal pain in the setting of known metastatic pancreatic cancer. Patient seen at bedside this morning. Sitting up comfortably in bed, conversing normally, in no acute distress. Patient stated that he had received a dose of pain medication shortly before my arrival and his pain was improved after that. He otherwise denied any other acute pain or discomfort. No other acute concerns at this time. Objective Data Objective Data Vital Signs: Vital Signs Temp Pulse Resp BP Pulse Ox O2 Del Method 98.3 F 103 H 18 149/78 H 99 Room Air 06/08/23 10:30 06/08/23 10:30 06/08/23 10:30 06/08/23 10:30 06/08/23 10:30 06/08/23 10:30 Oxygen Delivery Method Room Air Weight: 67.614 kg Body Mass Index (BMI) 22.6 Intake & Output: Intake and Output for Last 24 Hours 06/06/23 06/07/23 06/08/23 23:59 23:59 23:59 Intake Total 1271.67 / 1271.67 1620.21 / 1620.21 Output Total 400 / 400 Balance 1271.67 / 1271.67 1220.21 / 1220.21 Lab / Micro Data 06/08/23 06:47 06/08/23 06:47 Labs: Laboratory Results - last 24 hr 06/07/23 11:27: Anisocytosis 2+, Total Bilirubin 1.50 H, Direct Bilirubin 0.50 H, Indirect Bilirubin 1.00 06/08/23 03:01: Urine Color Yellow, Urine Clarity Clear, Urine pH 5.0, Ur Specific [place]bow 1.015, Urine Protein 30 H, Urine Glucose (UA) Normal, Urine Ketones Negative, Urine Occult Blood Negative, Urine Nitrite Negative, Urine Bilirubin Negative, Urine Urobilinogen Normal, Ur Leukocyte Esterase 25 H, Urine RBC 0 SEEN, Urine WBC 0 SEEN, Ur Squamous Epith Cells 0 SEEN, Urine Bacteria 0 SEEN, Urine Mucus 0 SEEN 06/08/23 06:47: WBC 5.1, RBC 2.65 L, Hgb 8.7 L, Hct 26.9 L, MCV 101.5 H, MCH 32.8 H, MCHC 32.3, RDW Std Deviation 73.0 H, RDW Coeff of Rosemary 20.1 H, Plt Count 149 L, MPV 12.4 H, Immature Gran % (Auto) 1.400 H, Neut % (Auto) 83.0 H, Lymph % (Auto) 11.1 L, Taliaferro % (Auto) 1.9, Eos % (Auto) 1.6, Baso % (Auto) 1.0, Absolute Neuts (auto) 4.3, Absolute Lymphs (auto) 0.57 L, Nucleated RBC % 0, Differential Comment COMMENT, Reactive Lymphocytes 1+, Anisocytosis 2+, Sodium 136, Potassium 4.8, Chloride 106, Carbon Dioxide 24.0, Anion Gap 6, BUN 16, Creatinine 0.97, Estim Creat Clear Calc 67.77, Est GFR (MDRD) Af Amer 99, Est GFR (MDRD) Non-Af 81, BUN/Creatinine Ratio 16.5, Glucose 117 H, Calcium 8.8, Phosphorus 4.2, Magnesium 1.9, Total Bilirubin 1.00, AST 174 H, ALT 218 H, Alkaline Phosphatase 148 H, Total Protein 6.3 L, Albumin 2.5 L, Globulin 3.8, Albumin/Globulin Ratio 0.7 L 06/08/23 11:33: PT 16.4 H, INR 1.3, APTT 37.3 H Radiography Diagnostic Testing: Radiology Impression Abdomen/Pelvis CT 06/07/23 10:55 IMPRESSION: Stable mass in the tail portion the pancreas. New wedge-shaped abnormality in the spleen as described. Mildly distended gallbladder with questionable tiny gallstone or sludge within the gallbladder lumen. Stable hypodensity in the lower aspect of the right lobe of the liver. Stable left renal cyst. Prostatic enlargement. Distended urinary bladder. Electronically Signed: Julio Sanderson MD at 12:40 EST , MRCP 06/07/23 15:02 IMPRESSION: Moderately distended gallbladder. No biliary dilatation. Pancreatic tail mass with surrounding mesenteric stranding. Malignancy is suspected. Right hepatic hyperintense lesion. Probable splenic infarct. Bilateral renal cystic nodules. Probable duodenal diverticulum. Partially visualized right lung base mass. Evaluation of mass lesions is limited without intravenous contrast. Electronically Signed: Machosadie Diaz, DO at 21:42 EST , Hepatobiliary Scan Nuclear Medicine 06/08/23 07:31 IMPRESSION: 1. ABNORMAL 99m Tc Mebrofenin hepatobiliary imaging examination. A. Nonvisualization of the gallbladder at 120 minutes post radiopharmaceutical administration is consistent with a high probability of cholecystitis (acute or chronic) in patients with intermediate to high pretest probabilities of hepatobiliary disease and who have fasted for more than 4 and less than 24 hours. (Jed et al, Nucl Med [employer] pg. 35, 1980). Electronically Signed: Cecilio Ulloa, at 11:55 EST , Physical Exam Const alert, oriented x3, no apparent distress and average body habitus Constitutional Narrative: Pleasant elderly male, sitting up comfortably in bed, conversing normally, no acute distress. General Appearance: cooperative and comfortable HEENT normocephalic, head/scalp atraumatic, hearing grossly normal bilaterally, nasal mucous membranes and turbinates normal and moist oral mucous membranes Eyes PERRL, EOMs intact bilaterally and conjunctivae normal Neck full ROM, no lymphadenopathy and supple Lymph Lymphatic: no lymphadenopathy noted Chest inspection of chest normal Resp normal respiratory effort, normal air movement, no use of accessory muscles and clear to auscultation bilaterally Cardio regular rate, regular rhythm, no murmurs and peripheral pulses 2+ throughout GI GI Narrative: Mild tenderness to palpation in upper abdomen diffusely. Abdomen otherwise nondistended and soft on palpation. Back/Spine normal ROM Extremity normal to inspection, full ROM and no pedal edema Skin no rashes or lesions noted Neuro moves all extremities and no focal motor deficits Speech: speech normal Psych mental status grossly normal Assessment & Plan Assessment/Plan (1) Cholecystitis: (2) Transaminitis: (3) Hyperbilirubinemia: (4) Abdominal pain, acute: (5) Pancreas cancer: QUALIFIERS: Pancreatic malignancy location: tail of pancreas Qualified Code(s): C25.2 - Malignant neoplasm of tail of pancreas PLAN: Plan Patient is a 72-year-old male who presented to [facility] ED on 06/07/2023 with worsening abdominal pain. 1. Intractable abdominal pain with hyperbilirubinemia and transaminitis Presented with persistent abdominal pain with nausea/vomiting after eating. Mild tachycardia, otherwise hemodynamically stable on admit. Labs notable for total bili 1.50, direct bili 0.50, AST 291, ALT 290, alk phos 162. CT abdomen pelvis on admit showed mildly distended gallbladder with questionable gallstone versus sludge in gallbladder lumen, stable mass in tail portion of pancreas. MRCP on 06/08 done per surgery recommendations showed moderately distended gallbladder with no biliary dilatation. HIDA scan with CCK showed nonvisualization of gallbladder at 2 hours consistent with high probability of cholecystitis. ? General surgery following. S/p CT-guided percutaneous cholecystostomy drain placement by radiology on 06/08. Trend LFTs. Symptom management with as needed oxycodone, Dilaudid, IV Toradol, IV Zofran, IV Reglan. Avoiding Tylenol at this time given elevated LFTs. Advancing diet as tolerated per surgery recs. 2. Metastatic pancreatic cancer ? Follows with [facility] oncology and with palliative care. Diagnosed in late 2022. Has peritoneal carcinomatosis as well as mets to the liver and lung. Has completed 2 cycles of chemotherapy to this point, last cycle of gemcitabine and Abraxane was on 06/03/2023. Continue home oxycodone and twice daily senna per palliative care recs. No oncology needs while inpatient, okay for outpatient follow-up after discharge. 3. Mild hyponatremia, improved ? Sodium 133 on admit, improved to 136 on hospital day 2 after IV fluids. Trend daily BMP. 4. Chronic anemia ? Hemoglobin 10.1 on admit, down trended to 8.7 on hospital day 2 after IV fluids. Baseline hemoglobin appears to be around 8-10. Trend daily CBC. Chronic medical conditions: ? COPD: Not on home O2. Not in acute exacerbation. Continue home albuterol and guaifenesin. ? Glaucoma: Continue home eyedrops. ? Hyperlipidemia: Holding home statin given elevated transaminases as noted above. ? GERD: Continue PPI. ? Hypertension: Continue home hydrochlorothiazide and metoprolol. ? Mood disorder/insomnia: Continue home Ambien and mirtazapine. DVT prophylaxis: Lovenox CODE STATUS: DNR CCA, DNI Expected disposition: Home, TBD Total clinical time spent by myself addressing the patient's medical issues, reviewing all the data, and collaborating with patient's care team: 35 minutes. Charges/Coding Visit Charges Inpatient E&M: 07923 Subs Hosp L2
[2023-06-08] MEDS: Ondansetron 4 MG/2 ML Vial IV (13:48)
[2023-06-08] MEDS: 0.9% Normal Saline (250mL Bag) 250 ML 15 ML IV (13:48)
[2023-06-08] MEDS: Midazolam 2 MG/2 ML Syringe IV ×2 (13:52→14:06)
[2023-06-08] MEDS: fentaNYL 100 MCG/2 ML Ampul IV (13:53)
[2023-06-08] MEDS: Lidocaine 2% (20 ml mdv) 20 ML Vial INFILT (14:08)
--- NOTE | 2023-06-08 14:33 | PRO.PCM_ITS ---
Procedure Report Date of Procedure: 06/08/23
--- NOTE | 2023-06-08 14:33 | PCM.OP.PRO ---
Procedure Report Date of Procedure: 06/08/23 Assessment & Plan Assessment/Plan (1) Cholecystitis: PLAN: PROCEDURE: CT DIRECTED PERCUTANEOUS CHOLECYSTOSTOMY DRAINAGE, PERITONEAL ORDERING PROVIDER: Dr. Hancock INDICATION: Male, 72 years old. Cholecystitis. PROVIDER: MARCIA Ramírez CONSENT: Written informed consent was obtained having explained the risks, benefits and alternatives in detail with the patient who accepted the risks and agreed to proceed. Laboratory review and clinical assessment was performed. PRE-PROCEDURE SEDATION ASSESSMENT: Current history and physical dictated by referring physician and reviewed. No clinical changes since date of exam. Patient has an ASA Class of 2. PROCEDURAL SEDATION PROTOCOL: The Drugs used were: 2 mg Versed, IV, and 50 mcg Fentanyl, IV. The sedation time was: 28 minutes, starting at 1352 and terminated at 1420. The procedural sedation protocol was independently monitored by the department nurse. RADIATION DOSAGE (If Supplied By Facility): CTDIvol = 15.24 mGy, DLP = 17.44 mGycm Individualized dose optimization techniques were used for this CT. CONSENT: Written informed consent was obtained having explained the risks, benefits and alternatives in detail with the patient who accepted the risks and agreed to proceed. Laboratory review and clinical assessment was performed. TECHNIQUE: CT sections were made through the abdomen and pelvis revealing acute cholecystitis and dilated gallbladder.. The skin surface was prepped with betadine and draped in a sterile fashion. Puncture of this collection was performed with a 5 [place] catheter and clear fluid began to drain. Placement was confirmed with image documentation. The drainage catheter was then inserted into the collection and formed into position by the pigtail fastener. Additional fluid was aspirated for a total of approximately 90 ml of green colored fluid. A Say-Church drain was attached to the catheter, and the catheter was secured with a StayFIX dress to allow for continued drainage. Followup CT sections reveals good position of the catheter. IMPRESSION: 1. CT directed drainage of dilated gallbladder with drain placement using CT image guidance and image documentation as described. 2. Procedural Sedation protocol utilized with independent monitoring by the department nurse. Procedures Radiology Radiology US Procedures: Other Procedure See Report (CT Percutaneous Cholecystostomy Drain Placement [id number])
[2023-06-08] MEDS: 0.9% Saline Lock 10 ML Syringe IV ×2 (15:11→17:22)
[2023-06-08] MEDS: Albuterol 2.5 MG/3 ML VIAL.NEB. INHALATION (19:41)
[2023-06-08] MEDS: Acetaminophen 325 MG Tablet 650 MG PO (20:44)
[2023-06-08] MEDS: oxyCODONE 5 MG Tablet 10 MG PO (20:44)
[2023-06-08] MEDS: Senna Tablet 2 TABLET PO (21:44)
[2023-06-08] MEDS: Zolpidem Tartrate 5 MG Tablet 10 MG PO (21:44)
[2023-06-08] MEDS: Mirtazapine 15 MG Tablet PO (21:44)
[2023-06-09] VITALS (8 sets, daily range): BP systolic 126–143; BP diastolic 56–76; PULSE 83–95; RESP 16–18; TEMP 35.8–36.6; O2SAT 94–99
[2023-06-09] MEDS: Acetaminophen 325 MG Tablet 650 MG PO ×2 (03:16→15:23)
[2023-06-09] MEDS: oxyCODONE 5 MG Tablet 10 MG PO ×3 (03:16→15:22)
[2023-06-09] MEDS: Piperacil/Tazobactam 3.375 GM in 0.9% Normal Saline (50mL MB+) 50 ML IV ×3 (05:48→20:52)
--- NOTE | 2023-06-09 07:09 | PCM.PN.SRG ---
Subjective Subjective pt states overall abd is improved- he is sore at carrie tube site, denies n/v Objective Data Objective Data Vital Signs: Vital Signs Temp Pulse Resp BP Pulse Ox O2 Del Method O2 Flow Rate 98 F 94 18 136/73 H 94 Room Air 2 06/09/23 03:14 06/09/23 03:14 06/09/23 03:14 06/09/23 03:14 06/09/23 03:14 06/09/23 03:14 06/08/23 14:20 Oxygen Flow Rate (L/min) 2 Oxygen Delivery Method Room Air Weight: 149 lb 1 oz Body Mass Index (BMI) 22.6 Intake & Output: Intake and Output for Last 24 Hours 06/07/23 06/08/23 06/09/23 23:59 23:59 23:59 Intake Total 1271.67 / 1271.67 2318.13 / 2318.13 1150.00 / 1150.00 Output Total 620 / 620 160 / 160 Balance 1271.67 / 1271.67 1698.13 / 1698.13 990.00 / 990.00 Lab / Micro Data 06/09/23 07:30 06/09/23 07:30 Labs: Laboratory Results - last 24 hr 06/08/23 06:47: WBC 5.1, RBC 2.65 L, Hgb 8.7 L, Hct 26.9 L, MCV 101.5 H, MCH 32.8 H, MCHC 32.3, RDW Std Deviation 73.0 H, RDW Coeff of Rosemary 20.1 H, Plt Count 149 L, MPV 12.4 H, Immature Gran % (Auto) 1.400 H, Neut % (Auto) 83.0 H, Lymph % (Auto) 11.1 L, [place] % (Auto) 1.9, Eos % (Auto) 1.6, Baso % (Auto) 1.0, Absolute Neuts (auto) 4.3, Absolute Lymphs (auto) 0.57 L, Nucleated RBC % 0, Differential Comment COMMENT, Reactive Lymphocytes 1+, Anisocytosis 2+, Sodium 136, Potassium 4.8, Chloride 106, Carbon Dioxide 24.0, Anion Gap 6, BUN 16, Creatinine 0.97, Estim Creat Clear Calc 67.77, Est GFR (MDRD) Af Amer 99, Est GFR (MDRD) Non-Af 81, BUN/Creatinine Ratio 16.5, Glucose 117 H, Calcium 8.8, Phosphorus 4.2, Magnesium 1.9, Total Bilirubin 1.00, AST 174 H, ALT 218 H, Alkaline Phosphatase 148 H, Total Protein 6.3 L, Albumin 2.5 L, Globulin 3.8, Albumin/Globulin Ratio 0.7 L 06/08/23 11:33: PT 16.4 H, INR 1.3, APTT 37.3 H Radiography Diagnostic Testing: Radiology Impression Hepatobiliary Scan Nuclear Medicine 06/08/23 07:31 IMPRESSION: 1. ABNORMAL 99m Tc Mebrofenin hepatobiliary imaging examination. A. Nonvisualization of the gallbladder at 120 minutes post radiopharmaceutical administration is consistent with a high probability of cholecystitis (acute or chronic) in patients with intermediate to high pretest probabilities of hepatobiliary disease and who have fasted for more than 4 and less than 24 hours. (Jed et al, Nucl Med [employer] pg. 35, 1981). Electronically Signed: Cecilio Ulloa DO at 11:55 EST , Assessment & Plan Assessment/Plan (1) Cholecystitis: (2) Pancreas cancer: QUALIFIERS: Pancreatic malignancy location: tail of pancreas Qualified Code(s): C25.2 - Malignant neoplasm of tail of pancreas (3) Peritoneal carcinomatosis: PLAN: Plan Patient's Carrie tube bilious, tolerated clears will advance to full liquids-if tolerates will advance to reg- poss. d/c tomorrow. continue pain control continue doretha Hancock M.D. Pager: [phone] [facility] [address] [place] [address], Outpatient [place], [address] [place] [address] Office: [phone] Charges/Coding Visit Charges Inpatient E&M: 75520 Subs Hosp L2
[2023-06-09 07:51] LABS: Hematocrit 25.3 % (40-54); Mean Corp Hgb Conc 31.6 g/dL (32-36); Mean Corpuscular Hgb 32.3 pg (27.0-32.0); Mean Platelet Vol. 12.1 fl (6.2-12.0); POSITIVE MORPHOLOGY YES; Platelet Count 129 K/mm3 (150-450); RBC Distribution Width SD 73.2 fl (35.1-43.9); Red Blood Count 2.48 M/mm3 (4.6-6.2); White Blood Count 2.6 K/mm3 (4.4-11.0)
[2023-06-09 08:01] LABS: Scan Indicated on CBC? Y/N YES- FLAGS NOTED
[2023-06-09 08:24] LABS: ALB/GLOB Ratio 0.7 RATIO (0.9-2.4); AST(SGOT) 139 U/L (15-37); Alanine Aminotransfer ALT/SGPT 176 U/L (16-61); Albumin, Serum 2.5 g/dL (3.2-5.0); Alkaline Phosphatase 147 U/L (45-117); Anion Gap 8 (5-15); BUN 14 mg/dL (7-18); BUN/Creat Ratio 15.2 RATIO (10-20); Chloride 106 mmol/L (98-107); Creatinine, Serum 0.92 mg/dL (0.70-1.30); EST Glomerular Filtration Rate 86 mL/min (>60); Est Glom Filt Rate - Afr Amer 104 mL/min (>60); Estimated Creatinine Clearance 71.45 ml/min; Globulin 3.6 g/dL (2.2-4.2); Glucose 113 mg/dL (74-106); Potassium 4.6 mmol/L (3.5-5.1); Protein, Total 6.1 g/dL (6.4-8.2); Sodium Level 138 mmol/L (136-145)
[2023-06-09] MEDS: Multivitamins,Ther W-Minerals Tablet 1 TABLET PO (09:45)
[2023-06-09] MEDS: hydroCHLOROthiazide 12.5mg 12.5 MG PO (09:45)
[2023-06-09] MEDS: Metoprolol(XL)Succ 25 MG Tablet PO (09:45)
[2023-06-09] MEDS: Pantoprazole Sodium 40 MG in 0.9% Normal Saline (100mL MB+) 100 ML 330 MG IV ×2 (09:45→20:50)
[2023-06-09] MEDS: Senna Tablet 2 TABLET PO ×2 (09:46→20:56)
[2023-06-09] MEDS: Aspirin 81 MG TAB.CHEW PO (09:46)
[2023-06-09] MEDS: Latanoprost 0.005% 1 Bottle 1 DRP EACH EYE (09:52)
[2023-06-09] MEDS: Timolol 0.5% 5ML OPTH.BTL 1 DRP EACH EYE (09:52)
[2023-06-09] MEDS: Enoxaparin 40 MG/0.4 ML Syringe SC (10:07)
--- NOTE | 2023-06-09 12:42 | PN.HOSP_ITS ---
Subjective Subjective Feels much better after the cholecystostomy tube, his pain is almost completely resolved Objective Data Objective Data Vital Signs: Vital Signs Temp Pulse Resp BP Pulse Ox O2 Del Method O2 Flow Rate 97.7 F L 83 16 126/75 H 96 Room Air 2 06/09/23 08:08 06/09/23 09:45 06/09/23 08:08 06/09/23 09:45 06/09/23 08:08 06/09/23 08:08 06/08/23 14:20 Oxygen Flow Rate (L/min) 2 Oxygen Delivery Method Room Air Weight: 149 lb 1 oz Body Mass Index (BMI) 22.6 Intake & Output: Intake and Output for Last 24 Hours 06/08/23 06/09/23 06/10/23 03:59 03:59 03:59 Intake Total 2240.00 / 2240.00 2399.80 / 2399.80 260 / 260 Output Total 740 / 740 80 / 80 Balance 2240.00 / 2240.00 1659.80 / 1659.80 180 / 180 Lab / Micro Data 06/09/23 07:30 06/09/23 07:30 Labs: Laboratory Results - last 24 hr 06/09/23 07:30: WBC 2.6 L, RBC 2.48 L, Hgb 8.0 L, Hct 25.3 L, MCV 102.0 H, MCH 32.3 H, MCHC 31.6 L, RDW Std Deviation 73.2 H, RDW Coeff of Rosemary 20.0 H, Plt Count 129 L, MPV 12.1 H, Differential Comment , Sodium 138, Potassium 4.6, Chloride 106, Carbon Dioxide 24.0, Anion Gap 8, BUN 14, Creatinine 0.92, Estim Creat Clear Calc 71.45, Est GFR (MDRD) Af Amer 104, Est GFR (MDRD) Non-Af 86, BUN/Creatinine Ratio 15.2, Glucose 113 H, Calcium 9.0, Total Bilirubin 0.80, AST 139 H, ALT 176 H, Alkaline Phosphatase 147 H, Total Protein 6.1 L, Albumin 2.5 L , Globulin 3.6, Albumin/Globulin Ratio 0.7 L Micro: Microbiology 06/08/23 14:28 Aspirate - Abdominal Gram Stain - Final Physical Exam Narrative General: Alert, Oriented x3, Cooperative, No apparent distress HEENT: Atraumatic, PERRLA, EOMI, Normocephalic Oral: Moist Mucosa Neck: Supple, No JVD Lungs: Diminished, Normal air movement, No rhonchi, No wheeze, No rales Cardiovascular: Regular rate, Regular Rhythm, Normal S1, Normal S2, No murmurs Abdomen: Soft, Non Tender, Non-Distended, No Hepato-splenomegaly, cholecystos rob tube Extremities: No edema, Capillary Refill Less than 3 Seconds Skin: No rashes, No breakdown Musculoskeletal: No Tenderness to Palpation of Joints or Extremities Neurological: No focal neurological deficits, Motor Exam 5/5 strength throughout, Sensory exam intact to light touch and pain Psych/Mental Status: Normal Affect, Appropriate Assessment & Plan Assessment/Plan (1) Cholecystitis: (2) Hyperbilirubinemia: PLAN: Plan 1. Intractable abdominal pain with hyperbilirubinemia and transaminitis Presented with persistent abdominal pain with nausea/vomiting after eating. Mild tachycardia, otherwise hemodynamically stable on admit. Labs notable for total bili 1.50, direct bili 0.50, AST 291, ALT 290, alk phos 162. CT abdomen pelvis on admit showed mildly distended gallbladder with questionable gallstone versus sludge in gallbladder lumen, stable mass in tail portion of pancreas. MRCP on 06/08 done per surgery recommendations showed moderately distended gallbladder with no biliary dilatation. HIDA scan with CCK showed nonvisualization of gallbladder at 2 hours consistent with high probability of cholecystitis. ? General surgery following. S/p CT-guided percutaneous cholecystostomy drain placement by radiology on 06/08. Trend LFTs. Symptom management with as needed oxycodone, Dilaudid, IV Toradol, IV Zofran, IV Reglan. Avoiding Tylenol at this time given elevated LFTs. Advancing diet as tolerated per surgery recs. 06/09/2023: LFTs are improving after the cholecystostomy tube. Continue with 1 more day of IV antibiotics 2. Metastatic pancreatic cancer ? Follows with [facility] oncology and with palliative care. Diagnosed in late 2022. Has peritoneal carcinomatosis as well as mets to the liver and lung. Has completed 2 cycles of chemotherapy to this point, last cycle of gemcitabine and Abraxane was on 06/03/2023. Continue home oxycodone and twice daily senna per palliative care recs. No oncology needs while inpatient, okay for outpatient follow-up after discharge. 3. Mild hyponatremia, improved ? Sodium 133 on admit, improved to 136 on hospital day 2 after IV fluids. Trend daily BMP. 4. Chronic anemia ? Hemoglobin 10.1 on admit, down trended to 8.7 on hospital day 2 after IV fluids. Baseline hemoglobin appears to be around 8-10. Trend daily CBC. 06/09/2023: Will recheck H&H this afternoon Chronic medical conditions: ? COPD: Not on home O2. Not in acute exacerbation. Continue home albuterol and guaifenesin. ? Glaucoma: Continue home eyedrops. ? Hyperlipidemia: Holding home statin given elevated transaminases as noted above. ? GERD: Continue PPI. ? Hypertension: Continue home hydrochlorothiazide and metoprolol. ? Mood disorder/insomnia: Continue home Ambien and mirtazapine. DVT: Lovenox Charges/Coding Visit Charges Inpatient E&M: 27989 Subs Hosp L2
[2023-06-09 14:18] LABS: Hematocrit 31.9 % (40-54)
--- NOTE | 2023-06-09 15:14 | NURSING ---
reviewed student charting
[2023-06-09] MEDS: HYDROmorphone 1 MG/ML Syringe IV (17:40)
[2023-06-09] MEDS: Zolpidem Tartrate 5 MG Tablet 10 MG PO (20:56)
[2023-06-09] MEDS: Mirtazapine 15 MG Tablet PO (20:56)
[2023-06-10] MEDS: oxyCODONE 5 MG Tablet 10 MG PO ×2 (05:57→10:47)
[2023-06-10] MEDS: Piperacil/Tazobactam 3.375 GM in 0.9% Normal Saline (50mL MB+) 50 ML IV (05:58)
--- NOTE | 2023-06-10 06:10 | PCM.PN.SRG ---
Subjective Subjective pt states abd pain has been good over night, just sore at carrie tube site, triston reg diet no N/v Objective Data Objective Data Vital Signs: Vital Signs Temp Pulse Resp BP Pulse Ox O2 Del Method O2 Flow Rate 98 F 86 16 133/76 H 96 Room Air 2 06/09/23 20:10 06/09/23 20:10 06/09/23 20:10 06/09/23 20:10 06/09/23 20:10 06/09/23 20:10 06/08/23 14:20 Oxygen Flow Rate (L/min) 2 Oxygen Delivery Method Room Air Weight: 149 lb 1 oz Body Mass Index (BMI) 22.6 Intake & Output: Intake and Output for Last 24 Hours 06/08/23 06/09/23 06/10/23 23:59 23:59 23:59 Intake Total 2318.13 / 2318.13 2320.00 / 2320.00 50 / 50 Output Total 620 / 620 240 / 280 90 / 90 Balance 1698.13 / 1698.13 2080.00 / 2040.00 -40 / -40 Lab / Micro Data 06/10/23 06:55 06/09/23 07:30 Labs: Laboratory Results - last 24 hr 06/09/23 07:30: WBC 2.6 L, RBC 2.48 L, Hgb 8.0 L, Hct 25.3 L, MCV 102.0 H, MCH 32.3 H, MCHC 31.6 L, RDW Std Deviation 73.2 H, RDW Coeff of Rosemary 20.0 H, Plt Count 129 L, MPV 12.1 H, Differential Comment , Sodium 138, Potassium 4.6, Chloride 106, Carbon Dioxide 24.0, Anion Gap 8, BUN 14, Creatinine 0.92, Estim Creat Clear Calc 71.45, Est GFR (MDRD) Af Amer 104, Est GFR (MDRD) Non-Af 86, BUN/Creatinine Ratio 15.2, Glucose 113 H, Calcium 9.0, Total Bilirubin 0.80, AST 139 H, ALT 176 H, Alkaline Phosphatase 147 H, Total Protein 6.1 L, Albumin 2.5 L, Globulin 3.6, Albumin/Globulin Ratio 0.7 L 06/09/23 14:04: Hgb 10.0 L, Hct 31.9 L Micro: Microbiology 06/08/23 14:28 Aspirate - Abdominal Gram Stain - Final Physical Exam Const oriented x3 and no apparent distress Resp normal respiratory effort Cardio regular rate GI soft to palpation Inspection: Negative for abdominal distention Palpation: tender RUQ (near carrie tube site, no PS) Assessment & Plan Assessment/Plan (1) Cholecystitis: (2) Pancreas cancer: QUALIFIERS: Pancreatic malignancy location: tail of pancreas Qualified Code(s): C25.2 - Malignant neoplasm of tail of pancreas (3) Peritoneal carcinomatosis: PLAN: Plan Patient's Carrie tube bilious, tolerated reg-- plan to d/c today continue pain control change to PO augmentin on d/c Dorota Hancock M.D. Pager: [phone] [facility] [address] [place] [address], [facility], [address] [place] [address] Office: [phone] Charges/Coding Visit Charges Inpatient E&M: 64688 Subs Hosp L2
[2023-06-10 07:48] LABS: Absolute Neutrophil Count 1.3 X10^3/uL (2.0-7.7); Basophil# 0.04 X10^3/uL; Basophil% 1.6 % (0-1); Eosinophil# 0.04 X10^3/uL; Eosinophils% 1.6 % (0-5); Hematocrit 26.9 % (40-54); Hemoglobin 8.6 g/dL (13.0-16.5); Lymphocyte % 31.4 % (19-41); Mean Corpuscular Hgb 32.5 pg (27.0-32.0); Mean Corpuscular Volume 101.5 fL (80-94); Mean Platelet Vol. 12.4 fl (6.2-12.0); Monocyte# 0.31 X10^3/uL; Monocyte% 12.2 % (0-10); NRBC Flagged by Analyzer 0 % (0-5); Neutrophil # 1.28 X10^3/uL (2.7-7.7); Neutrophil % 50.1 % (47-70); POSITIVE MORPHOLOGY YES; Platelet Count 129 K/mm3 (150-450); RBC Distribution Width CV 19.6 % (11.6-14.6); RBC Distribution Width SD 72.3 fl (35.1-43.9); Red Blood Count 2.65 M/mm3 (4.6-6.2); White Blood Count 2.6 K/mm3 (4.4-11.0)
[2023-06-10 07:52] LABS: Differential Indicated SCAN CRITERIA MET
[2023-06-10 08:23] LABS: Differential Comment SCANNED
[2023-06-10 08:24] LABS: Anisocytosis 1+
--- NOTE | 2023-06-10 10:18 | DCINST_ITS ---
Discharge Instructions Diet Discharge Diet: No restrictions Activity Discharge Activity: Return to Normal Activity Dressing / Incision Call your doctor if your incision/area has: Continuous Slow Oozing, Increased Redness and Foul Smelling Discharge Call your doctor if you observe: Fever of 101 or Higher, Shortness of breath, Dizziness, Fainting spells, Swelling in the ankles, Chest pain and Increased palpitations (irregular heartbeat) Follow Up Care Test Results: Test results from this visit will be discussed in further detail at your follow- up appointment, if applicable. Discharge Plan Admission Admit Date/Time: 06/07/23 14:46 Attending Provider: Cash Perez Primary Care Provider: Cecilio Craft NP Consulting Providers: Dorota Hancock; Socorro Yarbrough; Jose Guevara Instructions Patient Instructions: Say Church Drain Tube Dc, Post Op Drain Emptying Steps Discharge Orders/Prescriptions Prescriptions: New amoxicillin-pot clavulanate 875-125 mg tablet 1 tab PO BID 3 Days Qty: 6 0RF Continued lidocaine-prilocaine 2.5-2.5 % cream 1 applic topical ONCE PRN (Reason: port access) 30 Days Qty: 30 2RF ondansetron 8 mg tablet,disintegrating 8 mg PO Q8H PRN (Reason: nausea and vomiting) Qty: 30 2RF oxycodone 5 mg capsule 10 mg PO Q4H PRN (Reason: pain) acetaminophen [Tylenol Extra Strength] 500 mg tablet 1,000 mg PO Q6H PRN (Reason: pain) albuterol sulfate 90 mcg/actuation HFA aerosol inhaler 2 puff inhalation Q6H PRN (Reason: shortness of breath or wheezing) Qty: 6.7 1RF benzonatate 100 mg capsule 100 mg PO BID-TID PRN (Reason: cough) mirtazapine 15 mg tablet 15 mg PO QHS guaifenesin [Mucus Relief ER] 600 mg tablet extended release 12hr 600 mg PO BID PRN (Reason: congestion) metoclopramide HCl [Reglan] 10 mg tablet 10 mg PO Q6H PRN (Reason: nausea and vomiting) Qty: 30 1RF latanoprost 0.005 % drops 1 drp EACH EYE DAILY Patient Comments: Instill 1 drop into both eyes once a day omeprazole 40 mg capsule,delayed release(DR/EC) 40 mg PO DAILY Patient Comments: TAKE 1 CAPSULE BY MOUTH DAILY metoprolol succinate 25 mg tablet extended release 24 hr 25 mg PO DAILY Patient Comments: TAKE 1 TABLET BY MOUTH DAILY zolpidem 10 mg tablet 10 mg PO QHS Patient Comments: 08/07/22 TAKE 1 TABLET BY MOUTH AT BEDTIME timolol maleate 0.5 % drops 1 drp EACH EYE DAILY Patient Comments: INSTILL 1 (ONE) DROP INTO BOTH EYES TWICE DAILY rosuvastatin 40 mg tablet 40 mg PO DAILY Patient Comments: TAKE 1 TABLET BY MOUTH DAILY hydrochlorothiazide 12.5 mg tablet 12.5 mg PO DAILY Patient Comments: TAKE 1 TABLET BY MOUTH EVERY DAY Centrum Silver Men 300-600-300 mcg Tablet 1 tab PO DAILY aspirin 81 mg Capsule 81 mg PO DAILY senna 8.6 mg capsule 17.2 mg PO BID Referrals / Follow Up: Estefany Rangel MD [Med Staff - Active Staff] - Within 1 Week Dorota Hancock MD [Med Staff - Active Staff] - Within 1 Month Cecilio Craft [employer] FINISHING [employer]PAR[employer], [employer] FINISHING [employer]ERIALS [employer]PARER-C [Primary Care Provider] - Within 1 Week Disposition Disposition (needs filled in before D/C Order can be placed): Home, Self Care
[2023-06-10] MEDS: Pantoprazole Sodium 40 MG in 0.9% Normal Saline (100mL MB+) 100 ML 330 MG IV (10:25)
[2023-06-10 10:29] VITALS: BP 132/55; PULSE 90; RESP 18; TEMP 36.5; O2SAT 96
[2023-06-10 10:34] VITALS: PULSE 90
[2023-06-10] MEDS: Multivitamins,Ther W-Minerals Tablet 1 TABLET PO (10:34)
[2023-06-10] MEDS: Aspirin 81 MG TAB.CHEW PO (10:34)
[2023-06-10] MEDS: Metoprolol(XL)Succ 25 MG Tablet PO (10:34)
[2023-06-10] MEDS: hydroCHLOROthiazide 12.5mg 12.5 MG PO (10:34)
[2023-06-10] MEDS: Latanoprost 0.005% 1 Bottle 1 DRP EACH EYE (10:35)
[2023-06-10] MEDS: Senna Tablet 2 TABLET PO (10:35)
[2023-06-10] MEDS: Timolol 0.5% 5ML OPTH.BTL 1 DRP EACH EYE (10:36)
[2023-06-10] MEDS: 0.9 % NaCl (Sterile) Posiflush 10 mL IV (10:51)
--- NOTE | 2023-06-10 11:02 | CASEMGMT ---
Pt states that he still feels safe and comfortable DC today with no additional needs. Palliative care notified via e-mail that the pt is DC today.
--- NOTE | 2023-06-10 11:04 | PHA.DC.MC.R ---
Pharmacy [facility] has performed discharge medication reconciliation and counseling for this patient. The patient's discharge medication list was reviewed for discrepancies and discrepancies were resolved. The patient was counseled on the following discharge medications and changes in medications for homegoing were reviewed. 1. AUGMENTIN The Reason for Use, instructions for use, and potential side effects were reviewed for all new medications. The patient's questions regarding all of their medications were answered. The patient was able to verbally demonstrate an understanding of their discharge medications. Patient was discharge counselled by Jacob Edwards PharmD Candidate Medications at Discharge Home Medications aspirin 81 mg capsule 81 mg PO DAILY heart he 09/16/22 hydrochlorothiazide 12.5 mg tablet 12.5 mg PO DAILY diuretic 09/16/22 latanoprost 0.005 % eye drops 1 drp EACH EYE DAILY eye 09/16/22 metoprolol succinate 25 mg tablet,extended release 24 hr 25 mg PO DAILY bp 09/16/22 [id number] 300 mcg-K 60 mcg-lycop 600 mcg-lutein 300 mcg tablet (Centrum Silver Men) 1 tab PO DAILY supplemen t 09/16/22 omeprazole 40 mg capsule,delayed release 40 mg PO DAILY gerd 09/16/22 rosuvastatin 40 mg tablet 40 mg PO DAILY cholesterol 09/16/22 timolol maleate 0.5 % eye drops 1 drp EACH EYE DAILY eye 09/16/22 zolpidem 10 mg tablet 10 mg PO QHS sleep 09/16/22 lidocaine-prilocaine 2.5 %-2.5 % topical cream 1 applic topical ONCE PRN port access 30 days #30 grams 03/10/23 ondansetron 8 mg disintegrating tablet 8 mg PO Q8H PRN nausea and vomiting #30 tabs 03/11/23 acetaminophen 500 mg tablet (Tylenol Extra Strength) 1,000 mg PO Q6H PRN pain 03/25/23 oxycodone 5 mg capsule 10 mg PO Q4H PRN pain 03/25/23 albuterol sulfate 90 mcg/actuation aerosol inhaler 2 puff inhalation Q6H PRN shortness of breath or wheezing #6.7 grams 04/01/23 benzonatate 100 mg capsule 100 mg PO BID-TID PRN cough 05/06/23 guaifenesin 600 mg tablet, extended release 12 hr (Mucus Relief ER) 600 mg PO BID PRN congestion 05/06/23 mirtazapine 15 mg tablet 15 mg PO QHS mood 05/06/23 metoclopramide HCl 10 mg tablet (Reglan) 10 mg PO Q6H PRN nausea and vomiting #30 tabs 06/03/23 sennosides 8.6 mg capsule (senna) 17.2 mg PO BID stool softener 06/07/23 amoxicillin 875 mg-potassium clavulanate 125 mg tablet 1 tab PO BID 3 days #6 tabs 24
--- NOTE | 2023-06-10 12:32 | NURSING ---
Before pt left, this RN made sure patient and his daughter knew how to take care of NATHALIE drain. They are educated and aware how to empty it and record the drainage.
--- NOTE | 2023-06-10 15:54 | PCM.DC.SUM ---
Providers Date of Admission: 06/07/23 Primary Care Physician: Cecilio Craft, LEILAC Consultations 06/07/23 15:02 Consult: General Surgery Routine Consulting Provider: Dorota Hancock Reason for Consult: Gallbladder EMERGENT Consult: No MD Notified: Yes Date Notified: 06/07/23 Time Notified: 14:51 Method of Notification: ED Physician Initiated Reason For Visit: ABDOMINAL PAIN Diagnosis Discharge Diagnosis (1) Cholecystitis: Status: Acute Code(s): K81.9 - Cholecystitis, unspecified (2) Pancreas cancer: Status: Acute Code(s): C25.9 - Malignant neoplasm of pancreas, unspecified Qualifiers: Pancreatic malignancy location: tail of pancreas Qualified Code(s): C25.2 - Malignant neoplasm of tail of pancreas (3) Peritoneal carcinomatosis: Status: Acute Code(s): C78.6 - Secondary malignant neoplasm of retroperitoneum and peritoneum Medications at Discharge Home Medications aspirin 81 mg capsule 81 mg PO DAILY heart he 09/16/22 hydrochlorothiazide 12.5 mg tablet 12.5 mg PO DAILY diuretic 09/16/22 latanoprost 0.005 % eye drops 1 drp EACH EYE DAILY eye 09/16/22 metoprolol succinate 25 mg tablet,extended release 24 hr 25 mg PO DAILY bp 09/16/22 [id number] 300 mcg-K 60 mcg-lycop 600 mcg-lutein 300 mcg tablet (Centrum Silver Men) 1 tab PO DAILY supplemen t 09/16/22 omeprazole 40 mg capsule,delayed release 40 mg PO DAILY gerd 09/16/22 rosuvastatin 40 mg tablet 40 mg PO DAILY cholesterol 09/16/22 timolol maleate 0.5 % eye drops 1 drp EACH EYE DAILY eye 09/16/22 zolpidem 10 mg tablet 10 mg PO QHS sleep 09/16/22 lidocaine-prilocaine 2.5 %-2.5 % topical cream 1 applic topical ONCE PRN port access 30 days #30 grams 03/10/23 ondansetron 8 mg disintegrating tablet 8 mg PO Q8H PRN nausea and vomiting #30 tabs 03/11/23 acetaminophen 500 mg tablet (Tylenol Extra Strength) 1,000 mg PO Q6H PRN pain 03/25/23 oxycodone 5 mg capsule 10 mg PO Q4H PRN pain 03/25/23 albuterol sulfate 90 mcg/actuation aerosol inhaler 2 puff inhalation Q6H PRN shortness of breath or wheezing #6.7 grams 04/01/23 benzonatate 100 mg capsule 100 mg PO BID-TID PRN cough 05/06/23 guaifenesin 600 mg tablet, extended release 12 hr (Mucus Relief ER) 600 mg PO BID PRN congestion 05/06/23 mirtazapine 15 mg tablet 15 mg PO QHS mood 05/06/23 metoclopramide HCl 10 mg tablet (Reglan) 10 mg PO Q6H PRN nausea and vomiting #30 tabs 06/03/23 sennosides 8.6 mg capsule (senna) 17.2 mg PO BID stool softener 06/07/23 amoxicillin 875 mg-potassium clavulanate 125 mg tablet 1 tab PO BID 3 days #6 tabs 06/10/23 Hospital Course Operations None Procedures - (Cholecystostomy ) Summary of Care Provided Minutes Spent on Discharge: 32 Hospital Course: Per HPI: CLARE CALI, is a 72 M who presented to the emergency department at [facility] on 06/07/2023 complaining of worsening abdominal pain. Patient has a known history of metastatic pancreatic cancer for which he just received his second round of chemotherapy including gemcitabine and Abraxane on 04/02/2024. His first round of chemo was 03/11/2023 and he tolerated it without any significant toxicities. He was seen by oncology on the and complained of abdominal pain at that visit and a KUB was performed at that time and showed a moderate amount of fecal material seen in the colon. He is on chronic narcotics from palliative care for chronic abdominal pain related to his pancreatic cancer. At that visit he was instructed to take half a bottle of magnesium citrate and he was given Reglan and maintained on his baseline bowel regimen of senna 2 tablets twice daily. Patient reported he had good bowel movements over the weekend but has had persistent abdominal pain. He has not been able to take much p.o. in due to it causing increasing pain and has had nausea and vomiting after eating. Nausea and vomiting and increased pain is immediate. Pain is more diffuse but he does seem to have increased pain in the right upper quadrant on palpation. He has had weight loss due to his decreased p.o. intake since his pancreatic cancer diagnosis but states that he has tolerated chemo well thus far. He does indicate that his taste has been altered by the chemo however. Vital signs on presentation showed a temperature of 98.2, heart rate 113, blood pressure 127/107, respiratory was 22 and oxygen saturations were 100% room air. His CBC has no significant changes from his previous done on the eighth showing a stable anemia with a hemoglobin of 10.1. He does have a left shift with a 88.7% neutrophilia. Chemistry panel reveals mild hyponatremia with a sodium of 133, normal renal function, however his transaminases and bilirubin are elevated with an AST of 291, ALT of 290, total bilirubin of 1.5 and direct bilirubin of 0.5. His lactic acid was normal at 1.3. Transaminases are markedly different when he had lab drawn on the eighth which was 4 days ago. His lipase was normal. CT with contrast of the abdomen pelvis was performed and demonstrated a stable mass in the tail portion of the pancreas, new wedge-shaped lesion in the spleen, mild distention of the gallbladder with questionable tiny gallstones or sludge within the gallbladder lumen, stable hypodensity in the lower aspect of the right lobe of the liver, stable renal cyst, prostatic enlargement and a distended urinary bladder. The splenic findings were discussed with both GI and vascular surgery and they feel that these are most likely not splenic infarction and are related to metastatic disease. The case was also discussed with Dr. Cb florez from general surgery and she suggested MRCP be performed and if this is positive she would recommend a PERC Areli tube if it is negative she recommended obtaining a HIDA scan and will be consulted. If the MRCP is positive we will have GI involved. Hospital Course: 1. Intractable abdominal pain with hyperbilirubinemia and transaminitis secondary to cholecystitis?72-year-old male with a history of metastatic pancreatic cancer presents to the hospital with abdominal pain based on MRCP as well as a HIDA scan it was felt that he likely had cholecystitis given his cancer and his disease progression it was felt best to proceed with a cholecystostomy tube which she received on 06/08/2023. While admitted to the hospital he was on Zosyn transition to Augmentin on discharge, and the cholecystostomy tube relieved all of his abdominal pain almost immediately. He will need to follow-up with oncology as an outpatient to determine chemotherapy as well as general surgery to determine management of his gallbladder disease whether we proceed with cholecystectomy or continue with the cholecystostomy tube. I discussed with him and his the plan for discharge today he expressed understanding the risk benefits of going home and would like to go home today. He will receive another 3 days of p.o. Augmentin. 2. Metastatic pancreatic cancer, chronic anemia, COPD, glaucoma, hyperlipidemia, GERD, hypertension, anxiety, depression are all chronic medical conditions which complicate his care. His home medications were continued where appropriate Physical Exam Narrative General: Alert, Oriented x3, Cooperative, No apparent distress HEENT: Atraumatic, PERRLA, EOMI, Normocephalic Oral: Moist Mucosa Neck: Supple, No JVD Lungs: Diminished, Normal air movement, No rhonchi, No wheeze, No rales Cardiovascular: Regular rate, Regular Rhythm, Normal S1, Normal S2, No murmurs Abdomen: Soft, Non Tender, Non-Distended, No Hepato-splenomegaly, cholecystostomy tube Extremities: No edema, Capillary Refill Less than 3 Seconds Skin: No rashes, No breakdown Musculoskeletal: No Tenderness to Palpation of Joints or Extremities Neurological: No focal neurological deficits, Motor Exam 5/5 strength throughout, Sensory exam intact to light touch and pain Psych/Mental Status: Normal Affect, Appropriate Weight / BMI Weight Weight: 149 lb 1 oz Body Mass Index (BMI) 22.6 ABG / Lab / Microbiology Data 06/10/23 06:55 06/09/23 07:30 Laboratory: Laboratory Results - last 24 hr 06/10/23 06:55: WBC 2.6 L, RBC 2.65 L, Hgb 8.6 L, Hct 26.9 L, MCV 101.5 H, MCH 32.5 H, MCHC 32.0, RDW Std Deviation 72.3 H, RDW Coeff of Rosemary 19.6 H, Plt Count 129 L, MPV 12.4 H, Immature Gran % (Auto) 3.100 H, Neut % (Auto) 50.1, Lymph % (Auto) 31.4, [place] % (Auto) 12.2 H, Eos % (Auto) 1.6, Baso % (Auto) 1.6 H, Absolute Neuts (auto) 1.3 L, Absolute Lymphs (auto) 0.80 L, Nucleated RBC % 0, Differential Comment SCANNED, Anisocytosis 1+ Microbiology: Microbiology 06/08/23 14:28 Aspirate - Abdominal Gram Stain - Final 06/08/23 14:28 Aspirate - Abdominal Wound Culture - Final No growth aerobically. 06/08/23 14:28 Aspirate - Abdominal Anaerobic Culture - Preliminary No growth in 48 hours. D/C Instructions Discharge Diet: No restrictions Call your doctor if your incision/area has: Continuous Slow Oozing, Increased Redness and Foul Smelling Discharge Call your doctor if you observe: Fever of 101 or Higher, Shortness of breath, Dizziness, Fainting spells, Swelling in the ankles, Chest pain and Increased palpitations (irregular heartbeat) Meaningful Use Info Meaningful Use Diagnoses (Choose all that apply): None applicable Discharge Plan Admission Admit Date/Time: 06/07/23 14:46 Attending Provider: Cash Perez Primary Care Provider: Cecilio Craft [employer] Consulting Providers: Dorota Hancock; Socorro Yarbrough; Jose Guevara Instructions Patient Instructions: [place] Drain Tube Dc, Post Op Drain Emptying Steps Discharge Orders/Prescriptions Prescriptions: New amoxicillin-pot clavulanate 875-125 mg tablet 1 tab PO BID 3 Days Qty: 6 0RF Continued lidocaine-prilocaine 2.5-2.5 % cream 1 applic topical ONCE PRN (Reason: port access) 30 Days Qty: 30 2RF ondansetron 8 mg tablet,disintegrating 8 mg PO Q8H PRN (Reason: nausea and vomiting) Qty: 30 2RF oxycodone 5 mg capsule 10 mg PO Q4H PRN (Reason: pain) acetaminophen [Tylenol Extra Strength] 500 mg tablet 1,000 mg PO Q6H PRN (Reason: pain) albuterol sulfate 90 mcg/actuation HFA aerosol inhaler 2 puff inhalation Q6H PRN (Reason: shortness of breath or wheezing) Qty: 6.7 1RF benzonatate 100 mg capsule 100 mg PO BID-TID PRN (Reason: cough) mirtazapine 15 mg tablet 15 mg PO QHS guaifenesin [Mucus Relief ER] 600 mg tablet extended release 12hr 600 mg PO BID PRN (Reason: congestion) metoclopramide HCl [Reglan] 10 mg tablet 10 mg PO Q6H PRN (Reason: nausea and vomiting) Qty: 30 1RF latanoprost 0.005 % drops 1 drp EACH EYE DAILY Patient Comments: Instill 1 drop into both eyes once a day omeprazole 40 mg capsule,delayed release(DR/EC) 40 mg PO DAILY Patient Comments: TAKE 1 CAPSULE BY MOUTH DAILY metoprolol succinate 25 mg tablet extended release 24 hr 25 mg PO DAILY Patient Comments: TAKE 1 TABLET BY MOUTH DAILY zolpidem 10 mg tablet 10 mg PO QHS Patient Comments: 08/07/22 TAKE 1 TABLET BY MOUTH AT BEDTIME timolol maleate 0.5 % drops 1 drp EACH EYE DAILY Patient Comments: INSTILL 1 (ONE) DROP INTO BOTH EYES TWICE DAILY rosuvastatin 40 mg tablet 40 mg PO DAILY Patient Comments: TAKE 1 TABLET BY MOUTH DAILY hydrochlorothiazide 12.5 mg tablet 12.5 mg PO DAILY Patient Comments: TAKE 1 TABLET BY MOUTH EVERY DAY Centrum Silver Men 300-600-300 mcg Tablet 1 tab PO DAILY aspirin 81 mg Capsule 81 mg PO DAILY senna 8.6 mg capsule 17.2 mg PO BID Referrals / Follow Up: Estefany Rangel MD [Med Staff - Active Staff] - Within 1 Week Dorota Hancock MD [Med Staff - Active Staff] - Within 1 Month Cecilio Craft [employer], [employer]-C [Primary Care Provider] - Within 1 Week Disposition Disposition (needs filled in before D/C Order can be placed): Home, Self Care Charges/Coding Visit Charges Inpatient E&M: 97075 Disch Hosp >30min
== END 2023-06-10 11:53 | disposition home or self-care (01) | DRG 445 ==
LOC: ED 14:27 → MS3 14:41
PROVIDERS: Hospitalist; Nurse Practitioner Acute Care; Admitting Provider Internal Medicine; Emergency Provider Student in an Organized Health Care Education/Training Program; PCP Nurse Practitioner Family; Visit Provider Family Medicine
DX: K80.00 Calculus of gallbladder with acute cholecystitis without obstruction (principal); C78.89 Secondary malignant neoplasm of other digestive organs; C78.02 Secondary malignant neoplasm of left lung; E87.1 Hypo-osmolality and hyponatremia; C25.2 Malignant neoplasm of tail of pancreas; C78.6 Secondary malignant neoplasm of retroperitoneum and peritoneum; C78.7 Secondary malignant neoplasm of liver and intrahepatic bile duct; D64.9 Anemia, unspecified; J44.9 Chronic obstructive pulmonary disease, unspecified; F39 Unspecified mood [affective] disorder; I10 Essential (primary) hypertension; K76.89 Other specified diseases of liver; F32.A Depression, unspecified; K21.9 Gastro-esophageal reflux disease without esophagitis; E78.5 Hyperlipidemia, unspecified; K80.20 Calculus of gallbladder without cholecystitis without obstruction; K58.9 Irritable bowel syndrome, unspecified; K82.8 Other specified diseases of gallbladder; I25.10 Atherosclerotic heart disease of native coronary artery without angina pectoris; E80.6 Other disorders of bilirubin metabolism; F41.9 Anxiety disorder, unspecified; H40.9 Unspecified glaucoma; Z51.5 Encounter for palliative care; Z80.3 Family history of malignant neoplasm of breast; R74.01 Elevation of levels of liver transaminase levels; Z66 Do not resuscitate; Z79.891 Long term (current) use of opiate analgesic; Z92.21 Personal history of antineoplastic chemotherapy; Z79.82 Long term (current) use of aspirin; Z95.5 Presence of coronary angioplasty implant and graft; Z79.2 Long term (current) use of antibiotics; N28.1 Cyst of kidney, acquired; G89.3 Neoplasm related pain (acute) (chronic); Z90.49 Acquired absence of other specified parts of digestive tract
CPT/HCPCS: 36415; 36591; 74177; 74181; 75989; 78226; 80053; 81001; 82247; 82248; 83605; 83690; 83735; 84100; 85014; 85018; 85025; 85027; 85610; 85730; 87070; 87075; 87205; 94640; 94668; 96367; 96413; 96417; 99156; 99285; A9537; J7030; J7050; J7120; Q9967; A4216; J2405

== ENCOUNTER 2023-06-30 05:22 | Emergency (ER) | payer MEDICARE, OTHER, SELFPAY ==
[2023-06-30 05:22] VITALS: BP 193/95; PULSE 92; RESP 19; TEMP 36.1; O2SAT 94; BMI 22.2
--- NOTE | 2023-06-30 05:29 | CT_ITS ---
INDICATION: seizure, hx pancreatic cancer EXAMINATION: CT BRAIN WITH AND WITHOUT CONTRAST - CT Head or Brain WO/W Contrast Injection TECHNIQUE: Multiple axial images were obtained of the brain with and without IV contrast. A radiation dose optimization technique was used for this scan. IV Contrast dosage and agent: 50 mL [id number] CTDI 44.99, DLP 1648.46 COMPARISON: None. FINDINGS: BRAIN PARENCHYMA: No intra- or extra-axial hemorrhage. No evidence of acute infarct. No intracranial mass or mass effect. No abnormal brain parenchymal or gross meningeal enhancement. Patchy periventricular and subcortical hypodense chronic small vessel white matter ischemic change. There is preservation of the osorio/white matter interface. Posterior fossa structures are unremarkable. No abnormal contrast enhancement. CSF SPACES: Appropriate for age. No hydrocephalus. Basal cisterns are patent. CALVARIUM, SKULL BASE, PARANASAL SINUSES AND MASTOID AIR CELLS: Clear. No discrete lytic or blastic abnormalities. ORBITS: Both globes, extraocular muscles, optic nerves and retrobulbar fat appear unremarkable. ASPECTS Score for Acute Strokes: 10 CT/Brain/Head W/WO Contrast IMPRESSION: No CT evidence of acute intracranial mass or injury. Mild senescent changes with atherosclerosis compatible with age Electronically Signed: Bryan Ravi MD at 7:05 EST ,
--- NOTE | 2023-06-30 05:31 | EX.ED.DYSGE1 ---
HPI History of Present Illness Chief Complaint: Unresponsive Informant: patient, spouse/S.O. and EMS Narrative Narrative: 72-year-old male on hospice for metastatic pancreatic cancer arrives by EMS after a possible 15-second seizure and postictal phase. Never had a seizure before that they know of. states at 2 AM, he woke up and was having some jerking with his legs but that is not uncommon for him, then he settled down but woke the spouse back up at 4:00 AM with this episode of tensing up his arms in front of him as if he was any tonic-clonic seizure for 15 seconds or so while his eyes were rolled back in his head and he was not responding. He seemed postictal afterwards for 15 or 20 minutes until EMS arrived, on the way out the door he opened his eyes and here he is awake, arriving after 5 AM. He feels nauseated but denies pain anywhere. He is newly on methadone and hydromorphone for pain control in his abdomen and has a choley tube for a drain as of 3 or 4 weeks ago. He is no longer getting any treatment for his pancreatic cancer as it has been deemed terminal. states she was not able to get a hold of hospice immediately, so she states that she panicked and called EMS and then talked to hospice afterwards. Other than the pancreatic cancer problems, no recent illness. [facility] Medical History Acute dyspnea Alcohol use Anemia BPH (benign prostatic hyperplasia) CAD (coronary artery disease) Cardiology follow-up encounter Chronic constipation CINV (chemotherapy-induced nausea and vomiting) Constipation Cough Decreased ROM of right shoulder Dehydration Elevated liver enzymes Erectile dysfunction Exertional dyspnea Gastric reflux High cholesterol History of echocardiogram History of stress test Holosystolic murmur Hypertension IBS (irritable bowel syndrome) Impaired fasting glucose Insomnia Metastasis to liver Metastasis to lung Motion sickness Pancreas cancer Peritoneal carcinomatosis Rotator cuff tear Wears dentures Wears glasses Wears partial dentures Home Medications aspirin 81 mg capsule 81 mg PO DAILY heart he 09/16/22 [History Last Taken Unknown] hydrochlorothiazide 12.5 mg tablet 12.5 mg PO DAILY diuretic 09/16/22 [History Last Taken Unknown] latanoprost 0.005 % eye drops 1 drp EACH EYE DAILY eye 09/16/22 [History Last Taken Unknown] metoprolol succinate 25 mg tablet,extended release 24 hr 25 mg PO DAILY bp 09/16/22 [History Last Taken 09/24/22 05:30] xripwzlb-fu-weexx 300 mcg-K 60 mcg-lycop 600 mcg-lutein 300 mcg tablet (Centrum Silver Men) 1 tab PO DAILY supplemen t 09/16/22 [History Last Taken Unknown] omeprazole 40 mg capsule,delayed release 40 mg PO DAILY gerd 09/16/22 [History Last Taken 09/24/22 05:30] rosuvastatin 40 mg tablet 40 mg PO DAILY cholesterol 09/16/22 [History Last Taken Unknown] timolol maleate 0.5 % eye drops 1 drp EACH EYE DAILY eye 09/16/22 [History Last Taken Unknown] zolpidem 10 mg tablet 10 mg PO QHS sleep 09/16/22 [History Last Taken Unknown] lidocaine-prilocaine 2.5 %-2.5 % topical cream 1 applic topical ONCE PRN port access 30 days #30 grams 03/10/23 [Rx Last Taken Unknown] ondansetron 8 mg disintegrating tablet 8 mg PO Q8H PRN nausea and vomiting #30 tabs 03/11/23 [Rx Last Taken Unknown] acetaminophen 500 mg tablet (Tylenol Extra Strength) 1,000 mg PO Q6H PRN pain 03/25/23 [History Last Taken Unknown] oxycodone 5 mg capsule 10 mg PO Q4H PRN pain 03/25/23 [History Last Taken Unknown] albuterol sulfate 90 mcg/actuation aerosol inhaler 2 puff inhalation Q6H PRN shortness of breath or wheezing #6.7 grams 04/01/23 [Rx Last Taken Unknown] benzonatate 100 mg capsule 100 mg PO BID-TID PRN cough 05/06/23 [History Last Taken Unknown] guaifenesin 600 mg tablet, extended release 12 hr (Mucus Relief ER) 600 mg PO BID PRN congestion 05/06/23 [History Last Taken Unknown] mirtazapine 15 mg tablet 15 mg PO QHS mood 05/06/23 [History Last Taken Unknown] metoclopramide HCl 10 mg tablet (Reglan) 10 mg PO Q6H PRN nausea and vomiting #30 tabs 06/03/23 [Rx Last Taken Unknown] sennosides 8.6 mg capsule (senna) 17.2 mg PO BID stool softener 06/07/23 [History Last Taken Unknown] hydromorphone 2 mg tablet mg 06/30/23 [History Last Taken Unknown] methadone 10 mg tablet mg 06/30/23 [History Last Taken Unknown] Allergy/AdvReac Type Severity Reaction Status Date / Time Sulfa (Sulfonamide Allergy Unknown Hives Verified 06/30/23 05:24 Antibiotics) codeine AdvReac Unknown Nausea Verified 06/30/23 05:24 amoxicillin AdvReac Nausea Verified 06/30/23 05:24 Family History Sister Breast cancer Mother Cancer Father Cancer Surgical History H/O repair of right rotator cuff History of cardiac catheterization History of colonoscopy History of coronary artery stent placement History of knee replacement Hx of bilateral cataract extraction Hx of total hip arthroplasty Postsurgical percutaneous transluminal coronary angioplasty (PTCA) status Social History household members: spouse and children Smoking Status: Never smoker alcohol intake: current alcohol intake frequency: a few times a week Alcohol type: beer substance use type: does not use ROS ROS ED Constitutional Constitutional ED: Denies chills or fever(s) Eyes Eyes: Denies change in vision or diplopia ENT ENT ED: Denies rhinorrhea or sore throat Cardiovascular Cardiovascular: Denies chest pain or palpitations Respiratory/Chest Respiratory/Chest: Denies cough or dyspnea Gastrointestinal Gastrointestinal: Reports nausea; Denies abdominal pain, diarrhea or vomiting Genitourinary Genitourinary ED: Denies dysuria or hematuria Musculoskeletal Musculoskeletal: Denies back pain or neck pain Integumentary Denies abscess or rash Neurologic Neurologic: Reports as per HPI and seizures; Denies headache(s), paresthesias or weakness Psychiatric Psychiatric: Denies suicidal ideation or suicidal thoughts EXAM Physical Exam Const Vital Signs: 06/30/23 05:22 06/30/23 07:00 Temperature 97 F L Temperature Source Temporal Pulse Rate 92 78 Respiratory Rate 19 H 15 Blood Pressure 193/95 H 139/78 H Blood Pressure Mean 127 98 Pulse Ox 94 97 Oxygen Delivery Method Room Air Room Air Positive well nourished and well developed General Appearance ED: well developed and NAD HEENT Reports moist mucous membranes normocephalic and atraumatic Eyes PERRL and EOMs intact bilaterally Neck full ROM and supple Resp normal respiratory effort and clear to auscultation bilaterally Cardio regular rate, regular rhythm and no murmurs GI non-tender and non-distended GI Narrative: Biliary tube right upper quadrant with NATHALIE drain to bulb with biliary fluid within it and the tubing. Site appears benign no signs of infection. Auscultation: normoactive bowel sounds Palpation: soft Back/Spine no CVA tenderness General Back: other FROM Extremity normal to inspection General Extremety ED: Negative for edema, pulses abnormal or tenderness General Extremity: Negative for edema or pulses abnormal Neuro oriented x3, CN's II-XII intact bilaterally and no sensory deficits noted Neuro Narrative: Symmetric motor exam Sensorium / Orientation: awake and alert Motor Exam: general weakness Psych mental status grossly normal Skin no rashes or lesions noted and no wounds MDM MDM MDM Narrative Medical decision making narrative: We discussed with family pros and cons of testing, including that if there is metastasis to the brain, although would not necessarily change release manager of his cancer or his prognosis, which is already poor, it might make the posttest probability that the patient actually did have a real epileptic seizure higher, and make us more likely to put him on antiepileptics for this episode. She is wanting CT imaging which I think is reasonable, will also get some other labs to evaluate for hyponatremia which she has a history of in the past, as well as a urine infection which she does not necessarily have history of. He does not have a headache. His blood pressure is high we will monitor this. While performing workup, patient had a seizure that nursing, family, and myself all witness. It lasted 1-2 minutes. It was generalized, tonic-clonic followed by postictal period. I had nursing grab some lorazepam, but before they were able to get it out of the Pyxis, the patient's seizure abated spontaneously. He had no cyanosis or hypoxemia and continued to breathe throughout. 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 For this reason, he was loaded with Keppra 2000 mg. Given his white blood count which hopefully is demargination from the seizure, I added a one-view portable chest x-ray which on my interpretation is negative for acute pneumonia/infection; I reviewed the radiology report and given his vomiting, will send him for CT of the abdomen/pelvis for further evaluation for obstruction. I reviewed the head CT with and without contrast images and report and I agree with it, it is negative for anything acute including radiographically visible mass. MRI would be more sensitive for this as I discussed with family. It is presumed that he may have something there that is physically present and causing him to have seizures suddenly. They understand this. Will consult neurology and check out to next shift. Lab Data Attestation: I reviewed the patient's lab results. Labs: Laboratory Results - last 24 hr 06/30/23 05:50 WBC 27.4 H RBC 3.86 L Hgb 12.1 L Hct 37.0 L MCV 95.9 H MCH 31.3 MCHC 32.7 RDW Std Deviation 61.7 H RDW Coeff of Rosemary 18.1 H Plt Count 460 H MPV 11.9 Immature Gran % (Auto) 1.000 H Neut % (Auto) 70.6 H Lymph % (Auto) 19.3 [place] % (Auto) 8.2 Eos % (Auto) 0.3 Baso % (Auto) 0.6 Absolute Neuts (auto) 19.3 H Absolute Lymphs (auto) 5.29 H Nucleated RBC % 0 Sodium 133 L Potassium 3.7 Chloride 96 L Carbon Dioxide 25.0 Anion Gap 12 BUN 15 Creatinine 0.84 Estim Creat Clear Calc 76.85 Est GFR (MDRD) Af Amer 116 Est GFR (MDRD) Non-Af 96 BUN/Creatinine Ratio 17.8 Glucose 146 H Lactic Acid 5.0 H* Calcium 9.2 Radiography Diagnostic Testing: Clinical Impression(s) from Imaging Studies Brain CT 06/30/23 05:29 IMPRESSION: No CT evidence of acute intracranial mass or injury. Mild senescent changes with atherosclerosis compatible with age Electronically Signed: Bryan Ravi MD at 7:05 EST , Chest X-Ray 06/30/23 06:15 IMPRESSION: Persistent right basilar atelectasis or consolidation with similar in morphology to May 10, 2023 CT. Correlate for clinical pneumonia. Dilated loops of small bowel in the upper abdomen suspicious for ileus or distal obstruction. Consider abdominal imaging. Electronically Signed: Bryan Ravi MD at 7:09 EST , Discharge Plan Triage Chief Complaint: Unresponsive ED Provider: Shaun Livingston Dx/Rx/DC Orders Clinical Impression: Pancreatic malignant neoplasm, New onset seizure Prescriptions: No Action lidocaine-prilocaine 2.5-2.5 % cream 1 applic topical ONCE PRN (Reason: port access) 30 Days Qty: 30 2RF ondansetron 8 mg tablet,disintegrating 8 mg PO Q8H PRN (Reason: nausea and vomiting) Qty: 30 2RF oxycodone 5 mg capsule 10 mg PO Q4H PRN (Reason: pain) acetaminophen [Tylenol Extra Strength] 500 mg tablet 1,000 mg PO Q6H PRN (Reason: pain) albuterol sulfate 90 mcg/actuation HFA aerosol inhaler 2 puff inhalation Q6H PRN (Reason: shortness of breath or wheezing) Qty: 6.7 1RF benzonatate 100 mg capsule 100 mg PO BID-TID PRN (Reason: cough) mirtazapine 15 mg tablet 15 mg PO QHS guaifenesin [Mucus Relief ER] 600 mg tablet extended release 12hr 600 mg PO BID PRN (Reason: congestion) metoclopramide HCl [Reglan] 10 mg tablet 10 mg PO Q6H PRN (Reason: nausea and vomiting) Qty: 30 1RF latanoprost 0.005 % drops 1 drp EACH EYE DAILY Patient Comments: Instill 1 drop into both eyes once a day omeprazole 40 mg capsule,delayed release(DR/EC) 40 mg PO DAILY Patient Comments: TAKE 1 CAPSULE BY MOUTH DAILY metoprolol succinate 25 mg tablet extended release 24 hr 25 mg PO DAILY Patient Comments: TAKE 1 TABLET BY MOUTH DAILY zolpidem 10 mg tablet 10 mg PO QHS Patient Comments: 08/07/22 TAKE 1 TABLET BY MOUTH AT BEDTIME timolol maleate 0.5 % drops 1 drp EACH EYE DAILY Patient Comments: INSTILL 1 (ONE) DROP INTO BOTH EYES TWICE DAILY rosuvastatin 40 mg tablet 40 mg PO DAILY Patient Comments: TAKE 1 TABLET BY MOUTH DAILY hydrochlorothiazide 12.5 mg tablet 12.5 mg PO DAILY Patient Comments: TAKE 1 TABLET BY MOUTH EVERY DAY Centrum Silver Men 300-600-300 mcg Tablet 1 tab PO DAILY aspirin 81 mg Capsule 81 mg PO DAILY senna 8.6 mg capsule 17.2 mg PO BID methadone 10 mg tablet Patient Comments: take 1 tablet by mouth 2 times daily for pain hydromorphone 2 mg tablet Patient Comments: take 1 tablet by mouth every 4 hours as needed for pain Primary Care Provider: Cecilio Craft NP Referrals: Cecilio Craft NP, [employer] [Primary Care Provider] -
--- OUTSIDE RECORDS SUMMARY | 2023-06-30 05:35 | XMS RPT_ITS | CCD ---
Author Name Unknown Address [address] [place] [address] Organization [facility] Care Team Providers Care Manager Report Name Role Phone DAISY STEEL HEATER - SPIRAL MACHINE OPERATOR, FRANKLYN Bee Primary Care Phys ician Nola Malave PT Unavailable DAISY STEEL HEATER - SPIRAL MACHINE OPERATOR, FRANKLYN Bee Attending U navailable DAISY STEEL HEATER - SPIRAL MACHINE OPERATOR, FRANKLYN Bee Primary Care U navailable MELIA RIOS, RADHA Toussaint Attending Unavailable DAISY STEEL HEATER - SPIRAL MACHINE OPERATOR, FRANKLYN Bee Primary Care U navailable DAISY STEEL HEATER - SPIRAL MACHINE OPERATOR, FRANKLYN Bee Attending U navailable DAISY STEEL HEATER - SPIRAL MACHINE OPERATOR, FRANKLYN Bee Primary Care U navailable DAISY STEEL HEATER - SPIRAL MACHINE OPERATOR, FRANKLYN Bee Attending U navailable DAISY STEEL HEATER - SPIRAL MACHINE OPERATOR, FRANKLYN Bee Primary Care U navailable DAISY STEEL HEATER - SPIRAL MACHINE OPERATOR, FRANKLYN Bee Attending U navailable DAISY STEEL HEATER - SPIRAL MACHINE OPERATOR, FRANKLYN Bee Primary Care U navailable DAISY STEEL HEATER - SPIRAL MACHINE OPERATOR, FRANKLYN Bee Attending U navailable DAISY STEEL HEATER - SPIRAL MACHINE OPERATOR, FRANKLYN Bee Primary Care U navailable SEFFENS STEEL HEATER-SPIRAL MACHINE OPERATOR, USHA Attending Unavai lable DAISY STEEL HEATER - SPIRAL MACHINE OPERATOR, FRANKLYN Bee Primary Care U navailable Allergies Allergy Classification Reported Allergen(s) Allergy Type Date of Onset Reaction(s) Facility (10 sources) Codeine; Translations: [codeine] Drug Allergy Nausea (finding) [facility] Work Phone: (10 sources) Penicillin; Translations: [penicillin] Drug Allergy Nausea (finding) [facility] Work Phone: (10 sources) Sulfonamides (Antibiotic); Translations: [sulfa drugs] Drug allergy Weal (disorder) [facility] Work Phone: Medications Current Medications Medication Drug [...] Pain, # 14 tab(s), 0 Refill(s), Pharmacy: [id number], 171.5, cm, 06/19/22 11:31:00 EST, Height [...] Body temperature 98.24 [degF] LATASHA FISH MD [facility] 11-09-2021 08:11-0400 Diastolic blood pressure 83 mm[Hg] LATASHA FISH MD [facility] 11-09-2021 08:11-0400 Heart rate 87 /min LATASHA FISH MD [facility] 11-09-2021 08:11-0400 Respiratory rate 18 /min LATASHA FISH MD [facility] 11-09-2021 08:11-0400 Systolic blood pressure 153 mm[Hg] LATASHA FISH MD [facility] Encounters Encounter Date Encounter Type Care Provider Facility Start: 02-25-2023 End: 02-26-2023 ambulatory FRANKLYN VILLA STEEL HEATER - SPIRAL MACHINE OPERATOR Facility:B Start: 01-18-2023 ambulatory FRANKLYN WEBB STEEL HEATER - SPIRAL MACHINE OPERATOR Facility:B Start: 01-12-2023 End: 01-13-2023 ambulatory FRANKLYN VILLA STEEL HEATER - SPIRAL MACHINE OPERATOR Facility:[facility] Start: 01-12-2023 End: 01-12-2023 Patient encounter procedure FRANKLYN VILLA STEEL HEATER - SPIRAL MACHINE OPERATOR [facility] Start: 08-24-2022 End: 08-25-2022 ambulatory FRANKLYN VILLA STEEL HEATER - SPIRAL MACHINE OPERATOR Facility:[facility] Start: 08-24-2022 End: 08-24-2022 Patient encounter procedure FRANKLYN VILLA STEEL HEATER - SPIRAL MACHINE OPERATOR [facility] Start: 08-12-2022 End: 08-13-2022 ambulatory RADHA CÁRDENAS PA-C Facility:[facility] Start: 08-12-2022 End: 08-12-2022 Patient encounter procedure RADHA CÁRDENAS PA-C [facility] Start: 07-20-2022 End: 07-21-2022 ambulatory FRANKLYN VILLA STEEL HEATER - SPIRAL MACHINE OPERATOR Facility:[facility] Start: 07-20-2022 End: 07-20-2022 Patient encounter procedure FRANKLYN VILLA STEEL HEATER - SPIRAL MACHINE OPERATOR [facility] Start: 06-19-2022 End: 06-20-2022 ambulatory USHA PÉREZ STEEL HEATER-SPIRAL MACHINE OPERATOR Facility:[facility] Start: 06-19-2022 End: 06-19-2022 Patient encounter procedure USHAEULALIO PÉREZ STEEL HEATER-SPIRAL MACHINE OPERATOR [facility] Start: 02-12-2022 End: 02-16-2022 Outreach Lab FRANKLYN VILLA STEEL HEATER - SPIRAL MACHINE OPERATOR [facility] Start: 11-09-2021 End: 11-09-2021 Emergency department patient visit LATASHA FISH MD [facility] Start: 08-29-2021 End: 08-29-2021 Patient encounter procedure LORIE CASSIE STEEL HEATER-SPIRAL MACHINE OPERATOR [facility] Start: 07-31-2021 End: 08-04-2021 Outreach Lab FRANKLYN VILLA STEEL HEATER - SPIRAL MACHINE OPERATOR [facility] Start: 05-14-2021 End: 05-14-2021 Patient encounter [facility] [place] STEEL HEATER-SPIRAL MACHINE OPERATOR [facility] Procedures Date Procedure Procedure Detail Performing Clinician Start: 08-29-2021 Cardiovascular stres s testing LATASHA FISH MD Start: 09-15-2019 Cardiac catheterization BETI [place] STEEL HEATER-SPIRAL MACHINE OPERATOR Immunizations Immunization Date Immunization Notes Care Provider Fa cility 05-01-2022 Pneumococcal conjuga te PCV20, polysaccharide DVB327 conjugate, adjuvant, PF; Translations: [Prevnar 20] USHA PÉREZ STEEL HEATER-SPIRAL MACHINE OPERATOR [facility] 01-30-2022 influenza, high dose seasonal, preservative-free FRANKLYN URBANPKINS STEEL HEATER - SPIRAL MACHINE OPERATOR [facility] 03-17-2021 SARS-CoV-2 mRNA (tozinameran) vaccine FRANKLYN URBANPKINS STEEL HEATER - SPIRAL MACHINE OPERATOR [facility] 01-30-2021 influenza, high dose seasonal, preservative-free; Translations: [Afluria PF Quadrivalent ] BETI [place] STEEL HEATER-SPIRAL MACHINE OPERATOR [facility] 07-04-2020 SARS-CoV-2 (COVID-19 ) Ad26 vaccine, recombinant [facility] [place] STEEL HEATER-SPIRAL MACHINE OPERATOR [facility] Payers Date Payer Category Payer Medicare [id number] 2022 Unknown [id number] 1950 Unknown [id number] 2.16.8 [id number] 1950 Unknown [id number] 2.16.8 [id number] 1950 Unknown [id number] 2.16.8 [id number] 1950 Unknown [id number] 2.16.8 [id number] 1950 Unknown [id number] 2.16.8 [id number] 1950 Unknown [id number] 2.16.8 [id number] 1950 Unknown [id number] 2.16.8 [id number] Social History Date Type Detail Facility Start: 11-07-2018 Never smoked tobacco (f inding) [facility] Functional Status Date Assessment Result Facility 11-09-2021 Functional Status ID band on, Allergy Band on, Call device within reach, Bed in low position, Wheels locked, Upper/Half-Length side-rails up, Phone within reach, personal items within reach, Assistive devices within reach, Toileting device within reach, Bedside Cart Locked, Visitor at bedside, Safety level maintained [facility] Mental Status Date Assessment Result Facility 11-09-2021 Mental Status Oriented x 4 [facility] Clinical Notes 11-09-2021 to 01-12-2023 LaboratoryLaboratoryLaboratoryLaboratoryLaboratoryLaboratoryLaboratoryLaboratory LaboratoryRadiology [...] 01/12/2023 4:47:17 PM Ordering Provider: FRANKLYN URBANPKINS [facility] 08-12-2022 Note ORIGINAL EXAMINATION: MRI OF THE [...] Sign Date: 08/12/2022 12:16:33 PM Ordering Provider: [facility] 08-12-2022 Note ORIGINAL EXAMINATION: MRI OF THE [...] Sign Date: 08/12/2022 12:16:33 PM Ordering Provider: [facility] 11-09-2021 Hospital Discharge instructions Patient Education 11/09/2021 [...] New rash Other symptoms are getting worse 0299-4973 [employer]. [address] [place] [address] 18348. All rights reserved. This information is not intended as a substitute for professional medical care. Always follow your healthcare professional's instructions. Follow Up Care 11/09/2021 08:08:12 With:FRANKLYN VILLA APRN - SPIRAL MACHINE OPERATOR Address: [address] [place] [address]- When:2-4 days [facility] 11-09-2021 Note Discharge Instructions Thank you for [...] CNP When Within 2-4 days Where: [address] [place] [place] [address]- Allergies codeine (Nausea) penicillin (Nausea) sulfa drugs [...] may report side effects to FDA at 6-626-NMD-5450. What other drugs will affect acetaminophen and [...] affect acetaminophen and codeine, including prescription and xewj-hvq-oeqjpry medicines, vitamins, and herbal products. Not all [...] to ensure that the information provided by [employer]. ('[employer]') is accurate, up-to-date, and complete, but no guarantee is made to that effect. Drug information contained herein may be time sensitive. itsDapper information has been compiled for use by healthcare practitioners and consumers in the [place] and therefore itsDapper does not warrant that uses outside of the [place] are appropriate, unless specifically indicated otherwise. its[employer]apper's drug information does not endorse drugs, diagnose patients or recommend therapy. [employer] drug information is an informational resource designed [...] effective or appropriate for any given patient. [facility] does not assume any responsibility for any aspect of healthcare administered with the aid of information [facility] provides. The information contained herein is not intended to cover all possible uses, directions, precautions, warnings, drug interactions, allergic reactions, or adverse effects. If you have questions about the drugs you are taking, check with your doctor, nurse or pharmacist. Copyright 3510-9327 [facility] [employer] [facility]. Version: 18.. Revision Date: 05/31/2020. [...] may report side effects to FDA at 1-851-LPZ-9801. What other drugs will affect lidocaine viscous? Lidocaine viscous is not likely to be affected by other drugs you use. But many drugs can interact with each other. Tell each of your health care providers about all medicines you use, including prescription and guud-ljs-qplbehd medicines, vitamins, and herbal products. Where can I get more information? Your pharmacist can provide more information about lidocaine viscous. Remember, keep this and all other medicines out of the reach of children, never share your medicines with others, and use this medication only for the indication prescribed. Every effort has been made to ensure that the information provided by [employer]. ('[employer]') is accurate, up-to-date, and complete, but no guarantee is made to that effect. Drug information contained herein may be time sensitive. itsDapper information has been compiled for use by healthcare practitioners and consumers in the [place] and therefore itsDapper does not warrant that uses outside of the [place] are appropriate, unless specifically indicated otherwise. [employer]'s drug information does not endorse drugs, diagnose patients or recommend therapy. [employer] drug information is an informational resource designed [...] effective or appropriate for any given patient. [facility] does not assume any responsibility for any aspect of healthcare administered with the aid of information [facility] provides. The information contained herein is not intended to cover all possible uses, directions, precautions, warnings, drug interactions, allergic reactions, or adverse effects. If you have questions about the drugs you are taking, check with your doctor, nurse or pharmacist. Copyright 6807-4763 [employer]. Version: 3.01. Revision Date: 10/06/2017. Education Materials [...] New rash Other symptoms are getting worse 9925-8919 [employer]. [address] [place] [address]. All rights reserved. This information is not intended as a substitute for professional medical care. Always follow your healthcare professional's instructions. Additional Information VACCINATE! IT SAVES LIVES! Members of the community who have not yet received the COVID-19 vaccine and would like to receive it can visit one of [facility] vaccine clinics. There are many vaccine clinic locations within the [facility]. For locations and available times, please visit [email or web address] g. It is important to note that some COVID mobile vaccine clinics are held outdoors and may be canceled in rainy or stormy conditions. To learn more about pediatric vaccinations (ages 5-11), we invite you to visit the [facility] webpage. https://www.[facility].org/pag es/8824-Vpzub-Hdpndmvvigv-Frequent te-Smcmc-Gtucttujd.html To learn more about the COVID-19 vaccine, we invite you to visit the [facility] website for a list of frequently asked questions. [email or web address] ently_[email or web address]-Questions.pdf [facility] Patient Portal Access Instructions: Stay connected with your healthcare team and access your personal medical information anytime with the [facility] Patient Portal. If you would like a full copy of your medical records please contact the [facility] Medical Records Department Wednesday through Wednesday between 8a.m. and 4:30p.m. Please follow the directions below to access the portal: 1.Access the email account you provided upon registration to the [facility].2.Look for an invitation email from [facility].3.Open the email and access the invitation link: Accept Invitation to [facility]4.Fill in the required oneal to create your account. Sign into [email or web address] with your username and password that you [...] you will allow to register on the [facility] Patient Portal for access to your information. You can also access the [facility] Patient Portal on the [employer] delphine. Simply click on Health Records under Health Data and then click on the [employer] logo. HOW TO SAFELY DISPOSE OF PRESCRIPTION [...] Call your local pharmacy or go to http://bit.ly/9K5Xu0z to find one close to you.3.Make use of household items: Use cat litter or old coffee grounds to dispose medications if other options are not available. Mix your drugs with these household products, seal them in an airtight container and throw it into the garbage. Call [facility]: [phone] to be sure your drugs can be [...] aware that I should contact my doctor. Patient/Air Drier Machine Operator Signature: Date/Time: Relationship to Patient: ___ Witness Name/Signature: Date/Time: [facility] 11-09-2021 Note Discharge Instructions Thank you for allowing [facility] to assist you with your healthcare needs. [...] CNP When Within 2-4 days Where: [address] [place] [place] [address]- Allergies codeine (Nausea) penicillin (Nausea) sulfa drugs [...] may report side effects to FDA at 6-142-IMS-8947. What other drugs will affect acetaminophen and [...] affect acetaminophen and codeine, including prescription and ulmd-prf-ujkoaqv medicines, vitamins, and herbal products. Not all [...] to ensure that the information provided by [employer]. ('[employer]') is accurate, up-to-date, and complete, but no guarantee is made to that effect. Drug information contained herein may be time sensitive. itsDapper information has been compiled for use by healthcare practitioners and consumers in the [place] and therefore itsDapper does not warrant that uses outside of the [place] are appropriate, unless specifically indicated otherwise. [employer]'s drug information does not endorse drugs, diagnose patients or recommend therapy. [facility]'s drug information is an informational resource designed [...] effective or appropriate for any given patient. [facility] does not assume any responsibility for any aspect of healthcare administered with the aid of information [facility] provides. The information contained herein is not intended to cover all possible uses, directions, precautions, warnings, drug interactions, allergic reactions, or adverse effects. If you have questions about the drugs you are taking, check with your doctor, nurse or pharmacist. Copyright 9430-7355 [facility] [employer]. Version: 18.. Revision Date: 05/31/2020. lidocaine viscous [...] may report side effects to FDA at 8-850-FIQ-6808. What other drugs will affect lidocaine viscous? Lidocaine viscous is not likely to be affected by other drugs you use. But many drugs can interact with each other. Tell each of your health care providers about all medicines you use, including prescription and bqjl-foy-vtfajpx medicines, vitamins, and herbal products. Where can I get more information? Your pharmacist can provide more information about lidocaine viscous. Remember, keep this and all other medicines out of the reach of children, never share your medicines with others, and use this medication only for the indication prescribed. Every effort has been made to ensure that the information provided by [employer]. ('[employer]') is accurate, up-to-date, and complete, but no guarantee is made to that effect. Drug information contained herein may be time sensitive. itsDapper information has been compiled for use by healthcare practitioners and consumers in the [place] and therefore itsDapper does not warrant that uses outside of the [place] are appropriate, unless specifically indicated otherwise. [employer]'s drug information does not endorse drugs, diagnose patients or recommend therapy. [employer] drug information is an informational resource designed [...] effective or appropriate for any given patient. [facility] does not assume any responsibility for any aspect of healthcare administered with the aid of information [facility] provides. The information contained herein is not intended to cover all possible uses, directions, precautions, warnings, drug interactions, allergic reactions, or adverse effects. If you have questions about the drugs you are taking, check with your doctor, nurse or pharmacist. Copyright 4355-7631 Stefanie [facility], [facility]. Version: 3.01. Revision Date: 10/06/2017. [...] New rash Other symptoms are getting worse 0804-5941 [employer]. [address] [place] [address]. All rights reserved. This information is not intended as a substitute for professional medical care. Always follow your healthcare professional's instructions. Additional Information VACCINATE! IT SAVES LIVES! Members of the community who have not yet received the COVID-19 vaccine and would like to receive it can visit one of [facility] vaccine clinics. There are many vaccine clinic locations within the [facility]. For locations and available times, please visit [email or web address] g. It is important to note that some COVID mobile vaccine clinics are held outdoors and may be canceled in rainy or stormy conditions. To learn more about pediatric vaccinations (ages 5-11), we invite you to visit the [facility] webpage. https://www.[facility].org/pag es/1492-Ombas-Pwuwgqknxgz-Frequent eo-Dgxno-Leltpljzu.html To learn more about the COVID-19 vaccine, we invite you to visit the [facility] website for a list of frequently asked questions. [email or web address] d-[email or web address] ently_Asked-Questions.pdf [facility] Patient Portal Access Instructions: Stay connected with your healthcare team and access your personal medical information anytime with the [facility] Patient Portal. If you would like a full copy of your medical records please contact the [facility] Medical Records Department Wednesday through Wednesday between 8a.m. and 4:30p.m. Please follow the directions below to access the portal: 1.Access the email account you provided upon registration to the [facility].2.Look for an invitation email from [facility].3.Open the email and access the invitation link: Accept Invitation to [facility]4.Fill in the required oneal to create your account. Sign into [email or web address] with your username and password that you [...] you will allow to register on the [facility] Patient Portal for access to your information. You can also access the [facility] Patient Portal on the [employer] delphine. Simply click on Health Records under [...] Call your local pharmacy or go to http://bit.ly/9K2Ks0d to find one close to you.3.Make use of household items: Use cat litter or old coffee grounds to dispose medications if other options are not available. Mix your drugs with these household products, seal them in an airtight container and throw it into the garbage. Call [facility]: [phone] to be sure your drugs can be [...] aware that I should contact my doctor. Patient/Air Drier Machine Operator Signature: Date/Time: Relationship to Patient: ___ Witness Name/Signature: Date/Time: [facility] Evaluation + Plan note Future Appointments Appointment Date:05/15/2021 08:00:00 AM Scheduled Provider:FRANKLYN VILLA APRN, CNP Location:[facility] Appointment Type:PC OV Controlled Medication Appointment Date:07/25/2021 08:15:00 AM Scheduled Provider: Location:[facility] Appointment Type:PC Nurse Lab Appointment Date:07/31/2021 09:00:00 AM Scheduled Provider:FRANKLYN VILLA APRN, CNP Location:[facility] Appointment Type:PC OV Follow Up Appointment Date:09/30/2021 01:00:00 PM Scheduled Provider: Location:[facility] [employer] Appointment Type:CV OV Future Scheduled TestsFolate Level 07/31/21Hepatic Function Panel 09/30/21Prostate Specific Antigen 07/31/21Vitamin B12 Level 07/31/21Complete Blood Count 07/31/21Lipid Profile 09/30/21Lipid Profile 07/31/21Complete Metabolic Panel 07/31/21 [facility] Evaluation + Plan note Future Appointments Appointment Date:08/07/2021 09:00:00 AM Scheduled Provider:FRANKLYN VILLA APRN, CNP Location:[facility] Appointment Type:PC OV Follow Up Appointment Date:09/30/2021 01:00:00 PM Scheduled Provider: [facility] [employer] [facility] Type:CV OV Appointment Date:10/30/2021 08:40:00 AM Scheduled Provider:FRANKLYN VILLA APRN, CNP Location:[facility] Appointment Type:PC OV Controlled Medication Future Scheduled TestsHepatic Function Panel 09/30/21Complete Blood Count 01/30/22Lipid Profile 01/30/22Lipid Profile 09/30/21Microalbumin Level Urine 01/30/22Complete Metabolic Panel 01/30/22 [facility] Evaluation + Plan note Future Appointments Appointment [...] 01/30/22Complete Metabolic Panel 02/06/Complete Metabolic Panel 01/30/22 [facility] Evaluation + Plan note Future Appointments Appointment [...] 01/30/22Complete Metabolic Panel 02/06/22Complete Metabolic Panel 01/30/22 [facility] Evaluation + Plan note Future Appointments Appointment Date:02/23/2022 09:00:00 AM Scheduled Provider:FRANKLYN VILLA APRN, CNP Location:[facility] Appointment Type:PC OV Appointment Date:05/01/2022 09:40:00 AM Scheduled Provider:FRANKLYN VILLA APRN, CNP Location:[facility] Appointment Type:PC OV Controlled Medication Future Scheduled TestsHepatic Function Panel 6Complete Blood Count 01/30/22Lipid Profile 01/30/22Lipid Profile 6/Microalbumin Level Urine 10/14/22Microalbumin Level Urine 10/Complete Metabolic Panel 01/30/22 [facility] Evaluation + Plan note Future Appointments Appointment [...] 08/23/22Complete Metabolic Panel 01/30/22Complete Metabolic Panel 08/23/22 [facility] Evaluation + Plan note Future Appointments Appointment [...] 08/23/22Complete Metabolic Panel 01/30/22Complete Metabolic Panel 08/23/22 [facility] Evaluation + Plan note Future Appointments Appointment Date:08/31/2022 10:40:00 AM Scheduled Provider:FRANKLYN VILLA APRN - KORINA Location:[facility] Appointment Type:PC OV Follow Up Appointment Date:08/31/2022 02:30:00 PM Scheduled Provider:LORIE MATTHEWS APRN-KORINA Location:[facility] Appointment Type:CV OV Appointment Date:10/30/2022 08:20:00 AM Scheduled Provider:FRANKLYN VILLA APRN - SPIRAL MACHINE OPERATOR Location:[facility] Appointment Type:PC OV Controlled Medication Future Scheduled TestsHepatic Function Panel 09/30/21Complete Blood Count 01/30/22Lipid Profile 01/30/22Lipid Profile 09/30/21Microalbumin Level Urine 02/06/Microalbumin Level Urine 01/30/22Complete Metabolic Panel 01/30/22 [facility] Evaluation + Plan note Future Appointments Appointment Date:01/29/2023 08:20:00 AM Scheduled Provider:FRANKLYN VILLA APRN - KORINA Location:[facility] Appointment Type:PC OV Controlled Medication Appointment Date:03/04/2023 09:40:00 AM Scheduled Provider:FRANKLYN VILLA APRN - SPIRAL MACHINE OPERATOR Location:[facility] Appointment Type:PC OV Follow Up Appointment Date:09/09/2023 10:00:00 AM Scheduled Provider:LORIE MATTHEWS APRN-KORINA Location:[facility] Appointment Type:CV OV Future Scheduled [id number] Hemoglobin 03/03/23Complete Blood Count 01/30/22Complete Blood Count 01/07/23Complete Blood Count 03/03/23Lipid Profile 01/30/22Lipid Profile 03/03/23Albumin/Creatinine Ratio, Random Urine 03/03/23Microalbumin Level Urine 02/06/22Microalbumin Level Urine 01/30/22Complete Metabolic Panel 01/30/22Complete Metabolic Panel 01/07/23Complete Metabolic Panel 03/03/23CT Abdomen and Pelvis w/o contrast 01/07/23 [facility] course Narrative No data available for this section [facility] Discharge instructions No data available for this section [facility] Progress note No data available for this section [facility] Summary Purpose Family History No Family History Records Found Advance Directives No Advanced Directives Records Found Additional Source Comments Care Team (unrecognized sect ion and content) Personnel Name: FRANKLYN VILLA APRN - SPIRAL MACHINE OPERATOR Address: [address] [place] [address] Name: Marielle Malave PT Personnel Name: FRANKLYN VILLA APRN - SPIRAL MACHINE OPERATOR Address: [address] [place] [address] Name: Marielle Malave PT Care Team Personnel Name: Marielle Malave PT Position: P3 Scheduling - System Controller Advanced Member Role: Other Name: FRANKLYN VILLA APRN - SPIRAL MACHINE OPERATOR Position: P4 Advanced Lead Cashier Member Role: Primary Care Physician Address: Address: [address] [place] [address] Care Team Related Persons Name: DEJON CALI Care Team Personnel Name: Marielle Malave PT Position: P3 Scheduling - System Controller Advanced Member Role: Other Name: FRANKLYN VILLA STEEL [employer]ATER - SPIRAL MACHINE OPERATOR Position: P4 Advanced Lead Cashier Member Role: Primary Care Physician Address: Address: [address] [place] [address] [place] [address]- Care Team Related Persons Name: DEJON CALI Care Team Personnel Name: Marielle Malave Clerk Nola PT Position: P3 Scheduling - System Controller Advanced Member Role: Other Name: FRANKLYN VILLA APRN, CNP Position: P4 Advanced Lead Cashier Member Role: Primary Care Physician Address: Address: [address] [place] [address]- Care Team Related Persons Name: DEJON CALI Care Team Personnel Name: Frieda Electronic Service Technician Nola PT Position: P3 Scheduling - System Controller Advanced Member Role: Other Name: FRANKLYN VILLA APRN, CNP Position: P4 Advanced Lead Cashier Member Role: Primary Care Physician Address: Address: [address] [place] [address] Care Team Related Persons Name: DEJON CALI Care Team (unrecognized sect ion and content) Care Team Personnel Name: Marielle Malave Clerk Nola PT Position: P3 Scheduling - System Controller Advanced Member Role: Other Name: FRANKLYN VILLA APRN, CNP Position: P4 Advanced Practice Nurse Med Service: Employed Provider Member Role: Primary Care Physician Address: Address: [address] [place] [address] Care Team Related Persons Name: DEJON CALI Care Team Personnel Name: Marielle Malave Clerk Nola PT Position: P3 Scheduling - System Controller Advanced Member Role: Other Name: FRANKLYN VILLA APRN, CNP Position: P4 Advanced Practice Nurse Member Role: Primary Care Physician Address: Address: [address] [place] [address] Care Team Related Persons Name: DEJON CALI Care Team Personnel Name: Frieda Electronic Service Technician Nola PT Position: P3 Scheduling - System Controller Advanced Member Role: Other Name: FRANKLYN VILLA APRN, CNP Position: P4 Advanced Lead Cashier Member Role: Primary Care Physician Address: Address: [address] [place] [address] Care Team Related Persons Name: DEJON CALI [...] BE BASED ON THE PRIMARY CLINICAL RECORDS. [facility] [employer] [facility]. provides no warranty or guarantee of the accuracy or completeness of information in this document.
[2023-06-30] MEDS: Ondansetron 4 MG/2 ML Vial IV (05:51)
[2023-06-30] MEDS: 0.9% Normal Saline (500mL Bag) 500 ML 999 ML IV (05:59)
[2023-06-30 06:00] LABS: Absolute Lymphocyte Count 5.29 X10^3/uL (0.83-4.51); Absolute Neutrophil Count 19.3 X10^3/uL (2.0-7.7); Basophil# 0.16 X10^3/uL; Basophil% 0.6 % (0-1); Eosinophil# 0.09 X10^3/uL; Eosinophils% 0.3 % (0-5); Hemoglobin 12.1 g/dL (13.0-16.5); Lymphocyte # 5.29 X10^3/ul (0.83-4.51); Lymphocyte % 19.3 % (19-41); Mean Corp Hgb Conc 32.7 g/dL (32-36); Mean Corpuscular Hgb 31.3 pg (27.0-32.0); Mean Corpuscular Volume 95.9 fL (80-94); Mean Platelet Vol. 11.9 fl (6.2-12.0); Monocyte# 2.24 X10^3/uL; Monocyte% 8.2 % (0-10); NRBC Flagged by Analyzer 0 % (0-5); Neutrophil % 70.6 % (47-70); POSITIVE DIFFERENTIAL YES; Platelet Count 460 K/mm3 (150-450); RBC Distribution Width CV 18.1 % (11.6-14.6); RBC Distribution Width SD 61.7 fl (35.1-43.9); Red Blood Count 3.86 M/mm3 (4.6-6.2); White Blood Count 27.4 K/mm3 (4.4-11.0)
[2023-06-30 06:01] LABS: Differential Indicated SCAN CRITERIA MET
[2023-06-30 06:13] LABS: Anion Gap 12 (5-15); BUN 15 mg/dL (7-18); BUN/Creat Ratio 17.8 RATIO (10-20); Calcium,Total 9.2 mg/dL (8.5-10.1); Chloride 96 mmol/L (98-107); Creatinine, Serum 0.84 mg/dL (0.70-1.30); EST Glomerular Filtration Rate 96 mL/min (>60); Est Glom Filt Rate - Afr Amer 116 mL/min (>60); Estimated Creatinine Clearance 76.85 ml/min; Glucose 146 mg/dL (74-106); Potassium 3.7 mmol/L (3.5-5.1); Sodium Level 133 mmol/L (136-145)
--- NOTE | 2023-06-30 06:15 | RAD_ITS ---
INDICATION: altered mental status EXAMINATION/TECHNIQUE: X-RAY - XR Chest 1 View COMPARISON: CT chest May 10, 2023. FINDINGS: LINES/DEVICES: Accessed right chest port with tip at the proximal right atrium. Right upper abdominal percutaneous drain noted.. LUNGS: Lateral right basilar persistent atelectasis or consolidation similar to May 10, 2023. No new consolidation, edema or effusion. No pneumothorax. MEDIASTINUM AND CARDIOVASCULAR STRUCTURES: Cardiac silhouette not enlarged. BONES AND SOFT TISSUES: There are loops of distended small bowel the upper abdomen.. RAD/Chest 1 View (Portable) IMPRESSION: Persistent right basilar atelectasis or consolidation with similar in morphology to May 10, 2023 CT. Correlate for clinical pneumonia. Dilated loops of small bowel in the upper abdomen suspicious for ileus or distal obstruction. Consider abdominal imaging. N.B. : Shaun Livingston MD, confirmed on 06/30/2023 07:13:53 (ET) that the healthcare facility has received the radiology report. Electronically Signed: Bryan Ravi MD at 7:09 EST ,
[2023-06-30 07:00] VITALS: BP 139/78; PULSE 78; RESP 15; O2SAT 97
--- NOTE | 2023-06-30 07:14 | CT_ITS ---
INDICATION: vomiting, hx metastatic panc cancer EXAMINATION: CT ABDOMEN AND PELVIS WITHOUT CONTRAST - CT Abdomen And Pelvis W/O Contrast Injection TECHNIQUE: Helically acquired images were obtained of the abdomen and pelvis without oral or IV contrast. A radiation dose optimization technique was used for this scan. IV Contrast dosage and agent: None. Oral contrast: None. COMPARISON: June 07, 2023, March 17, 2023, January 21, 2023. FINDINGS: LOWER CHEST: Right lateral basilar focal opacity unchanged from June 07, 2023, decreased from March 17, 2023. Mild basilar interstitial edema. No cardiomegaly or pericardial effusion. Multivessel calcified coronary atherosclerosis. LIVER: Hepatomegaly. Right inferior hepatic ill-defined 1.5 x 1.5 cm hypodensity, mildly increased in size from June 07 2023 GALLBLADDER AND BILIARY TREE: Right percutaneous cholecystostomy tube remains in place with decompressed gallbladder. . No intra- or extrahepatic biliary ductal dilation. PANCREAS: Pancreatic tail hypodense 2.2 cm mass, decreased in size. 2023. SPLEEN: Splenomegaly. 11 mm ill-defined left splenic hypodensity is decreased in size from June 07, 2023 CT. ADRENAL GLANDS: No nodules. KIDNEYS AND URETERS: Normal renal size and position. No hydronephrosis. Unchanged left renal cysts, no specific imaging follow-up required. PERITONEUM: No ascites or free air. No other fluid collection. BOWEL: Stomach is unchanged from prior exam and remains confluent continuity with the pancreatic mass concerning for invasion. No free fluid or air to suggest perforation. Abdominal diverticulum without wall thickening or surrounding inflammation. No small bowel distention or focal wall thickening. Appendix is not seen. No right lower quadrant inflammation to suggest appendicitis. No acute colonic finding. Redundant sigmoid colon noted. LYMPH NODES: No enlarged mesenteric or retroperitoneal lymph nodes. VESSELS: Aortic atherosclerosis without ectasia.. URINARY BLADDER: Contrast-filled, unremarkable. ABDOMINAL WALL: No discrete abdominal or pelvic wall hernia. BONES: No lytic or blastic abnormality. Right hip arthroplasty. CT/Abdomen/Pelvis without Cont IMPRESSION: Lateral right lung base opacity is unchanged from June 07, 2023 and mild decreased in size from March 17, 2023. Severe coronary atherosclerosis. Mild basilar interstitial edema. Pancreatic tail hypodense mass and splenic hypodense mass appears decreased in size from June 07, 2023. Concern for mild increase in size of right inferior hepatic hypodense 1.5 cm mass. Findings are suggestive of mixed response to therapy. If right hepatic hypodense lesion has not been previously characterized multiphasic contrast-enhanced CT could better evaluate. Inferior margin of the stomach fundus] confluent with pancreatic mass, suspicious for invasion. No evidence of obstruction or perforation. Hepatosplenomegaly. Electronically Signed: Bryan Raiv MD at 8:04 EST ,
[2023-06-30] MEDS: levETIRAcetam IV 2,000 MG in 0.9% Normal Saline (250mL Bag) 230 ML 1000 MG IV (07:36)
[2023-06-30 07:50] VITALS: BP 156/79; PULSE 74; RESP 16; O2SAT 96
--- NOTE | 2023-06-30 08:37 | NURSING ---
called squad, eta is 60 to 90 min
[2023-06-30 09:28] VITALS: BP 141/74; PULSE 75; RESP 16; TEMP 36.4; O2SAT 97
[2023-06-30] MEDS: 0.9 % NaCl (Sterile) Posiflush 10 mL IV (09:37)
[2023-06-30 09:58] LABS: Reflex Lactate? Y
[2023-07-02 08:52] LABS: Pathologist Review Reviewed
== END 2023-06-30 10:29 | disposition home or self-care (01) ==
PROVIDERS: Emergency Provider Emergency Medicine; PCP Nurse Practitioner Family; Visit Provider Emergency Medicine
DX: R56.9 Unspecified convulsions (principal); C25.9 Malignant neoplasm of pancreas, unspecified; I25.10 Atherosclerotic heart disease of native coronary artery without angina pectoris; E78.00 Pure hypercholesterolemia, unspecified; I10 Essential (primary) hypertension; Z85.118 Personal history of other malignant neoplasm of bronchus and lung; Z85.05 Personal history of malignant neoplasm of liver; Z79.82 Long term (current) use of aspirin; Z79.899 Other long term (current) drug therapy; K21.9 Gastro-esophageal reflux disease without esophagitis; G47.00 Insomnia, unspecified; Z95.5 Presence of coronary angioplasty implant and graft; Z96.659 Presence of unspecified artificial knee joint; Z98.41 Cataract extraction status, right eye; Z98.42 Cataract extraction status, left eye; Z96.649 Presence of unspecified artificial hip joint
CPT/HCPCS: 36591; 70470; 71045; 74176; 80048; 83605; 85025; 96361; 96365; 96375; 99283; J7040; J7050; Q9967; A4216; J2405

== ENCOUNTER → 2023-07-03 | Outpatient (CLI) | payer SELFPAY ==
--- OUTSIDE RECORDS SUMMARY | 2023-07-03 12:47 | XMS RPT_ITS | CCD ---
Author Name Unknown Address [email or web address] [facility] [address] [place] [address] Organization [facility] Care Team Providers Care Nike Athlete Name Role Phone [employer] MONIT[employer] - LOCAL BULK DRIVER, FRANKLYN Bee Primary Care Phys ician Frieda PT, Nola Castillo Unavailable [employer] MONITOR - LOCAL BULK DRIVER, FRANKLYN Bee Attending U navailable [employer] MONITOR - LOCAL BULK DRIVER, FRANKLYN Bee Primary Care U navailable MELIA RIOS, RADHA Toussaint Attending Unavailable [employer] MONITOR - LOCAL BULK DRIVER, FRANKLYN Bee Primary Care U navailable [employer] MONITOR - LOCAL BULK DRIVER, FRANKLYN Bee Attending U navailable [employer] MONITOR - LOCAL BULK DRIVER, FRANKLYN Bee Primary Care U navailable [employer] MONITOR - LOCAL BULK DRIVER, FRANKLYN Bee Attending U navailable [employer] MONITOR - LOCAL BULK DRIVER, FRANKLYN Bee Primary Care U navailable [employer] MONITOR - LOCAL BULK DRIVER, FRANKLYN Bee Attending U navailable [employer] BUS MONITOR - LOCAL BULK DRIVER, FRANKLYN Bee Primary Care U navailable [employer] MONITOR - LOCAL BULK DRIVER, FRANKLYN Bee Attending U navailable [employer] MONITOR - LOCAL BULK DRIVER, FRANKLYN Bee Primary Care U navailable [employer] BUS MONITOR-LOCAL BULK DRIVER, USHA Attending Unavai lable [employer] MONITOR - LOCAL BULK DRIVER, FRANKLYN Bee Primary Care U navailable Allergies Allergy Classification Reported Allergen(s) Allergy Type Date of Onset Reaction(s) Facility (10 sources) Codeine; Translations: [codeine] Drug Allergy Nausea (finding) [facility] Work Phone: (10 sources) Penicillin; Translations: [penicillin] Drug Allergy Nausea (finding) [facility] Work Phone: (10 sources) Sulfonamides (Antibiotic); Translations: [sulfa drugs] Drug allergy Weal (disorder) [facility] Work Phone: Medications Current Medications Medication [...] Pain, # 14 tab(s), 0 Refill(s), Pharmacy: [facility], 171.5, cm, 06/19/22 11:31:00 EST, Height [...] Body temperature 98.24 [degF] LATASHA FISH MD [facility] 11-09-2021 08:11-0400 Diastolic blood pressure 83 mm[Hg] LATASHA FISH MD [facility] 11-09-2021 08:11-0400 Heart rate 87 /min LATASHA FISH MD [facility] 11-09-2021 08:11-0400 Respiratory rate 18 /min LATASHA IFSH MD [facility] 11-09-2021 08:11-0400 Systolic blood pressure 153 mm[Hg] LATASHA FISH MD [facility] Encounters Encounter Date Encounter Type Care Provider Facility Start: 02-25-2023 End: 02-26-2023 ambulatory FRANKLYN VILLA [employer]OL BUS MONITOR - LOCAL BULK DRIVER Facility:B Start: 01-18-2023 ambulatory FRANKLYN WEBB [employer]CHOOL BUS MONITOR - LOCAL BULK DRIVER Facility:B Start: 01-12-2023 End: 01-13-2023 ambulatory FRANKLYN VILLA SCHOOL BUS MONITOR - LOCAL BULK DRIVER Facility:B Start: 01-12-2023 End: 01-12-2023 Patient encounter procedure FRANKLYN VILLA SCHOOL BUS MONITOR - LOCAL BULK DRIVER [facility] Start: 08-24-2022 End: 08-25-2022 ambulatory FRANKLYN VILLA SCHOOL BUS MONITOR - LOCAL BULK DRIVER Facility:B Start: 08-24-2022 End: 08-24-2022 Patient encounter procedure FRANKLYN VILLA SCHOOL BUS MONITOR - LOCAL BULK DRIVER [facility] Start: 08-12-2022 End: 08-13-2022 ambulatory RADHA CÁRDENAS PA-C Facility:B Start: 08-12-2022 End: 08-12-2022 Patient encounter procedure RADHA CÁRDENAS PA-C [facility] Start: 07-20-2022 End: 07-21-2022 ambulatory FRANKLYN VILLA SCHOOL BUS MONITOR - LOCAL BULK DRIVER Facility:B Start: 07-20-2022 End: 07-20-2022 Patient encounter procedure FRANKLYN VILLA SCHOOL BUS MONITOR - LOCAL BULK DRIVER [facility] Start: 06-19-2022 End: 06-20-2022 ambulatory USHA PÉREZ SCHOOL BUS MONITOR-LOCAL BULK DRIVER Facility:B Start: 06-19-2022 End: 06-19-2022 Patient encounter procedure USHAEULALIO PÉREZ SCHOOL BUS MONITOR-LOCAL BULK DRIVER [facility] Start: 02-12-2022 End: 02-16-2022 Outreach Lab FRANKLYN VILLA SCHOOL BUS MONITOR - LOCAL BULK DRIVER [facility] Start: 11-09-2021 End: 11-09-2021 Emergency department patient visit LATASHA FISH MD [facility] Start: 08-29-2021 End: 08-29-2021 Patient encounter procedure LORIE CASSIE SCHOOL BUS MONITOR-LOCAL BULK DRIVER [facility] Start: 07-31-2021 End: 08-04-2021 Outreach Lab FRANKLYN VILLA SCHOOL BUS MONITOR - LOCAL BULK DRIVER [facility] Start: 05-14-2021 End: 05-14-2021 Patient encounter procedure [facility] S[employer]OL BUS MONITOR-LOCAL BULK DRIVER [facility] Procedures Date Procedure Procedure Detail Performing Clinician Start: 08-29-2021 Cardiovascular stres s testing LATASHA FISH MD Start: 09-15-2019 Cardiac catheterization [facility] S[employer]OL BUS MONITOR-LOCAL BULK DRIVER Immunizations Immunization Date Immunization Notes Care Provider Fa cility 05-01-2022 Pneumococcal conjuga te PCV20, polysaccharide [id number] conjugate, adjuvant, PF; Translations: [Prevnar 20] USHA PÉREZ SCHOOL BUS MONITOR-LOCAL BULK DRIVER [facility] 01-30-2022 influenza, high dose seasonal, preservative-free FRANKLYN URBANPKINS SCHOOL BUS MONITOR - LOCAL BULK DRIVER [facility] 03-17-2021 SARS-CoV-2 mRNA (tozinameran) vaccine FRANKLYN URBANPKINS SCHOOL BUS MONITOR - LOCAL BULK DRIVER [facility] [place] 01-30-2021 influenza, high dose seasonal, preservative-free; Translations: [Afluria PF Quadrivalent ] BETI MIDDLEBOURNE S[employer]OL BUS MONITOR-LOCAL BULK DRIVER [facility] 07-04-2020 SARS-CoV-2 (COVID-19 ) Ad26 vaccine, recombinant [facility] S[employer]OL BUS MONITOR-LOCAL BULK DRIVER [facility] Payers Date Payer Category Payer Medicare [id number] 2022 Unknown [id number] 1950 Unknown [id number] [id number] [id number] 1950 Unknown [id number] 2.16.8 [id number] 1950 Unknown [id number] 2.16.8 [id number] 1950 Unknown [id number] 2.16.8 [id number] 1952 Unknown [id number] 2.16.8 [id number] 1952 Unknown [id number] 2.16.8 [id number] 1950 Unknown [id number] 2.16.8 [id number] Social History Date Type Detail Facility Start: 11-07-2018 Never smoked tobacco (f inding) [facility] Functional Status Date Assessment Result Facility 11-09-2021 Functional Status ID band on, Allergy Band on, Call device within reach, Bed in low position, Wheels locked, Upper/Half-Length side-rails up, Phone within reach, personal items within reach, Assistive devices within reach, Toileting device within reach, Bedside Cart Locked, Visitor at bedside, Safety level maintained [facility] Mental Status Date Assessment Result Facility 11-09-2021 Mental Status Oriented x 4 [facility] Clinical Notes 11-09-2021 to 01-12-2023 LaboratoryLaboratoryLaboratoryLaboratoryLaboratoryLaboratoryLaboratoryLaboratory [...] Date: 01/12/2023 4:47:17 PM Ordering Provider: FRANKLYN VILLA [facility] 08-12-2022 Note ORIGINAL EXAMINATION: MRI OF [...] by: Dariel Max DO Preliminary Report By: Dairel Max DO Electronically signed By Dariel Max DO Dictated Date: 08/12/2022 11:56:40 AM Prelim Date: 08/12/2022 12:16:33 PM Sign Date: 08/12/2022 12:16:33 PM Ordering Provider: [facility] 08-12-2022 Note ORIGINAL EXAMINATION: MRI OF THE [...] Sign Date: 08/12/2022 12:16:33 PM Ordering Provider: [facility] 11-09-2021 Hospital Discharge instructions Patient Education 11/09/2021 [...] New rash Other symptoms are getting worse 5332-9901 [employer]. [address] [place] [address]. All rights reserved. This information is not intended as a substitute for professional medical care. Always follow your healthcare professional's instructions. Follow Up Care 11/09/2021 08:08:12 With:FRANKLYN VILLA APRN - LOCAL BULK DRIVER Address: [address] [facility] [place] [address]- When:2-4 days [facility] 11-09-2021 Note Discharge Instructions Thank you for allowing [place] to assist you with your healthcare needs. [...] CNP When Within 2-4 days Where: [address] [facility] [place] [address]- Allergies codeine (Nausea) penicillin (Nausea) sulfa drugs [...] pharmacies. Medication Leaflets acetaminophen and codeine (a SEET evelia rocha and DASHA bunch) Tylenol with [...] may report side effects to FDA at 8-123-OGU-0540. What other drugs will affect acetaminophen and [...] affect acetaminophen and codeine, including prescription and ksbk-uyt-pfneyij medicines, vitamins, and herbal products. Not all [...] to ensure that the information provided by [employer]. ('Multum') is accurate, up-to-date, and complete, but no guarantee is made to that effect. Drug information contained herein may be time sensitive. Wynlink information has been compiled for use by healthcare practitioners and consumers in the [place] and therefore Wynlink does not warrant that uses outside of the [place] are appropriate, unless specifically indicated otherwise. Wynlink's drug information does not endorse drugs, diagnose patients or recommend therapy. SimScales drug information is an informational resource designed [...] effective or appropriate for any given patient. [facility] does not assume any responsibility for any aspect of healthcare administered with the aid of information [facility] provides. The information contained herein is not intended to cover all possible uses, directions, precautions, warnings, drug interactions, allergic reactions, or adverse effects. If you have questions about the drugs you are taking, check with your doctor, nurse or pharmacist. Copyright 3234-9759 [facility]. Version: 18.01. Revision Date: 05/31/2020. lidocaine viscous (LYE woodward [...] may report side effects to FDA at 8-225-TQL-0299. What other drugs will affect lidocaine viscous? Lidocaine viscous is not likely to be affected by other drugs you use. But many drugs can interact with each other. Tell each of your health care providers about all medicines you use, including prescription and atsv-rvj-wvdkhxn medicines, vitamins, and herbal products. Where can I get more information? Your pharmacist can provide more information about lidocaine viscous. Remember, keep this and all other medicines out of the reach of children, never share your medicines with others, and use this medication only for the indication prescribed. Every effort has been made to ensure that the information provided by [employer]. ('Telinettum') is accurate, up-to-date, and complete, but no guarantee is made to that effect. Drug information contained herein may be time sensitive. Wynlink information has been compiled for use by healthcare practitioners and consumers in the [place] and therefore Wynlink does not warrant that uses outside of the [place] are appropriate, unless specifically indicated otherwise. SimScales drug information does not endorse drugs, diagnose patients or recommend therapy. SimScales drug information is an informational resource designed [...] effective or appropriate for any given patient. [facility] does not assume any responsibility for any aspect of healthcare administered with the aid of information [facility] provides. The information contained herein is not intended to cover all possible uses, directions, precautions, warnings, drug interactions, allergic reactions, or adverse effects. If you have questions about the drugs you are taking, check with your doctor, nurse or pharmacist. Copyright 9538-4764 [employer]. Version: 3.01. Revision Date: 10/06/2017. Education Materials [...] New rash Other symptoms are getting worse [phone] [employer]. [address] [place] [address], [place] [address]. All rights reserved. This information is not intended as a substitute for professional medical care. Always follow your healthcare professional's instructions. Additional Information VACCINATE! IT SAVES LIVES! Members of the community who have not yet received the COVID-19 vaccine and would like to receive it can visit one of [facility] vaccine clinics. There are many vaccine clinic locations within the [facility]. For locations and available times, please visit www.[email or web address].or g. It is important to note that some COVID mobile vaccine clinics are held outdoors and may be canceled in rainy or stormy conditions. To learn more about pediatric vaccinations (ages 5-11), we invite you to visit the [facility] webpage. https://www.[facility].org/pag es/3124-Nhlts-Dfllyrrjntf-Frequent uu-Kaxzv-Gngpqzwcj.html To learn more about the COVID-19 vaccine, we invite you to visit the [employer] website for a list of frequently asked questions. [email or web address]/Patient v-tnm-Ostonqfv/zvrbi-Qdhvewi-Dwadt ently_Asked-Questions.pdf [place] [facility] Patient Portal Access Instructions: Stay connected with your healthcare team and access your personal medical information anytime with the [facility] Patient Portal. If you would like a full copy of your medical records please contact the [facility] Medical Records Department Wednesday through Wednesday between 8a.m. and 4:30p.m. Please follow the directions below to access the portal: 1.Access the email account you provided upon [facility].2.Look for an invitation email from [facility].3.Open the email and access the invitation link: Accept Invitation to [place] [facility]4.Fill in the required oneal to create your account. Sign into [email or web address] with your username and password that you [...] you will allow to register on the [facility] Patient Portal for access to your information. You can also access the [facility] Patient Portal on the [employer] delphine. Simply click on Health Records under Health Data and then click on the [employer] logo. HOW TO SAFELY DISPOSE OF PRESCRIPTION [...] Call your local pharmacy or go to http://bit.HitMeUp/0L2Np6w to find one close to you.3.Make use of household items: Use cat litter or old coffee grounds to dispose medications if other options are not available. Mix your drugs with these household products, seal them in an airtight container and throw it into the garbage. Call [facility]: [phone] to be sure your drugs can be [...] aware that I should contact my doctor. Patient/Aviation Maintenance Instructor Signature: Date/Time: Relationship to Patient: ___ Witness Name/Signature: Date/Time: [facility] 11-09-2021 Note Discharge Instructions Thank you for allowing [place] to assist you with your healthcare needs. The following is important discharge information regarding your hospital visit. Diagnosis from Today's Visit Pharyngitis Sore throat - Adult What to Do Next Instructions from Your Care Team No qualifying data available. Post Acute Orders No qualifying data available. You Need to Schedule the Following Appointments Follow Up with FRANKLYN VILLA APRN - KORINA When Within 2-4 days Where: [address] [facility] [place] [address]- Allergies codeine (Nausea) penicillin (Nausea) sulfa drugs [...] pharmacies. Medication Leaflets acetaminophen and codeine (a SEET evelia rocha and DASHA bunch) Tylenol with [...] may report side effects to FDA at 9-867-WUK-0265. What other drugs will affect acetaminophen and [...] affect acetaminophen and codeine, including prescription and mejf-qxa-euwmkju medicines, vitamins, and herbal products. Not all [...] to ensure that the information provided by [employer]. ('Multum') is accurate, up-to-date, and complete, but no guarantee is made to that effect. Drug information contained herein may be time sensitive. MyUS.comum information has been compiled for use by healthcare practitioners and consumers in the [place] and therefore MyUS.comum does not warrant that uses outside of the [place] are appropriate, unless specifically indicated otherwise. Wynlink's drug information does not endorse drugs, diagnose patients or recommend therapy. Wynlink's drug information is an informational resource designed [...] effective or appropriate for any given patient. [facility] does not assume any responsibility for any aspect of healthcare administered with the aid of information [facility] provides. The information contained herein is not intended to cover all possible uses, directions, precautions, warnings, drug interactions, allergic reactions, or adverse effects. If you have questions about the drugs you are taking, check with your doctor, nurse or pharmacist. Copyright 6872-9443 [facility]. Version: 18.. Revision Date: 05/31/2020. lidocaine viscous [...] may report side effects to FDA at 8-552-XSY-6168. What other drugs will affect lidocaine viscous? Lidocaine viscous is not likely to be affected by other drugs you use. But many drugs can interact with each other. Tell each of your health care providers about all medicines you use, including prescription and kjpn-ias-lwghauo medicines, vitamins, and herbal products. Where can I get more information? Your pharmacist can provide more information about lidocaine viscous. Remember, keep this and all other medicines out of the reach of children, never share your medicines with others, and use this medication only for the indication prescribed. Every effort has been made to ensure that the information provided by [employer]. ('Multum') is accurate, up-to-date, and complete, but no guarantee is made to that effect. Drug information contained herein may be time sensitive. Wynlink information has been compiled for use by healthcare practitioners and consumers in the [place] and therefore Wynlink does not warrant that uses outside of the [place] are appropriate, unless specifically indicated otherwise. Wynlink's drug information does not endorse drugs, diagnose patients or recommend therapy. SimScales drug information is an informational resource designed [...] effective or appropriate for any given patient. [facility] does not assume any responsibility for any aspect of healthcare administered with the aid of information [facility] provides. The information contained herein is not intended to cover all possible uses, directions, precautions, warnings, drug interactions, allergic reactions, or adverse effects. If you have questions about the drugs you are taking, check with your doctor, nurse or pharmacist. Copyright 1890-9287 [facility]. Version: 3.01. Revision Date: 10/06/2017. Education Materials [...] New rash Other symptoms are getting worse 6643-3459 [employer]. [address] [place] [address]. All rights reserved. This information is not intended as a substitute for professional medical care. Always follow your healthcare professional's instructions. Additional Information VACCINATE! IT SAVES LIVES! Members of the community who have not yet received the COVID-19 vaccine and would like to receive it can visit one of [facility] vaccine clinics. There are many vaccine clinic locations within the [facility]. For locations and available times, please visit www.gettheshot.coronavirus.[place].or g. It is important to note that some COVID mobile vaccine clinics are held outdoors and may be canceled in rainy or stormy conditions. To learn more about pediatric vaccinations (ages 5-11), we invite you to visit the [facility] webpage. https://www.[facility].org/pag es/1508-Lehmz-Vwaevhlmdmp-Frequent nz-Bgvzx-Neyhbzogk.html To learn more about the COVID-19 vaccine, we invite you to visit the [place] website for a list of frequently asked questions. https://plant [email or web address]/assets/Patient b-jvj-Wptgewdr/nlnca-Udsgkzv-Grzuc ently_Asked-Questions.pdf [facility] Patient Portal Access Instructions: Stay connected with your healthcare team and access your personal medical information anytime with the [facility] Patient Portal. If you would like a full copy of your medical records please contact the [facility] Medical Records Department Wednesday through Wednesday between 8a.m. and 4:30p.m. Please follow the directions below to access the portal: 1.Access the email account you provided upon [facility].2.Look for an invitation email from [facility].3.Open the email and access the invitation link: Accept Invitation to [facility]4.Fill in the required oneal to create your account. Sign into [email or web address] with your username and password that you [...] you will allow to register on the [place] [facility] Patient Portal for access to your information. You can also access the [place] [facility] Patient Portal on the [employer]-Online. Simply click on Health Records under Health Data and then click on the [employer] logo. HOW TO SAFELY DISPOSE OF PRESCRIPTION [...] Call your local pharmacy or go to http://bit.ly/3T3Le0z to find one close to you.3.Make use of household items: Use cat litter or old coffee grounds to dispose medications if other options are not available. Mix your drugs with these household products, seal them in an airtight container and throw it into the garbage. Call [facility]: [phone] to be sure your drugs can be [...] aware that I should contact my doctor. Patient/Aviation Maintenance Instructor Signature: Date/Time: Relationship to Patient: ___ Witness Name/Signature: Date/Time: [facility] Evaluation + Plan note Future Appointments Appointment Date:05/15/2021 08:00:00 AM Scheduled Provider:FRANKLYN VILLA APRN, CNP Location:[facility] Appointment Type:PC OV Controlled Medication Appointment Date:07/25/2021 08:15:00 AM Scheduled Provider: Location:[facility] Appointment Type:PC Nurse Lab Appointment Date:07/31/2021 09:00:00 AM Scheduled Provider:FRANKLYN VILLA APRN, CNP Location:[facility] Appointment Type:PC OV Follow Up Appointment Date:09/30/2021 01:00:00 PM Scheduled Provider: Location:[facility] Appointment Type:CV OV Future Scheduled TestsFolate Level 07/31/21Hepatic Function Panel 09/30/21Prostate Specific Antigen 07/31/21Vitamin B12 Level 07/31/21Complete Blood Count 07/31/21Lipid Profile 09/30/21Lipid Profile 07/31/21Complete Metabolic Panel 07/31/21 [facility] Evaluation + Plan note Future Appointments Appointment Date:08/07/2021 09:00:00 AM Scheduled Provider:FRANKLYN VILLA APRN, CNP Location:[facility] Appointment Type:PC OV Follow Up Appointment Date:09/30/2021 01:00:00 PM Scheduled Provider: Location:[facility] Appointment Type:CV OV Appointment Date:10/30/2021 08:40:00 AM Scheduled Provider:FRANKLYN VILLA APRN, CNP Location:[facility] Appointment Type:PC OV Controlled Medication Future Scheduled TestsHepatic Function Panel 09/30/21Complete Blood Count 01/30/22Lipid Profile 01/30/22Lipid Profile 09/30/21Microalbumin Level Urine 01/30/22Complete Metabolic Panel 01/30/22 [facility] Evaluation + Plan note Future Appointments Appointment Date:10/08/2021 09:00:00 AM Scheduled Provider: Location:[facility] Appointment Type:CV OV Appointment Date:10/30/2021 08:40:00 AM Scheduled Provider:FRANKLYN VILLA APRN, CNP Location:[facility] Appointment Type:PC OV Controlled Medication Appointment Date:01/29/2022 09:00:00 AM Scheduled Provider: Location:[facility] Appointment Type:PC Nurse Lab Appointment Date:02/05/2022 08:40:00 AM Scheduled Provider:FRANKLYN VILLA APRN, CNP Location:[facility] [place] Appointment Type:PC OV Future Scheduled TestsHepatic Function Panel 6/11/14A1C Hemoglobin 1014Complete Blood Count 02/06/22Complete Blood Count 01/30/22Lipid Profile 02/06/22Lipid Profile 01/30/22Lipid Profile 09/30/21Microalbumin Level Urine 02/06/22Microalbumin Level Urine 01/30/22Complete Metabolic Panel 02/06/22Complete Metabolic Panel 01/30/22 [facility] Evaluation + Plan note Future Appointments Appointment Date:01/29/2022 09:00:00 AM Scheduled Provider: Location:[facility] [place] Appointment Type:PC Nurse Lab Appointment Date:01/30/2022 09:00:00 AM Scheduled Provider:FRANKLYN VILLA APRN, CNP Location:[facility] [place] Appointment Type:PC OV Controlled Medication Appointment Date:02/05/2022 08:40:00 AM Scheduled Provider:FRANKLYN VILLA APRN, CNP Location:[facility] [place] Appointment Type:PC OV Future Scheduled TestsHepatic Function Panel 6A1C Hemoglobin 02/06/22Complete Blood Count 02/06/22Complete Blood Count 01/30/22Lipid Profile 02/06/22Lipid Profile 01/30/Lipid Profile 6Microalbumin Level Urine 10/Microalbumin Level Urine 01/30/22Complete Metabolic Panel 02/06/22Complete Metabolic Panel 01/30/22 [facility] Evaluation + Plan note Future Appointments Appointment Date:02/23/2022 09:00:00 AM Scheduled Provider:FRANKLYN VILLA APRN, CNP Location:[facility] [place] Appointment Type:PC OV Appointment Date:05/01/2022 09:40:00 AM Scheduled Provider:FRANKLYN VILLA APRN, CNP Location:[facility] Appointment Type:PC OV Controlled Medication Future Scheduled TestsHepatic Function Panel 6/7/Complete Blood Count 10Lipid Profile 22Lipid Profile 6//22Microalbumin Level Urine 10/14/22Microalbumin Level Urine 10//Complete Metabolic Panel 01/30/22 [facility] Evaluation + Plan note Future Appointments Appointment Date:07/31/2022 09:40:00 AM Scheduled Provider:FRANKLYN VILLA APRN - [place] Location:[facility] [place] Appointment Type:PC OV Controlled Medication Appointment Date:08/20/2022 08:45:00 AM Scheduled Provider: Location:[facility] [place] Appointment Type:PC Nurse Lab Appointment Date:08/27/2022 09:00:00 AM Scheduled Provider:FRANKLYN VILLA APRN - [place] Location:[facility] [place] Appointment Type:PC OV Follow Up Future Scheduled TestsHepatic Function Panel 6/7/Prostate Specific Antigen 08/23/22Complete Blood Count 01/30/22Complete Blood Count 08/23/22Lipid Profile 01/30/22Lipid Profile 08/23/Lipid Profile 6/Microalbumin Level Urine 10/14/22Microalbumin Level Urine 10//22Microalbumin Level Urine 08/23/22Complete Metabolic Panel 01/30/22Complete Metabolic Panel 08/23/22 [facility] Evaluation + Plan note Future Appointments Appointment Date:08/20/2022 08:45:00 AM Scheduled Provider: Location:[facility] Appointment Type:PC Nurse Lab Appointment Date:08/27/2022 09:00:00 AM Scheduled Provider:FRANKLYN VILLA APRN, CNP Location:[facility] [place] Appointment Type:PC OV Follow Up Appointment Date:10/30/2022 08:20:00 AM Scheduled Provider:FRANKLYN VILLA APRN, CNP Location:[facility] Appointment Type:PC OV Controlled Medication Future Scheduled TestsHepatic Function Panel 6/7/22Prostate Specific Antigen 4/30/23Complete Blood Count 01/30/22Complete Blood Count 08/23/22Lipid Profile 01/30/22Lipid Profile 08/23/22Lipid Profile 09/30/21Microalbumin Level Urine 10/Microalbumin Level Urine 01/30/22Microalbumin Level Urine 08/23/22Complete Metabolic Panel 01/30/22Complete Metabolic Panel 08/23/22 [facility] Evaluation + Plan note Future Appointments Appointment Date:08/31/2022 10:40:00 AM Scheduled Provider:FRANKLYN VILLA APRN - [employer] Location:[facility] [place] Appointment Type:PC OV Follow Up Appointment Date:08/31/2022 02:30:00 PM Scheduled Provider:LORIE MATTHEWS APRN-[place] Location:[facility] Appointment Type:CV OV Appointment Date:10/30/2022 08:20:00 AM Scheduled Provider:FRANKLYN VILLA APRN - LOC[employer]IVER Location:[facility] [place] Appointment Type:PC OV Controlled Medication Future Scheduled TestsHepatic Function Panel 09/30/21Complete Blood Count 01/30/22Lipid Profile 01/30/22Lipid Profile 09/30/21Microalbumin Level Urine 02/06/22Microalbumin Level Urine 01/30/22Complete Metabolic Panel 01/30/22 [facility] Evaluation + Plan note Future Appointments Appointment Date:01/29/2023 08:20:00 AM Scheduled Provider:FRANKLYN VILLA APRN - [employer]IVER Location:[facility] [place] Appointment Type:PC OV Controlled Medication Appointment Date:03/04/2023 09:40:00 AM Scheduled Provider:FRANKLYN VILLA APRN - [employer]IVER Location:[facility] [place] Appointment Type:PC OV Follow Up Appointment Date:09/09/2023 10:00:00 AM Scheduled Provider:LORIE MATTHEWS APRN-[place]INA Location:[facility] Appointment Type:CV OV Future Scheduled [id number] Hemoglobin 03/03/23Complete Blood Count 01/30/22Complete Blood Count 01/07/23Complete Blood Count 03/03/23Lipid Profile 01/30/22Lipid Profile 03/03/23Albumin/Creatinine Ratio, Random Urine 03/03/23Microalbumin Level Urine 02/06/22Microalbumin Level Urine 01/30/22Complete Metabolic Panel 01/30/22Complete Metabolic Panel 01/07/23Complete Metabolic Panel 03/03/23CT Abdomen and Pelvis w/o contrast 01/07/23 [facility] Hospital course Narrative No data available for this section [facility] Hospital Discharge instructions No data available for this section [facility] Progress note No data available for this section [facility] Summary Purpose Family History No Family History Records Found Advance Directives No Advanced Directives Records Found Additional Source Comments Care Team (unrecognized sect ion and content) Personnel Name: FRANKLYN VILLA APRN - [facility] Address: [address] [place] [address] Name: Marielle Malave Clerk [facility] Personnel Name: FRANKLYN VILLA APRN - [employer] Address: [address] [place] [address] Name: Marielle Malave Clerk [facility] Care Team Personnel Name: Marielle Malave Clerk [facility] Position: P3 Scheduling - Phlebotomy Technician Advanced Member Role: Other Name: FRANKLYN VILLA APRN - [employer] Position: P4 Advanced Microbiology Instructor Member Role: Primary Care Physician Address: Address: [address] [place] [address] Care Team Related Persons Name: DEJON CALI Care Team Personnel Name: Marielle Malave Clerk [facility] Position: P3 Scheduling - Phlebotomy Technician Advanced Member Role: Other Name: FRANKLYN VILLA APRN - [employer] Position: P4 Advanced Microbiology Instructor Member Role: Primary Care Physician Address: Address: [address] [place] [address] Care Team Related Persons Name: DEJON CALI Care Team Personnel Name: Marielle Malave Clerk [facility] Position: P3 Scheduling - Phlebotomy Technician Advanced Member Role: Other Name: FRANKLYN VILLA APRN, CNP Position: P4 Advanced Microbiology Instructor Member Role: Primary Care Physician Address: Address: [address] [place] [address] Care Team Related Persons Name: DEJON CALI Care Team Personnel Name: Marielle Malave Clerk [facility] Position: P3 Scheduling - Phlebotomy Technician Advanced Member Role: Other Name: FRANKLYN VILLA APRN, CNP Position: P4 Advanced Microbiology Instructor Member Role: Primary Care Physician Address: Address: [address] [place] [address] Care Team Related Persons Name: DEJON CALI Care Team (unrecognized sect ion and content) Care Team Personnel Name: Marielle Malave Clerk [facility]ola [facility] Position: P3 Scheduling - Phlebotomy Technician Advanced Member Role: Other Name: FRANKLYN VILLA APRN, CNP Position: P4 Advanced Practice Nurse Med Service: Employed Provider Member Role: Primary Care Physician Address: Address: [address] [place] [address]- Care Team Related Persons Name: DEJON CALI Care Team Personnel Name: Marielle Malave Clerk [facility] Position: P3 Scheduling - Phlebotomy Technician Advanced Member Role: Other Name: FRANKLYN VILLA APRN, CNP Position: P4 Advanced Practice Nurse Member Role: Primary Care Physician Address: Address: [address] [place] [address] Care Team Related Persons Name: DEJON CALI Care Team Personnel Name: Frieda, Whipped Topping Supervisor [facility] Position: P3 Scheduling - Phlebotomy Technician Advanced Member Role: Other Name: FRANKLYN VILLA APRN, CNP Position: P4 Advanced Microbiology Instructor Member Role: Primary Care Physician Address: Address: [address] [place] [address] Care Team Related Persons Name: DEJON CALI [...] BE BASED ON THE PRIMARY CLINICAL RECORDS. [facility] [employer] [facility]. provides no warranty or guarantee of the accuracy or completeness of information in this document.
[2023-07-03 12:53] LABS: Color, Urine Yellow (Yellow); Glucose, Dipstick Normal (Normal); Ketone-Dipstick 5 mg/dl (Negative); Leukocyte Esterase-Dipstick Negative /ul (Negative); Nitrite-Dipstick Negative (Negative); Occult Blood-Urine 10 /ul (Negative); Protein-Dipstick 15 mg/dl (Negative); Specific Gravity, Urine 1.015 (1.002-1.030); Urine Bilirubin Dipstick Negative (Negative); Urine Clarity Clear (Clear); Urine Urobilinogen Normal (Normal)
== END | disposition home or self-care (01) ==
PROVIDERS: PCP Nurse Practitioner Family
DX: R41.0 Disorientation, unspecified (principal); R30.9 Painful micturition, unspecified
CPT/HCPCS: 81002; 87086